=== PATIENT | female | born 1955 | race American Indian/Alaskan Native ===

== ENCOUNTER 2017-03-19 18:38 | Inpatient (IN) | payer OTHER ==
[2017-03-19 18:47] VITALS: BMI 31.2
--- NOTE | 2017-03-19 19:54 | PDOC ---
History of Present Illness <Souleymane Melgar - Last Filed: 03/19/17 20:07> - History of Present Illness Initial Comments: 03/19/17 20:09 61F w/ hx of DM (last a1c of 10.4) presenting with L heel and 1st toe ulcers. Pt reports that she first noticed an ingrown toenail on her L first toe about 8 weeks ago. It became infected, her whole foot swelled up, the nail was removed by her doctor, and she was given oral abx. This improved the swelling, but it did not completely heal. Meanwhile, she developed an ulcer on the medial aspect of her heel. She was given 3 different courses of abx for her symptoms, but they did not resolve her infection. Today, pt was sent by Dr. Price to ED for admission for IV abx. 03/19/17 20:30 03/19/17 20:35 03/19/17 21:24 <Eduardo Palencia - Last Filed: 03/19/17 21:25> - General Chief Complaint: Wound Infection Stated Complaint: PCP ADMIT Time Seen by Provider: 03/19/17 19:08 Past History <Souleymane Melgar - Last Filed: 03/19/17 20:07> - Past Medical History Diabetes: Yes Comment:: 03/19/17 20:13 PMH: DM PSH: tonsillectomy, b/l cataracts Meds: novolog, metformin, glipiride, gabapentin Allergies: PCN Fam Hx: DM Social Hx: denies toxic habits 03/19/17 20:31 - Psycho/Social/Smoking Cessation Hx Suicidal Ideation: No Smoking History: Never smoked Hx Alcohol Use: No Drug/Substance Use Hx: No <Eduardo Palencia - Last Filed: 03/19/17 21:25> - Past Medical History Allergies/Adverse Reactions: Allergies Allergy/AdvReac Type Severity Reaction Status Date / Time Penicillins Allergy Verified 03/19/17 18:48 Home Medications: Ambulatory Orders Ciprofloxacin [Cipro (Restricted To Id)] 500 mg PO Q12H 03/19/17 Gabapentin [Neurontin -] 300 mg PO Q8H 03/19/17 Glipizide [Glucotrol -] 5 mg PO BID@0700,1630 03/19/17 Insulin Aspart Prot/Insuln Asp [Novolog Mix 70-30 Flexpen Syrn] 38 unit SQ BID 03/19/17 Metformin HCl [Glucophage] 500 mg PO BID 03/19/17 Review of Systems - Review of Systems Comments:: 03/19/17 20:16 GENERAL: No fever, chills, night sweats, or weakness. HEAD, EYES, EARS, NOSE AND THROAT: No change in vision, ear pain, or sore throat CARDIOVASCULAR: No chest pain or palpitations RESPIRATORY: No cough, wheezing, or hemoptysis. GASTROINTESTINAL: No nausea, vomiting, diarrhea, constipation, or blood in the stool. GENITOURINARY: No dysuria, frequency, or urgency MUSCULOSKELETAL: + joint pain. SKIN: + rash ENDOCRINE: No increased thirst. No abnormal weight change NEUROLOGIC: No headache, dizziness, loss of consciousness, or change in strength /sensation. 03/19/17 20:31 <Eduardo Palencia - Last Filed: 03/19/17 21:25> *Physical Exam - Vital Signs Last Vital Signs Temp Pulse Resp BP Pulse Ox 98.2 F 90 16 174/82 97 03/19/17 18:44 03/19/17 18:44 03/19/17 18:44 03/19/17 18:44 03/19/17 18:44 <Souleymane Melgar - Last Filed: 03/19/17 20:07> - Vital Signs Last Vital Signs Temp Pulse Resp BP Pulse Ox 98.2 F 90 16 174/82 97 03/19/17 18:44 03/19/17 18:44 03/19/17 18:44 03/19/17 18:44 03/19/17 18:44 - Physical Exam Comments: 03/19/17 20:17 GENERAL: Awake, alert, and fully oriented, in no acute distress HEAD: normocephalic, atraumatic HEENT: PERRLA, EOMI, NECK: Normal ROM, supple, no lymphadenopathy, JVD, or masses HEART: tachyRegular rhythm, normal S1 and S2, no murmurs, rubs or gallops, peripheral pulses normal and equal bilaterally. LUNGS: CTAB, no wheezing, no rales ABDOMEN: Soft, nontender, nondistended, normoactive bowel sounds. No guarding, no rebound. No masses EXTREMITIES: 2cm x 2cm round ulcer on medial aspect of L heel, granulation tissue on top of it, no muscle or bone visible, with surrounding erythema. There is an ulcer on distal first toe toenail on left foot as well with desquamation of lateral toe with surrounding erythema, swelling until mid dorsum of foot, warm to touch. NEUROLOGICAL: Cranial nerves II through XII grossly intact. Normal speech, normal gait, decreased sensation to touch on both lower extremities L>R. 03/19/17 20:31 <Eduardo Palencia - Last Filed: 03/19/17 21:25> ED Treatment Course - RADIOLOGY Radiology Studies Ordered: Category Date Time Status CHEST X-RAY PORTABLE* [RAD] Stat Radiology 03/19/17 20:04 Ordered FOOT-LEFT [RAD] Stat Radiology 03/19/17 20:04 Ordered <Souleymane Melgar - Last Filed: 03/19/17 20:07> - LABORATORY CBC & Chemistry Diagram: 03/19/17 20:20 03/19/17 20:20 <Eduardo Palencia - Last Filed: 03/19/17 21:25> Medical Decision Making - Medical Decision Making 03/19/17 20:35 61F w/ hx of DM (last a1c of 10.4) presenting with L heel and 1st toe ulcers after 3 failed courses of oral antibiotics. 03/19/17 20:38 <Eduardo Palencia - Last Filed: 03/19/17 21:25> *DC/Admit/Observation/Transfer <Souleymane Melgar - Last Filed: 03/19/17 20:07> - Discharge Dispostion Admit: Yes Decision to Admit order Date/Time: 03/19/17 20:44 - Attestations Physician Attestion: 03/19/17 20:45 I, Dr. Eduardo Palencia, attest that this document has been prepared under my direction and personally reviewed by me in its entirety. I further attest, that it accurately reflects all work, treatment, procedures and medical decision -making performed by me. <Eduardo Palencia - Last Filed: 03/19/17 21:25> Diagnosis at time of Disposition: Diabetic ulcer of heel Qualifiers: Diabetes mellitus type: type 2 Laterality: left Non-pressure ulcer stage: unspecified non-pressure ulcer stage Qualified Code(s): E11.621 - Type 2 diabetes mellitus with foot ulcer - Discharge Dispostion Condition at time of disposition: Stable
--- NOTE | 2017-03-19 19:57 | PDOC ---
Attending Attestation - Resident Resident Name: Eduardo Palencia - ED Attending Attestation I have performed the following: I have examined & evaluated the patient, The case was reviewed & discussed with the resident, I agree w/resident's findings & plan, Exceptions are as noted - HPI HPI: 03/19/17 19:55 admission for Diabetic ulcer - Medical Decision Making 03/19/17 19:56 Pt be admitted to IV Abx. for Left foot ulcer <Souleymane Melgar - Last Filed: 03/19/17 19:55> - Physicial Exam PE: 03/19/17 20:16 GENERAL: Well developed, well nourished. Awake and alert. In no acute distress. HEENT: Normocephalic, atraumatic. PERRLA, EOMI. No conjunctival pallor. Sclerae are non -icteric. Moist mucous membranes. Oropharynx is clear. NECK: Supple. Full ROM. No JVD. Carotid pulses 2+ and symmetric, without bruits. No thyromegaly. No lymphadenopathy. CARDIOVASCULAR: Regular rate and rhythm. No murmurs, rubs, or gallops. Distal pulses are 2+ and symmetric. PULMONARY: No evidence of respiratory distress. Lungs clear to auscultation bilaterally. No wheezing, rales or rhonchi. ABDOMINAL: Soft. Non-tender. Non-distended. No rebound or guarding. No organomegaly. Normoactive bowel sounds. MUSCULOSKELETAL Normal range of motion at all joints. No bony deformities or tenderness. No CVA tenderness. EXTREMITIES: No cyanosis. No clubbing. No edema. No calf tenderness. SKIN: +Open wound to the medial aspect of the L heel with surrounding erythema which is minimally tender but has no serous fluid drainage. +The L big toe has small punctate wound that is slightly tender and slightly erythematous with drainage of yellow serous fluid. Skin break down of the surrounding tissue on the medial aspect of the L big toe. No drainage or erythema. Normal capillary refill. No rashes. No jaundice. NEUROLOGICAL: Alert, awake, appropriate. Cranial nerves 2-12 intact. No deficits to light touch and temperature in face, upper extremities and lower extremities. No motor deficits in the in face, upper extremities and lower extremities. Normoreflexic in the upper and lower extremities. Normal speech. Toes are downgoing bilaterally. Gait is normal without ataxia. PSYCHIATRIC: Cooperative. Good eye contact. Appropriate mood and affect. - Medical Decision Making 03/19/17 20:03-- Dr. Price paged via phone answering service. Patient's case was discussed. Documentation prepared by Jeanna Alcantara, acting as medical health researcher for Souleymane Melgar DO. <Jeanna Alcantara - Last Filed: 03/19/17 20:16>
[2017-03-19 20:35] LABS: BASOPHIL 0.5 % (0-2.0); MCH 24.1 pg (25.7-33.7); MCHC 32.3 g/dl (32.0-36.0); MEAN CELL VOLUME 74.6 fl (80-96); MEAN PLT VOLUME 8.5 fl (7.5-11.1); NEUTROPHILS 70.8 % (42.8-82.8); PLATELET COUNT 339 K/MM3 (134-434); RDW 15.7 % (11.6-15.6)
[2017-03-19 20:45] LABS: INR 1.02 (0.82-1.09); PROTHROMBIN TIME (PATIENT) 11.2 SEC (9.98-11.88)
[2017-03-19 21:02] LABS: ALBUMIN 3.2 g/dl (3.4-5.0); ANION GAP 6 (8-16); BILIRUBIN,TOTAL 0.2 mg/dL (0.2-1.0); CALCIUM 9.1 mg/dL (8.5-10.1); CO2 25 mmol/L (21-32); CREATININE 1.2 mg/dL (0.55-1.02); MAGNESIUM 2.1 mg/dL (1.8-2.4); SGOT/AST 16 U/L (15-37); SGPT/ALT 40 U/L (12-78); TOT PROT 7.1 g/dl (6.4-8.2)
[2017-03-19 21:03] LABS: ALK PHOS 90 U/L (45-117)
[2017-03-19 21:08] LABS: GLUCOSE,RANDOM 360 mg/dL (74-106)
[2017-03-19] MEDS ORDERED: VANCOMYCIN 1 GRAM (PRE-DOCKED) 1,000 MG/250 ML BAG IVPB ONE (21:13)
[2017-03-19] MEDS ORDERED: IMIPENEM/CILASTATIN SODIUM 1,000 MG in SODIUM CHLORIDE 100 ML IV ONE (21:18)
[2017-03-19] MEDS ORDERED: VANCOMYCIN 1 GRAM (PRE-DOCKED) 250 ML IVPB ONE (21:29)
[2017-03-19] MEDS ORDERED: morphine CARPU-JECT 2 MG/1 ML DISP.SYRIN IVPUSH ONE (21:34)
[2017-03-19] MEDS ORDERED: ONDANSETRON 4 MG/2 ML VIAL IVPUSH STA (21:35)
[2017-03-19] MEDS ORDERED: morphine CARPU-JECT 4 MG/1 ML DISP.SYRIN ONE (21:38)
[2017-03-19] MEDS ORDERED: ONDANSETRON 4 MG/2 ML VIAL ONE (21:39)
[2017-03-19] MEDS ORDERED: INSULIN REGULAR HUMAN 100 UNITS/ML *VIAL IVPUSH ONE (23:09)
[2017-03-19 23:43] LABS: URINE APPEARANCE SLCLOUDY; URINE BILIRUBIN NEGATIVE (NEGATIVE); URINE BLOOD 1+ (NEGATIVE); URINE COLOR STRAW; URINE GLUCOSE (UA) 3+ (NEGATIVE); URINE KETONE NEGATIVE (NEGATIVE); URINE NITRITE NEGATIVE (NEGATIVE); URINE UROBILINOGEN NEGATIVE mg/dL (0.2-1.0)
[2017-03-19 23:49] LABS: URINE LEUK ESTERASE 3+ (NEGATIVE); URINE PROTEIN 2+ (NEGATIVE)
[2017-03-20 00:28] LABS: URINE BACTERIA RARE /hpf (NONE SEEN); URINE MUCUS RARE; URINE RBC 8 /hpf (0-3); URINE WBC 36 /hpf (3-5)
[2017-03-20] MEDS ORDERED: ONDANSETRON 4 MG/2 ML VIAL IVPB PRN (01:36)
[2017-03-20] MEDS: ACETAMINOPHEN 325 MG TABLET (FP) PO PRN ×3 (02:26→22:22)
[2017-03-20] MEDS: glipiZIDE 5 MG TABLET (FP) PO SCH ×2 (06:25→16:49)
[2017-03-20] MEDS: metFORMIN HCL 500 MG TABLET (FP) PO SCH ×2 (06:25→16:49)
[2017-03-20] MEDS: GABAPENTIN 300 MG CAPSULE (FP) PO SCH ×5 (06:25→22:18)
[2017-03-20] MEDS: INSULIN (NOVOLOG MIX 70/30) 100 UNITS/ML MDV SQ SCH ×2 (06:29→17:47)
[2017-03-20] MEDS ORDERED: INSULIN DETEMIR 100 UNITS/ML MDV SQ ONE (07:40)
[2017-03-20] MEDS ORDERED: INSULIN (NOVOLOG) ASPART 100 UNITS/ML 10ML VIAL ONE (07:40)
[2017-03-20] MEDS ORDERED: INSULIN (NOVOLOG MIX 70/30) 100 UNITS/ML MDV SQ ONE ×2 (07:40→16:33)
[2017-03-20] MEDS ORDERED: ACETAMINOPHEN 325 MG TABLET (FP) PO PRN (09:15)
[2017-03-20] MEDS ORDERED: oxyCODONE HCL 5 MG TABLET PO PRN (09:15)
--- NOTE | 2017-03-20 09:27 | HP ---
DATE OF ADMISSION: 03/19/2017 DATE OF DICTATION: 03/20/2017 HISTORY OF PRESENT ILLNESS: This is a 61-year-old woman known to have diabetes on insulin, hypertension, for the last one month having ulcer and infection on her left foot. In spite of antibiotics, wound was not getting better. So, she was advised to hospitalization. She was complaining also of pain in the foot. PHYSICAL EXAMINATION: Vital signs: Today, her blood pressure is 140/80, pulse 75, respirations 20, temperature 98. HEENT: Unremarkable. Neck: Supple. No JVD. Lungs: Clear. Heart: S1, S2 normal. No S3, S4. Abdomen: Soft. Legs: No edema. Neurological: Grossly normal. Skin: Left foot has an ulcer on the medial aspect of the foot 1 inch x 1 inch with slough. Also, the left big toe has infection. LABORATORY REPORTS: WBC 9, hemoglobin 11.2, hematocrit 34. Chemistry: Sodium 139, potassium 4.9, chloride 108, CO2 of 25, BUN 42, creatinine 1.2, blood sugar 360, albumin 3.2 Chest x-ray negative. X-ray of the foot with no osteomyelitis. IMPRESSION: Ulcer, left foot, and uncontrolled diabetes. PLAN: IV antibiotics, ID consult, bone care consult. Will control the blood sugar. VIRGEN TAYLOR M.D. [id number]
--- NOTE | 2017-03-20 11:55 | EKG ---
Test Reason : Blood Pressure : / mmHG Vent. Rate : 078 BPM Atrial Rate : 078 BPM P-R Int : 154 ms QRS Dur : 072 ms QT Int : 368 ms P-R-T Axes : 049 000 067 degrees QTc Int : 419 ms NORMAL SINUS RHYTHM RSR' IN V1-V2 SLOW R WAVE PROGRESSION V1-V3 T WAVE INVERSION IN aVL NO PREVIOUS ECGS AVAILABLE CORRELATE CLINICALLY AND REPEAT INDICATED Confirmed by SHEIKH KALYN, TRISH ([id number] on 03/20/2017 11:54:33 AM Referred By: Confirmed By:TRISH MCHUGH MD
--- NOTE | 2017-03-20 12:05 | CONSULT ---
Consult Consult Specialty:: Vascular Surgery - History of Present Illness History of Present Illness: 61 year old woman DM with neuropathy with non-healing wounds of left 1st toe and medial ankle area for several weeks. She denies a history of PAD. She does not smoke. - History Source History Provided By: Patient, Medical Record - Past Medical History Endocrine: Yes: Diabetes Mellitus - Alcohol/Substance Use Hx Alcohol Use: No - Smoking History Smoking history: Never smoked Home Medications - Allergies Allergies/Adverse Reactions: Allergies Allergy/AdvReac Type Severity Reaction Status Date / Time Penicillins Allergy Verified 03/19/17 18:48 - Home Medications Home Medications: Ambulatory Orders Ciprofloxacin [Cipro (Restricted To Id)] 500 mg PO Q12H 03/19/17 Gabapentin [Neurontin -] 300 mg PO Q8H 03/19/17 Glipizide [Glucotrol -] 5 mg PO BID@0700,1630 03/19/17 Insulin Aspart Prot/Insuln Asp [Novolog Mix 70-30 Flexpen Syrn] 38 unit SQ BID 03/19/17 Metformin HCl [Glucophage] 500 mg PO BID 03/19/17 Physical Exam Vital Signs: Vital Signs Temperature 97.5 F L 03/20/17 06:00 Pulse Rate 75 03/20/17 06:00 Respiratory Rate 75 H 03/20/17 06:00 Blood Pressure 122/49 03/20/17 06:00 O2 Sat by Pulse Oximetry (%) 98 03/20/17 00:00 Constitutional: Yes: No Distress Eyes: Yes: EOM Intact HENT: Yes: WNL Neck: Yes: Supple Cardiovascular: Yes: Regular Rate and Rhythm Respiratory: Yes: Regular Gastrointestinal: Yes: Soft Peripheral Pulses WNL: No (No palpable popliteal or pedal pulse left foot) Wound/Incision: Yes: Other (Left medial ankle ulcer with fibrin and exudate at base. 1st toe with necrosis of skin at tip of toe.) Imaging - Results Ultrasound: Image Reviewed (Diminished flow into left tibial arteries.) Problem List - Problems (1) Diabetes mellitus with neuropathy Code(s): E11.40 - TYPE 2 DIABETES MELLITUS WITH DIABETIC NEUROPATHY, UNSP Qualifiers: Diabetes mellitus type: type 2 Diabetes mellitus skilled nursing insulin use : with exterminator helper use Qualified Code(s): E11.40 - Type 2 diabetes mellitus with diabetic neuropathy, unspecified; Z79.4 - intermediate manager (current) use of insulin (2) Atherosclerosis of [place] arteries of extremities with gangrene, left leg Assessment/Plan: Non-healing wound of left ankle and toes with calcified vessels in ankle and foot. Renal insufficiecny will hamper evaluation and treatment due to risk of contrast-induced nephropathy. Renal evaluation requested before deciding on plans. Code(s): I70.262 - ATHSCL [place] ARTERIES OF EXTREMITIES W GANGRENE, LEFT LEG
[2017-03-20] MEDS: INSULIN SLIDING SCALE (NOVOLOG) 1 VIAL SQ SCH ×3 (12:08→22:16)
--- NOTE | 2017-03-20 13:41 | CONSULT ---
Consultation: REQUESTING PROVIDER: CONSULT REQUEST: We have been asked to medically evaluate this patient for ( nephro). HISTORY OF PRESENT ILLNESS: 61F w/ hx of DM (last a1c of 10.4) was sent to ED by her pcp for IV antibiotics for non heeling ulcer on L heel and 1st toe ulcers. Pt reports that she has first noticed an ingrown toenail on her L first toe about 2 months ago. And later on she developed a ulcer on her left heel. She states that in 2month she has taken a multiple courses on antibiotics but ulcer never healed. She also reports a serous like discharge from her toe ulcer and yellow slough on heel ulcer. She doesn't remember any trauma to feet, she does reports peripheral neuropathy which was diagnosed in 2015. She states she has mild pain in her leg since. Denies any foul smell from ulcer. Denies in burning micturation, denies any change in frequency, denies any urinary obstruction. Denies taking motrin, advil, naproxen In hospital patient found to have creatinine of 1.2. Patient states that after getting IV antibiotics her discharge from ulcers decreased. REVIEW OF SYSTEMS: CONSTITUTIONAL: Absent: fever, chills, diaphoresis, generalized weakness, HEENT: Absent: rhinorrhea, nasal congestion, throat pain, CARDIOVASCULAR: Absent: chest pain, syncope, palpitations, irregular heart rate, RESPIRATORY: Absent: cough, shortness of breath, dyspnea with exertion, GASTROINTESTINAL: Absent: abdominal pain, abdominal distension, nausea, vomiting, diarrhea, constipation, GENITOURINARY: Absent: dysuria, frequency, urgency, hesitancy, hematuria, flank pain, genital pain Absent: anxiety, depression, PHYSICAL EXAMINATION Vital Signs - 24 hr 03/19/17 03/20/17 03/20/17 22:53 00:00 06:00 Temperature 97.4 F L 97.5 F L Pulse Rate 75 75 Pulse Rate [ 80 Radial] Respiratory 16 18 75 H Rate Blood Pressure 147/58 122/49 Blood Pressure 134/67 [Right Arm] O2 Sat by Pulse 100 98 Oximetry (%) GENERAL: Awake, alert, and fully oriented, in no acute distress. HEAD: Normal with no signs of trauma. EARS, NOSE, THROAT: Moist mucous membranes. NECK: Normal range of motion, supple without lymphadenopathy, JVD, or masses. LUNGS: Breath sounds equal, clear to auscultation bilaterally. No wheezes, and no crackles. No accessory muscle use. HEART: Regular rate and rhythm, normal S1 and S2 ABDOMEN: Soft, nontender, not distended, normoactive bowel sounds, no guarding, no rebound, UPPER EXTREMITIES: 2+ pulses, warm, well-perfused. No cyanosis. LOWER EXTREMITIES: Pulses not palpable on left foot. No calf tenderness. No peripheral edema. Open wound to the medial aspect of the L heel with surrounding slough present on ulcer. The L big toe some necrtic skin present around ulcer. No active discharge from ulcer Laboratory Results - last 24 hr 03/20/17 03/20/17 03/20/17 02:30 06:28 08:05 POC Glucometer 148 145 Blood Type AB NEGATIVE Antibody Screen Negative 03/20/17 03/20/17 10:43 12:07 POC Glucometer 62 Blood Type AB NEGATIVE Antibody Screen Active Medications Generic Name Dose Route Start Last Admin Trade Name Freq PRN Reason Stop Dose Admin Acetaminophen 650 mg 03/20/17 02:04 03/20/17 08:25 Tylenol - PO 650 mg Q6H PRN Administration FEVER OR PAIN Acetaminophen 650 mg 03/20/17 09:15 Tylenol - PO Q6H PRN PAIN 6-10 Gabapentin 300 mg 03/20/17 06:00 03/20/17 06:25 Neurontin - PO 300 mg TID GLENN Administration Glipizide 5 mg 03/20/17 07:00 03/20/17 06:25 Glucotrol - PO 5 mg BIDI GLENN Administration Sodium Chloride 1,000 mls @ 75 mls/hr 03/20/17 13:45 Normal Saline - IV ASDIR GLENN Insulin Aspart 38 units 03/20/17 07:00 03/20/17 06:29 Novolog Mix 70/30 Vial SQ 38 units BIDI GLENN Administration Insulin Aspart 1 vial 03/20/17 11:00 03/20/17 12:08 Novolog Vial Sliding Scale - SQ Not Given ACHS [facility] Protocol Metformin HCl 500 mg 03/20/17 07:00 03/20/17 06:25 Glucophage - PO 500 mg BIDI GLENN Administration Ondansetron HCl 4 mg 03/20/17 01:36 Zofran Injection IVPB Q6H PRN NAUSEA AND/OR VOMITING Oxycodone HCl 10 mg 03/20/17 09:15 Roxicodone - PO Q6H PRN PAIN 6-10 CBCD WBC 9.0 K/mm3 (4.0-10.0) 03/19/17 20:20 RBC 4.66 M/mm3 (3.60-5.2) 03/19/17 20:20 Hgb 11.2 GM/dL (10.7-15.3) 03/19/17 20:20 Hct 34.7 % (32.4-45.2) 03/19/17 20:20 MCV 74.6 fl (80-96) L 03/19/17 20:20 MCHC 32.3 g/dl (32.0-36.0) 03/19/17 20:20 RDW 15.7 % (11.6-15.6) H 03/19/17 20:20 Plt Count 339 K/MM3 (134-434) 03/19/17 20:20 MPV 8.5 fl (7.5-11.1) 03/19/17 20:20 CMP Sodium 139 mmol/L (136-145) 03/19/17 20:20 Potassium 4.9 mmol/L (3.5-5.1) 03/19/17 20:20 Chloride 108 mmol/L (98-107) H 03/19/17 20:20 Carbon Dioxide 25 mmol/L (21-32) 03/19/17 20:20 Anion Gap 6 (8-16) L 03/19/17 20:20 BUN 42 mg/dL (7-18) H 03/19/17 20:20 Creatinine 1.2 mg/dL (0.55-1.02) H 03/19/17 20:20 Creat Clearance w eGFR 45.37 (>60) 03/19/17 20:20 Random Glucose 360 mg/dL (74-106) H* 03/19/17 20:20 Calcium 9.1 mg/dL (8.5-10.1) 03/19/17 20:20 Total Bilirubin 0.2 mg/dL (0.2-1.0) 03/19/17 20:20 AST 16 U/L (15-37) 03/19/17 20:20 ALT 40 U/L (12-78) 03/19/17 20:20 Alkaline Phosphatase 90 U/L (45-117) 03/19/17 20:20 Total Protein 7.1 g/dl (6.4-8.2) 03/19/17 20:20 Albumin 3.2 g/dl (3.4-5.0) L 03/19/17 20:20 ASSESSMENT/PLAN: PAOLO DM with neuropathy. Diabetic ulcer/ arterial ulcer on left foot. Plan: Get UA electrolytes, pro:creat, Get renal USG Start IV fluid 75ml/hr. Monitor renal function. Monitor Intake and output. Avoid nephrotoxic drugs NSAID Monitor and control blood sugar. will give her NAC 1200bid for two days Patient got one dose of imipenem and vanco in ED Dispo: We will continue to follow the patient. Thank you for this consultative opportunity. Visit type - Emergency Visit Emergency Visit: Yes ED Registration Date: 03/19/17 Care time: The patient presented to the Emergency Department on the above date and was hospitalized for further evaluation of their emergent condition. - New Patient This patient is new to me today: Yes Date on this admission: 03/20/17 - Critical Care Critical Care patient: No
[2017-03-20] MEDS ORDERED: ERTAPENEM SODIUM IVPB SCH (14:30)
--- NOTE | 2017-03-20 14:30 | CONSULT ---
Consult Consult Specialty:: infectious diseases Referred by:: Reason for Consultation:: no healing ulcer of the foot - History of Present Illness Chief Complaint: non healing ulcer History of Present Illness: 61F w/ hx of DM presenting with L heel and 1st toe ulcers. Pt reports that she first noticed an ingrown toenail on her L first toe about 8 weeks ago. It became infected, her whole foot swelled up, the nail was removed by her doctor, and she was given oral abx. This improved the swelling, but it did not completely heal. Meanwhile, she developed an ulcer on the medial aspect of her heel. She was given 3 different courses of abx for her symptoms, but they did not resolve her infection. Today, pt was sent by Dr. Price to ED for admission for IV abx. patient mentios that her ulcer was discharging yellowish liquid and since she was given abx iv the ulcer has stopped draining patient current feels well - History Source History Provided By: Patient Limitations to Obtaining History: No Limitations - Past Medical History Endocrine: Yes: Diabetes Mellitus - Alcohol/Substance Use Hx Alcohol Use: No - Smoking History Smoking history: Never smoked Home Medications - Allergies Allergies/Adverse Reactions: Allergies Allergy/AdvReac Type Severity Reaction Status Date / Time Penicillins Allergy Verified 03/19/17 18:48 - Home Medications Home Medications: Ambulatory Orders Ciprofloxacin [Cipro (Restricted To Id)] 500 mg PO Q12H 03/19/17 Gabapentin [Neurontin -] 300 mg PO Q8H 03/19/17 Glipizide [Glucotrol -] 5 mg PO BID@0700,1630 03/19/17 Insulin Aspart Prot/Insuln Asp [Novolog Mix 70-30 Flexpen Syrn] 38 unit SQ BID 03/19/17 Metformin HCl [Glucophage] 500 mg PO BID 03/19/17 Review of Systems - Review of Systems Constitutional: reports: No Symptoms Eyes: reports: No Symptoms HENT: reports: No Symptoms Neck: reports: No Symptoms Cardiovascular: reports: No Symptoms Respiratory: reports: No Symptoms Gastrointestinal: reports: No Symptoms Genitourinary: reports: No Symptoms Musculoskeletal: reports: Joint Pain Integumentary: reports: Wound (no healing left foot malleolus) Neurological: reports: No Symptoms Endocrine: reports: No Symptoms Hematology/Lymphatic: reports: No Symptoms Psychiatric: reports: No Symptoms Physical Exam Vital Signs: Vital Signs Temperature 97.5 F L 03/20/17 06:00 Pulse Rate 75 03/20/17 06:00 Respiratory Rate 75 H 03/20/17 06:00 Blood Pressure 122/49 03/20/17 06:00 O2 Sat by Pulse Oximetry (%) 98 03/20/17 00:00 Constitutional: Yes: No Distress, Calm HENT: Yes: Atraumatic Cardiovascular: Yes: Regular Rate and Rhythm Respiratory: Yes: Regular, CTA Bilaterally Gastrointestinal: Yes: Normal Bowel Sounds, Soft Musculoskeletal: Yes: Other Extremities: Yes: Other (no healing ulcer of the left foot at the malleolus great toe ulcer) Peripheral Pulses WNL: No (left post tibial and pedal) Integumentary: Yes: Other Wound/Incision: Yes: Dressing Dry and Intact, Other Neurological: Yes: Alert, Oriented Psychiatric: Yes: Alert, Oriented Imaging - Results X-ray: Report Reviewed, Image Reviewed Assessment/Plan Problems (1) Diabetes mellitus with neuropathy Code(s): E11.40 - TYPE 2 DIABETES MELLITUS WITH DIABETIC NEUROPATHY, UNSP (2) Atherosclerosis of [place] arteries of extremities with gangrene, left leg Code(s): I70.262 - ATHSCL [place] ARTERIES OF EXTREMITIES W GANGRENE, LEFT LEG plan will change abx to ertapenam will need vascular workup vascular on case await for cx rest as per primary
[2017-03-20] MEDS: SODIUM CHLORIDE 1,000 ML IV SCH (15:32)
[2017-03-20] MEDS ORDERED: ACETYLCYSTEINE 20% 200MG/ML 4 ML VIAL *FOR ORAL / INH USE ONLY PO SCH (15:45)
--- NOTE | 2017-03-20 16:01 | CON.NEP ---
Consult Consult Specialty:: Nephrology (Marky/Calos) Referred by:: Dr. Lowe Reason for Consultation:: PAOLO/CKD MARK prophylaxis - History of Present Illness Chief Complaint: Foot ulcer History of Present Illness: This is a 61 year old woman with PMhx of IDDM (poorly controlled), with diabetic neuropathy who presented with non-healing ulcer on LE and found to have diminished peripheral pulses and BUN/Cr of 42/1.2. Pt denies any Hx of CKD. Denies any NSAID use recently. No recent contrast exposure. Denies any kidney stones, blood in urine. - History Source History Provided By: Patient Limitations to Obtaining History: No Limitations - Past Medical History Endocrine: Yes: Diabetes Mellitus - Alcohol/Substance Use Hx Alcohol Use: No - Smoking History Smoking history: Never smoked Home Medications - Allergies Allergies/Adverse Reactions: Allergies Allergy/AdvReac Type Severity Reaction Status Date / Time Penicillins Allergy Verified 03/19/17 18:48 - Home Medications Home Medications: Ambulatory Orders Ciprofloxacin [Cipro (Restricted To Id)] 500 mg PO Q12H 03/19/17 Gabapentin [Neurontin -] 300 mg PO Q8H 03/19/17 Glipizide [Glucotrol -] 5 mg PO BID@0700,1630 03/19/17 Insulin Aspart Prot/Insuln Asp [Novolog Mix 70-30 Flexpen Syrn] 38 unit SQ BID 03/19/17 Metformin HCl [Glucophage] 500 mg PO BID 03/19/17 Family Disease History - Family Disease History Family History: Unremarkable Review of Systems - Review of Systems Constitutional: reports: No Symptoms Eyes: reports: No Symptoms HENT: reports: No Symptoms Neck: reports: No Symptoms Cardiovascular: reports: No Symptoms Respiratory: reports: No Symptoms Gastrointestinal: reports: No Symptoms Genitourinary: reports: No Symptoms Musculoskeletal: reports: Other (ulcer) Integumentary: reports: Erythema, Wound Neurological: reports: No Symptoms Endocrine: reports: No Symptoms Nephrology Consult - Height Height: 5 ft - Weight Weight: 160 lb - BMI Body Mass Index (BMI): 31.2 - Lab Results Anion Gap: Anion Gap Anion Gap 6 (8-16) L 03/19/17 20:20 - Imaging Chest X-ray: Report Reviewed - Physical Examination Vital Signs: Vital Signs Temperature 97.7 F 03/20/17 14:59 Pulse Rate 83 03/20/17 14:59 Respiratory Rate 18 03/20/17 14:59 Blood Pressure 155/69 03/20/17 14:59 O2 Sat by Pulse Oximetry (%) 98 03/20/17 00:00 Problem List - Problems (1) Diabetes mellitus with neuropathy Code(s): E11.40 - TYPE 2 DIABETES MELLITUS WITH DIABETIC NEUROPATHY, UNSP (2) Diabetic ulcer of heel Code(s): E11.621 - TYPE 2 DIABETES MELLITUS WITH FOOT ULCER L97.409 - NON-PRS CHRONIC ULCER OF UNSP HEEL AND MIDFOOT W UNSP SEVERT Qualifiers: Diabetes mellitus type: type 2 Laterality: left Non-pressure ulcer stage: unspecified non-pressure ulcer stage Qualified Code(s): E11.621 - Type 2 diabetes mellitus with foot ulcer; L97.409 - Non-pressure chronic ulcer of unspecified heel and midfoot with unspecified severity (3) PAOLO (acute kidney injury) Code(s): N17.9 - ACUTE KIDNEY FAILURE, UNSPECIFIED (4) CKD (chronic kidney disease) Code(s): N18.9 - CHRONIC KIDNEY DISEASE, UNSPECIFIED (5) Wound abscess Code(s): T81.4XXA - INFECTION FOLLOWING A PROCEDURE, INITIAL ENCOUNTER Assessment/Plan 61 year old woman with PMhx of IDDM (poorly controlled), with diabetic neuropathy who presented with non-healing ulcer on LE and found to have diminished peripheral pulses and BUN/Cr of 42/1.2. #PAOLO vs. CKD High BUN/Cr ratio supportive of pre-renal state Check Urine studies for FeNa, UCPR Check renal US to access kidney size and structure Trial of IVF hydration with isotonic saline #Contrast Nephropathy risk stratification and prophylaxis Based on MARK calculator developed by Juan et al pt with 12% risk of MARK (> 25 % rise in serum Cr) and 0.1% risk of needed [employer] post contrast exposure These risks were explained to the patient will start Isotoinc saline at 75cc per hour start mucomyst 1200mg PO BID today and tomorrow Avoid IV lasix, nsaids prior to contrast exposure Check BUN/Cr in AM #PVD/DM management per primary and vascular Pt seen with the medical lab director, agree with his examination and plan Del Live DO
[2017-03-20 21:15] LABS: URINE CREATININE 35.4 mg/dL (20-320)
[2017-03-21] MEDS ORDERED: ACETYLCYSTEINE 20% 200MG/ML 4 ML VIAL *FOR ORAL / INH USE ONLY PO SCH (02:47)
[2017-03-21] MEDS: ACETYLCYSTEINE 20% 200MG/ML 4 ML VIAL *FOR ORAL / INH USE ONLY PO SCH ×2 (03:49→13:37)
[2017-03-21] MEDS: metFORMIN HCL 500 MG TABLET (FP) PO SCH ×2 (06:25→17:01)
[2017-03-21] MEDS: glipiZIDE 5 MG TABLET (FP) PO SCH ×2 (06:25→17:00)
[2017-03-21] MEDS: SODIUM CHLORIDE 1,000 ML IV SCH ×2 (06:25→14:46)
[2017-03-21] MEDS: GABAPENTIN 300 MG CAPSULE (FP) PO SCH ×3 (06:25→21:33)
[2017-03-21] MEDS: INSULIN (NOVOLOG MIX 70/30) 100 UNITS/ML MDV SQ SCH ×2 (06:31→17:01)
[2017-03-21] MEDS: INSULIN SLIDING SCALE (NOVOLOG) 1 VIAL SQ SCH ×4 (06:31→21:22)
[2017-03-21 07:57] LABS: CALCIUM 8.7 mg/dL (8.5-10.1)
[2017-03-21 08:01] LABS: ANION GAP 8 (8-16); CO2 24 mmol/L (21-32); CREATININE 0.8 mg/dL (0.55-1.02); GLUCOSE,RANDOM 82 mg/dL (74-106)
--- NOTE | 2017-03-21 08:41 | PN ---
Physical Exam: Nephrology follow up. SUBJECTIVE: Patient seen and examined. Sitting comfortably in chair. Denies chest pain, sob, swelling in legs. Her creatinine has improved after IV fluid. Blood pressure is elevated, goal to keep it below 140/90. Urine prot:cr ratio 3.8 FeNa 3.3 OBJECTIVE: Vital Signs Period Temp Pulse Resp BP Sys/Ko Pulse Ox Last 24 Hr 97.5 F-98.3 F 77-88 16-20 142-162/52-72 98-100 GENERAL: Awake, alert, and fully oriented, in no acute distress. HEAD: Normal with no signs of trauma. EARS, NOSE, THROAT: Moist mucous membranes. NECK: Normal range of motion, supple without lymphadenopathy, JVD, or masses. LUNGS: Breath sounds equal, clear to auscultation bilaterally. No wheezes, and no crackles. No accessory muscle use. HEART: Regular rate and rhythm, normal S1 and S2 ABDOMEN: Soft, nontender, not distended, normoactive bowel sounds, no guarding, no rebound, UPPER EXTREMITIES: 2+ pulses, warm, well-perfused. No cyanosis. LOWER EXTREMITIES: Pulses not palpable on left foot. No calf tenderness. No peripheral edema. Open wound to the medial aspect of the L heel with surrounding slough present on ulcer. The L big toe some necrtic skin present around ulcer. No active discharge from ulcer Laboratory Results - last 24 hr 03/20/17 03/20/17 03/20/17 08:05 10:43 12:07 Sodium Potassium Chloride Carbon Dioxide Anion Gap BUN Creatinine POC Glucometer 62 Random Glucose Calcium Urine Protein U Random Total Protein Ur Random Sodium Ur Random Potassium Ur Random Chloride Urine Creatinine Protein/Creatinin Ratio Blood Type AB NEGATIVE AB NEGATIVE Antibody Screen Negative 03/20/17 03/20/17 03/20/17 16:48 18:30 22:16 Sodium Potassium Chloride Carbon Dioxide Anion Gap BUN Creatinine POC Glucometer 174 75 Random Glucose Calcium Urine Protein 136 U Random Total Protein 136 H Ur Random Sodium 135 Ur Random Potassium 33.7 Ur Random Chloride 146 Urine Creatinine 35.4 Protein/Creatinin Ratio 3.8 Blood Type Antibody Screen 03/21/17 03/21/17 06:10 06:27 Sodium 142 Potassium 4.5 Chloride 110 H Carbon Dioxide 24 Anion Gap 8 BUN 24 H D Creatinine 0.8 D POC Glucometer 89 Random Glucose 82 D Calcium 8.7 Urine Protein U Random Total Protein Ur Random Sodium Ur Random Potassium Ur Random Chloride Urine Creatinine Protein/Creatinin Ratio Blood Type Antibody Screen Active Medications Generic Name Dose Route Start Last Admin Trade Name Freq PRN Reason Stop Dose Admin Acetaminophen 650 mg 03/20/17 02:04 03/20/17 22:22 Tylenol - PO 650 mg Q6H PRN Administration FEVER OR PAIN Acetaminophen 650 mg 03/20/17 09:15 Tylenol - PO Q6H PRN PAIN 6-10 Acetylcysteine 1,200 mg 03/21/17 03:45 03/21/17 03:49 Mucomyst 20 Oral / Inh Use Only* PO 03/21/17 22:01 1,200 mg BID [facility] Administration Gabapentin 300 mg 03/20/17 06:00 03/21/17 06:25 Neurontin - PO 300 mg TID [facility] Administration Glipizide 5 mg 03/20/17 07:00 03/21/17 06:25 Glucotrol - PO 5 mg BIDI [facility] Administration Sodium Chloride 1,000 mls @ 75 mls/hr 03/20/17 13:45 03/21/17 06:25 Normal Saline - IV 75 mls/hr ASDIR [facility] Administration Ertapenem 50 mls @ 100 mls/hr 03/20/17 14:30 03/20/17 16:49 Invanz (Pre-Docked) IVPB 100 mls/hr DAILY [facility] Administration Protocol Insulin Aspart 38 units 03/20/17 07:00 03/21/17 06:31 Novolog Mix 70/30 Vial SQ Not Given BIDI [facility] Insulin Aspart 1 vial 03/20/17 11:00 03/21/17 06:31 Novolog Vial Sliding Scale - SQ Not Given ACHS [facility] Protocol Metformin HCl 500 mg 03/20/17 07:00 03/21/17 06:25 Glucophage - PO 500 mg BIDI [facility] Administration Ondansetron HCl 4 mg 03/20/17 01:36 Zofran Injection IVPB Q6H PRN NAUSEA AND/OR VOMITING Oxycodone HCl 10 mg 03/20/17 09:15 Roxicodone - PO Q6H PRN PAIN 6-10 ASSESSMENT/PLAN: PAOLO on CKD. DM with neuropathy. Diabetic ulcer/ arterial ulcer on left foot. HTN. Plan Continue with IV fluid to prevent MARK. Sr cr improved from 1.2 to 0.8, FeNa 3.3 Patient got 2 doses of NAC and will get 2 more. Stop after total of 4 doses. Monitor and control blood sugar, goal HBa1c <7 Monitor and control BP goal <140/90. Protein urea can be from diabetic nephropathy. Monitor intake and output. Antibiotics as per ID. vascular surgery on case. Consider starting her on otilia inhibitors after work up for peripheral vascular ds is completed. Discussed with Dr. Price Visit type - Emergency Visit Emergency Visit: Yes ED Registration Date: 03/19/17 Care time: The patient presented to the Emergency Department on the above date and was hospitalized for further evaluation of their emergent condition. - New Patient This patient is new to me today: No - Critical Care Critical Care patient: No
--- NOTE | 2017-03-21 09:08 | PN ---
Progress Note, Physician History of Present Illness: Case discussed with Margot [facility] medical program specialist Got mucomist before angiogram - Current Medication List Current Medications: Active Medications Acetaminophen (Tylenol -) 650 mg PO Q6H PRN PRN Reason: FEVER OR PAIN Last Admin: 03/20/17 22:22 Dose: 650 mg Acetaminophen (Tylenol -) 650 mg PO Q6H PRN PRN Reason: PAIN 6-10 Acetylcysteine (Mucomyst 20 Oral / Inh Use Only*) 1,200 mg PO BID [facility] Stop: 03/21/17 22:01 Last Admin: 03/21/17 03:49 Dose: 1,200 mg Gabapentin (Neurontin -) 300 mg PO TID [facility] Last Admin: 03/21/17 06:25 Dose: 300 mg Glipizide (Glucotrol -) 5 mg PO BIDI [facility] Last Admin: 03/21/17 06:25 Dose: 5 mg Sodium Chloride (Normal Saline -) 1,000 mls @ 75 mls/hr IV ASDIR [facility] Last Admin: 03/21/17 06:25 Dose: 75 mls/hr Ertapenem (Invanz (Pre-Docked)) 50 mls @ 100 mls/hr IVPB DAILY [facility] PRN Reason: Protocol Last Admin: 03/20/17 16:49 Dose: 100 mls/hr Insulin Aspart (Novolog Mix 70/30 Vial) 38 units SQ BIDI [facility] Last Admin: 03/21/17 06:31 Dose: Not Given Insulin Aspart (Novolog Vial Sliding Scale -) 1 vial SQ ACHS [facility] PRN Reason: Protocol Last Admin: 03/21/17 06:31 Dose: Not Given Metformin HCl (Glucophage -) 500 mg PO BIDI [facility] Last Admin: 03/21/17 06:25 Dose: 500 mg Ondansetron HCl (Zofran Injection) 4 mg IVPB Q6H PRN PRN Reason: NAUSEA AND/OR VOMITING Oxycodone HCl (Roxicodone -) 10 mg PO Q6H PRN PRN Reason: PAIN 6-10 - Objective Vital Signs: Vital Signs Temperature 97.5 F L 03/21/17 06:00 Pulse Rate 88 03/21/17 06:00 Respiratory Rate 18 03/21/17 06:00 Blood Pressure 154/52 03/21/17 06:00 O2 Sat by Pulse Oximetry (%) 98 03/20/17 22:00 Constitutional: Yes: No Distress Eyes: Yes: WNL HENT: Yes: WNL Neck: Yes: WNL Cardiovascular: Yes: WNL Respiratory: Yes: WNL Gastrointestinal: Yes: WNL ...Rectal Exam: Yes: Deferred Genitourinary: Yes: WNL Edema: No Wound/Incision: Yes: Clean/Dry Neurological: Yes: WNL Labs: CBC, BMP 03/21/17 06:10 INR, PTT INR 1.02 (0.82-1.09) 03/19/17 20:20 Assessment/Plan Continue IV antibiotics and vascular studies
[2017-03-21] MEDS ORDERED: INSULIN (NOVOLOG) ASPART 100 UNITS/ML 10ML VIAL ONE ×2 (11:05→21:12)
[2017-03-21] MEDS ORDERED: PT OWN MED DRAWER 7, Y5N ONE (11:06)
[2017-03-21] MEDS: ACETAMINOPHEN 325 MG TABLET (FP) PO PRN ×2 (13:36→22:08)
--- NOTE | 2017-03-21 13:59 | PN ---
Progress Note (short form) - Note Progress Note: Renal follow up for PAOLO/MARK prophylaxis Pt seen and examined at the bedside no acute complaints on IVF no sob, chest pain, N/V/D did not have CTA of LE yet Vital Signs Temperature 97.5 F L 03/21/17 06:00 Pulse Rate 88 03/21/17 06:00 Respiratory Rate 18 03/21/17 06:00 Blood Pressure 154/52 03/21/17 06:00 O2 Sat by Pulse Oximetry (%) 98 03/20/17 22:00 Intake & Output 03/18/17 03/19/17 03/20/17 03/21/17 23:59 23:59 23:59 23:59 Intake Total 1400 900 Balance 1400 900 Weight 160 lb 160 lb Gen: NAD CVS: RRR, No M/R Lungs: CTA, no rales or wheeze Abd: soft NT/ND Ext: No edema, clubbing CBC, BMP 03/19/17 20:20 03/21/17 06:10 Current Medications Acetaminophen (Tylenol -) 650 mg PO Q6H PRN PRN Reason: FEVER OR PAIN Last Admin: 03/21/17 13:36 Dose: 650 mg Acetaminophen (Tylenol -) 650 mg PO Q6H PRN PRN Reason: PAIN 6-10 Acetylcysteine (Mucomyst 20 Oral / Inh Use Only*) 1,200 mg PO BID [facility] Stop: 03/21/17 22:01 Last Admin: 03/21/17 13:37 Dose: 1,200 mg Gabapentin (Neurontin -) 300 mg PO TID [facility] Last Admin: 03/21/17 06:25 Dose: 300 mg Glipizide (Glucotrol -) 5 mg PO BIDI [facility] Last Admin: 03/21/17 06:25 Dose: 5 mg Sodium Chloride (Normal Saline -) 1,000 mls @ 75 mls/hr IV ASDIR [facility] Last Admin: 03/21/17 06:25 Dose: 75 mls/hr Ertapenem 1 gm/ Sodium (Chloride) 50 mls @ 100 mls/hr IVPB DAILY@1430 [facility] PRN Reason: Protocol Insulin Aspart (Novolog Mix 70/30 Vial) 38 units SQ BIDI [facility] Last Admin: 03/21/17 06:31 Dose: Not Given Insulin Aspart (Novolog Vial Sliding Scale -) 1 vial SQ ACHS [facility] PRN Reason: Protocol Last Admin: 03/21/17 11:14 Dose: Not Given Metformin HCl (Glucophage -) 500 mg PO BIDI [facility] Last Admin: 03/21/17 06:25 Dose: 500 mg Ondansetron HCl (Zofran Injection) 4 mg IVPB Q6H PRN PRN Reason: NAUSEA AND/OR VOMITING Oxycodone HCl (Roxicodone -) 10 mg PO Q6H PRN PRN Reason: PAIN 6-10 61 year old woman with PMhx of IDDM (poorly controlled), with diabetic neuropathy who presented with non-healing ulcer on LE and found to have diminished peripheral pulses and BUN/Cr of 42/1.2. #PAOLO vs. CKD Renal function improved s/p IVF would contineu IVF for now pending contrast exposure #Contrast Nephropathy risk stratification and prophylaxis Renal function now improved Risk of MARK minimal would continue IVF and course of mucomyst pending contrast exposure #PVD/DM management per primary and vascular Del Live DO Problem List - Problems (1) Diabetes mellitus with neuropathy Code(s): E11.40 - TYPE 2 DIABETES MELLITUS WITH DIABETIC NEUROPATHY, UNSP (2) Diabetic ulcer of heel Code(s): E11.621 - TYPE 2 DIABETES MELLITUS WITH FOOT ULCER L97.409 - NON-PRS CHRONIC ULCER OF UNSP HEEL AND MIDFOOT W UNSP SEVERT Qualifiers: Diabetes mellitus type: type 2 Laterality: left Non-pressure ulcer stage: unspecified non-pressure ulcer stage Qualified Code(s): E11.621 - Type 2 diabetes mellitus with foot ulcer; L97.409 - Non-pressure chronic ulcer of unspecified heel and midfoot with unspecified severity (3) PAOLO (acute kidney injury) Code(s): N17.9 - ACUTE KIDNEY FAILURE, UNSPECIFIED (4) CKD (chronic kidney disease) Code(s): N18.9 - CHRONIC KIDNEY DISEASE, UNSPECIFIED (5) Wound abscess Code(s): T81.4XXA - INFECTION FOLLOWING A PROCEDURE, INITIAL ENCOUNTER
[2017-03-21] MEDS: LOSARTAN POTASSIUM 50 MG TABLET (FP) PO SCH (14:45)
[2017-03-21] MEDS: ERTAPENEM SODIUM 1 GM in SODIUM CHLORIDE 50 ML IVPB SCH (14:46)
--- NOTE | 2017-03-21 15:28 | PN ---
Progress Note, Physician History of Present Illness: patient stable no new issues - Current Medication List Current Medications: Active Medications Acetaminophen (Tylenol -) 650 mg PO Q6H PRN PRN Reason: FEVER OR PAIN Last Admin: 03/21/17 13:36 Dose: 650 mg Acetaminophen (Tylenol -) 650 mg PO Q6H PRN PRN Reason: PAIN 6-10 Acetylcysteine (Mucomyst 20 Oral / Inh Use Only*) 1,200 mg PO BID [facility] Stop: 03/21/17 22:01 Last Admin: 03/21/17 13:37 Dose: 1,200 mg Gabapentin (Neurontin -) 300 mg PO TID [facility] Last Admin: 03/21/17 14:45 Dose: 300 mg Glipizide (Glucotrol -) 5 mg PO BIDI [facility] Last Admin: 03/21/17 06:25 Dose: 5 mg Sodium Chloride (Normal Saline -) 1,000 mls @ 75 mls/hr IV ASDIR [facility] Last Admin: 03/21/17 14:46 Dose: Not Given Ertapenem 1 gm/ Sodium (Chloride) 50 mls @ 100 mls/hr IVPB DAILY@1430 [facility] PRN Reason: Protocol Last Admin: 03/21/17 14:46 Dose: 100 mls/hr Insulin Aspart (Novolog Mix 70/30 Vial) 38 units SQ BIDI [facility] Last Admin: 03/21/17 06:31 Dose: Not Given Insulin Aspart (Novolog Vial Sliding Scale -) 1 vial SQ ACHS [facility] PRN Reason: Protocol Last Admin: 03/21/17 11:14 Dose: Not Given Losartan Potassium (Cozaar -) 50 mg PO DAILY [facility] Last Admin: 03/21/17 14:45 Dose: 50 mg Metformin HCl (Glucophage -) 500 mg PO BIDI [facility] Last Admin: 03/21/17 06:25 Dose: 500 mg Ondansetron HCl (Zofran Injection) 4 mg IVPB Q6H PRN PRN Reason: NAUSEA AND/OR VOMITING Oxycodone HCl (Roxicodone -) 10 mg PO Q6H PRN PRN Reason: PAIN 6-10 - Objective Vital Signs: Vital Signs Temperature 97.5 F L 03/21/17 06:00 Pulse Rate 88 03/21/17 06:00 Respiratory Rate 18 03/21/17 06:00 Blood Pressure 154/52 03/21/17 06:00 O2 Sat by Pulse Oximetry (%) 98 03/20/17 22:00 Constitutional: Yes: No Distress, Calm Cardiovascular: Yes: Regular Rate and Rhythm Respiratory: Yes: Regular, CTA Bilaterally Gastrointestinal: Yes: Normal Bowel Sounds, Soft Musculoskeletal: Yes: WNL Extremities: Yes: Other (non healing ulcer) Integumentary: Yes: Other Wound/Incision: Yes: Other (non healing ulcer) Neurological: Yes: Alert Psychiatric: Yes: Alert Labs: CBC, BMP 03/21/17 06:10 INR, PTT INR 1.02 (0.82-1.09) 03/19/17 20:20 Assessment/Plan Problems (1) Diabetes mellitus with neuropathy Code(s): E11.40 - TYPE 2 DIABETES MELLITUS WITH DIABETIC NEUROPATHY, UNSP (2) Atherosclerosis of [place] arteries of extremities with gangrene, left leg Code(s): I70.262 - ATHSCL [place] ARTERIES OF EXTREMITIES W GANGR[place], LEFT LEG plan continue abx await for vascular to make final plan wound care rest as per primary
--- NOTE | 2017-03-21 17:17 | PN ---
Progress Note (short form) - Note Progress Note: VSS Exam unchanged Renal consult reviewed. BUN/Cr improved with IV hydration. I will schedule for contrast angiogram for 03/23 and possible revascularization of left tibial arteries. Plans discussed with patient. 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
[2017-03-21] MEDS: MUPIROCIN 2% TOPICAL OINTMENT 22 GM TUBE TP SCH (20:51)
[2017-03-21] MEDS ORDERED: amLODIPine BESYLATE 5 MG TABLET (FP) PO ONE (21:30)
[2017-03-22] MEDS: MUPIROCIN 2% TOPICAL OINTMENT 22 GM TUBE TP SCH ×3 (01:35→21:56)
[2017-03-22] MEDS: GABAPENTIN 300 MG CAPSULE (FP) PO SCH ×3 (06:43→21:56)
[2017-03-22] MEDS: INSULIN SLIDING SCALE (NOVOLOG) 1 VIAL SQ SCH ×4 (06:43→21:54)
[2017-03-22] MEDS: glipiZIDE 5 MG TABLET (FP) PO SCH ×2 (06:43→17:23)
[2017-03-22] MEDS: ACETYLCYSTEINE 20% 200MG/ML 4 ML VIAL *FOR ORAL / INH USE ONLY PO SCH ×2 (09:07→21:55)
--- NOTE | 2017-03-22 09:07 | PN ---
Progress Note, Physician Chief Complaint: Feels better History of Present Illness: Her BP was high after hydrating with NS She is scheduled for angiogram tomorrow - Current Medication List Current Medications: Active Medications Acetaminophen (Tylenol -) 650 mg PO Q6H PRN PRN Reason: FEVER OR PAIN Last Admin: 03/21/17 22:08 Dose: 650 mg Acetaminophen (Tylenol -) 650 mg PO Q6H PRN PRN Reason: PAIN 6-10 Acetylcysteine (Mucomyst 20 Oral / Inh Use Only*) 1,200 mg PO BID@0800,2000 [facility] Gabapentin (Neurontin -) 300 mg PO TID [facility] Last Admin: 03/22/17 06:43 Dose: 300 mg Glipizide (Glucotrol -) 5 mg PO BIDI [facility] Last Admin: 03/22/17 06:43 Dose: 5 mg Ertapenem 1 gm/ Sodium (Chloride) 50 mls @ 100 mls/hr IVPB DAILY@1430 [facility] PRN Reason: Protocol Last Admin: 03/21/17 14:46 Dose: 100 mls/hr Insulin Aspart (Novolog Mix 70/30 Vial) 38 units SQ BIDI [facility] Last Admin: 03/21/17 17:01 Dose: 38 units Insulin Aspart (Novolog Vial Sliding Scale -) 1 vial SQ ACHS [facility] PRN Reason: Protocol Last Admin: 03/22/17 06:43 Dose: Not Given Losartan Potassium (Cozaar -) 50 mg PO DAILY [facility] Last Admin: 03/21/17 14:45 Dose: 50 mg Metformin HCl (Glucophage -) 500 mg PO BIDI [facility] Last Admin: 03/21/17 17:01 Dose: 500 mg Mupirocin (Bactroban 2% Ointment -) 1 applic TP BID [facility] Last Admin: 03/22/17 01:35 Dose: Not Given Ondansetron HCl (Zofran Injection) 4 mg IVPB Q6H PRN PRN Reason: NAUSEA AND/OR VOMITING Oxycodone HCl (Roxicodone -) 10 mg PO Q6H PRN PRN Reason: PAIN 6-10 - Objective Vital Signs: Vital Signs Temperature 98.5 F 03/22/17 06:00 Pulse Rate 81 03/22/17 06:00 Respiratory Rate 18 03/22/17 06:00 Blood Pressure 133/57 03/22/17 06:00 O2 Sat by Pulse Oximetry (%) 98 03/21/17 21:00 Constitutional: Yes: No Distress Eyes: Yes: WNL HENT: Yes: WNL Neck: Yes: WNL Cardiovascular: Yes: WNL Respiratory: Yes: WNL Gastrointestinal: Yes: WNL ...Rectal Exam: Yes: Deferred Genitourinary: Yes: WNL Musculoskeletal: Yes: WNL Wound/Incision: Yes: Clean/Dry Labs: CBC, BMP 03/21/17 06:10 INR, PTT INR 1.02 (0.82-1.09) 03/19/17 20:20 Assessment/Plan Restart IV NS
[2017-03-22] MEDS: metFORMIN HCL 500 MG TABLET (FP) PO SCH ×2 (09:09→17:22)
[2017-03-22] MEDS: INSULIN (NOVOLOG MIX 70/30) 100 UNITS/ML MDV SQ SCH ×3 (09:11→17:24)
[2017-03-22] MEDS: LOSARTAN POTASSIUM 50 MG TABLET (FP) PO SCH (09:12)
--- NOTE | 2017-03-22 09:28 | PN ---
Physical Exam: SUBJECTIVE: Patient seen and examined Sitting comfortably in in bed Denies chest pain, sob, swelling in legs. Going for Ct angio tomorrow. On IV fluid 40cc Her BP was high so got norvasc. Called pharmacy to cancel novolog 70/30, 38 units bid order and start on 25 bid. Got one dose of losartan this morning, we will DC losartan for now. consider starting after CT angio. Discussed with Dr brizuela OBJECTIVE: Vital Signs Period Temp Pulse Resp BP Sys/Ko Pulse Ox Last 24 Hr 98.0 F-98.5 F 81-91 18-18 133-176/57-81 98 GENERAL: Awake, alert, and fully oriented, in no acute distress. HEAD: Normal with no signs of trauma. EARS, NOSE, THROAT: Moist mucous membranes. NECK: Normal range of motion, supple without lymphadenopathy, JVD, or masses. LUNGS: Breath sounds equal, clear to auscultation bilaterally. No wheezes, and no crackles. No accessory muscle use. HEART: Regular rate and rhythm, normal S1 and S2 ABDOMEN: Soft, nontender, not distended, normoactive bowel sounds, no guarding, no rebound, UPPER EXTREMITIES: 2+ pulses, warm, well-perfused. No cyanosis. LOWER EXTREMITIES: Pulses not palpable on left foot. No calf tenderness. No peripheral edema. Open wound to the medial aspect of the L heel with surrounding slough present on ulcer. The L big toe some necrtic skin present around ulcer. No active discharge from ulcer Laboratory Results - last 24 hr 03/21/17 03/21/17 03/21/17 11:13 16:51 21:21 POC Glucometer 138 182 87 03/22/17 05:32 POC Glucometer 113 Active Medications Generic Name Dose Route Start Last Admin Trade Name Freq PRN Reason Stop Dose Admin Acetaminophen 650 mg 03/20/17 02:04 03/21/17 22:08 Tylenol - PO 650 mg Q6H PRN Administration FEVER OR PAIN Acetaminophen 650 mg 03/20/17 09:15 Tylenol - PO Q6H PRN PAIN 6-10 Acetylcysteine 1,200 mg 03/22/17 08:00 03/22/17 09:07 Mucomyst 20 Oral / Inh Use Only* PO 1,200 mg BID@0800,1999 [facility] Administration Gabapentin 300 mg 03/20/17 06:00 03/22/17 06:43 Neurontin - PO 300 mg TID [facility] Administration Glipizide 5 mg 03/20/17 07:00 03/22/17 06:43 Glucotrol - PO 5 mg BIDI [facility] Administration Ertapenem 1 gm/ Sodium 50 mls @ 100 mls/hr 03/21/17 14:30 03/21/17 14:46 Chloride IVPB 100 mls/hr DAILY@1430 [facility] Administration Protocol Sodium Chloride 1,000 mls @ 42 mls/hr 03/22/17 09:15 Normal Saline - IV ASDIR [facility] Insulin Aspart 38 units 03/20/17 07:00 03/22/17 09:11 Novolog Mix 70/30 Vial SQ Not Given BIDI [facility] Insulin Aspart 1 vial 03/20/17 11:00 03/22/17 06:43 Novolog Vial Sliding Scale - SQ Not Given ACHS [facility] Protocol Insulin Aspart 25 units 03/22/17 10:00 Novolog Mix 70/30 Vial SQ BID [facility] Metformin HCl 500 mg 03/20/17 07:00 03/22/17 09:09 Glucophage - PO Not Given BIDI [facility] Mupirocin 1 applic 03/21/17 22:00 03/22/17 01:35 Bactroban 2% Ointment - TP Not Given BID [facility] Ondansetron HCl 4 mg 03/20/17 01:36 Zofran Injection IVPB Q6H PRN NAUSEA AND/OR VOMITING Oxycodone HCl 10 mg 03/20/17 09:15 Roxicodone - PO Q6H PRN PAIN 6-10 ASSESSMENT/PLAN: PAOLO on CKD. DM with neuropathy. Diabetic ulcer/ arterial ulcer on left foot. HTN. Plan Continue with IV hydration got 4 doses of NAC Monitor and control blood sugar, goal HBa1c <7 Monitor and control BP goal <140/90. Protein urea can be from diabetic nephropathy. Monitor intake and output. Antibiotics as per ID. vascular surgery on case. Consider starting her on otilia inhibitors after work up for peripheral vascular ds is completed. Visit type - Emergency Visit Emergency Visit: Yes ED Registration Date: 03/19/17 Care time: The patient presented to the Emergency Department on the above date and was hospitalized for further evaluation of their emergent condition. - New Patient This patient is new to me today: No - Critical Care Critical Care patient: No
[2017-03-22] MEDS: SODIUM CHLORIDE 1,000 ML IV SCH (10:04)
[2017-03-22] MEDS: amLODIPine BESYLATE 5 MG TABLET (FP) PO SCH ×2 (10:05→17:23)
[2017-03-22] MEDS ORDERED: PT OWN MED DRAWER 7, Y5N ONE (10:06)
[2017-03-22] MEDS: ACETAMINOPHEN 325 MG TABLET (FP) PO PRN ×2 (10:18→23:12)
--- NOTE | 2017-03-22 14:17 | PN ---
Progress Note (short form) - Note Progress Note: Renal follow up for PAOLO/MARK prophylaxis Pt seen and examined at the bedside no acute complaints Vital Signs Temperature 98.3 F 03/22/17 10:00 Pulse Rate 85 03/22/17 10:00 Respiratory Rate 18 03/22/17 10:00 Blood Pressure 153/75 03/22/17 10:00 O2 Sat by Pulse Oximetry (%) 98 03/21/17 21:00 Intake & Output 03/19/17 03/20/17 03/21/17 03/22/17 23:59 23:59 23:59 23:59 Intake Total 1400 3450 Balance 1400 3450 Weight 160 lb 160 lb Gen: NAD CVS: RRR, No M/R Lungs: CTA, no rales or wheeze Abd: soft NT/ND Ext: No edema, clubbing CBC, BMP 03/19/17 20:20 03/21/17 06:10 Current Medications Acetaminophen (Tylenol -) 650 mg PO Q6H PRN PRN Reason: FEVER OR PAIN Last Admin: 03/22/17 10:18 Dose: 650 mg Acetaminophen (Tylenol -) 650 mg PO Q6H PRN PRN Reason: PAIN 6-10 Acetylcysteine (Mucomyst 20 Oral / Inh Use Only*) 1,200 mg PO BID@0800,2000 [facility] Last Admin: 03/22/17 09:07 Dose: 1,200 mg Amlodipine Besylate (Norvasc -) 5 mg PO DAILY [facility] Last Admin: 03/22/17 10:05 Dose: Not Given Gabapentin (Neurontin -) 300 mg PO TID [facility] Last Admin: 03/22/17 06:43 Dose: 300 mg Glipizide (Glucotrol -) 5 mg PO BIDI [facility] Last Admin: 03/22/17 06:43 Dose: 5 mg Ertapenem 1 gm/ Sodium (Chloride) 50 mls @ 100 mls/hr IVPB DAILY@1430 [facility] PRN Reason: Protocol Last Admin: 03/21/17 14:46 Dose: 100 mls/hr Sodium Chloride (Normal Saline -) 1,000 mls @ 42 mls/hr IV ASDIR [facility] Last Admin: 03/22/17 10:04 Dose: 42 mls/hr Insulin Aspart (Novolog Vial Sliding Scale -) 1 vial SQ ACHS [facility] PRN Reason: Protocol Last Admin: 03/22/17 11:33 Dose: 4 units Insulin Aspart (Novolog Mix 70/30 Vial) 25 units SQ BIDAC [facility] Last Admin: 03/22/17 10:03 Dose: 25 units Metformin HCl (Glucophage -) 500 mg PO BIDI [facility] Last Admin: 03/22/17 09:09 Dose: Not Given Mupirocin (Bactroban 2% Ointment -) 1 applic TP BID [facility] Last Admin: 03/22/17 10:06 Dose: 1 applic Ondansetron HCl (Zofran Injection) 4 mg IVPB Q6H PRN PRN Reason: NAUSEA AND/OR VOMITING Oxycodone HCl (Roxicodone -) 10 mg PO Q6H PRN PRN Reason: PAIN 6-10 61 year old woman with PMhx of IDDM (poorly controlled), with diabetic neuropathy who presented with non-healing ulcer on LE and found to have diminished peripheral pulses and BUN/Cr of 42/1.2. #PAOLO vs. CKD no new labs today continue gentle IVF for angiogram tomorrow #Contrast Nephropathy risk stratification and prophylaxis Renal function now improved Risk of MARK minimal would continue IVF #PVD/DM management per primary and vascular Del Live DO Problem List - Problems (1) Diabetes mellitus with neuropathy Code(s): E11.40 - TYPE 2 DIABETES MELLITUS WITH DIABETIC NEUROPATHY, UNSP Qualifiers: Diabetes mellitus type: type 2 Diabetes mellitus terminal operations manager insulin use : with terminal operations manager use Qualified Code(s): E11.40 - Type 2 diabetes mellitus with diabetic neuropathy, unspecified (2) Diabetic ulcer of heel Code(s): E11.621 - TYPE 2 DIABETES MELLITUS WITH FOOT ULCER L97.409 - NON-PRS CHRONIC ULCER OF UNSP HEEL AND MIDFOOT W UNSP SEVERT Qualifiers: Diabetes mellitus type: type 2 Laterality: left Non-pressure ulcer stage: unspecified non-pressure ulcer stage Qualified Code(s): E11.621 - Type 2 diabetes mellitus with foot ulcer; L97.409 - Non-pressure chronic ulcer of unspecified heel and midfoot with unspecified severity (3) PAOLO (acute kidney injury) Code(s): N17.9 - ACUTE KIDNEY FAILURE, UNSPECIFIED (4) CKD (chronic kidney disease) Code(s): N18.9 - CHRONIC KIDNEY DISEASE, UNSPECIFIED (5) Wound abscess Code(s): T81.4XXA - INFECTION FOLLOWING A PROCEDURE, INITIAL ENCOUNTER
--- NOTE | 2017-03-22 15:29 | PN ---
Progress Note, Physician History of Present Illness: patient stable no new issues for angio tomorrow - Current Medication List Current Medications: Active Medications Acetaminophen (Tylenol -) 650 mg PO Q6H PRN PRN Reason: FEVER OR PAIN Last Admin: 03/22/17 10:18 Dose: 650 mg Acetaminophen (Tylenol -) 650 mg PO Q6H PRN PRN Reason: PAIN 6-10 Acetylcysteine (Mucomyst 20 Oral / Inh Use Only*) 1,200 mg PO BID@0800,2000 [facility] Last Admin: 03/22/17 09:07 Dose: 1,200 mg Amlodipine Besylate (Norvasc -) 5 mg PO DAILY [facility] Last Admin: 03/22/17 10:05 Dose: Not Given Gabapentin (Neurontin -) 300 mg PO TID [facility] Last Admin: 03/22/17 15:05 Dose: 300 mg Glipizide (Glucotrol -) 5 mg PO BIDI [facility] Last Admin: 03/22/17 06:43 Dose: 5 mg Ertapenem 1 gm/ Sodium (Chloride) 50 mls @ 100 mls/hr IVPB DAILY@1430 [facility] PRN Reason: Protocol Last Admin: 03/21/17 14:46 Dose: 100 mls/hr Sodium Chloride (Normal Saline -) 1,000 mls @ 42 mls/hr IV ASDIR [facility] Last Admin: 03/22/17 10:04 Dose: 42 mls/hr Insulin Aspart (Novolog Vial Sliding Scale -) 1 vial SQ ACHS [facility] PRN Reason: Protocol Last Admin: 03/22/17 11:33 Dose: 4 units Insulin Aspart (Novolog Mix 70/30 Vial) 25 units SQ BIDAC [facility] Last Admin: 03/22/17 10:03 Dose: 25 units Metformin HCl (Glucophage -) 500 mg PO BIDI [facility] Last Admin: 03/22/17 09:09 Dose: Not Given Mupirocin (Bactroban 2% Ointment -) 1 applic TP BID [facility] Last Admin: 03/22/17 10:06 Dose: 1 applic Ondansetron HCl (Zofran Injection) 4 mg IVPB Q6H PRN PRN Reason: NAUSEA AND/OR VOMITING Oxycodone HCl (Roxicodone -) 10 mg PO Q6H PRN PRN Reason: PAIN 6-10 - Objective Vital Signs: Vital Signs Temperature 98.3 F 03/22/17 10:00 Pulse Rate 85 03/22/17 10:00 Respiratory Rate 18 03/22/17 10:00 Blood Pressure 153/75 03/22/17 10:00 O2 Sat by Pulse Oximetry (%) 98 03/21/17 21:00 Constitutional: Yes: No Distress, Calm Cardiovascular: Yes: Regular Rate and Rhythm Respiratory: Yes: Regular, CTA Bilaterally Gastrointestinal: Yes: Normal Bowel Sounds, Soft Musculoskeletal: Yes: WNL Extremities: Yes: Other (non healing ulcer) Wound/Incision: Yes: Dressing Dry and Intact Neurological: Yes: Alert, Oriented Psychiatric: Yes: Alert, Oriented Labs: CBC, BMP 03/21/17 06:10 INR, PTT INR 1.02 (0.82-1.09) 03/19/17 20:20 Assessment/Plan Problems (1) Diabetes mellitus with neuropathy Code(s): E11.40 - TYPE 2 DIABETES MELLITUS WITH DIABETIC NEUROPATHY, UNSP (2) Atherosclerosis of [place] arteries of extremities with gangrene, left leg Code(s): I70.262 - ATHSCL [place] ARTERIES OF EXTREMITIES W GANGRENE, LEFT LEG plan continue abx await for vascular for procedure wound care rest as per primary
[2017-03-22] MEDS: ERTAPENEM SODIUM 1 GM in SODIUM CHLORIDE 50 ML IVPB SCH (17:21)
[2017-03-22] MEDS ORDERED: amLODIPine BESYLATE 5 MG TABLET (FP) PO ONE (22:30)
[2017-03-23] MEDS: GABAPENTIN 300 MG CAPSULE (FP) PO SCH ×3 (06:00→21:40)
[2017-03-23] MEDS: INSULIN (NOVOLOG MIX 70/30) 100 UNITS/ML MDV SQ SCH ×2 (06:48→18:26)
[2017-03-23] MEDS: INSULIN SLIDING SCALE (NOVOLOG) 1 VIAL SQ SCH ×4 (06:48→21:40)
[2017-03-23 09:08] LABS: BASOPHIL 0.5 % (0-2.0); MCH 23.8 pg (25.7-33.7); MCHC 31.9 g/dl (32.0-36.0); MEAN CELL VOLUME 74.8 fl (80-96); MEAN PLT VOLUME 8.4 fl (7.5-11.1); NEUTROPHILS 71.4 % (42.8-82.8); PLATELET COUNT 382 K/MM3 (134-434); RDW 15.7 % (11.6-15.6); WHITE BLOOD COUNT 8.7 K/mm3 (4.0-10.0)
[2017-03-23] MEDS: amLODIPine BESYLATE 5 MG TABLET (FP) PO SCH (09:16)
[2017-03-23] MEDS ORDERED: PT OWN MED DRAWER 7, Y5N ONE (09:17)
[2017-03-23] MEDS: ACETYLCYSTEINE 20% 200MG/ML 4 ML VIAL *FOR ORAL / INH USE ONLY PO SCH ×2 (09:18→21:40)
--- NOTE | 2017-03-23 09:18 | PN ---
Progress Note, Physician Chief Complaint: Remained afebrile FS are better controlled History of Present Illness: 61 yrs old F with uncontrolled T2DM PVD present with non healing infected ulcer Left foot with uncontrolled DM and PAOLO , PAOLO is improving on IV hydration - Current Medication List Current Medications: Active Medications Acetaminophen (Tylenol -) 650 mg PO Q6H PRN PRN Reason: FEVER OR PAIN Last Admin: 03/22/17 23:12 Dose: 650 mg Acetaminophen (Tylenol -) 650 mg PO Q6H PRN PRN Reason: PAIN 6-10 Acetylcysteine (Mucomyst 20 Oral / Inh Use Only*) 1,200 mg PO BID@0800,2000 [facility] Last Admin: 03/22/17 21:55 Dose: 1,200 mg Amlodipine Besylate (Norvasc -) 5 mg PO DAILY [facility] Last Admin: 03/22/17 17:23 Dose: 5 mg Gabapentin (Neurontin -) 300 mg PO TID [facility] Last Admin: 03/23/17 06:00 Dose: 300 mg Glipizide (Glucotrol -) 5 mg PO BIDI [facility] Last Admin: 03/22/17 17:23 Dose: 5 mg Ertapenem 1 gm/ Sodium (Chloride) 50 mls @ 100 mls/hr IVPB DAILY@1430 [facility] PRN Reason: Protocol Last Admin: 03/22/17 17:21 Dose: 100 mls/hr Sodium Chloride (Normal Saline -) 1,000 mls @ 42 mls/hr IV ASDIR [facility] Last Admin: 03/22/17 10:04 Dose: 42 mls/hr Insulin Aspart (Novolog Vial Sliding Scale -) 1 vial SQ ACHS [facility] PRN Reason: Protocol Last Admin: 03/23/17 06:48 Dose: Not Given Insulin Aspart (Novolog Mix 70/30 Vial) 25 units SQ BIDAC [facility] Last Admin: 03/23/17 06:48 Dose: Not Given Metformin HCl (Glucophage -) 500 mg PO BIDI [facility] Last Admin: 03/22/17 17:22 Dose: 500 mg Mupirocin (Bactroban 2% Ointment -) 1 applic TP BID [facility] Last Admin: 03/22/17 21:56 Dose: 1 applic Ondansetron HCl (Zofran Injection) 4 mg IVPB Q6H PRN PRN Reason: NAUSEA AND/OR VOMITING Oxycodone HCl (Roxicodone -) 10 mg PO Q6H PRN PRN Reason: PAIN 6-10 - Objective Vital Signs: Vital Signs Temperature 98.3 F 03/23/17 06:00 Pulse Rate 84 03/23/17 06:00 Respiratory Rate 18 03/23/17 06:00 Blood Pressure 150/75 03/23/17 06:00 O2 Sat by Pulse Oximetry (%) 97 03/22/17 21:00 General: Elderly F not in disress HEENT: ET tube at place, MM moist, PERRLA, NECK; NO NVD, No Bruit, Carotids + CHEST: B/L equal AE CVS: S1 S2 R no m/g/r ABD: No distention non tender EXT: Left heel ulcer at place, Trace edema feet, no calf tenderness, Pulses + BUSINESS SOLUTIONS CONSULTANT: AOX3 non focal Labs: INR, PTT INR 1.02 (0.82-1.09) 03/19/17 20:20 CBC,CMP WBC 7.3 K/mm3 (4.0-10.0) 03/25/17 07:59 Corrected WBC (auto) Cancelled 03/24/17 08:00 RBC 4.45 M/mm3 (3.60-5.2) 03/25/17 07:59 Hgb 10.9 GM/dL (10.7-15.3) 03/25/17 07:59 Hct 32.9 % (32.4-45.2) 03/25/17 07:59 MCV 74.0 fl (80-96) L 03/25/17 07:59 MCH 24.4 pg (25.7-33.7) L 03/25/17 07:59 MCHC 33.0 g/dl (32.0-36.0) 03/25/17 07:59 RDW 15.5 % (11.6-15.6) 03/25/17 07:59 Plt Count 381 K/MM3 (134-434) 03/25/17 07:59 MPV 8.2 fl (7.5-11.1) 03/25/17 07:59 Neutrophils % 66.8 % (42.8-82.8) 03/25/17 07:59 Lymphocytes % 24.4 % (8-40) D 03/25/17 07:59 Monocytes % 6.6 % (3.8-10.2) 03/25/17 07:59 Eosinophils % 1.7 % (0-4.5) 03/25/17 07:59 Basophils % 0.5 % (0-2.0) 03/25/17 07:59 Differential Comment Cancelled 03/24/17 08:00 Platelet Estimate Cancelled 03/24/17 08:00 Platelet Comment Cancelled 03/24/17 08:00 Platelet Comment Cancelled 03/24/17 08:00 RBC Morphology Cancelled 03/24/17 08:00 Sodium 142 mmol/L (136-145) 03/25/17 07:59 Potassium 4.6 mmol/L (3.5-5.1) 03/25/17 07:59 Chloride 111 mmol/L (98-107) H 03/25/17 07:59 Carbon Dioxide 27 mmol/L (21-32) 03/25/17 07:59 Anion Gap 4 (8-16) L 03/25/17 07:59 BUN 29 mg/dL (7-18) H D 03/25/17 07:59 Creatinine 0.9 mg/dL (0.55-1.02) D 03/25/17 07:59 Creat Clearance w eGFR > 60 (>60) 03/25/17 07:59 POC Glucometer 127 UNITS (()) 03/25/17 12:46 Random Glucose 120 mg/dL (74-106) H 03/25/17 07:59 Hemoglobin A1c % 9.4 % (4.8-6.0) H 03/25/17 07:59 Calcium 8.8 mg/dL (8.5-10.1) 03/25/17 07:59 Phosphorus 2.9 mg/dL (2.5-4.9) D 03/24/17 08:00 Magnesium 1.9 mg/dL (1.8-2.4) 03/24/17 08:00 Total Bilirubin 0.3 mg/dL (0.2-1.0) D 03/25/17 07:59 AST 11 U/L (15-37) L D 03/25/17 07:59 ALT 21 U/L (12-78) 03/25/17 07:59 Alkaline Phosphatase 81 U/L (45-117) 03/25/17 07:59 Total Protein 6.3 g/dl (6.4-8.2) L 03/25/17 07:59 Albumin 2.7 g/dl (3.4-5.0) L 03/25/17 07:59 Problem List - Problems (1) Diabetic ulcer of heel Assessment/Plan: Patient present with diabetic foot ulcer on Left heel evaluated by ID , patient is on IV abx , so far cultures are -ve Code(s): E11.621 - TYPE 2 DIABETES MELLITUS WITH FOOT ULCER L97.409 - NON-PRS CHRONIC ULCER OF UNSP HEEL AND MIDFOOT W UNSP SEVERT Qualifiers: Diabetes mellitus type: type 2 Laterality: left Non-pressure ulcer stage: unspecified non-pressure ulcer stage Qualified Code(s): E11.621 - Type 2 diabetes mellitus with foot ulcer; L97.409 - Non-pressure chronic ulcer of unspecified heel and midfoot with unspecified severity (2) Diabetes mellitus with neuropathy Assessment/Plan: H/O Diabetic Neuropathy on gabapentin Code(s): E11.40 - TYPE 2 DIABETES MELLITUS WITH DIABETIC NEUROPATHY, UNSP Qualifiers: Diabetes mellitus type: type 2 Diabetes mellitus snf insulin use : with terminal gauger use Qualified Code(s): E11.40 - Type 2 diabetes mellitus with diabetic neuropathy, unspecified (3) Atherosclerosis of [place] arteries of extremities with gangrene, left leg Assessment/Plan: Left LE Femoral and Tibial Artery occlusion s/p regularization. Code(s): I70.262 - ATHSCL [place] ARTERIES OF EXTREMITIES W GANGRENE, LEFT LEG (4) PAOLO (acute kidney injury) Assessment/Plan: DUe to Sepsis, now improved. Code(s): N17.9 - ACUTE KIDNEY FAILURE, UNSPECIFIED
[2017-03-23] MEDS: SODIUM CHLORIDE 1,000 ML IV SCH (09:19)
[2017-03-23] MEDS: MUPIROCIN 2% TOPICAL OINTMENT 22 GM TUBE TP SCH ×2 (09:22→21:30)
[2017-03-23 09:40] LABS: ANION GAP 7 (8-16); CO2 24 mmol/L (21-32); CREATININE 0.9 mg/dL (0.55-1.02); GLUCOSE,RANDOM 134 mg/dL (74-106); MAGNESIUM 1.9 mg/dL (1.8-2.4); PHOSPHOROUS 3.9 mg/dL (2.5-4.9)
--- NOTE | 2017-03-23 12:42 | PN ---
Progress Note (short form) - Note Progress Note: Renal follow up for PAOLO/MARK prophylaxis Pt seen and examined at the bedside no acute complaints for angiogram today on IVF Vital Signs Temperature 97.9 F 03/23/17 09:00 Pulse Rate 88 03/23/17 09:00 Respiratory Rate 18 03/23/17 09:00 Blood Pressure 130/68 03/23/17 09:00 O2 Sat by Pulse Oximetry (%) 99 03/23/17 09:53 Intake & Output 03/20/17 03/21/17 03/22/17 03/23/17 23:59 23:59 23:59 23:59 Intake Total 1400 3450 1530 Balance 1400 3450 1530 Weight 160 lb Gen: NAD CVS: RRR, No M/R Lungs: CTA, no rales or wheeze Abd: soft NT/ND Ext: No edema, clubbing CBC, BMP 03/23/17 08:30 03/23/17 08:30 Current Medications Acetaminophen (Tylenol -) 650 mg PO Q6H PRN PRN Reason: FEVER OR PAIN Last Admin: 03/22/17 23:12 Dose: 650 mg Acetaminophen (Tylenol -) 650 mg PO Q6H PRN PRN Reason: PAIN 6-10 Acetylcysteine (Mucomyst 20 Oral / Inh Use Only*) 1,200 mg PO BID@0800,2000 [facility] Last Admin: 03/23/17 09:18 Dose: 1,200 mg Amlodipine Besylate (Norvasc -) 5 mg PO DAILY [facility] Last Admin: 03/23/17 09:16 Dose: 5 mg Gabapentin (Neurontin -) 300 mg PO TID [facility] Last Admin: 03/23/17 06:00 Dose: 300 mg Glipizide (Glucotrol -) 5 mg PO BIDI [facility] Last Admin: 03/22/17 17:23 Dose: 5 mg Ertapenem 1 gm/ Sodium (Chloride) 50 mls @ 100 mls/hr IVPB DAILY@1430 [facility] PRN Reason: Protocol Last Admin: 03/22/17 17:21 Dose: 100 mls/hr Sodium Chloride (Normal Saline -) 1,000 mls @ 42 mls/hr IV ASDIR [facility] Last Admin: 03/23/17 09:19 Dose: 42 mls/hr Insulin Aspart (Novolog Vial Sliding Scale -) 1 vial SQ ACHS [facility] PRN Reason: Protocol Last Admin: 03/23/17 11:53 Dose: Not Given Insulin Aspart (Novolog Mix 70/30 Vial) 25 units SQ BIDAC [facility] Last Admin: 03/23/17 06:48 Dose: Not Given Metformin HCl (Glucophage -) 500 mg PO BIDI [facility] Last Admin: 03/22/17 17:22 Dose: 500 mg Mupirocin (Bactroban 2% Ointment -) 1 applic TP BID [facility] Last Admin: 03/23/17 09:22 Dose: 1 applic Ondansetron HCl (Zofran Injection) 4 mg IVPB Q6H PRN PRN Reason: NAUSEA AND/OR VOMITING Oxycodone HCl (Roxicodone -) 10 mg PO Q6H PRN PRN Reason: PAIN 6-10 61 year old woman with PMhx of IDDM (poorly controlled), with diabetic neuropathy who presented with non-healing ulcer on LE and found to have diminished peripheral pulses and BUN/Cr of 42/1.2. #PAOLO vs. CKD Renal function now imrpoved and stable continue gentle IVF for now #Contrast Nephropathy risk stratification and prophylaxis on IVF Trend BUN/Cr following contrast exposure #PVD/DM management per primary and vascular for angiogram today Del Live DO Problem List - Problems (1) Diabetes mellitus with neuropathy Code(s): E11.40 - TYPE 2 DIABETES MELLITUS WITH DIABETIC NEUROPATHY, UNSP Qualifiers: Diabetes mellitus type: type 2 Diabetes mellitus care home insulin use : with care home use Qualified Code(s): E11.40 - Type 2 diabetes mellitus with diabetic neuropathy, unspecified (2) Diabetic ulcer of heel Code(s): E11.621 - TYPE 2 DIABETES MELLITUS WITH FOOT ULCER L97.409 - NON-PRS CHRONIC ULCER OF UNSP HEEL AND MIDFOOT W UNSP SEVERT Qualifiers: Diabetes mellitus type: type 2 Laterality: left Non-pressure ulcer stage: unspecified non-pressure ulcer stage Qualified Code(s): E11.621 - Type 2 diabetes mellitus with foot ulcer; L97.409 - Non-pressure chronic ulcer of unspecified heel and midfoot with unspecified severity (3) PAOLO (acute kidney injury) Code(s): N17.9 - ACUTE KIDNEY FAILURE, UNSPECIFIED (4) CKD (chronic kidney disease) Code(s): N18.9 - CHRONIC KIDNEY DISEASE, UNSPECIFIED (5) Wound abscess Code(s): T81.4XXA - INFECTION FOLLOWING A PROCEDURE, INITIAL ENCOUNTER
[2017-03-23] MEDS: ERTAPENEM SODIUM 1 GM in SODIUM CHLORIDE 50 ML IVPB SCH (13:53)
[2017-03-23] MEDS ORDERED: LIDOCAINE HCL 1%, 10 MG/ML (20ML VIAL) ONE (14:51)
[2017-03-23] MEDS ORDERED: HEPARIN NA (PORCINE) 5,000 UNITS/ML 1ML VIAL ONE ×2 (14:51→16:02)
[2017-03-23] MEDS ORDERED: MIDAZOLAM HCL 2 MG/2 ML SINGLE DOSE VIAL ONE (15:23)
[2017-03-23] MEDS ORDERED: PROPOFOL 20 ML ONE ×5 (15:24→16:43)
[2017-03-23] MEDS ORDERED: LIDOCAINE HCL 1%, 10 MG/ML (50 mL VIAL) IJ ONE (15:55)
--- NOTE | 2017-03-23 15:55 | PN ---
Progress Note, Physician History of Present Illness: patient stable no new issues angio today - Current Medication List Current Medications: Active Medications Acetaminophen (Tylenol -) 650 mg PO Q6H PRN PRN Reason: FEVER OR PAIN Last Admin: 03/22/17 23:12 Dose: 650 mg Acetaminophen (Tylenol -) 650 mg PO Q6H PRN PRN Reason: PAIN 6-10 Acetylcysteine (Mucomyst 20 Oral / Inh Use Only*) 1,200 mg PO BID@0800,2000 [facility] Last Admin: 03/23/17 09:18 Dose: 1,200 mg Amlodipine Besylate (Norvasc -) 5 mg PO DAILY [facility] Last Admin: 03/23/17 09:16 Dose: 5 mg Gabapentin (Neurontin -) 300 mg PO TID [facility] Last Admin: 03/23/17 13:53 Dose: Not Given Glipizide (Glucotrol -) 5 mg PO BIDI [facility] Last Admin: 03/22/17 17:23 Dose: 5 mg Ertapenem 1 gm/ Sodium (Chloride) 50 mls @ 100 mls/hr IVPB DAILY@1430 [facility] PRN Reason: Protocol Last Admin: 03/23/17 13:53 Dose: 100 mls/hr Sodium Chloride (Normal Saline -) 1,000 mls @ 42 mls/hr IV ASDIR [facility] Last Admin: 03/23/17 09:19 Dose: 42 mls/hr Insulin Aspart (Novolog Vial Sliding Scale -) 1 vial SQ ACHS [facility] PRN Reason: Protocol Last Admin: 03/23/17 11:53 Dose: Not Given Insulin Aspart (Novolog Mix 70/30 Vial) 25 units SQ BIDAC [facility] Last Admin: 03/23/17 06:48 Dose: Not Given Metformin HCl (Glucophage -) 500 mg PO BIDI [facility] Last Admin: 03/22/17 17:22 Dose: 500 mg Mupirocin (Bactroban 2% Ointment -) 1 applic TP BID [facility] Last Admin: 03/23/17 09:22 Dose: 1 applic Ondansetron HCl (Zofran Injection) 4 mg IVPB Q6H PRN PRN Reason: NAUSEA AND/OR VOMITING Oxycodone HCl (Roxicodone -) 10 mg PO Q6H PRN PRN Reason: PAIN 6-10 - Objective Vital Signs: Vital Signs Temperature 97.9 F 03/23/17 09:00 Pulse Rate 88 03/23/17 09:00 Respiratory Rate 18 03/23/17 09:00 Blood Pressure 130/68 03/23/17 09:00 O2 Sat by Pulse Oximetry (%) 99 03/23/17 09:53 Constitutional: Yes: No Distress, Calm Cardiovascular: Yes: Regular Rate and Rhythm Respiratory: Yes: Regular, CTA Bilaterally Gastrointestinal: Yes: Normal Bowel Sounds, Soft Musculoskeletal: Yes: WNL Extremities: Yes: Other Neurological: Yes: Alert, Oriented Psychiatric: Yes: Alert, Oriented Labs: CBC, BMP 03/23/17 08:30 03/23/17 08:30 INR, PTT INR 1.02 (0.82-1.09) 03/19/17 20:20 Assessment/Plan Problems (1) Diabetes mellitus with neuropathy Code(s): E11.40 - TYPE 2 DIABETES MELLITUS WITH DIABETIC NEUROPATHY, UNSP (2) Atherosclerosis of [place] arteries of extremities with gangrene, left leg Code(s): I70.262 - ATHSCL [place] ARTERIES OF EXTREMITIES W GANGRENE, LEFT LEG plan continue abx await for vascular for procedure rest as per primary once procedure is done switch to oral wound care to continue
[2017-03-23] MEDS ORDERED: LIDOCAINE HCL 2% JELLY (5 ML/TUBE) ONE (16:02)
[2017-03-23] MEDS ORDERED: ePHEDrine SULFATE 50 MG/1 ML AMPULE ONE (16:17)
[2017-03-23] MEDS ORDERED: BACITRACIN 15 GM TUBE TOPICAL OINTMENT ONE (18:33)
--- NOTE | 2017-03-23 18:44 | OP ---
Operative Note - Note: Operative Date: 03/23/17 Pre-Operative Diagnosis: Non-healing wounds left foot Operation: Revascularization left femoral, popliteal and tibial arteries with balloon angioplasty and drug-coated balloons. Infusion of TPA Findings: Stenosis of distal SFA 70%. Severe stenosis/occlusion mid popliteal. Occlusion of distal anterior tibial artery and posterior and peroneal in mid calf. Post-Operative Diagnosis: Same as Pre-op Surgeon: Jose Luis Lowe Anesthesiologist/DIRECTOR BUSINESS: Patric Mireles Anesthesia: Fractional
[2017-03-23] MEDS ORDERED: CLOPIDOGREL BISULFATE 300 MG TABLET ONE (18:55)
[2017-03-23] MEDS ORDERED: ASPIRIN COATED 81 MG TABLET.EC ONE (18:56)
[2017-03-23] MEDS: CLOPIDOGREL BISULFATE 75 MG TABLET (FP) PO STA ×2 (19:01→20:42)
[2017-03-23] MEDS: ASPIRIN 81 MG CHEWABLE TABLETS PO SCH ×2 (19:01→20:42)
[2017-03-23] MEDS ORDERED: SODIUM CHLORIDE 1,000 ML IV SCH (19:08)
[2017-03-23] MEDS ORDERED: oxyCODONE HCL 5 MG TABLET PO PRN ×2 (19:08→19:36)
[2017-03-23] MEDS ORDERED: ONDANSETRON 4 MG/2 ML VIAL IVPB PRN (19:08)
[2017-03-23] MEDS ORDERED: ACETAMINOPHEN 325 MG TABLET (FP) PO PRN ×2 (19:08)
[2017-03-23] MEDS ORDERED: ONDANSETRON 4 MG/2 ML VIAL IVPUSH PRN (19:36)
[2017-03-23] MEDS ORDERED: PROMETHAZINE HCL 25 MG/1 ML VIAL IVPUSH PRN (19:36)
[2017-03-24] MEDS: GABAPENTIN 300 MG CAPSULE (FP) PO SCH ×3 (06:51→21:37)
[2017-03-24] MEDS: glipiZIDE 5 MG TABLET (FP) PO SCH ×2 (06:51→16:18)
[2017-03-24] MEDS: INSULIN (NOVOLOG MIX 70/30) 100 UNITS/ML MDV SQ SCH ×2 (06:52→16:20)
[2017-03-24] MEDS: INSULIN SLIDING SCALE (NOVOLOG) 1 VIAL SQ SCH ×4 (06:56→21:36)
[2017-03-24] MEDS ORDERED: metFORMIN HCL 500 MG TABLET (FP) PO SCH (07:00)
[2017-03-24 09:08] LABS: BASOPHIL 0.4 % (0-2.0); EOSINOPHIL 1.1 % (0-4.5); MCH 24.2 pg (25.7-33.7); MCHC 32.6 g/dl (32.0-36.0); MEAN PLT VOLUME 8.7 fl (7.5-11.1); NEUTROPHILS 73.8 % (42.8-82.8); PLATELET COUNT 391 K/MM3 (134-434); RDW 15.8 % (11.6-15.6); WHITE BLOOD COUNT 8.4 K/mm3 (4.0-10.0)
[2017-03-24 09:16] LABS: ANION GAP 9 (8-16); CALCIUM 8.8 mg/dL (8.5-10.1); CO2 25 mmol/L (21-32); GLUCOSE,RANDOM 150 mg/dL (74-106); MAGNESIUM 1.9 mg/dL (1.8-2.4)
[2017-03-24 09:19] LABS: ALK PHOS 85 U/L (45-117); BILIRUBIN,TOTAL 0.5 mg/dL (0.2-1.0); CREATININE 0.7 mg/dL (0.55-1.02); PHOSPHOROUS 2.9 mg/dL (2.5-4.9); SGOT/AST 15 U/L (15-37); SGPT/ALT 24 U/L (12-78); TOT PROT 6.5 g/dl (6.4-8.2)
[2017-03-24] MEDS: ACETYLCYSTEINE 20% 200MG/ML 4 ML VIAL *FOR ORAL / INH USE ONLY PO SCH ×2 (10:11→20:24)
[2017-03-24] MEDS: amLODIPine BESYLATE 5 MG TABLET (FP) PO SCH (10:12)
[2017-03-24] MEDS: CLOPIDOGREL BISULFATE 75 MG TABLET (FP) PO SCH (10:12)
[2017-03-24] MEDS: ASPIRIN 81 MG CHEWABLE TABLETS PO SCH (10:12)
[2017-03-24] MEDS: MUPIROCIN 2% TOPICAL OINTMENT 22 GM TUBE TP SCH ×2 (10:15→21:38)
--- NOTE | 2017-03-24 10:26 | PN ---
Progress Note (short form) - Note Progress Note: POD 1 No c/o VSSGroin dry Left foot warm, doppler DP and PT present. Cr. 0.8 Stable ASA/Plavix Bactroban to wounds daily. I will see in my office in 1 week. Problem List - Problems (1) Diabetes mellitus with neuropathy Code(s): E11.40 - TYPE 2 DIABETES MELLITUS WITH DIABETIC NEUROPATHY, UNSP Qualifiers: Diabetes mellitus type: type 2 Diabetes mellitus predatory animal exterminator insulin use : with predatory animal exterminator use Qualified Code(s): E11.40 - Type 2 diabetes mellitus with diabetic neuropathy, unspecified (2) Atherosclerosis of [place] arteries of extremities with gangrene, left leg Code(s): I70.262 - ATHSCL [place] ARTERIES OF EXTREMITIES W GANGRENE, LEFT LEG
--- NOTE | 2017-03-24 11:14 | PN ---
Progress Note (short form) - Note Progress Note: Renal follow up for PAOLO/MARK prophylaxis Pt seen and examined at the bedside s/p angiogram yesterday with balloon angioplasty no acute complaints for discharge home possibly today Vital Signs Temperature 98 F 03/24/17 10:04 Pulse Rate 90 03/24/17 10:04 Respiratory Rate 18 03/24/17 10:04 Blood Pressure 148/74 03/24/17 10:04 O2 Sat by Pulse Oximetry (%) 99 03/23/17 20:10 Intake & Output 03/21/17 03/22/17 03/23/17 03/24/17 23:59 23:59 23:59 23:59 Intake Total 3450 1530 1150 624 Output Total 10 Balance 3450 1530 1140 624 Gen: NAD CVS: RRR, No M/R Lungs: CTA, no rales or wheeze Abd: soft NT/ND Ext: No edema, clubbing CBC, BMP 03/24/17 08:00 03/24/17 08:00 Laboratory Tests 03/24/17 08:00 Calcium 8.8 Phosphorus 2.9 D Magnesium 1.9 Albumin 3.0 L Current Medications Acetaminophen (Tylenol -) 650 mg PO Q6H PRN PRN Reason: FEVER OR PAIN Acetaminophen (Tylenol -) 650 mg PO Q6H PRN PRN Reason: PAIN 6-10 Acetylcysteine (Mucomyst 20 Oral / Inh Use Only*) 1,200 mg PO BID@0800,1999 [facility] Last Admin: 03/24/17 10:11 Dose: 1,200 mg Amlodipine Besylate (Norvasc -) 5 mg PO DAILY [facility] Last Admin: 03/24/17 10:12 Dose: 5 mg Aspirin (Asa -) 81 mg PO DAILY [facility] Last Admin: 03/24/17 10:12 Dose: 81 mg Clopidogrel Bisulfate (Plavix -) 75 mg PO DAILY [facility] Last Admin: 03/24/17 10:12 Dose: 75 mg Fentanyl (Sublimaze Injection -) 25 mcg IVPUSH [id number] PRN PRN Reason: PAIN Stop: 03/26/17 19:37 Gabapentin (Neurontin -) 300 mg PO TID [facility] Last Admin: 03/24/17 06:51 Dose: 300 mg Glipizide (Glucotrol -) 5 mg PO BIDI [facility] Last Admin: 03/24/17 06:51 Dose: 5 mg Ertapenem 1 gm/ Sodium (Chloride) 50 mls @ 100 mls/hr IVPB DAILY@1430 [facility] PRN Reason: Protocol Insulin Aspart (Novolog Vial Sliding Scale -) 1 vial SQ ACHS [facility] PRN Reason: Protocol Last Admin: 03/24/17 06:56 Dose: Not Given Insulin Aspart (Novolog Mix 70/30 Vial) 25 units SQ BIDAC [facility] Last Admin: 03/24/17 06:52 Dose: 25 units Metformin HCl (Glucophage -) 500 mg PO BIDI [facility] Mupirocin (Bactroban 2% Ointment -) 1 applic TP BID [facility] Last Admin: 03/24/17 10:15 Dose: 1 applic Ondansetron HCl (Zofran Injection) 4 mg IVPB Q6H PRN PRN Reason: NAUSEA AND/OR VOMITING Oxycodone HCl (Roxicodone -) 10 mg PO Q6H PRN PRN Reason: PAIN 6-10 Oxycodone HCl (Roxicodone -) 5 mg PO Q4H PRN PRN Reason: MILD PAIN Stop: 03/24/17 19:35 61 year old woman with PMhx of IDDM (poorly controlled), with diabetic neuropathy who presented with non-healing ulcer on LE and found to have diminished peripheral pulses and BUN/Cr of 42/1.2. #PAOLO/Contrast Nephropathy Prophylaxis Renal function improved and stable s/p contrast exposure yesterday encouraged oral hydration and avoidance of NSIADs for now To follow up in the office in 1-2 weeks for continued monitoring of renal function Del Live DO Problem List - Problems (1) Diabetes mellitus with neuropathy Code(s): E11.40 - TYPE 2 DIABETES MELLITUS WITH DIABETIC NEUROPATHY, UNSP Qualifiers: Diabetes mellitus type: type 2 Diabetes mellitus reproducer insulin use : with reproducer use Qualified Code(s): E11.40 - Type 2 diabetes mellitus with diabetic neuropathy, unspecified (2) Diabetic ulcer of heel Code(s): E11.621 - TYPE 2 DIABETES MELLITUS WITH FOOT ULCER L97.409 - NON-PRS CHRONIC ULCER OF UNSP HEEL AND MIDFOOT W UNSP SEVERT Qualifiers: Diabetes mellitus type: type 2 Laterality: left Non-pressure ulcer stage: unspecified non-pressure ulcer stage Qualified Code(s): E11.621 - Type 2 diabetes mellitus with foot ulcer; L97.409 - Non-pressure chronic ulcer of unspecified heel and midfoot with unspecified severity (3) PAOLO (acute kidney injury) Code(s): N17.9 - ACUTE KIDNEY FAILURE, UNSPECIFIED (4) CKD (chronic kidney disease) Code(s): N18.9 - CHRONIC KIDNEY DISEASE, UNSPECIFIED (5) Wound abscess Code(s): T81.4XXA - INFECTION FOLLOWING A PROCEDURE, INITIAL ENCOUNTER
--- NOTE | 2017-03-24 11:15 | OP ---
DATE OF OPERATION: 03/23/2017 SURGEON: Jose Luis Renteria MD PROCEDURE: 1. Revascularization of left femoral and popliteal arteries with balloon angioplasty and drug-coated balloon. 2. Revascularization of left anterior tibial artery with balloon angioplasty and drug-coated balloon, infusion of tPA. Ultrasound-guided cannulation of the left common femoral artery. PREOPERATIVE DIAGNOSIS: Gangrene and nonhealing wounds of the left foot. POSTOPERATIVE DIAGNOSIS: Gangrene and nonhealing wounds of the left foot. ANESTHESIA: Fractional. ANESTHESIOLOGIST: Chi. OPERATIVE FINDINGS: There was [id number] stenosis of the proximal left superficial femoral artery. There was approximately 70% stenosis of the distal superficial femoral artery. There was severe stenosis and segmental occlusion in the popliteal artery. The anterior tibial artery was patent proximally and occluded in its distal portion. It reconstituted a dorsalis pedis artery, which also had approximately 80% stenosis in a short segment. The plantar arch was intact. The posterior tibial and peroneal arteries were diffusely stenotic. DESCRIPTION OF PROCEDURE: The patient was brought to the operating room, and intravenous sedation was established. Surgical time-out was performed. Both groins were prepped with ChloraPrep. Using Real-Time duplex imaging, the left common femoral artery was identified. A site for cannulation proximal to the bifurcation was identified, and lidocaine was infiltrated in the skin and subcutaneous tissues proximal to this area. A micropuncture needle was then directed under ultrasound guidance into the common femoral artery, and a micropuncture wire advanced distally into the superficial femoral artery. The needle was exchanged for a 5[place] catheter, and the wire was exchanged for an Amplatz wire, which was advanced distally. The catheter was removed, and a 5[place] sheath was placed. The patient was systemically heparinized. Angiography was then performed with single technique with the above noted findings. A catheter was then passed over the wire, and the wire was exchanged for an angle-tipped Glidewire. The wire and catheter were then advanced distally through the stenoses in the femoral and popliteal artery. A 0.014-inch wire was then advanced into the anterior tibial artery and distally into the foot. Catheter was advanced over the wire and confirmatory angiogram obtained of the foot. There was very sluggish flow throughout the tibial vessels suggesting possible thrombotic occlusions. Therefore, TPA was infused into the anterior tibial artery 2 mg and into the distal popliteal artery 2 mg. A 2-mm x 4-cm angioplasty balloon was then used to dilate the dorsalis pedis artery in the foot. A 3-mm x 220-mm balloon was used to dilate the anterior tibial artery back to its origin. The popliteal artery was balloon dilated with a 4-mm balloon and the superficial femoral artery with a long 5-mm balloon. Repeat imaging during the procedures showed good dilatation of the vessels. A 4-mm x 100-mm Lutonix balloon was then used to treat the popliteal artery. Then 5-mm balloons, 150 mm and 120 mm, were used to treat the entire superficial femoral artery. Completion imaging was performed revealing patent angioplasty sites in the femoral and popliteal vessels. The distal anterior tibial artery was not patent, and this was re-dilated with a long 2-mm balloon. Completion imaging here did show a patent vessel with runoff into the plantar aspect of the foot. The wires were then removed. The sheath was left in place to be removed in the recovery room once the heparin effect had worn off. The patient was transported to the recovery room in stable condition. JOSE LUIS RENTERIA M.D. [id number]
--- NOTE | 2017-03-24 13:10 | PN ---
Progress Note, Physician Chief Complaint: Remained afebrile FS are better controlled History of Present Illness: 61 yrs old F with uncontrolled T2DM PVD present with non healing infected ulcer Left foot with uncontrolled DM and PAOLO , PAOLO is improving on IV hydration - Current Medication List Current Medications: Active Medications Acetaminophen (Tylenol -) 650 mg PO Q6H PRN PRN Reason: FEVER OR PAIN Acetaminophen (Tylenol -) 650 mg PO Q6H PRN PRN Reason: PAIN 6-10 Acetylcysteine (Mucomyst 20 Oral / Inh Use Only*) 1,200 mg PO BID@0800,1999 [facility] Last Admin: 03/24/17 10:11 Dose: 1,200 mg Amlodipine Besylate (Norvasc -) 5 mg PO DAILY [facility] Last Admin: 03/24/17 10:12 Dose: 5 mg Aspirin (Asa -) 81 mg PO DAILY [facility] Last Admin: 03/24/17 10:12 Dose: 81 mg Clopidogrel Bisulfate (Plavix -) 75 mg PO DAILY [facility] Last Admin: 03/24/17 10:12 Dose: 75 mg Fentanyl (Sublimaze Injection -) 25 mcg IVPUSH [id number] PRN PRN Reason: PAIN Stop: 03/26/17 19:37 Gabapentin (Neurontin -) 300 mg PO TID [facility] Last Admin: 03/24/17 06:51 Dose: 300 mg Glipizide (Glucotrol -) 5 mg PO BIDI [facility] Last Admin: 03/24/17 06:51 Dose: 5 mg Ertapenem 1 gm/ Sodium (Chloride) 50 mls @ 100 mls/hr IVPB DAILY@1430 [facility] PRN Reason: Protocol Insulin Aspart (Novolog Vial Sliding Scale -) 1 vial SQ ACHS [facility] PRN Reason: Protocol Last Admin: 03/24/17 12:22 Dose: 4 units Insulin Aspart (Novolog Mix 70/30 Vial) 25 units SQ BIDAC [facility] Last Admin: 03/24/17 06:52 Dose: 25 units Metformin HCl (Glucophage -) 500 mg PO BIDI [facility] Mupirocin (Bactroban 2% Ointment -) 1 applic TP BID [facility] Last Admin: 03/24/17 10:15 Dose: 1 applic Ondansetron HCl (Zofran Injection) 4 mg IVPB Q6H PRN PRN Reason: NAUSEA AND/OR VOMITING Oxycodone HCl (Roxicodone -) 10 mg PO Q6H PRN PRN Reason: PAIN 6-10 Oxycodone HCl (Roxicodone -) 5 mg PO Q4H PRN PRN Reason: MILD PAIN Stop: 03/24/17 19:35 - Objective Vital Signs: Vital Signs Temperature 98 F 03/24/17 10:04 Pulse Rate 90 03/24/17 10:04 Respiratory Rate 18 03/24/17 10:04 Blood Pressure 148/74 03/24/17 10:04 O2 Sat by Pulse Oximetry (%) 99 03/23/17 20:10 Labs: CBC, BMP 03/24/17 08:00 03/24/17 08:00 INR, PTT INR 1.02 (0.82-1.09) 03/19/17 20:20 Problem List - Problems (1) Diabetic ulcer of heel Code(s): E11.621 - TYPE 2 DIABETES MELLITUS WITH FOOT ULCER L97.409 - NON-PRS CHRONIC ULCER OF UNSP HEEL AND MIDFOOT W UNSP SEVERT Qualifiers: Diabetes mellitus type: type 2 Laterality: left Non-pressure ulcer stage: unspecified non-pressure ulcer stage Qualified Code(s): E11.621 - Type 2 diabetes mellitus with foot ulcer; L97.409 - Non-pressure chronic ulcer of unspecified heel and midfoot with unspecified severity (2) Diabetes mellitus with neuropathy Code(s): E11.40 - TYPE 2 DIABETES MELLITUS WITH DIABETIC NEUROPATHY, UNSP Qualifiers: Diabetes mellitus type: type 2 Diabetes mellitus director long term care insulin use : with director long term care use Qualified Code(s): E11.40 - Type 2 diabetes mellitus with diabetic neuropathy, unspecified (3) Atherosclerosis of [place] arteries of extremities with gangrene, left leg Code(s): I70.262 - ATHSCL [place] ARTERIES OF EXTREMITIES W GANGR[place], LEFT LEG (4) PAOLO (acute kidney injury) Code(s): N17.9 - ACUTE KIDNEY FAILURE, UNSPECIFIED
--- NOTE | 2017-03-24 15:09 | PN ---
Progress Note, Physician History of Present Illness: Pt is s/p angioplasty for revascularization of Lt fem/pop and tibial arteries. States she feels well. No specific complaints - Current Medication List Current Medications: Active Medications Acetaminophen (Tylenol -) 650 mg PO Q6H PRN PRN Reason: FEVER OR PAIN Acetaminophen (Tylenol -) 650 mg PO Q6H PRN PRN Reason: PAIN 6-10 Acetylcysteine (Mucomyst 20 Oral / Inh Use Only*) 1,200 mg PO BID@0800,2000 [facility] Last Admin: 03/24/17 10:11 Dose: 1,200 mg Amlodipine Besylate (Norvasc -) 5 mg PO DAILY [facility] Last Admin: 03/24/17 10:12 Dose: 5 mg Aspirin (Asa -) 81 mg PO DAILY [facility] Last Admin: 03/24/17 10:12 Dose: 81 mg Clopidogrel Bisulfate (Plavix -) 75 mg PO DAILY [facility] Last Admin: 03/24/17 10:12 Dose: 75 mg Fentanyl (Sublimaze Injection -) 25 mcg IVPUSH [id number] PRN PRN Reason: PAIN Stop: 03/26/17 19:37 Gabapentin (Neurontin -) 300 mg PO TID [facility] Last Admin: 03/24/17 06:51 Dose: 300 mg Glipizide (Glucotrol -) 5 mg PO BIDI [facility] Last Admin: 03/24/17 06:51 Dose: 5 mg Ertapenem 1 gm/ Sodium (Chloride) 50 mls @ 100 mls/hr IVPB DAILY@1430 [facility] PRN Reason: Protocol Insulin Aspart (Novolog Vial Sliding Scale -) 1 vial SQ ACHS [facility] PRN Reason: Protocol Last Admin: 03/24/17 12:22 Dose: 4 units Insulin Aspart (Novolog Mix 70/30 Vial) 25 units SQ BIDAC [facility] Last Admin: 03/24/17 06:52 Dose: 25 units Metformin HCl (Glucophage -) 500 mg PO BIDI [facility] Mupirocin (Bactroban 2% Ointment -) 1 applic TP BID [facility] Last Admin: 03/24/17 10:15 Dose: 1 applic Ondansetron HCl (Zofran Injection) 4 mg IVPB Q6H PRN PRN Reason: NAUSEA AND/OR VOMITING Oxycodone HCl (Roxicodone -) 10 mg PO Q6H PRN PRN Reason: PAIN 6-10 Oxycodone HCl (Roxicodone -) 5 mg PO Q4H PRN PRN Reason: MILD PAIN Stop: 03/24/17 19:35 - Objective Vital Signs: Vital Signs Temperature 98 F 03/24/17 10:04 Pulse Rate 90 03/24/17 10:04 Respiratory Rate 18 03/24/17 10:04 Blood Pressure 148/74 03/24/17 10:04 O2 Sat by Pulse Oximetry (%) 99 03/23/17 20:10 Constitutional: Yes: No Distress Eyes: Yes: WNL HENT: Yes: WNL Neck: Yes: WNL Cardiovascular: Yes: Regular Rate and Rhythm Respiratory: Yes: CTA Bilaterally Gastrointestinal: Yes: Normal Bowel Sounds, Soft Genitourinary: Yes: WNL Musculoskeletal: Yes: WNL Extremities: Yes: Other (Lt foot ulcer, without purulence, +left foot tenderness ) Neurological: Yes: Alert Labs: CBC, [facility] 03/24/17 08:00 03/24/17 08:00 INR, PTT INR 1.02 (0.82-1.09) 03/19/17 20:20 CBC, [facility] 03/24/17 08:00 03/24/17 08:00 Problem List - Problems (1) PAOLO (acute kidney injury) Code(s): N17.9 - ACUTE KIDNEY FAILURE, UNSPECIFIED (2) Atherosclerosis of [place] arteries of extremities with gangrene, left leg Code(s): I70.262 - ATHSCL [place] ARTERIES OF EXTREMITIES W GANGR[place], LEFT LEG (3) Diabetes mellitus with neuropathy Code(s): E11.40 - TYPE 2 DIABETES MELLITUS WITH DIABETIC NEUROPATHY, UNSP Qualifiers: Diabetes mellitus type: type 2 Diabetes mellitus assisted insulin use : with termite treater use Qualified Code(s): E11.40 - Type 2 diabetes mellitus with diabetic neuropathy, unspecified (4) Diabetic ulcer of heel Code(s): E11.621 - TYPE 2 DIABETES MELLITUS WITH FOOT ULCER L97.409 - NON-PRS CHRONIC ULCER OF UNSP HEEL AND MIDFOOT W UNSP SEVERT Qualifiers: Diabetes mellitus type: type 2 Laterality: left Non-pressure ulcer stage: unspecified non-pressure ulcer stage Qualified Code(s): E11.621 - Type 2 diabetes mellitus with foot ulcer; L97.409 - Non-pressure chronic ulcer of unspecified heel and midfoot with unspecified severity Assessment/Plan s/p angioplasty clinically stable - continue antibiotics for now - vascular surgery follow up
[2017-03-24] MEDS: ERTAPENEM SODIUM 1 GM in SODIUM CHLORIDE 50 ML IVPB SCH (16:19)
[2017-03-24] MEDS ORDERED: PT OWN MED DRAWER 7, Y5N ONE ×2 (18:49→21:20)
[2017-03-25] MEDS ORDERED: PT OWN MED DRAWER 7, Y5N ONE (05:59)
[2017-03-25] MEDS: GABAPENTIN 300 MG CAPSULE (FP) PO SCH ×2 (06:08→14:21)
[2017-03-25] MEDS: INSULIN (NOVOLOG MIX 70/30) 100 UNITS/ML MDV SQ SCH (06:09)
[2017-03-25] MEDS: glipiZIDE 5 MG TABLET (FP) PO SCH (06:09)
[2017-03-25] MEDS: INSULIN SLIDING SCALE (NOVOLOG) 1 VIAL SQ SCH ×2 (06:10→12:00)
[2017-03-25 08:51] LABS: BASOPHIL 0.5 % (0-2.0); EOSINOPHIL 1.7 % (0-4.5); MCH 24.4 pg (25.7-33.7); MEAN PLT VOLUME 8.2 fl (7.5-11.1); NEUTROPHILS 66.8 % (42.8-82.8); PLATELET COUNT 381 K/MM3 (134-434); RDW 15.5 % (11.6-15.6); WHITE BLOOD COUNT 7.3 K/mm3 (4.0-10.0)
[2017-03-25 09:18] LABS: ALBUMIN 2.7 g/dl (3.4-5.0); ANION GAP 4 (8-16); BILIRUBIN,TOTAL 0.3 mg/dL (0.2-1.0); CALCIUM 8.8 mg/dL (8.5-10.1); CO2 27 mmol/L (21-32); CREATININE 0.9 mg/dL (0.55-1.02); GLUCOSE,RANDOM 120 mg/dL (74-106); SGOT/AST 11 U/L (15-37); SGPT/ALT 21 U/L (12-78); TOT PROT 6.3 g/dl (6.4-8.2)
[2017-03-25 09:19] LABS: ALK PHOS 81 U/L (45-117)
[2017-03-25] MEDS: CLOPIDOGREL BISULFATE 75 MG TABLET (FP) PO SCH (09:58)
[2017-03-25] MEDS: amLODIPine BESYLATE 5 MG TABLET (FP) PO SCH (09:59)
[2017-03-25] MEDS: ASPIRIN 81 MG CHEWABLE TABLETS PO SCH (09:59)
[2017-03-25] MEDS: ACETYLCYSTEINE 20% 200MG/ML 4 ML VIAL *FOR ORAL / INH USE ONLY PO SCH (09:59)
[2017-03-25] MEDS: MUPIROCIN 2% TOPICAL OINTMENT 22 GM TUBE TP SCH (10:00)
--- NOTE | 2017-03-25 13:34 | PN ---
Progress Note, Physician History of Present Illness: Pt states she feels well. Wants to go home. Pain in left heel controlled. No specific complaints. - Current Medication List Current Medications: Active Medications Acetaminophen (Tylenol -) 650 mg PO Q6H PRN PRN Reason: FEVER OR PAIN Last Admin: 03/24/17 20:25 Dose: 650 mg Acetaminophen (Tylenol -) 650 mg PO Q6H PRN PRN Reason: PAIN 6-10 Acetylcysteine (Mucomyst 20 Oral / Inh Use Only*) 1,200 mg PO BID@0800,2000 [facility] Last Admin: 03/25/17 09:59 Dose: 1,200 mg Amlodipine Besylate (Norvasc -) 5 mg PO DAILY [facility] Last Admin: 03/25/17 09:59 Dose: 5 mg Aspirin (Asa -) 81 mg PO DAILY [facility] Last Admin: 03/25/17 09:59 Dose: 81 mg Clopidogrel Bisulfate (Plavix -) 75 mg PO DAILY [facility] Last Admin: 03/25/17 09:58 Dose: 75 mg Fentanyl (Sublimaze Injection -) 25 mcg IVPUSH [id number] PRN PRN Reason: PAIN Stop: 03/26/17 19:37 Gabapentin (Neurontin -) 300 mg PO TID [facility] Last Admin: 03/25/17 06:08 Dose: 300 mg Glipizide (Glucotrol -) 5 mg PO BIDI [facility] Last Admin: 03/25/17 06:09 Dose: 5 mg Ertapenem 1 gm/ Sodium (Chloride) 50 mls @ 100 mls/hr IVPB DAILY@1430 [facility] PRN Reason: Protocol Last Admin: 03/24/17 16:19 Dose: 100 mls/hr Insulin Aspart (Novolog Vial Sliding Scale -) 1 vial SQ ACHS [facility] PRN Reason: Protocol Last Admin: 03/25/17 06:10 Dose: Not Given Insulin Aspart (Novolog Mix 70/30 Vial) 25 units SQ BIDAC [facility] Last Admin: 03/25/17 06:09 Dose: 25 units Metformin HCl (Glucophage -) 500 mg PO BIDI [facility] Last Admin: 03/25/17 06:09 Dose: 500 mg Mupirocin (Bactroban 2% Ointment -) 1 applic TP BID [facility] Last Admin: 03/25/17 10:00 Dose: 1 applic Ondansetron HCl (Zofran Injection) 4 mg IVPB Q6H PRN PRN Reason: NAUSEA AND/OR VOMITING Oxycodone HCl (Roxicodone -) 10 mg PO Q6H PRN PRN Reason: PAIN 6-10 - Objective Vital Signs: Vital Signs Temperature 98.6 F 03/25/17 10:08 Pulse Rate 87 03/25/17 10:08 Respiratory Rate 18 03/25/17 10:08 Blood Pressure 137/66 03/25/17 10:08 O2 Sat by Pulse Oximetry (%) 98 03/24/17 21:00 Constitutional: Yes: No Distress, Calm Eyes: Yes: WNL HENT: Yes: WNL Neck: Yes: WNL Cardiovascular: Yes: Regular Rate and Rhythm Respiratory: Yes: CTA Bilaterally Gastrointestinal: Yes: Normal Bowel Sounds, Soft Genitourinary: Yes: WNL Integumentary: Yes: Other (Lt heel diabetic ulcer, dry, no purulence, + tenderness) Wound/Incision: Yes: Dressing Dry and Intact Psychiatric: Yes: Alert Labs: CBC, BMP 03/25/17 07:59 03/25/17 07:59 INR, PTT INR 1.02 (0.82-1.09) 03/19/17 20:20 Problem List - Problems (1) PAOLO (acute kidney injury) Code(s): N17.9 - ACUTE KIDNEY FAILURE, UNSPECIFIED (2) Atherosclerosis of [place] arteries of extremities with gangrene, left leg Code(s): I70.262 - ATHSCL [place] ARTERIES OF EXTREMITIES W GANGRENE, LEFT LEG (3) Diabetes mellitus with neuropathy Code(s): E11.40 - TYPE 2 DIABETES MELLITUS WITH DIABETIC NEUROPATHY, UNSP Qualifiers: Diabetes mellitus type: type 2 Diabetes mellitus terminal operator insulin use : with terminal operator use Qualified Code(s): E11.40 - Type 2 diabetes mellitus with diabetic neuropathy, unspecified (4) Diabetic ulcer of heel Code(s): E11.621 - TYPE 2 DIABETES MELLITUS WITH FOOT ULCER L97.409 - NON-PRS CHRONIC ULCER OF UN[place] HEEL AND MIDFOOT W UNSP SEVERT Qualifiers: Diabetes mellitus type: type 2 Laterality: left Non-pressure ulcer stage: unspecified non-pressure ulcer stage Qualified Code(s): E11.621 - Type 2 diabetes mellitus with foot ulcer; L97.409 - Non-pressure chronic ulcer of unspecified heel and midfoot with unspecified severity Assessment/Plan Pt s/p LLE angioplasty Lt foot diabetic ulcer PCN allergic - pt for d/c home today - suggest levaquin 500 mg po daily, Doxycycline 100 mg po BID x 7 days each - f/u with PMD, Vascular surgeon pt currently stable
[2017-03-25] MEDS: ERTAPENEM SODIUM 1 GM in SODIUM CHLORIDE 50 ML IVPB SCH (14:20)
[2017-03-25 15:40] VITALS: BP 152/73; PULSE 88; TEMP 97.7
--- NOTE | 2017-03-25 19:05 | DS ---
Physical Examination Vital Signs: Vital Signs Temperature 97.7 F 03/25/17 14:38 Pulse Rate 88 03/25/17 14:38 Respiratory Rate 18 03/25/17 14:38 Blood Pressure 152/73 03/25/17 14:38 O2 Sat by Pulse Oximetry (%) 98 03/25/17 09:00 Findings/Remarks: Stable Labs: CBC, BMP 03/25/17 07:59 03/25/17 07:59 Discharge Summary Reason For Visit: ULCER OF HEEL DUE TO DIABETES MELLITUS Condition: Stable - Instructions Diet, Activity, Other Instructions: Wash wounds with Ivory soap and water. Dry and apply Bactroban or Bacitracin to wounds with gauze bandage daily. Disposition: HOME - Home Medications Comprehensive Discharge Medication List: Ambulatory Orders Insulin Aspart Prot/Insuln Asp [Novolog Mix 70-30 Flexpen Syrn] 38 unit SQ BID 03/19/17 Amlodipine Besylate [Norvasc -] 5 mg PO DAILY tablet 03/25/17 Aspirin [ASA -] 81 mg PO DAILY tab.chew 03/25/17 Clopidogrel Bisulfate [Plavix -] 75 mg PO DAILY #30 tablet 03/25/17 Gabapentin [Neurontin -] 300 mg PO TID #90 tab 03/25/17 Glipizide [Glucotrol -] 5 mg PO BIDI tablet 03/25/17 Insulin Sliding Scale [Novolog Vial Sliding Scale -] 1 vial SQ ACHS units 03/25 Metformin HCl [Glucophage -] 500 mg PO BIDI tablet 03/25/17 Mupirocin Ointment [Bactroban 2% Ointment -] 1 applic TP BID applic 03/25/17
== END 2017-03-25 17:09 | disposition home or self-care (01) | DRG 173 ==
LOC: JER 18:38 → JERBED 20:45 → J5S 03-20 00:14
PROVIDERS: ADMIT Internal Medicine; ATTEND Internal Medicine
PROC: 047Q3ZZ Dilation of Left Anterior Tibial Artery, Percutaneous Approach (ICD-10-PCS; 2017-03-19)
PROC: B44GZZ3 Ultrasonography of Left Lower Extremity Arteries, Intravascular (ICD-10-PCS; 2017-03-19)
PROC: 047L3Z1 Dilation of Left Femoral Artery using Drug-Coated Balloon, Percutaneous Approach (ICD-10-PCS; 2017-03-23)
PROC: 3E05317 Introduction of Other Thrombolytic into Peripheral Artery, Percutaneous Approach (ICD-10-PCS; 2017-03-23)
PROC: 047N3Z1 Dilation of Left Popliteal Artery using Drug-Coated Balloon, Percutaneous Approach (ICD-10-PCS; principal; 2017-03-23 15:00)
DX: E11.52 Type 2 diabetes mellitus with diabetic peripheral angiopathy with gangrene (principal); I70.262 Atherosclerosis of native arteries of extremities with gangrene, left leg; E11.22 Type 2 diabetes mellitus with diabetic chronic kidney disease; I12.9 Hypertensive chronic kidney disease with stage 1 through stage 4 chronic kidney disease, or unspecified chronic kidney disease; N17.9 Acute kidney failure, unspecified; E11.40 Type 2 diabetes mellitus with diabetic neuropathy, unspecified; E11.65 Type 2 diabetes mellitus with hyperglycemia; E11.621 Type 2 diabetes mellitus with foot ulcer; L97.429 Non-pressure chronic ulcer of left heel and midfoot with unspecified severity; L97.529 Non-pressure chronic ulcer of other part of left foot with unspecified severity; Z79.84 Long term (current) use of oral hypoglycemic drugs; Z79.4 Long term (current) use of insulin; N18.9 Chronic kidney disease, unspecified
CPT/HCPCS: 36415; 71010-TC; 73630-TC-LT; 76000-TC; 76775-TC; 80048; 80053; 81003; 81015; 82436; 82570; 83036; 83735; 84100; 84133; 84156; 84300; 85025; 85610; 86038; 86850; 86900; 86901; 87040; 87070; 87077; 87086; 87205; 93005; 93010; 94760; 99283-25; J1644

== ENCOUNTER 2018-10-23 12:03 | Inpatient (IN) | payer OTHER ==
--- NOTE | 2018-10-23 12:43 | PDOC ---
History of Present Illness - General History Source: Patient Exam Limitations: No Limitations - History of Present Illness Initial Comments: 10/23/18 15:17 The patient is a 63-year-old female, with a past medical history of HTN and DM, who presents to the ED with nausea, vomiting, and diarrhea for the past few days. The patient has not taken her diabetes medication in 7-8 days due to the nausea and her BS was noted to be high at 600. Denies any blood in emesis or stools. The patient denies any fevers, chills, cough, constipation, or abdominal pain. Denies any shortness of breath or chest pain. Denies any urinary symptoms. Allergies: Penicillins Social History: None reported. Surgical History: None reported. PCP: Dr. Price Cardiology: Dr. Alvarez Sommelier: Dr. Live Vascular: Dr. Lowe <Delia Soto - Last Filed: 10/23/18 15:17> <Van Bartlett - Last Filed: 10/23/18 16:44> - General Chief Complaint: Blood Sugar Problem Stated Complaint: DIARRHEA/Nausea,sugar 600 Time Seen by Provider: 10/23/18 12:42 Past History <Delia Soto - Last Filed: 10/23/18 15:17> - Past Medical History COPD: No Diabetes: Yes HTN: Yes Kidney Stones: (kidney issues) - Suicide/Smoking/Psychosocial Hx Smoking History: Never smoked Information on smoking cessation initiated: No Hx Alcohol Use: No Drug/Substance Use Hx: No <Van Bartlett - Last Filed: 10/23/18 16:44> - Past Medical History Allergies/Adverse Reactions: Allergies Allergy/AdvReac Type Severity Reaction Status Date / Time Penicillins Allergy Severe Verified 10/23/18 12:10 Home Medications: Ambulatory Orders Aspirin [ASA -] 81 mg PO DAILY tab.chew 03/25/17 Clopidogrel Bisulfate [Plavix -] 75 mg PO DAILY #30 tablet 03/25/17 Gabapentin [Neurontin -] 600 mg PO DAILY 08/05/18 Glipizide [Glucotrol -] 5 mg PO BID 08/05/18 Amlodipine Besylate 10 mg PO DAILY 10/23/18 Atorvastatin Ca [Lipitor] 80 mg PO HS 10/23/18 Carvedilol 6.25 mg PO BID 10/23/18 Ezetimibe 10 mg PO DAILY 10/23/18 Insulin Lispro Protamin/Lispro [Humalog Mix 75-25 Vial] 28 units SQ BID Losartan Potassium 50 mg PO DAILY 10/23/18 Sodium Zirconium Cyclosilicate [Lokelma] 10 gm PO DAILY 10/23/18 Review of Systems - Review of Systems Able to Perform ROS?: Yes Comments:: 10/23/18 15:18 CONSTITUTIONAL: No fever, no chills, no fatigue EYES: No visual changes ENT: No ear pain, no sore throat CARDIOVASCULAR: No chest pain, no palpitations RESPIRATORY: No cough, no SOB GI: (+)Nausea, vomiting, diarrhea. No abdominal pain, no constipation GENITOURINARY: No dysuria, no frequency, no hematuria MUSKULOSKELETAL: No back pain, no joint pain, no myalgias SKIN: No rash NEURO: No headache <Delia Soto - Last Filed: 10/23/18 15:17> *Physical Exam - Vital Signs Last Vital Signs Temp Pulse Resp BP Pulse Ox 98.1 F 102 H 19 148/61 98 10/23/18 12:08 10/23/18 12:08 10/23/18 12:08 10/23/18 12:08 10/23/18 12:08 - Physical Exam Comments: 10/23/18 15:19 CONSTITUTIONAL: (+)Obese. Well-appearing; well-nourished; in no apparent distress HEAD: Normocephalic; atraumatic EYES: PERRL; EOM intact ENMT: (+)Dry mucous membranes. Normal oropharynx NECK: Supple; non-tender; no cervical lymphadenopathy CARD: Normal S1, S2; no murmurs, rubs, or gallops RESP: Normal chest excursion with respiration; breath sounds clear and equal bilaterally; no wheezes, rhonchi, or rales ABD: Soft, non-distended; non-tender; no palpable organomegaly, no palpable hernias EXT: Normal ROM in all four extremities; non-tender to palpation; distal pulses intact SKIN: Warm, dry, no rash NEURO: No focal neurological deficiencies. <Delia Soto - Last Filed: 10/23/18 15:17> - Vital Signs Last Vital Signs Temp Pulse Resp BP Pulse Ox 98.1 F 102 H 19 148/61 98 10/23/18 12:08 10/23/18 12:08 10/23/18 12:08 10/23/18 12:08 10/23/18 12:08 <Van Bartlett - Last Filed: 10/23/18 16:44> Moderate Sedation - Procedure Monitoring Vital Signs: Procedure Monitoring Vital Signs Temperature 98.1 F 10/23/18 12:08 Pulse Rate 102 H 10/23/18 12:08 Respiratory Rate 19 10/23/18 12:08 Blood Pressure 148/61 10/23/18 12:08 O2 Sat by Pulse Oximetry (%) 98 10/23/18 12:08 <Delia Soto - Last Filed: 10/23/18 15:17> - Procedure Monitoring Vital Signs: Procedure Monitoring Vital Signs Temperature 98.1 F 10/23/18 12:08 Pulse Rate 102 H 10/23/18 12:08 Respiratory Rate 10/23/18 12:08 Blood Pressure 148/61 10/23/18 12:08 O2 Sat by Pulse Oximetry (%) 98 10/23/18 12:08 <Van Bartlett - Last Filed: 10/23/18 16:44> ED Treatment Course - LABORATORY CBC & Chemistry Diagram: 10/23/18 14:00 10/23/18 14:42 - ADDITIONAL ORDERS Additional order review: Laboratory Results 10/23/18 12:45 POC Glucometer 572 10/23/18 10/23/18 14:00 12:45 RBC 4.79 MCV 76.3 L MCHC 32.8 RDW 15.4 MPV 9.6 Neutrophils % 80.7 Lymphocytes % 14.7 D Monocytes % 3.4 L Eosinophils % 0.5 Basophils % 0.7 POC Glucometer 572 - Medications Given in the ED: ED Medications Discontinued Medications Generic Name Dose Route Start Last Admin Trade Name Freq PRN Reason Stop Dose Admin Sodium Chloride 1,000 mls @ 1,000 mls/hr 10/23/18 13:53 10/23/18 14:30 Normal Saline - IV 10/23/18 14:52 1,000 mls/hr ASDIR STA Administration <Delia Soto - Last Filed: 10/23/18 15:17> - LABORATORY CBC & Chemistry Diagram: 10/23/18 14:00 10/23/18 14:42 <Van Bartlett - Last Filed: 10/23/18 16:44> Medical Decision Making - Medical Decision Making 10/23/18 14:57 Patient is a 63-year-old female with history of CAD, chronic renal insufficiency , diabetes, morbid obesity who presents with several weeks of generalized weakness, malaise, intermittent diarrhea, persistent nausea, decreased intake of liquids and severe hyperglycemia. In the ER, patient is awake and alert, nontoxic appearing, with dry mucous membranes and no significant abdominal tenderness on physical exam. Patient's BGM is noted to be 572. Will obtain CBC/ CMP/cardiac profile/magnesium/urinalysis/urine culture/EKG/chest x-ray. We'll judiciously hydrate. Will treat infectious causes as identified. We'll administer insulin as needed. Will rule out DKA with anion gap and acetone. Will reassess. 10/23/18 16:41 Patient reassessed. Patient is resting comfortably. Anion gap is noted to be within normal limit. Patient's potassium is noted to be 6.1 with EKG revealing hyperacute T waves. Will administer IV fluids, we'll administer insulin. No indication for calcium therapy at this time. Urinalysis also reveals pyuria. Will treat with Cipro. Will admit. Case discussed with Dr. Ward who agrees with the plan of care. <Van Bartlett - Last Filed: 10/23/18 16:44> *DC/Admit/Observation/Transfer - Attestations Scribe Attestion: 10/23/18 15:21 Documentation prepared by Delia Soto, acting as remote medical coder for Van Bartlett MD. <Delia Soto - Last Filed: 10/23/18 15:17> - Discharge Dispostion Decision to Admit order: Yes - Attestations Physician Attestion: 10/23/18 14:57 The documentation was prepared by the scribe under my direct supervision. I have reviewed the documentation which correctly represents the findings, medical decision-making and critical action taken by me. <Van Bartlett - Last Filed: 10/23/18 16:44> Diagnosis at time of Disposition: Hyperglycemia, Hyperkalemia Urinary tract infection Qualifiers: Urinary tract infection type: site unspecified Hematuria presence: without hematuria Qualified Code(s): N39.0 - Urinary tract infection, site not specified - Discharge Dispostion Condition at time of disposition: Fair - Referrals Referrals: Tao Price MD [Primary Care Provider] - - Patient Instructions - Post Discharge Activity
[2018-10-23] MEDS ORDERED: SODIUM CHLORIDE 1,000 ML IV STA ×2 (13:53→15:48)
[2018-10-23 14:48] LABS: BASO % 0.7 % (0-2.0); EOS % 0.5 % (0-4.5); HEMATOCRIT 36.5 % (32.4-45.2); LYMPH % 14.7 % (8-40); MCHC 32.8 g/dl (32.0-36.0); MEAN CELL VOLUME 76.3 fl (80-96); MEAN PLT VOLUME 9.6 fl (7.5-11.1); MONO % 3.4 % (3.8-10.2); NEUT % 80.7 % (42.8-82.8); PLATELET COUNT 357 K/MM3 (134-434); RBC 4.79 M/mm3 (3.60-5.2); RDW 15.4 % (11.6-15.6); WHITE BLOOD COUNT 10.4 K/mm3 (4.0-10.0)
[2018-10-23 15:22] LABS: ALBUMIN 2.6 g/dl (3.4-5.0); ALK PHOS 197 U/L (45-117); ANION GAP 5 MMOL/L (8-16); BILIRUBIN,TOTAL 0.3 mg/dL (0.2-1); BLOOD UREA NITROGEN 37 mg/dL (7-18); CALCIUM 8.8 mg/dL (8.5-10.1); CHLORIDE 103 mmol/L (98-107); CO2 24 mmol/L (21-32); CREATININE 2.6 mg/dL (0.55-1.3); MAGNESIUM 2.5 mg/dL (1.8-2.4); SGOT/AST 17 U/L (15-37); SGPT/ALT 28 U/L (13-61); SODIUM 132 mmol/L (136-145)
[2018-10-23 15:32] LABS: EPI CELLS 2.9 /HPF (FEW); HYALINE CASTS 8 /hpf (NEGATIVE); URINE APPEARANCE CLEAR; URINE BACTERIA 7.956 /hpf (NEGATIVE); URINE BILIRUBIN NEGATIVE (<2.0 mg/dL); URINE COLOR YELLOW; URINE GLUCOSE (UA) 3+ (NEGATIVE); URINE KETONE TRACE (NEGATIVE); URINE LEUK ESTERASE NEAGTIVE (NEGATIVE); URINE NITRITE NEGATIVE (NEGATIVE); URINE PROTEIN 4+ (NEGATIVE); URINE RBC 2 /hpf (0-3); URINE UROBILINOGEN 0.2 mg/dL (0.2-1.0); URINE WBC 17 /hpf (3-5)
[2018-10-23 15:42] LABS: POTASSIUM 6.1 mmol/L (3.5-5.1)
[2018-10-23 15:43] LABS: GLUCOSE,RANDOM 620 mg/dL (74-106)
[2018-10-23] MEDS ORDERED: CIPROFLOXACIN 400 MG/D5W 400 MG/200 ML IVPB IVPB ONE (15:58)
[2018-10-23] MEDS ORDERED: FAMOTIDINE 20 MG/50 ML IVPB 20 MG/50 ML MG IVPB ONE ×2 (15:58→16:07)
[2018-10-23] MEDS ORDERED: ONDANSETRON 4 MG/2 ML VIAL IVPUSH ONE (15:58)
[2018-10-23] MEDS ORDERED: INSULIN REGULAR HUMAN 100 UNITS/ML *VIAL SQ ONE (16:00)
[2018-10-23] MEDS ORDERED: ONDANSETRON 4 MG/2 ML VIAL ONE (16:07)
[2018-10-23] MEDS ORDERED: INSULIN (NOVOLOG) ASPART 100 UNITS/ML 10ML VIAL ONE ×2 (16:07→21:28)
[2018-10-23 18:25] LABS: ALBUMIN 1.9 g/dl (3.4-5.0); ANION GAP 6 MMOL/L (8-16); BILIRUBIN,TOTAL 0.2 mg/dL (0.2-1); BLOOD UREA NITROGEN 32 mg/dL (7-18); CALCIUM 7.5 mg/dL (8.5-10.1); CHLORIDE 112 mmol/L (98-107); CO2 21 mmol/L (21-32); CREATININE 2.1 mg/dL (0.55-1.3); POTASSIUM 4.5 mmol/L (3.5-5.1); SGOT/AST 12 U/L (15-37); SGPT/ALT 21 U/L (13-61); SODIUM 139 mmol/L (136-145); TOT PROT 5.2 g/dl (6.4-8.2)
[2018-10-23 18:26] LABS: ALK PHOS 146 U/L (45-117)
[2018-10-23 18:30] LABS: GLUCOSE,RANDOM 437 mg/dL (74-106)
[2018-10-23 18:46] LABS: ACETONE SERUM NEGATIVE (NEGATIVE)
[2018-10-23] MEDS ORDERED: ONDANSETRON 4 MG/2 ML VIAL IVPUSH PRN (20:18)
[2018-10-23] MEDS: SODIUM CHLORIDE 1,000 ML IV SCH (21:47)
[2018-10-23] MEDS: CARVEDILOL 6.25 MG TABLET (FP) PO SCH (21:47)
[2018-10-23] MEDS: ATORVASTATIN CA 80 MG TABLET (FP) PO SCH (21:47)
[2018-10-23] MEDS: INSULIN SLIDING SCALE (NOVOLOG) 1 VIAL SQ SCH (21:48)
[2018-10-24] MEDS: glipiZIDE 5 MG TABLET (FP) PO SCH ×2 (06:43→17:34)
[2018-10-24] MEDS ORDERED: metFORMIN HCL 500 MG TABLET (FP) PO SCH (07:00)
[2018-10-24] MEDS: INSULIN (NOVOLOG MIX 70/30) 100 UNITS/ML MDV SQ SCH ×2 (07:39→21:21)
[2018-10-24] MEDS: INSULIN SLIDING SCALE (NOVOLOG) 1 VIAL SQ SCH ×4 (07:40→21:21)
[2018-10-24 09:29] LABS: HEMATOCRIT 30.4 % (32.4-45.2); HEMOGLOBIN 9.9 GM/dL (10.7-15.3); MCH 24.5 pg (25.7-33.7); MCHC 32.5 g/dl (32.0-36.0); MEAN CELL VOLUME 75.5 fl (80-96); MEAN PLT VOLUME 9.4 fl (7.5-11.1); PLATELET COUNT 289 K/MM3 (134-434); RBC 4.04 M/mm3 (3.60-5.2); RDW 15.1 % (11.6-15.6); WHITE BLOOD COUNT 8.5 K/mm3 (4.0-10.0)
[2018-10-24] MEDS: amLODIPine BESYLATE 10 MG TABLET (FP) PO SCH (10:47)
[2018-10-24] MEDS: GABAPENTIN 300 MG CAPSULE (FP) PO SCH (10:47)
[2018-10-24] MEDS: LOSARTAN POTASSIUM 50 MG TABLET (FP) PO SCH (10:47)
[2018-10-24] MEDS: EZETIMIBE 10 MG TABLET (FP) PO SCH (10:47)
[2018-10-24] MEDS: CARVEDILOL 6.25 MG TABLET (FP) PO SCH ×2 (10:47→21:20)
[2018-10-24] MEDS: ASPIRIN COATED 81 MG TABLET.EC PO SCH (10:47)
[2018-10-24] MEDS: CLOPIDOGREL BISULFATE 75 MG TABLET (FP) PO SCH (10:47)
--- NOTE | 2018-10-24 11:01 | EKG ---
Test Reason : Blood Pressure : / mmHG Vent. Rate : 096 BPM Atrial Rate : 096 BPM P-R Int : 128 ms QRS Dur : 076 ms QT Int : 340 ms P-R-T Axes : 029 -26 075 degrees QTc Int : 429 ms NORMAL SINUS RHYTHM NORMAL ECG WHEN COMPARED WITH ECG OF 19-MAR-2017 22:37, NO SIGNIFICANT CHANGE WAS FOUND Confirmed by KASIA PFEIFFER MD ([id number]) on 10/24/2018 11:01:13 AM Referred By: Confirmed By:KASIA PFEIFFER MD
[2018-10-24 11:06] LABS: ALK PHOS 151 U/L (45-117); ANION GAP 4 MMOL/L (8-16); BILIRUBIN,TOTAL 0.3 mg/dL (0.2-1); BLOOD UREA NITROGEN 29 mg/dL (7-18); CALCIUM 8.1 mg/dL (8.5-10.1); CHLORIDE 114 mmol/L (98-107); CO2 20 mmol/L (21-32); POTASSIUM 4.8 mmol/L (3.5-5.1); SGOT/AST 14 U/L (15-37); SGPT/ALT 19 U/L (13-61); SODIUM 138 mmol/L (136-145); TOT PROT 5.4 g/dl (6.4-8.2)
[2018-10-24 11:12] LABS: GLUCOSE,RANDOM 340 mg/dL (74-106)
[2018-10-24] MEDS ORDERED: METOCLOPRAMIDE HCL 10 MG TABLET (FP) PO ONE (11:45)
[2018-10-24 14:31] LABS: CHOLESTEROL 238 mg/dL (50-200); HDL CHOLESTEROL 34 mg/dL (40-60); TRIGLYCERIDES 329 mg/dL (0-150)
--- NOTE | 2018-10-24 15:33 | HP ---
DATE OF ADMISSION: 10/23/2018 This is a 63-year-old female known to have diabetes for 25 years, not well under control, came to my office yesterday, seen by Dr. Butler. Blood sugar was over 600, and she was also throwing up, so was sent to the emergency room for evaluation. She says she had diarrhea. She was not taking her medication for a week. No bloody stools. Not throwing up blood. Denies any fever, chills. ALLERGIES: Patient denies history of allergy to Penicillin. SOCIAL HISTORY: She does not have any children. Her 25 years ago, lives alone. Her family is in [place]. PHYSICAL EXAMINATION: General: Today, patient is awake, alert, not in distress. Vital Signs: BP 150/80, pulse 72, respirations 20, temperature 98. HEENT: Unremarkable. Neck: Supple. No JVD. Lungs: Clear. Heart: S1, S2 normal. No S3 or S4. Abdomen: Soft. Legs: No edema. Neurological: Grossly normal. Chest x-ray is negative. EKG: Normal sinus rhythm. LABORATORY REPORTS: WBC at the time of admission was 10.4. This morning, it is 8.5. Hemoglobin 9.9. Hematocrit 30. Chemistry: Sodium 138, potassium 4.8, chloride 114, creatinine 2, BUN 29. Blood sugar at the time of admission 340. This morning is 235. Hemoglobin A1c 13.7. IMPRESSION: 1. Uncontrolled diabetes. 2. Gastroenteritis. PLAN: Reglan for vomiting and insulin to control sugar and need more insulin control after discharge. Bonnie [id number]
[2018-10-24 16:46] VITALS: BMI 32.2
[2018-10-24] MEDS: METOCLOPRAMIDE HCL 10 MG TABLET (FP) PO SCH (17:34)
[2018-10-24] MEDS: ATORVASTATIN CA 80 MG TABLET (FP) PO SCH (21:20)
[2018-10-24] MEDS: SODIUM CHLORIDE 1,000 ML IV SCH (21:20)
[2018-10-25] MEDS: INSULIN SLIDING SCALE (NOVOLOG) 1 VIAL SQ SCH (06:43)
[2018-10-25] MEDS ORDERED: INSULIN (NOVOLOG) ASPART 100 UNITS/ML 10ML VIAL ONE (06:47)
[2018-10-25] MEDS: METOCLOPRAMIDE HCL 10 MG TABLET (FP) PO SCH (06:49)
[2018-10-25] MEDS: glipiZIDE 5 MG TABLET (FP) PO SCH (06:49)
[2018-10-25] MEDS: INSULIN (NOVOLOG MIX 70/30) 100 UNITS/ML MDV SQ SCH (09:18)
--- NOTE | 2018-10-25 09:55 | DS ---
Physical Examination Vital Signs: Vital Signs Temperature 97.7 F 10/25/18 06:00 Pulse Rate 71 10/25/18 06:00 Respiratory Rate 18 10/25/18 06:00 Blood Pressure 115/59 L 10/25/18 06:00 O2 Sat by Pulse Oximetry (%) 96 10/24/18 21:00 Findings/Remarks: Admitted with vomiting ,dehydration and hyperkalemia Constitutional: Yes: No Distress Eyes: Yes: WNL HENT: Yes: WNL Neck: Yes: WNL Cardiovascular: Yes: WNL Respiratory: Yes: WNL Gastrointestinal: Yes: WNL ...Rectal Exam: Yes: Deferred Renal/: Yes: WNL Musculoskeletal: Yes: WNL Edema: No Neurological: Yes: Alert ...Motor Strength: WNL Psychiatric: Yes: Alert Labs: CBC, BMP 10/24/18 08:25 10/24/18 08:25 Discharge Summary Reason For Visit: HYPERGLYCEMIA,HYPERKALEMIA Current Active Problems Hyperglycemia (Acute) Hyperkalemia (Acute) Urinary tract infection (Acute) Condition: Fair - Instructions - Home Medications Comprehensive Discharge Medication List: Ambulatory Orders Aspirin [ASA -] 81 mg PO DAILY tab.chew 03/25/17 Clopidogrel Bisulfate [Plavix -] 75 mg PO DAILY #30 tablet 03/25/17 Gabapentin [Neurontin -] 600 mg PO DAILY 08/05/18 Glipizide [Glucotrol -] 5 mg PO BID 08/05/18 Amlodipine Besylate 10 mg PO DAILY 10/23/18 Atorvastatin Ca [Lipitor] 80 mg PO HS 10/23/18 Carvedilol 6.25 mg PO BID 10/23/18 Ezetimibe 10 mg PO DAILY 10/23/18 Insulin Lispro Protamin/Lispro [Humalog Mix 75-25 Vial] 28 units SQ BID Losartan Potassium 50 mg PO DAILY 10/23/18 Sodium Zirconium Cyclosilicate [Lokelma] 10 gm PO DAILY 10/23/18
[2018-10-25] MEDS: CARVEDILOL 6.25 MG TABLET (FP) PO SCH (09:58)
[2018-10-25] MEDS: amLODIPine BESYLATE 10 MG TABLET (FP) PO SCH (09:58)
[2018-10-25] MEDS: EZETIMIBE 10 MG TABLET (FP) PO SCH (09:58)
[2018-10-25] MEDS: GABAPENTIN 300 MG CAPSULE (FP) PO SCH (09:58)
[2018-10-25] MEDS: CLOPIDOGREL BISULFATE 75 MG TABLET (FP) PO SCH (09:58)
[2018-10-25] MEDS: ASPIRIN COATED 81 MG TABLET.EC PO SCH (09:58)
[2018-10-25] MEDS: LOSARTAN POTASSIUM 50 MG TABLET (FP) PO SCH (09:59)
[2018-10-25 10:22] VITALS: BP 136/57; PULSE 79; TEMP 98.2
== END 2018-10-25 11:34 | disposition home or self-care (01) | DRG 641 ==
LOC: JER 12:03 → JERBED 16:44 → J5S 18:54
PROVIDERS: ADMIT Internal Medicine; ATTEND Internal Medicine
DX: E87.5 Hyperkalemia (principal); E11.65 Type 2 diabetes mellitus with hyperglycemia; E86.0 Dehydration; R11.2 Nausea with vomiting, unspecified; E66.9 Obesity, unspecified; Z68.32 Body mass index [BMI] 32.0-32.9, adult; I25.10 Atherosclerotic heart disease of native coronary artery without angina pectoris; I12.9 Hypertensive chronic kidney disease with stage 1 through stage 4 chronic kidney disease, or unspecified chronic kidney disease; E11.22 Type 2 diabetes mellitus with diabetic chronic kidney disease; N18.9 Chronic kidney disease, unspecified; Z88.0 Allergy status to penicillin
CPT/HCPCS: 36415; 71045-TC-FY; 80053; 80061; 81003; 82009; 82550; 82962; 83036; 83721; 83735; 84484; 85025; 85027; 87086; 93005; 93010; 99284-25; J7030

== ENCOUNTER 2019-08-24 15:26 | Inpatient (IN) | payer OTHER ==
[2019-08-24] MEDS ORDERED: DEXTROSE 50%-WATER - 25 GM/50 ML VIAL IVPUSH ONE ×2 (15:38→18:26)
--- NOTE | 2019-08-24 15:38 | PDOC ---
History of Present Illness - General Chief Complaint: Altered Mental Status Stated Complaint: UNRESPONSIVE Time Seen by Provider: 08/24/19 15:37 - History of Present Illness Initial Comments: 08/24/19 15:38 Ms. Crain is a 64 yo female w/ pmh of HTN and DM who presents to EMS unresponsive. Patient accompanied by friend who drove her. Reportedly they had been shopping when patient started acting differently. Friend drove her to ER - patient passed out while en route. Past History - Past Medical History Allergies/Adverse Reactions: Allergies Allergy/AdvReac Type Severity Reaction Status Date / Time Penicillins Allergy Severe Verified 08/24/19 15:38 Home Medications: Ambulatory Orders Carvedilol 6.25 mg PO BID 10/23/18 Sodium Zirconium Cyclosilicate [Lokelma] 10 gm PO DAILY 10/23/18 Amlodipine Besylate [Norvasc -] 10 mg PO DAILY tablet 10/25/18 Aspirin Coated [Ecotrin -] 81 mg PO DAILY tablet.ec 10/25/18 Atorvastatin Ca [Lipitor] 80 mg PO HS tablet 10/25/18 Clopidogrel Bisulfate [Plavix -] 75 mg PO DAILY tablet 10/25/18 Ezetimibe [Zetia -] 10 mg PO DAILY tablet 10/25/18 Gabapentin [Neurontin -] 600 mg PO DAILY capsule 10/25/18 Glipizide [Glucotrol -] 5 mg PO BIDAC tablet 10/25/18 Insulin (Novolog 70/30) [Novolog Mix 70/30 Vial -] 28 units SQ BID@0700,2200 units 10/25/18 Insulin Sliding Scale [Novolog Vial Sliding Scale -] 1 vial SQ ACHS units 10/25 Losartan Potassium [Cozaar -] 50 mg PO DAILY tablet 10/25/18 Metoclopramide HCl [Reglan -] 10 mg PO TIDAC tablet 10/25/18 metFORMIN HCL [Glucophage -] 500 mg PO BIDAC tablet 10/25/18 COPD: No Diabetes: Yes HTN: Yes Kidney Stones: (kidney issues) - Psycho Social/Smoking Cessation Hx Smoking History: Never smoked Have you smoked in the past 12 months: No Hx Alcohol Use: No Drug/Substance Use Hx: No Substance Use Type: None Review of Systems - Review of Systems Comments:: 08/24/19 15:39 Unable to obtain further. *Physical Exam - Vital Signs Last Vital Signs Temp Pulse Resp BP Pulse Ox 93 H 18 127/57 L 95 08/24/19 15:28 08/24/19 15:28 08/24/19 15:28 08/24/19 15:28 - Physical Exam 08/24/19 15:39 GENERAL: +Patient minimally responsive to pain only. Patient obese. HEAD: No signs of trauma, normocephalic, atraumatic EYES: PERRLA, EOMI, sclera anicteric, conjunctiva clear ENT: Auricles normal inspection, hearing grossly normal, nares patent, oropharynx clear without exudates. Moist mucosa NECK: Normal ROM, supple, no lymphadenopathy, JVD, or masses LUNGS: +Wheezes appreciated diffusely. No distress HEART: Regular rate and rhythm, normal S1 and S2, no murmurs, rubs or gallops, peripheral pulses normal and equal bilaterally. ABDOMEN: Soft, nontender, normoactive bowel sounds. No guarding, no rebound. No masses EXTREMITIES: Normal inspection, Normal range of motion, no edema. No clubbing or cyanosis. NEUROLOGICAL: +Unable to assess SKIN: Warm, Dry, normal turgor, no rashes or lesions noted. ED Treatment Course - LABORATORY CBC & Chemistry Diagram: 08/24/19 13:45 08/24/19 13:45 Medical Decision Making - Medical Decision Making 08/24/19 15:41 Ms. Crain is a 64 yo female w/ pmh as described. Patient retrieved from private vehicle and code activated. BGM noted to be in 20's. Patient given 2 pushes of D50 and rapidly regained consciousness; appropriately responding to questions. 08/24/19 15:49 Patient reports she is proscribed glipezide and humolog however only takes humolog 70/30 currently for her diabetes. Patient reports she did not eat today. Currently AOx3 and in good humor. 08/24/19 17:[address] negative. CXR significant for fluid at lung bases w/ congestive changes. Patient labs significant for hypocalcemia, fluid overload, hypoglycemia , and elevated creatinine as below. Patient will be admitted for further care of electrolyte abnormalities, diuresis, and glucose monitoring. Calcium and lasix given. Inpatient team paged for admission. 08/24/19 18:35 Patient BGM 61. D50 push given. Awaiting admission. 08/24/19 19:00 Patient admitted to hospitalist team. Laboratory Results - last 24 hr 08/24/19 08/24/19 08/24/19 13:45 13:45 13:45 WBC 9.1 RBC 4.64 Hgb 11.1 Hct 34.6 MCV 74.5 L MCH 24.0 L MCHC 32.2 RDW 15.8 H Plt Count 396 D MPV 9.2 Absolute Neuts (auto) 6.8 Neutrophils % 74.4 Lymphocytes % 18.9 D Monocytes % 5.3 Eosinophils % 0.7 Basophils % 0.7 Nucleated RBC % 0 Sodium 143 Potassium 4.5 Chloride 116 H Carbon Dioxide 18 L Anion Gap 9 BUN 62.2 H Creatinine 4.4 H Est GFR (CKD-EPI)AfAm 11.34 Est GFR (CKD-EPI)NonAf 9.78 POC Glucometer Random Glucose 27 L* Lactic Acid 0.5 Calcium 6.2 L* Total Bilirubin 0.7 AST 25 ALT 17 Alkaline Phosphatase 138 H Creatine Kinase Creatine Kinase Index CK-MB (CK-2) Troponin I B-Natriuretic Peptide Total Protein 6.1 L Albumin 2.4 L Beta-Hydroxybutyrate 3.2 H TSH 1.73 08/24/19 08/24/19 15:42 15:45 WBC RBC Hgb Hct MCV MCH MCHC RDW Plt Count MPV Absolute Neuts (auto) Neutrophils % Lymphocytes % Monocytes % Eosinophils % Basophils % Nucleated RBC % Sodium Potassium Chloride Carbon Dioxide Anion Gap BUN Creatinine Est GFR (CKD-EPI)AfAm Est GFR (CKD-EPI)NonAf POC Glucometer 296 Random Glucose Lactic Acid Calcium Total Bilirubin AST ALT Alkaline Phosphatase Creatine Kinase 771 H Creatine Kinase Index 1.4 CK-MB (CK-2) 11.1 H Troponin I 0.14 H B-Natriuretic Peptide 85961.9 H Total Protein Albumin Beta-Hydroxybutyrate TSH Discharge - Discharge Information Problems reviewed: Yes Clinical Impression/Diagnosis: Hypoglycemia, Hypocalcemia, PAOLO (acute kidney injury) AMS (altered mental status) Qualifiers: Altered mental status type: unspecified Qualified Code(s): R41.82 - Altered mental status, unspecified Fluid overload Qualifiers: Hypervolemia type: other Qualified Code(s): E87.79 - Other fluid overload - Admission Yes - Follow up/Referral Referrals: Albert,Tao, MD [Primary Care Provider] - - Patient Discharge Instructions - Post Discharge Activity
--- NOTE | 2019-08-24 16:15 | PDOC ---
Documentation entered by Quinton Hernandez SCRIBE, acting as scribe for Michael Burks MD. Michael Burks MD: This documentation has been prepared by the David lovett Daniel, SCRIBE, under my direction and personally reviewed by me in its entirety. I confirm that the documentation accurately reflects all work, treatment, procedures, and medical decision making performed by me. Attending Attestation - Resident Resident Name: Lincoln Long - ED Attending Attestation I have performed the following: I have examined & evaluated the patient, The case was reviewed & discussed with the resident, I agree w/resident's findings & plan, Exceptions are as noted - HPI HPI: 08/24/19 15:44 64 F with h/o uncontrolled T2DM, Diabetic neuropathy, PVD, HTN, presenting to ED after becoming unresponsive. Pt was with her friend when she began to complain of feeling weak and lightheaded. Pt's friend was driving when the pt subsequently went unresponsive, and she drove directly to the ED. Denies any falls or head injury. In ED, pt was arousable to sternal rub. Fingerstick obtained was 29. Pt was given 2 amps D50 with subsequent return to baseline mental status. Pt states that she took her usual dose of humalog this AM. Does not take any other antihyperglycemic. Admits to not eating before going out with her friend today. Pt states that she was feeling short of breath earlier today - Physicial Exam PE: 08/24/19 15:52 "GENERAL: Awake, alert, and fully oriented, in no acute distress. HEAD: No signs of trauma EYES: PERRLA, EOMI, sclera anicteric, conjunctiva clear ENT: Auricles normal inspection, hearing grossly normal, nares patent, oropharynx clear without exudates. Moist mucosa NECK: Nontender, no stepoffs, Normal ROM, supple, no lymphadenopathy, JVD, or masses LUNGS: Breath sounds equal, clear to auscultation bilaterally. No wheezes, and no crackles HEART: Regular rate and rhythm, normal S1 and S2, no murmurs, rubs or gallops ABDOMEN: Soft, nontender, normoactive bowel sounds. No guarding, no rebound. No masses EXTREMITIES: Normal range of motion, no edema. No clubbing or cyanosis. No cords, erythema, or tenderness NEUROLOGICAL: Cranial nerves II through XII intact. 5/5 strength and sensation in all extremities, Normal speech, normal gait, normal cerebellar function SKIN: Warm, Dry, normal turgor, no rashes or lesions noted. - Critical Care Time Total Critical Care Time: 60 Critical Care Statement: The care of this patient involved high complexity decision making to prevent further life threatening deterioration of the patient 's condition and/or to evaluate & treat vital organ system(s) failure or risk of failure. - Medical Decision Making 08/24/19 15:53 64 F presenting to ED with episode of unresponsiveness, likely 2/2 profound hypoglycemia. Pt now back to baseline mentation. Pt also complaining of SOB x several days. Will evaluate for PNA vs CHF. - Labs - CT head - CXR, UA - repeat fingersticks 08/24/19 16:29 CXR shows congestive changes and large heart, consistent with new onset CHF. 08/24/19 17:09 Labs notable for PAOLO with Cr 4 Trop mildly elevated 0.13 BNP elevated, likely new onset CHF EKG shows TWI in I (new) and aVL 08/24/19 18:28 Repeat sugar 60 Pt's insulin likely not clearing due to impaired renal function Pt now eating, D50 ordered 08/24/19 18:58 Sign out given to Dr. Sylvia Butler, admitting for Dr. Tao Price
[2019-08-24 16:23] LABS: BASO % 0.7 % (0-2.0); EOS % 0.7 % (0-4.5); HEMATOCRIT 34.6 % (32.4-45.2); HEMOGLOBIN 11.1 GM/dL (10.7-15.3); LYMPH % 18.9 % (8-40); MCHC 32.2 g/dl (32.0-36.0); MEAN CELL VOLUME 74.5 fl (80-96); MEAN PLT VOLUME 9.2 fl (7.5-11.1); MONO % 5.3 % (3.8-10.2); NEUT % 74.4 % (42.8-82.8); PLATELET COUNT 396 K/MM3 (134-434); RBC 4.64 M/mm3 (3.60-5.2); RDW 15.8 % (11.6-15.6); WHITE BLOOD COUNT 9.1 K/mm3 (4.0-10.0)
[2019-08-24] MEDS ORDERED: FUROSEMIDE 40 MG/4 ML INJECTABLE VIAL IVPUSH ONE (16:30)
[2019-08-24 16:54] LABS: N-TERMINAL BNP 17482.9 pg/ml (5-125)
[2019-08-24 17:03] LABS: ALBUMIN 2.4 g/dl (3.4-5.0); BILIRUBIN,TOTAL 0.7 mg/dL (0.2-1); BLOOD UREA NITROGEN 62.2 mg/dL (7-18); CREATININE 4.4 mg/dL (0.55-1.3); POTASSIUM 4.5 mmol/L (3.5-5.1); TOT PROT 6.1 g/dl (6.4-8.2)
[2019-08-24 17:10] LABS: CALCIUM 6.2 mg/dL (8.5-10.1)
[2019-08-24] MEDS ORDERED: CALCIUM GLUCONATE 10% - 1,000 MG/10 ML VIAL IVPB ONE (17:13)
[2019-08-24] MEDS ORDERED: FUROSEMIDE 40 MG/4 ML INJECTABLE VIAL ONE (17:28)
[2019-08-24] MEDS ORDERED: CALCIUM GLUCONATE 10% - 1,000 MG/10 ML VIAL ONE (17:29)
[2019-08-24] MEDS ORDERED: DEXTROSE 50%-WATER - 25 GM/50 ML VIAL ONE (18:44)
[2019-08-24] MEDS ORDERED: DEXTROSE 10%-WATER - 1,000 ML IV SCH ×2 (19:15→19:24)
[2019-08-24] MEDS ORDERED: CARVEDILOL 3.125 MG TABLET (FP) ONE (22:00)
[2019-08-24] MEDS ORDERED: ATORVASTATIN CA 80 MG TABLET (FP) ONE (22:01)
[2019-08-24] MEDS: CARVEDILOL 6.25 MG TABLET (FP) PO SCH (22:03)
[2019-08-24] MEDS: ATORVASTATIN CA 80 MG TABLET (FP) PO SCH (22:03)
[2019-08-24] MEDS ORDERED: DEXTROSE 5%-WATER - 1,000 ML IV SCH (23:45)
[2019-08-25 07:05] LABS: CREATININE 4.8 mg/dL (0.55-1.3); POTASSIUM 5.2 mmol/L (3.5-5.1)
[2019-08-25 07:09] LABS: BASO % 0.6 % (0-2.0); EOS % 1.8 % (0-4.5); HEMATOCRIT 30.7 % (32.4-45.2); HEMOGLOBIN 9.7 GM/dL (10.7-15.3); LYMPH % 24.4 % (8-40); MCH 23.9 pg (25.7-33.7); MCHC 31.7 g/dl (32.0-36.0); MEAN CELL VOLUME 75.3 fl (80-96); MEAN PLT VOLUME 9.5 fl (7.5-11.1); MONO % 6.3 % (3.8-10.2); NEUT % 66.9 % (42.8-82.8); PLATELET COUNT 336 K/MM3 (134-434); RBC 4.08 M/mm3 (3.60-5.2); RDW 15.8 % (11.6-15.6); WHITE BLOOD COUNT 7.5 K/mm3 (4.0-10.0)
--- NOTE | 2019-08-25 09:16 | HP ---
Admitting History and Physical - Primary Care Physician PCP: Tao Price - Admission Chief Complaint: Altered mental status History of Present Illness: 64 years old female multiple medical comorbidities including uncontrolled type 2 diabetes mellitus noncompliant, diabetic nephropathy CKD stage III last documented creatinine was 2.1 few months ago, PAD status post left femoropopliteal stent placement surgery,, hypertension, diastolic heart failure with subendocardial ischemia, yesterday presented after an episode of altered mental status while traveling with a friend in the car, lately patient has issue with insurance he stopped taking all medication except insulin yesterday injected insulin but skipped meal, developed altered mental status and lost consciousness while traveling with a friend in the car, on arrival to ED fingersticks reported 26 responded to D50 infusion x2 become alert oriented x3 denied any focal neurological weakness, chest pain, patient states lately she has been having shortness of breath and dyspnea on exertion on arrival markedly elevated BNP and mild elevation of troponin I received IV Lasix overnight monitored for low fingersticks, denies any fever/chills/nausea vomiting denies complaint of dysuria. Labs shows worsening kidney function with hypocalcemia. 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 Cardiovascular: Yes: HTN, Hyperlipdemia ...: No Endocrine: Yes: Diabetes Mellitus - Past Surgical History Additional Past Surgical History: Left lower extremity vascular surgery - Smoking History Smoking history: Never smoked Have you smoked in the past 12 months: No - Alcohol/Substance Use Hx Alcohol Use: No Home Medications - Allergies Allergies/Adverse Reactions: Allergies Allergy/AdvReac Type Severity Reaction Status Date / Time Penicillins Allergy Severe Verified 08/24/19 15:38 - Home Medications Home Medications: Ambulatory Orders Carvedilol 6.25 mg PO BID 10/23/18 Sodium Zirconium Cyclosilicate [Lokelma] 10 gm PO DAILY 10/23/18 Amlodipine Besylate [Norvasc -] 10 mg PO DAILY tablet 10/25/18 Aspirin Coated [Ecotrin -] 81 mg PO DAILY tablet.ec 10/25/18 Atorvastatin Ca [Lipitor] 80 mg PO HS tablet 10/25/18 Clopidogrel Bisulfate [Plavix -] 75 mg PO DAILY tablet 10/25/18 Ezetimibe [Zetia -] 10 mg PO DAILY tablet 10/25/18 Gabapentin [Neurontin -] 600 mg PO DAILY capsule 10/25/18 Glipizide [Glucotrol -] 5 mg PO BIDAC tablet 10/25/18 Insulin (Novolog 70/30) [Novolog Mix 70/30 Vial -] 28 units SQ BID@0700,2200 units 10/25/18 Insulin Sliding Scale [Novolog Vial Sliding Scale -] 1 vial SQ ACHS units 10/25 Losartan Potassium [Cozaar -] 50 mg PO DAILY tablet 10/25/18 Metoclopramide HCl [Reglan -] 10 mg PO TIDAC tablet 10/25/18 metFORMIN HCL [Glucophage -] 500 mg PO BIDAC tablet 10/25/18 Family Medical History Family Hx Congestive Heart Failure: Mother Family Hx Diabetes: Father Review of Systems - Review of Systems Constitutional: reports: Lethargy, Malaise Eyes: denies: Blind Spots, Blurred Vision, Double Vision HENT: denies: Difficult Swallowing, Ear Discharge Neck: denies: Decreased ROM, Lumps, Pain on Movement Cardiovascular: reports: Shortness of Breath. denies: Chest Pain, Palpitations Respiratory: reports: Exercise Intolerance, Orthopnea Gastrointestinal: reports: Nausea Genitourinary: denies: Burning, Discharge Musculoskeletal: denies: Back Pain, Crepitus, Decreased ROM Neurological: reports: Confusion. denies: Change in Speech Endocrine: denies: Excessive Sweating, Flushing, Unexplained Weight Gain Hematology/Lymphatic: denies: Easily Bruised Physical Examination Vital Signs: Vital Signs Temperature 98.1 F 08/25/19 06:00 Pulse Rate 91 H 08/25/19 06:00 Respiratory Rate 20 08/25/19 06:00 Blood Pressure 135/76 08/25/19 06:00 O2 Sat by Pulse Oximetry (%) 96 08/24/19 22:00 General: Elderly woman, comfortable, not in distress HEENT; mucous membranes moist, no anemia, no jaundice, PERRLA, no nystagmus Neck: No JVD, supple, no bruit, thyroid palpably normal, normal carotid pulsations. Chest: Nontender, bilateral basal rales. CVS: S1-S2 regular Abdomen: Nondistended, soft, bowel sounds present. 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 Problems reviewed: Yes Code(s): G92 - TOXIC ENCEPHALOPATHY (2) Acute kidney injury superimposed on CKD Assessment/Plan: Gentle IV hydration, input output chart, daily BMP follow-up renal recommendations follow-up CKD Problems reviewed: Yes Code(s): N17.9 - ACUTE KIDNEY FAILURE, UNSPECIFIED; N18.9 - CHRONIC KIDNEY DISEASE, UNSPECIFIED (3) Heart failure, diastolic, with acute decompensation Assessment/Plan: History of IV Lasix, continue beta-patricia and amlodipine hold losartan for worsening kidney function reviewed follow-up cardiology recommendations echo, low-salt diet input output chart. Problems reviewed: Yes Code(s): I50.33 - ACUTE ON CHRONIC DIASTOLIC (CONGESTIVE) HEART FAILURE (4) Hypoglycemia Assessment/Plan: Due to noncompliance hold oral medication regular diet follow-up Accu-Chek every 6 hours. Problems reviewed: Yes Code(s): E16.2 - HYPOGLYCEMIA, UNSPECIFIED (5) Atherosclerosis of [place] arteries of extremities with gangrene, left leg Assessment/Plan: Status post stent placement continue aspirin Plavix Problems reviewed: Yes Code(s): I70.262 - ATHSCL [place] ARTERIES OF EXTREMITIES W GANGRENE, LEFT LEG (6) Hypocalcemia Assessment/Plan: Acute calcium 7.4, due to CKD continue follow-up vitamin D, parathyroid hormone , phosphate, calcium level calcium repleted by clearing distribution clerk in the ED. Problems reviewed: Yes Code(s): E83.51 - HYPOCALCEMIA (7) Elevated troponin I level Assessment/Plan: Due to demand ischemia follow-up cardiology recommendation continue statin, aspirin, Plavix and beta-blockers at present asymptomatic no acute ST changes. Problems reviewed: Yes Code(s): R79.89 - OTHER SPECIFIED ABNORMAL FINDINGS OF BLOOD CHEMISTRY
[2019-08-25] MEDS: CLOPIDOGREL BISULFATE 75 MG TABLET (FP) PO SCH (09:46)
[2019-08-25] MEDS: CARVEDILOL 6.25 MG TABLET (FP) PO SCH ×2 (09:46→22:51)
[2019-08-25] MEDS: EZETIMIBE 10 MG TABLET (FP) PO SCH (09:46)
[2019-08-25] MEDS: ASPIRIN COATED 81 MG TABLET.EC PO SCH (09:47)
[2019-08-25] MEDS: amLODIPine BESYLATE 10 MG TABLET (FP) PO SCH (09:47)
[2019-08-25] MEDS: GABAPENTIN 300 MG CAPSULE PO SCH (09:47)
--- NOTE | 2019-08-25 10:00 | EKG ---
Test Reason : Blood Pressure : / mmHG Vent. Rate : 091 BPM Atrial Rate : 091 BPM P-R Int : 144 ms QRS Dur : 070 ms QT Int : 404 ms P-R-T Axes : 020 -09 121 degrees QTc Int : 496 ms NORMAL SINUS RHYTHM ANTERIOR INFARCT , AGE UNDETERMINED T WAVE ABNORMALITY, CONSIDER LATERAL ISCHEMIA ABNORMAL ECG WHEN COMPARED WITH ECG OF 23-OCT-2018 14:01, T WAVE VARIATION Confirmed by SAMANTHA DE LA CRUZ MD ([id number]) on 08/25/2019 9:59:54 AM Referred By: Confirmed By:SAMANTHA DE LA CRUZ MD
[2019-08-25] MEDS ORDERED: DEXTROSE 5%-WATER - 1,000 ML with CALCIUM GLUCONATE 10% - 11,000 MG IVPB SCH (10:45)
--- NOTE | 2019-08-25 10:54 | CON.CARD ---
Consult Consult Specialty:: Cardiology Referred by:: Hospitalist Medicine Reason for Consultation:: Syncope, altered mental status - History of Present Illness Chief Complaint: Syncope, altered mental status History of Present Illness: Ms. Crain is a 64 yo female w/ pmh of HTN, CKD, PAD and DM who presented to EMS unresponsive referable to severe hypogkycemia BGT 26 resolved with D50. Patient accompanied by friend who drove her. Reportedly they had been shopping when patient started acting differently. Friend drove her to ER - patient passed out while en route. She took insulin w/o eating, denies chest pain, dyspnea, near or true syncope, palpitations, orthopnea, PND or LE edema, poor f/ u due to insurance. - History Source History Provided By: Patient Limitations to Obtaining History: No Limitations - Past Medical History ...: No Endocrine: Yes: Diabetes Mellitus - Alcohol/Substance Use Hx Alcohol Use: No - Smoking History Smoking history: Never smoked Have you smoked in the past 12 months: No Home Medications - Allergies Allergies/Adverse Reactions: Allergies Allergy/AdvReac Type Severity Reaction Status Date / Time Penicillins Allergy Severe Verified 08/24/19 15:38 - Home Medications Home Medications: Ambulatory Orders Carvedilol 6.25 mg PO BID 10/23/18 Sodium Zirconium Cyclosilicate [Lokelma] 10 gm PO DAILY 10/23/18 Amlodipine Besylate [Norvasc -] 10 mg PO DAILY tablet 10/25/18 Aspirin Coated [Ecotrin -] 81 mg PO DAILY tablet.ec 10/25/18 Atorvastatin Ca [Lipitor] 80 mg PO HS tablet 10/25/18 Clopidogrel Bisulfate [Plavix -] 75 mg PO DAILY tablet 10/25/18 Ezetimibe [Zetia -] 10 mg PO DAILY tablet 10/25/18 Gabapentin [Neurontin -] 600 mg PO DAILY capsule 10/25/18 Glipizide [Glucotrol -] 5 mg PO BIDAC tablet 10/25/18 Insulin (Novolog 70/30) [Novolog Mix 70/30 Vial -] 28 units SQ BID@0700,2200 units 10/25/18 Insulin Sliding Scale [Novolog Vial Sliding Scale -] 1 vial SQ ACHS units 10/25 Losartan Potassium [Cozaar -] 50 mg PO DAILY tablet 10/25/18 Metoclopramide HCl [Reglan -] 10 mg PO TIDAC tablet 10/25/18 metFORMIN HCL [Glucophage -] 500 mg PO BIDAC tablet 10/25/18 Review of Systems - Review of Systems Neurological: reports: Change in LOC, Confusion, Syncope Vital Signs: Vital Signs Temperature 98.1 F 08/25/19 09:00 Pulse Rate 90 08/25/19 09:00 Respiratory Rate 17 08/25/19 09:00 Blood Pressure 141/78 08/25/19 09:00 O2 Sat by Pulse Oximetry (%) 96 08/24/19 22:00 Constitutional: Yes: No Distress, Calm Neck: Yes: Supple Respiratory: Yes: Regular, CTA Bilaterally Gastrointestinal: Yes: Normal Bowel Sounds, Soft Cardiovascular: Yes: Regular Rate and Rhythm JVD: No Carotid Bruit: No Heart Sounds: Yes: S1, S2 Edema: No - Other Data Labs, Other Data: CBC, BMP 08/25/19 06:00 08/25/19 06:00 Troponin, BNP 08/24/19 08/24/19 15:45 20:45 Troponin I 0.14 H 0.13 H B-Natriuretic Peptide 56293.9 H Troponin, BNP 08/24/19 08/24/19 15:45 20:45 Troponin I 0.14 H 0.13 H B-Natriuretic Peptide 85678.9 H NSR @ 91 PRWP Ejection Fraction %: LVEF > or = 40 % Imaging - Results Chest X-ray: Report Reviewed (Left ATX) Problem List - Problems (1) Diastolic dysfunction Code(s): I51.89 - OTHER ILL-DEFINED HEART DISEASES (2) Demand ischemia Code(s): I24.8 - OTHER FORMS OF ACUTE ISCHEMIC HEART DISEASE (3) Hyperlipidemia associated with type 2 diabetes mellitus Code(s): E11.69 - TYPE 2 DIABETES MELLITUS WITH OTHER SPECIFIED COMPLICATION; E78.5 - HYPERLIPIDEMIA, UNSPECIFIED (4) Hypoglycemia associated with type 2 diabetes mellitus Code(s): E11.649 - TYPE 2 DIABETES MELLITUS WITH HYPOGLYCEMIA WITHOUT COMA (5) PAOLO (acute kidney injury) Code(s): N17.9 - ACUTE KIDNEY FAILURE, UNSPECIFIED (6) AMS (altered mental status) Code(s): R41.82 - ALTERED MENTAL STATUS, UNSPECIFIED Qualifiers: Altered mental status type: transient alteration of awareness Qualified Code(s): R40.4 - Transient alteration of awareness (7) Hypoglycemia Code(s): E16.2 - HYPOGLYCEMIA, UNSPECIFIED (8) Atherosclerosis of [place] arteries of extremities with gangrene, left leg Code(s): I70.262 - ATHSCL [place] ARTERIES OF EXTREMITIES W G[place]GR[place], LEFT LEG (9) CKD (chronic kidney disease) Code(s): N18.9 - CHRONIC KIDNEY DISEASE, UNSPECIFIED Qualifiers: Chronic kidney disease stage: stage 4 (severe) Qualified Code(s): N18.4 - Chronic kidney disease, stage 4 (severe) (10) Diabetes mellitus with neuropathy Code(s): E11.40 - TYPE 2 DIABETES MELLITUS WITH DIABETIC NEUROPATHY, UNSP Qualifiers: Diabetes mellitus type: type 2 Diabetes mellitus senior living insulin use: with senior living use Qualified Code(s): E11.40 - Type 2 diabetes mellitus with diabetic neuropathy, unspecified; Z79.4 - prison (current) use of insulin (11) Hyperkalemia Code(s): E87.5 - HYPERKALEMIA Assessment/Plan 1. Altered mental status, syncope referable to severe hypoglycemia since resolved 2. Diastolic dysfunction with subendocardial ischemia 3. Acute on CKD 4 with hyperkalemia from progressive CKD vs. volume depletion in setting of poor oral intake 4. Insulin-dependent Type 2 DM not at goal control 5. Hypertensive heart disease 6. Hyperlipidemia 7. PAD s/p revascularization left femoral, popliteal and tibial arteries with balloon angioplasty and drug-coated balloons. Infusion of TPA 8. Anemia of CKD 9. Hypocalcemia P:1. Judicious hydration with monitor renal fxn and electrolytes pre renal 2. F/u renal US, echocardiogram to assess ventricular and valve fxn, lipid panel , trops have plateaued 3. Continue Norvasc 10 qd, carvedilol 6.25 bid, ASA 81 qd, Lipitor 80 qd, Plavix 75 qd, Zetia 10 qd, hold losartan 50 qd pending renal fxn stabilization and resolution of hyperkalemia 4. Addressed medication, diet and medical f/u compliance, optimize glycemic control 5. Thank you for consultative opportunity
[2019-08-25] MEDS ORDERED: DEXTROSE 5%-WATER - 1,000 ML with CALCIUM GLUCONATE 10% - 11,000 MG IV SCH (11:10)
--- NOTE | 2019-08-25 11:51 | PN ---
Progress Note (short form) - Note Progress Note: Renal Consult for PAOLO on CKD This is a 64 year old [place] woman with history of CKD stage 4 (eGFR 24), CAD, Insuldin dependent DM, diabetic neuropathy, PVD, Hyperkalemia who presented to the ED with AMS from hypoglycemia and noted to have PAOLO on CKD. Seen and examined in the ER, she is awake and alert. She offers no acute complaints. She was last seen in our office in October, Cr was ~2.4 at that time. She was lost to follow up because she lost her insurance. She reports that she was still taking her medications. Denies any NSAID use. No recent contrast exposure. No flank pain, skin rash, shortness of breath, chest pain, N/V/D. She also reports poor oral intake the last several weeks. PMhx: as above Allergies: PCN Family Hx: NC Social Hx: No T/A/D ROS: as per HPI, all other pertinent ros negative Home Medications Medication Instructions Recorded Carvedilol 6.25 mg PO BID 10/23/18 Sodium Zirconium Cyclosilicate 10 gm PO DAILY 10/23/18 [Lokelma] Amlodipine Besylate [Norvasc -] 10 mg PO DAILY tablet 10/25/18 Aspirin Coated [Ecotrin -] 81 mg PO DAILY tablet.ec 10/25/18 Atorvastatin Ca [Lipitor] 80 mg PO HS tablet 10/25/18 Clopidogrel Bisulfate [Plavix -] 75 mg PO DAILY tablet 10/25/18 Ezetimibe [Zetia -] 10 mg PO DAILY tablet 10/25/18 Gabapentin [Neurontin -] 600 mg PO DAILY capsule 10/25/18 Glipizide [Glucotrol -] 5 mg PO BIDAC tablet 10/25/18 Insulin (Novolog 70/30) [Novolog 28 units SQ BID@0700,2200 units 10/25/18 Mix 70/30 Vial -] Insulin Sliding Scale [Novolog 1 vial SQ ACHS units 10/25/18 Vial Sliding Scale -] Losartan Potassium [Cozaar -] 50 mg PO DAILY tablet 10/25/18 Metoclopramide HCl [Reglan -] 10 mg PO TIDAC tablet 10/25/18 metFORMIN HCL [Glucophage -] 500 mg PO BIDAC tablet 10/25/18 Vital Signs Temperature 98.1 F 08/25/19 09:00 Pulse Rate 90 08/25/19 09:00 Respiratory Rate 17 08/25/19 09:00 Blood Pressure 141/78 08/25/19 09:00 O2 Sat by Pulse Oximetry (%) 96 08/24/19 22:00 Intake & Output 08/22/19 08/23/19 08/24/19 08/25/19 23:59 23:59 23:59 23:59 Intake Total 150 420 Output Total 20 20 Balance 130 400 Weight 81.647 kg NAD awake and alert neck supple, no JVD RRR, no M/R Dec BS at lung bases but no rales or wheeze soft NT/ND, no rebound or guarding no LE edema, clubbing or cyanosis no bladder distension, no CVA tenderness CBC, BMP 08/25/19 06:00 08/25/19 06:00 Current Medications Amlodipine Besylate (Norvasc -) 10 mg PO DAILY [facility] Last Admin: 08/25/19 09:47 Dose: 10 mg Aspirin (Ecotrin -) 81 mg PO DAILY [facility] Last Admin: 08/25/19 09:47 Dose: 81 mg Atorvastatin Calcium (Lipitor -) 80 mg PO HS [facility] Last Admin: 08/24/19 22:03 Dose: 80 mg Carvedilol (Coreg -) 6.25 mg PO BID [facility] Last Admin: 08/25/19 09:46 Dose: 6.25 mg Clopidogrel Bisulfate (Plavix -) 75 mg PO DAILY [facility] Last Admin: 08/25/19 09:46 Dose: 75 mg Ezetimibe (Zetia -) 10 mg PO DAILY [facility] Last Admin: 08/25/19 09:46 Dose: 10 mg Gabapentin (Neurontin -) 600 mg PO DAILY [facility] Last Admin: 08/25/19 09:47 Dose: Not Given Dextrose (D5w -) 1,000 mls @ 42 mls/hr IV ASDIR [facility] Last Admin: 08/25/19 07:24 Dose: 42 mls/hr Calcium Gluconate 11,000 mg/ (Dextrose) 1,110 mls @ 50 mls/hr IV .[id number] [facility] Stop: 08/25/19 12:30 64 year old [place] woman with history of CKD stage 4 (eGFR 24), CAD, Insuldin dependent DM, diabetic neuropathy, PVD, Hyperkalemia who presented to the ED with AMS from hypoglycemia and noted to have PAOLO on CKD. 1. Acute on Chronic renal insufficiency from progressive CKD vs. volume depletion in setting of poor oral intake 2. CKD stage 4 3. Metabolic acidosis 4. Hyperkalemia 5. Acute on Chronic anemia 6. CAD 7. DM type 2 8. Hypocalcemia Check urine studies for FeNa, FeUrea, UPCR and urine eosinophils Will need aggressive IV repletion of Calcium, to get Calcium gluconate 2g IVPB followed by IV calcium infusion Will need to trend Ca BID Can give trial of isotonic fluids to help renal profusion Check renal/bladder US Start sodium bicarbonate 650mg BID Low K diet for now Check iron studies Monitor serum glucose levels, check Hgb A1C Thank you Del Live DO
[2019-08-25] MEDS ORDERED: SODIUM CHLORIDE 1,000 ML IV SCH (12:00)
[2019-08-25] MEDS ORDERED: CALCIUM GLUCONATE 10% - 1,000 MG/10 ML VIAL ONE ×2 (12:04→13:40)
[2019-08-25 12:11] LABS: EPI CELLS 1.6 /HPF (0-5/HPF); HYALINE CASTS 5 /lpf (0-8); URINE APPEARANCE CLEAR; URINE BACTERIA 152.8 /hpf (NEGATIVE); URINE BILIRUBIN NEGATIVE (NEGATIVE); URINE COLOR YELLOW; URINE GLUCOSE (UA) 2+ (NEGATIVE); URINE KETONE NEGATIVE (NEGATIVE); URINE LEUK ESTERASE NEGATIVE (NEGATIVE); URINE NITRITE NEGATIVE (NEGATIVE); URINE PROTEIN 4+ (NEGATIVE); URINE RBC 3 /hpf (0-4); URINE UROBILINOGEN 0.2 mg/dL (0.2-1.0); URINE WBC 31 /hpf (0-5)
[2019-08-25] MEDS: CALCIUM GLUCONATE 10% - 1,000 MG/10 ML VIAL IVPB SCH ×2 (12:15→13:47)
[2019-08-25 12:39] LABS: MAGNESIUM 1.7 mg/dL (1.8-2.4); PHOSPHOROUS 6.7 mg/dL (2.5-4.9)
[2019-08-25] MEDS ORDERED: MAGNESIUM SULF 50% (8.12 MEQ/2 ML-1 GM VIAL) IVPB ONE (14:11)
[2019-08-25] MEDS ORDERED: MAGNESIUM 1GM/D5W - 1 GM/100 ML IVPB IVPB ONE (15:36)
[2019-08-25] MEDS ORDERED: INSULIN (NOVOLOG) ASPART 100 UNITS/ML 10ML VIAL ONE (17:09)
[2019-08-25] MEDS: INSULIN SLIDING SCALE (NOVOLOG) 1 VIAL SQ SCH (17:13)
[2019-08-25] MEDS: SEVELAMER CARBONATE 800 MG TAB (FP) PO SCH (17:30)
[2019-08-25 21:54] LABS: BLOOD UREA NITROGEN 67.5 mg/dL (7-18); CREATININE 5.3 mg/dL (0.55-1.3); POTASSIUM 5.8 mmol/L (3.5-5.1)
[2019-08-25] MEDS ORDERED: INSULIN (LEVEMIR) 100 UNITS/ML UNITS SQ SCH ×2 (22:00)
[2019-08-25 22:18] LABS: CALCIUM 6.2 mg/dL (8.5-10.1)
[2019-08-25] MEDS ORDERED: CARVEDILOL 3.125 MG TABLET (FP) ONE (22:23)
[2019-08-25] MEDS ORDERED: INSULIN (LEVEMIR) 100 UNITS/ML UNITS SQ ONE (22:24)
[2019-08-25] MEDS ORDERED: ATORVASTATIN CA 80 MG TABLET (FP) ONE (22:24)
[2019-08-25] MEDS ORDERED: SODIUM POLYSTYRENE SULFONATE 15 GM/60 ML BOTTLE PO ONE (22:50)
[2019-08-25] MEDS: ATORVASTATIN CA 80 MG TABLET (FP) PO SCH (22:51)
[2019-08-25] MEDS ORDERED: SODIUM POLYSTYRENE SULFONATE 15 GM/60 ML BOTTLE ONE (23:20)
[2019-08-26 08:10] LABS: BASO % 0.9 % (0-2.0); EOS % 3.1 % (0-4.5); HEMATOCRIT 31.9 % (32.4-45.2); HEMOGLOBIN 10.1 GM/dL (10.7-15.3); LYMPH % 17.5 % (8-40); MCH 24.1 pg (25.7-33.7); MCHC 31.8 g/dl (32.0-36.0); MEAN CELL VOLUME 75.8 fl (80-96); MEAN PLT VOLUME 9.4 fl (7.5-11.1); MONO % 5.9 % (3.8-10.2); NEUT % 72.6 % (42.8-82.8); PLATELET COUNT 337 K/MM3 (134-434); RBC 4.21 M/mm3 (3.60-5.2); RDW 15.6 % (11.6-15.6); WHITE BLOOD COUNT 8.8 K/mm3 (4.0-10.0)
[2019-08-26 08:30] LABS: PHOSPHOROUS 6.9 mg/dL (2.5-4.9)
[2019-08-26 08:50] LABS: BLOOD UREA NITROGEN 66.4 mg/dL (7-18); CREATININE 5.5 mg/dL (0.55-1.3); POTASSIUM 5.1 mmol/L (3.5-5.1)
[2019-08-26 09:04] LABS: CALCIUM 6.4 mg/dL (8.5-10.1)
--- NOTE | 2019-08-26 09:08 | PN ---
Progress Note, Physician - Current Medication List Current Medications: Active Medications Amlodipine Besylate (Norvasc -) 10 mg PO DAILY [facility] Last Admin: 08/25/19 09:47 Dose: 10 mg Aspirin (Ecotrin -) 81 mg PO DAILY [facility] Last Admin: 08/25/19 09:47 Dose: 81 mg Atorvastatin Calcium (Lipitor -) 80 mg PO HS [facility] Last Admin: 08/25/19 22:51 Dose: 80 mg Carvedilol (Coreg -) 6.25 mg PO BID [facility] Last Admin: 08/25/19 22:51 Dose: 6.25 mg Clopidogrel Bisulfate (Plavix -) 75 mg PO DAILY [facility] Last Admin: 08/25/19 09:46 Dose: 75 mg Ezetimibe (Zetia -) 10 mg PO DAILY [facility] Last Admin: 08/25/19 09:46 Dose: 10 mg Gabapentin (Neurontin -) 600 mg PO DAILY [facility] Last Admin: 08/25/19 09:47 Dose: Not Given Insulin Aspart (Novolog Vial Sliding Scale -) 1 vial SQ TIDAC [facility]; Protocol Last Admin: 08/25/19 17:13 Dose: 12 units Insulin Detemir (Levemir Vial) 15 units SQ [facility] Last Admin: 08/25/19 22:51 Dose: 15 units Sevelamer Carbonate (Renvela -) 800 mg PO TIDCM [facility] Last Admin: 08/25/19 17:30 Dose: Not Given - Objective Vital Signs: Vital Signs Temperature 98.1 F 08/26/19 06:15 Pulse Rate 118 H 08/26/19 06:15 Respiratory Rate 18 08/26/19 06:15 Blood Pressure 116/113 H 08/26/19 06:15 O2 Sat by Pulse Oximetry (%) 100 08/26/19 06:15 General: Elderly woman, comfortable, not in distress HEENT; mucous membranes moist, no anemia, no jaundice, PERRLA, no nystagmus Neck: No JVD, supple, no bruit, thyroid palpably normal, normal carotid pulsations. Chest: Nontender, bilateral basal rales. CVS: S1-S2 regular Abdomen: Nondistended, soft, bowel sounds present. Extremities: No edema., No cough tenderness, pulses present VECTOR CONTROL SPECIALIST: AO X3 , no gross motor sensory deficit Labs: CBC, BMP 08/26/19 06:47 08/26/19 06:47 Problem List - Problems (1) Toxic metabolic encephalopathy Assessment/Plan: Patient with altered mental status loss of consciousness due to severe hypoglycemia responded to D50 infusion, overnight received D10 now 18 so IV hydration discontinued will monitor fingersticks. Code(s): G92 - TOXIC ENCEPHALOPATHY (2) Acute kidney injury superimposed on CKD Assessment/Plan: Gentle IV hydration, input output chart, daily BMP follow-up renal recommendations follow-up CKD Code(s): N17.9 - ACUTE KIDNEY FAILURE, UNSPECIFIED; N18.9 - CHRONIC KIDNEY DISEASE, UNSPECIFIED (3) Heart failure, diastolic, with acute decompensation Assessment/Plan: History of IV Lasix, continue beta-patricia and amlodipine hold losartan for worsening kidney function reviewed follow-up cardiology recommendations echo, low-salt diet input output chart. Code(s): I50.33 - ACUTE ON CHRONIC DIASTOLIC (CONGESTIVE) HEART FAILURE (4) Hypoglycemia Assessment/Plan: Due to noncompliance hold oral medication regular diet follow-up Accu-Chek every 6 hours. Code(s): E16.2 - HYPOGLYCEMIA, UNSPECIFIED (5) Atherosclerosis of [place] arteries of extremities with gangrene, left leg Assessment/Plan: Status post stent placement continue aspirin Plavix Code(s): I70.262 - ATHSCL [place] ARTERIES OF EXTREMITIES W G[place]GR[place], LEFT LEG (6) Hypocalcemia Assessment/Plan: Acute calcium 7.4, due to CKD continue follow-up vitamin D, parathyroid hormone , phosphate, calcium level calcium repleted by clinical science liaison in the ED. Code(s): E83.51 - HYPOCALCEMIA (7) Elevated troponin I level Assessment/Plan: Due to demand ischemia follow-up cardiology recommendation continue statin, aspirin, Plavix and beta-blockers at present asymptomatic no acute ST changes. Code(s): R79.89 - OTHER SPECIFIED ABNORMAL FINDINGS OF BLOOD CHEMISTRY
[2019-08-26] MEDS ORDERED: CALCIUM GLUCONATE 10% - 1,000 MG/10 ML VIAL IVPB ONE (09:12)
[2019-08-26] MEDS ORDERED: INSULIN (LEVEMIR) 100 UNITS/ML UNITS SQ SCH (09:13)
[2019-08-26] MEDS: SEVELAMER CARBONATE 800 MG TAB (FP) PO SCH ×3 (11:12→17:27)
[2019-08-26] MEDS: CARVEDILOL 6.25 MG TABLET (FP) PO SCH ×2 (11:13→21:42)
[2019-08-26] MEDS: ASPIRIN COATED 81 MG TABLET.EC PO SCH (11:13)
[2019-08-26] MEDS: CLOPIDOGREL BISULFATE 75 MG TABLET (FP) PO SCH (11:14)
[2019-08-26] MEDS: GABAPENTIN 300 MG CAPSULE PO SCH (11:14)
[2019-08-26] MEDS: amLODIPine BESYLATE 10 MG TABLET (FP) PO SCH (11:14)
[2019-08-26] MEDS: EZETIMIBE 10 MG TABLET (FP) PO SCH (11:14)
--- NOTE | 2019-08-26 11:37 | PN ---
Progress Note, Physician Chief Complaint: Events noted Not in distress History of Present Illness: Patient was seen and examined. Awake and alert. Chart was reviewed Denies chest pain, SOB or palpitations - Current Medication List Current Medications: Active Medications Amlodipine Besylate (Norvasc -) 10 mg PO DAILY [facility] Last Admin: 08/26/19 11:14 Dose: 10 mg Aspirin (Ecotrin -) 81 mg PO DAILY [facility] Last Admin: 08/26/19 11:13 Dose: 81 mg Atorvastatin Calcium (Lipitor -) 80 mg PO [facility] Last Admin: 08/25/19 22:51 Dose: 80 mg Carvedilol (Coreg -) 6.25 mg PO BID [facility] Last Admin: 08/26/19 11:13 Dose: 6.25 mg Clopidogrel Bisulfate (Plavix -) 75 mg PO DAILY [facility] Last Admin: 08/26/19 11:14 Dose: 75 mg Ezetimibe (Zetia -) 10 mg PO DAILY [facility] Last Admin: 08/26/19 11:14 Dose: 10 mg Gabapentin (Neurontin -) 600 mg PO DAILY [facility] Last Admin: 08/26/19 11:14 Dose: Not Given Insulin Aspart (Novolog Vial Sliding Scale -) [facility] Protocol Last Admin: 08/25/19 17:13 Dose: 12 units Insulin Detemir (Levemir Vial) 18 units SQ [facility] Sevelamer Carbonate (Renvela -) 800 mg PO TIDCM [facility] Last Admin: 08/26/19 11:12 Dose: Not Given - Objective Vital Signs: Vital Signs Temperature 98.1 F 08/26/19 06:15 Pulse Rate 118 H 08/26/19 06:15 Respiratory Rate 18 08/26/19 06:15 Blood Pressure 118/77 08/26/19 06:15 O2 Sat by Pulse Oximetry (%) 100 08/26/19 06:15 Eyes: Yes: PERRL HENT: Yes: Atraumatic Neck: Yes: Supple Cardiovascular: Yes: Regular Rate and Rhythm, S1, S2 Respiratory: Yes: CTA Bilaterally Gastrointestinal: Yes: Normal Bowel Sounds, Soft. No: Tenderness Edema: No Additional Findings/Remarks: - Review of Systems Constitutional: denies: Chills, Fever Cardiovascular: denies Chest Pain, Shortness of Breath. denies: Palpitations Respiratory: denies Cough, SOB, SOB on Exertion, Wheezing. denies: Orthopnea, PND Genitourinary: denies: Discharge, Hematuria Neurological: denies: Dizziness, Headache, Seizure, Syncope Labs: CBC, BMP 08/26/19 06:47 08/26/19 06:47 Problem List - Problems (1) Diabetes mellitus Code(s): E11.9 - TYPE 2 DIABETES MELLITUS WITHOUT COMPLICATIONS (2) HTN (hypertension) Code(s): I10 - ESSENTIAL (PRIMARY) HYPERTENSION Qualifiers: Hypertension type: essential hypertension Qualified Code(s): I10 - Essential (primary) hypertension (3) PAD (peripheral artery disease) Code(s): I73.9 - PERIPHERAL VASCULAR DISEASE, UNSPECIFIED (4) PAOLO (acute kidney injury) Code(s): N17.9 - ACUTE KIDNEY FAILURE, UNSPECIFIED (5) AMS (altered mental status) Code(s): R41.82 - ALTERED MENTAL STATUS, UNSPECIFIED Qualifiers: Altered mental status type: transient alteration of awareness Qualified Code(s): R40.4 - Transient alteration of awareness (6) Acute kidney injury superimposed on CKD Code(s): N17.9 - ACUTE KIDNEY FAILURE, UNSPECIFIED; N18.9 - CHRONIC KIDNEY DISEASE, UNSPECIFIED (7) Demand ischemia Code(s): I24.8 - OTHER FORMS OF ACUTE ISCHEMIC HEART DISEASE (8) Diastolic dysfunction Code(s): I51.89 - OTHER ILL-DEFINED HEART DISEASES (9) Hypoglycemia Code(s): E16.2 - HYPOGLYCEMIA, UNSPECIFIED (10) Hyperkalemia Code(s): E87.5 - HYPERKALEMIA Assessment/Plan 1. Altered mental status, syncope referable to severe hypoglycemia 2. Diastolic dysfunction with subendocardial ischemia 3. Acute on CKD 4 with hyperkalemia from progressive CKD 4. Insulin-dependent Type 2 DM 5. Hypertensive cardiovascular disease 6. Hyperlipidemia 7. PAD s/p revascularization left femoral, popliteal and tibial arteries with balloon angioplasty and drug-coated balloons and infusion of TPA 8. Anemia of CKD 9. Hypocalcemia PLAN: 1. Judicious hydration with monitor renal function and electrolytes 2. Echocardiography to assess LV/RV and valvular function 3. Renal US 4. Continue Norvasc 10 mg QD, Carvedilol 6.25 mg BID, ASA 81 mg QD, Lipitor 80 mg QHS, Plavix 75 mg QD and Zetia 10 mg QD. Losartan 50 mg QD held pending renal function stabilization and resolution of hyperkalemia 5. Glycemic control Further plans are to follow Alan Richardson MD
[2019-08-26] MEDS ORDERED: INSULIN (LEVEMIR) 100 UNITS/ML UNITS SQ ONE (12:11)
[2019-08-26] MEDS: INSULIN SLIDING SCALE (NOVOLOG) 1 VIAL SQ SCH ×3 (12:14→17:01)
[2019-08-26] MEDS ORDERED: FUROSEMIDE 40 MG/4 ML INJECTABLE VIAL IVPUSH ONE (13:05)
--- NOTE | 2019-08-26 13:12 | PN ---
Progress Note (short form) - Note Progress Note: Renal Consult for PAOLO on CKD Seen and examined in the ER awake and alert has mild shortness of breath and orthopnea s/p kayexalate last night and had diarrhea following denies any chest pain, confusion, N/V or metallic taste in the mouth Vital Signs Temperature 98.1 F 08/26/19 06:15 Pulse Rate 118 H 08/26/19 06:15 Respiratory Rate 18 08/26/19 06:15 Blood Pressure 116/113 H 08/26/19 06:15 O2 Sat by Pulse Oximetry (%) 100 08/26/19 06:15 Intake & Output 08/23/19 08/24/19 08/25/19 08/26/19 23:59 23:59 23:59 23:59 Intake Total 150 1230 Output Total 20 20 Balance 130 1210 Weight 81.647 kg NAD awake and alert neck supple, no JVD RRR, no M/R Dec BS at lung bases but no rales or wheeze soft NT/ND, no rebound or guarding no LE edema, clubbing or cyanosis no bladder distension, no CVA tenderness CBC, BMP 08/26/19 06:47 08/26/19 06:47 Current Medications Amlodipine Besylate (Norvasc -) 10 mg PO DAILY [facility] Last Admin: 08/26/19 11:14 Dose: 10 mg Aspirin (Ecotrin -) 81 mg PO DAILY [facility] Last Admin: 08/26/19 11:13 Dose: 81 mg Atorvastatin Calcium (Lipitor -) 80 mg PO HS [facility] Last Admin: 08/25/19 22:51 Dose: 80 mg Calcitriol (Rocaltrol -) 0.25 mcg PO DAILY [facility] Carvedilol (Coreg -) 6.25 mg PO BID [facility] Last Admin: 08/26/19 11:13 Dose: 6.25 mg Clopidogrel Bisulfate (Plavix -) 75 mg PO DAILY [facility] Last Admin: 08/26/19 11:14 Dose: 75 mg Ezetimibe (Zetia -) 10 mg PO DAILY [facility] Last Admin: 08/26/19 11:14 Dose: 10 mg Furosemide (Lasix Injection -) 40 mg IVPUSH ONCE ONE Stop: 08/26/19 13:06 Gabapentin (Neurontin -) 600 mg PO DAILY [facility] Last Admin: 08/26/19 11:14 Dose: Not Given Insulin Aspart (Novolog Vial Sliding Scale -) 1 vial SQ TIDAC [facility]; Protocol Last Admin: 08/26/19 13:06 Dose: Not Given Insulin Detemir (Levemir Vial) 18 units SQ [facility] Sevelamer Carbonate (Renvela -) 800 mg PO TIDCM [facility] Last Admin: 08/26/19 12:13 Dose: Not Given 64 year old [place] woman with history of CKD stage 4 (eGFR 24), CAD, Insuldin dependent DM, diabetic neuropathy, PVD, Hyperkalemia who presented to the ED with AMS from hypoglycemia and noted to have PAOLO on CKD. 1. Acute on Chronic renal insufficiency 2. CKD stage 4 secondary to suspected diabetic nephropathy 3. Metabolic acidosis 4. Hyperkalemia 5. Acute on Chronic anemia 6. CAD 7. DM type 2 8. Hypocalcemia 9. Hyperphosphatemia Renal function slightly worse over the past 24 hours. Pt required kayexalate for management of hyperkalemia pt with evidence of fluid overload: + rales and orthopnea will discontinue further IVF Give lasix 40mg IV x 1 UPCR is in nehprotic range FeNa is 1.7% indeterminate check SHAHEED, ANCA, RPR, Hepatitis profile this evening Check renal/bladder US Start sodium bicarbonate 650mg BID Low K diet for now Check iron studies discussed the possibility of dialysis with the patient if her renal function is without improvement. She expressed understanding. Thank you Del Live DO
[2019-08-26] MEDS ORDERED: FUROSEMIDE 40 MG/4 ML INJECTABLE VIAL ONE (13:40)
[2019-08-26] MEDS: CALCITRIOL 0.25 MCG CAPSULE (FP) PO SCH (14:26)
[2019-08-26] MEDS: SODIUM BICARBONATE 650 MG TABLET PO SCH (21:42)
[2019-08-26] MEDS: INSULIN (LEVEMIR) 100 UNITS/ML UNITS SQ SCH (21:42)
[2019-08-26] MEDS: ATORVASTATIN CA 80 MG TABLET (FP) PO SCH (21:42)
[2019-08-27] MEDS: INSULIN SLIDING SCALE (NOVOLOG) 1 VIAL SQ SCH ×3 (07:08→17:08)
[2019-08-27 07:44] LABS: BASO % 0.8 % (0-2.0); EOS % 2.5 % (0-4.5); HEMATOCRIT 29.8 % (32.4-45.2); HEMOGLOBIN 9.3 GM/dL (10.7-15.3); MCH 23.9 pg (25.7-33.7); MCHC 31.2 g/dl (32.0-36.0); MEAN CELL VOLUME 76.8 fl (80-96); MEAN PLT VOLUME 9.5 fl (7.5-11.1); NEUT % 76.7 % (42.8-82.8); PLATELET COUNT 292 K/MM3 (134-434); RBC 3.88 M/mm3 (3.60-5.2); RDW 15.7 % (11.6-15.6); WHITE BLOOD COUNT 9.2 K/mm3 (4.0-10.0)
[2019-08-27] MEDS ORDERED: SEVELAMER CARBONATE 800 MG TAB (FP) PO SCH (08:00)
[2019-08-27 08:28] LABS: ALBUMIN 2.1 g/dl (3.4-5.0); BILIRUBIN,TOTAL 0.3 mg/dL (0.2-1); CREATININE 5.4 mg/dL (0.55-1.3); MAGNESIUM 2.1 mg/dL (1.8-2.4); PHOSPHOROUS 6.9 mg/dL (2.5-4.9); POTASSIUM 4.9 mmol/L (3.5-5.1); TOT PROT 5.5 g/dl (6.4-8.2)
[2019-08-27 09:00] LABS: CALCIUM 6.7 mg/dL (8.5-10.1)
[2019-08-27] MEDS ORDERED: PT OWN MED DRAWER 7, Y5N ONE (09:12)
[2019-08-27] MEDS: amLODIPine BESYLATE 10 MG TABLET (FP) PO SCH (09:20)
[2019-08-27] MEDS: GABAPENTIN 300 MG CAPSULE PO SCH (09:20)
[2019-08-27] MEDS: SODIUM BICARBONATE 650 MG TABLET PO SCH ×2 (09:20→22:10)
[2019-08-27] MEDS: CALCITRIOL 0.25 MCG CAPSULE (FP) PO SCH (09:20)
[2019-08-27] MEDS: CARVEDILOL 6.25 MG TABLET (FP) PO SCH ×2 (09:20→22:09)
[2019-08-27] MEDS: CLOPIDOGREL BISULFATE 75 MG TABLET (FP) PO SCH (09:21)
[2019-08-27] MEDS: ASPIRIN COATED 81 MG TABLET.EC PO SCH (09:21)
[2019-08-27] MEDS: EZETIMIBE 10 MG TABLET (FP) PO SCH (09:22)
--- NOTE | 2019-08-27 10:19 | PN ---
Progress Note, Physician Chief Complaint: Denies any new complaint - Current Medication List Current Medications: Active Medications Amlodipine Besylate (Norvasc -) 10 mg PO DAILY [facility] Last Admin: 08/27/19 09:20 Dose: 10 mg Aspirin (Ecotrin -) 81 mg PO DAILY [facility] Last Admin: 08/27/19 09:21 Dose: 81 mg Atorvastatin Calcium (Lipitor -) 80 mg PO [facility] Last Admin: 08/26/19 21:42 Dose: 80 mg Calcitriol (Rocaltrol -) 0.25 mcg PO DAILY [facility] Last Admin: 08/27/19 09:20 Dose: 0.25 mcg Carvedilol (Coreg -) 6.25 mg PO BID [facility] Last Admin: 08/27/19 09:20 Dose: 6.25 mg Clopidogrel Bisulfate (Plavix -) 75 mg PO DAILY [facility] Last Admin: 08/27/19 09:21 Dose: 75 mg Ezetimibe (Zetia -) 10 mg PO DAILY [facility] Last Admin: 08/27/19 09:22 Dose: 10 mg Gabapentin (Neurontin -) 600 mg PO DAILY [facility] Last Admin: 08/27/19 09:20 Dose: 600 mg Insulin Aspart (Novolog Vial Sliding Scale -) 1 vial SQ TIDAC [facility]; Protocol Last Admin: 08/27/19 07:08 Dose: 4 unit Insulin Detemir (Levemir Vial) 18 units SQ [facility] Last Admin: 08/26/19 21:42 Dose: 18 units Sevelamer Carbonate (Renvela -) 800 mg PO TIDCM [facility] Last Admin: 08/27/19 09:21 Dose: 800 mg Sodium Bicarbonate (Sodium Bicarbonate -) 650 mg PO BID [facility] Last Admin: 08/27/19 09:20 Dose: 650 mg - Objective Vital Signs: Vital Signs Temperature 98.1 F 08/27/19 09:24 Pulse Rate 85 08/27/19 09:24 Respiratory Rate 18 08/27/19 09:24 Blood Pressure 148/68 08/27/19 09:24 O2 Sat by Pulse Oximetry (%) 96 08/26/19 21:00 General: Elderly woman, comfortable, not in distress HEENT; mucous membranes moist, no anemia, no jaundice, PERRLA, no nystagmus Neck: No JVD, supple, no bruit, thyroid palpably normal, normal carotid pulsations. Chest: Nontender, bilateral basal rales. CVS: S1-S2 regular Abdomen: Nondistended, soft, bowel sounds present. Extremities: No edema., No cough tenderness, pulses present PLATE AND WELD INSPECTOR: AO X3 , no gross motor sensory deficit Labs: CBC, BMP 08/27/19 06:55 08/27/19 06:55 Problem List - Problems (1) Toxic metabolic encephalopathy Assessment/Plan: Patient with altered mental status loss of consciousness due to severe hypoglycemia responded to D50 infusion, overnight received D10 now 18 so IV hydration discontinued will monitor fingersticks. Code(s): G92 - TOXIC ENCEPHALOPATHY (2) Acute kidney injury superimposed on CKD Assessment/Plan: Gentle IV hydration, input output chart, daily BMP follow-up renal recommendations follow-up CKD Code(s): N17.9 - ACUTE KIDNEY FAILURE, UNSPECIFIED; N18.9 - CHRONIC KIDNEY DISEASE, UNSPECIFIED (3) Heart failure, diastolic, with acute decompensation Assessment/Plan: History of IV Lasix, continue beta-patricia and amlodipine hold losartan for worsening kidney function reviewed follow-up cardiology recommendations echo, low-salt diet input output chart. Code(s): I50.33 - ACUTE ON CHRONIC DIASTOLIC (CONGESTIVE) HEART FAILURE (4) Hypoglycemia Assessment/Plan: Due to noncompliance hold oral medication regular diet follow-up Accu-Chek every 6 hours. Code(s): E16.2 - HYPOGLYCEMIA, UNSPECIFIED (5) Atherosclerosis of [place] arteries of extremities with gangrene, left leg Assessment/Plan: Status post stent placement continue aspirin Plavix Code(s): I70.262 - ATHSCL [place] ARTERIES OF EXTREMITIES W GANGR[place], LEFT LEG (6) Hypocalcemia Assessment/Plan: Acute calcium 7.4, due to CKD continue follow-up vitamin D, parathyroid hormone , phosphate, calcium level calcium repleted by c.o.d. biller in the ED. Code(s): E83.51 - HYPOCALCEMIA (7) Elevated troponin I level Assessment/Plan: Due to demand ischemia follow-up cardiology recommendation continue statin, aspirin, Plavix and beta-blockers at present asymptomatic no acute ST changes. Code(s): R79.89 - OTHER SPECIFIED ABNORMAL FINDINGS OF BLOOD CHEMISTRY
--- NOTE | 2019-08-27 11:58 | PN ---
Progress Note, Physician History of Present Illness: Denies recurrent near or true syncope, altered sensorium recovered. - Current Medication List Current Medications: Active Medications Amlodipine Besylate (Norvasc -) 10 mg PO DAILY [facility] Last Admin: 08/27/19 09:20 Dose: 10 mg Aspirin (Ecotrin -) 81 mg PO DAILY [facility] Last Admin: 08/27/19 09:21 Dose: 81 mg Atorvastatin Calcium (Lipitor -) 80 mg PO [facility] Last Admin: 08/26/19 21:42 Dose: 80 mg Calcitriol (Rocaltrol -) 0.25 mcg PO DAILY [facility] Last Admin: 08/27/19 09:20 Dose: 0.25 mcg Carvedilol (Coreg -) 6.25 mg PO BID [facility] Last Admin: 08/27/19 09:20 Dose: 6.25 mg Clopidogrel Bisulfate (Plavix -) 75 mg PO DAILY [facility] Last Admin: 08/27/19 09:21 Dose: 75 mg Ezetimibe (Zetia -) 10 mg PO DAILY [facility] Last Admin: 08/27/19 09:22 Dose: 10 mg Gabapentin (Neurontin -) 600 mg PO DAILY [facility] Last Admin: 08/27/19 09:20 Dose: 600 mg Insulin Aspart (Novolog Vial Sliding Scale -) [facility]; Protocol Last Admin: 08/27/19 07:08 Dose: 4 unit Insulin Detemir (Levemir Vial) 18 units SQ [facility] Last Admin: 08/26/19 21:42 Dose: 18 units Sevelamer Carbonate (Renvela -) 1,600 mg PO TIDCM [facility] Sodium Bicarbonate (Sodium Bicarbonate -) 650 mg PO BID [facility] Last Admin: 08/27/19 09:20 Dose: 650 mg - Objective Vital Signs: Vital Signs Temperature 98.1 F 08/27/19 09:24 Pulse Rate 85 08/27/19 09:24 Respiratory Rate 18 08/27/19 09:24 Blood Pressure 148/68 08/27/19 09:24 O2 Sat by Pulse Oximetry (%) 96 08/26/19 21:00 Constitutional: Yes: No Distress, Calm Neck: Yes: Supple Cardiovascular: Yes: Regular Rate and Rhythm Respiratory: Yes: Regular, Diminished Gastrointestinal: Yes: Normal Bowel Sounds, Soft Edema: No Labs: CBC, BMP 08/27/19 06:55 08/27/19 06:55 Problem List - Problems (1) Diastolic dysfunction Code(s): I51.89 - OTHER ILL-DEFINED HEART DISEASES (2) Demand ischemia Code(s): I24.8 - OTHER FORMS OF ACUTE ISCHEMIC HEART DISEASE (3) Hyperlipidemia associated with type 2 diabetes mellitus Code(s): E11.69 - TYPE 2 DIABETES MELLITUS WITH OTHER SPECIFIED COMPLICATION; E78.5 - HYPERLIPIDEMIA, UNSPECIFIED (4) Hypoglycemia associated with type 2 diabetes mellitus Code(s): E11.649 - TYPE 2 DIABETES MELLITUS WITH HYPOGLYCEMIA WITHOUT COMA (5) PAOLO (acute kidney injury) Code(s): N17.9 - ACUTE KIDNEY FAILURE, UNSPECIFIED (6) AMS (altered mental status) Code(s): R41.82 - ALTERED MENTAL STATUS, UNSPECIFIED Qualifiers: Altered mental status type: transient alteration of awareness Qualified Code(s): R40.4 - Transient alteration of awareness (7) Hypoglycemia Code(s): E16.2 - HYPOGLYCEMIA, UNSPECIFIED (8) Atherosclerosis of [place] arteries of extremities with gangrene, left leg Code(s): I70.262 - ATHSCL [place] ARTERIES OF EXTREMITIES W GANGR[place], LEFT LEG (9) CKD (chronic kidney disease) Code(s): N18.9 - CHRONIC KIDNEY DISEASE, UNSPECIFIED Qualifiers: Chronic kidney disease stage: stage 4 (severe) Qualified Code(s): N18.4 - Chronic kidney disease, stage 4 (severe) (10) Diabetes mellitus with neuropathy Code(s): E11.40 - TYPE 2 DIABETES MELLITUS WITH DIABETIC NEUROPATHY, UNSP Qualifiers: Diabetes mellitus type: type 2 Diabetes mellitus retirement insulin use: with retirement use Qualified Code(s): E11.40 - Type 2 diabetes mellitus with diabetic neuropathy, unspecified; Z79.4 - terminal gauger (current) use of insulin (11) Hyperkalemia Code(s): E87.5 - HYPERKALEMIA Assessment/Plan 08/26/2019 Renal US: No hydro 1. Altered mental status, syncope referable to severe hypoglycemia since resolved 2. Diastolic dysfunction with subendocardial ischemia 3. Acute on CKD 4 with hyperkalemia secondary to suspected diabetic nephropathy with nephrotic range proteinuria 4. Insulin-dependent Type 2 DM not at goal control 5. Hypertensive cardiovascular disease 6. Hyperlipidemia 7. PAD s/p revascularization left femoral, popliteal and tibial arteries with balloon angioplasty and drug-coated balloons and infusion of TPA 8. Anemia of CKD 9. Hypocalcemia 10. Non-compliance with medications and f/u PLAN: 1. Diuresis as needed with monitor renal function and electrolytes 2. Echocardiography to assess LV/RV and valvular function 3. Consideration for HD per renal 4. Continue Norvasc 10 mg QD, Carvedilol 6.25 mg BID, ASA 81 mg QD, Lipitor 80 mg QHS, Plavix 75 mg QD and Zetia 10 mg QD. Losartan 50 mg QD held pending renal function stabilization and resolution of hyperkalemia 5. Optimize glycemic control
--- NOTE | 2019-08-27 12:58 | PN ---
Progress Note, Physician Chief Complaint: Denies any new complaint - Current Medication List Current Medications: Active Medications Amlodipine Besylate (Norvasc -) 10 mg PO DAILY [facility] Last Admin: 08/27/19 09:20 Dose: 10 mg Aspirin (Ecotrin -) 81 mg PO DAILY [facility] Last Admin: 08/27/19 09:21 Dose: 81 mg Atorvastatin Calcium (Lipitor -) 80 mg PO HS [facility] Last Admin: 08/26/19 21:42 Dose: 80 mg Calcitriol (Rocaltrol -) 0.25 mcg PO DAILY [facility] Last Admin: 08/27/19 09:20 Dose: 0.25 mcg Carvedilol (Coreg -) 6.25 mg PO BID [facility] Last Admin: 08/27/19 09:20 Dose: 6.25 mg Clopidogrel Bisulfate (Plavix -) 75 mg PO DAILY [facility] Last Admin: 08/27/19 09:21 Dose: 75 mg Ezetimibe (Zetia -) 10 mg PO DAILY [facility] Last Admin: 08/27/19 09:22 Dose: 10 mg Gabapentin (Neurontin -) 600 mg PO DAILY [facility] Last Admin: 08/27/19 09:20 Dose: 600 mg Insulin Aspart (Novolog Vial Sliding Scale -) 1 vial SQ TIDAC [facility]; Protocol Last Admin: 08/27/19 07:08 Dose: 4 unit Insulin Detemir (Levemir Vial) 18 units SQ [facility] Last Admin: 08/26/19 21:42 Dose: 18 units Sevelamer Carbonate (Renvela -) 1,600 mg PO TIDCM [facility] Sodium Bicarbonate (Sodium Bicarbonate -) 650 mg PO BID [facility] Last Admin: 08/27/19 09:20 Dose: 650 mg - Objective Vital Signs: Vital Signs Temperature 98.1 F 08/27/19 09:24 Pulse Rate 85 08/27/19 09:24 Respiratory Rate 18 08/27/19 09:24 Blood Pressure 148/68 08/27/19 09:24 O2 Sat by Pulse Oximetry (%) 96 08/26/19 21:00 General: Elderly woman, comfortable, not in distress HEENT; mucous membranes moist, no anemia, no jaundice, PERRLA, no nystagmus Neck: No JVD, supple, no bruit, thyroid palpably normal, normal carotid pulsations. Chest: Nontender, bilateral basal rales. CVS: S1-S2 regular Abdomen: Nondistended, soft, bowel sounds present. Extremities: No edema., No cough tenderness, pulses present GROCERY BAGGER: AO X3 , no gross motor sensory deficit Labs: CBC, BMP 08/27/19 06:55 08/27/19 06:55 Problem List - Problems (1) Toxic metabolic encephalopathy Assessment/Plan: Patient with altered mental status loss of consciousness due to severe hypoglycemia responded to D50 infusion, overnight received D10 now 18 so IV hydration discontinued will monitor fingersticks. Code(s): G92 - TOXIC ENCEPHALOPATHY (2) Acute kidney injury superimposed on CKD Assessment/Plan: Gentle IV hydration, input output chart, daily BMP follow-up renal recommendations follow-up CKD Code(s): N17.9 - ACUTE KIDNEY FAILURE, UNSPECIFIED; N18.9 - CHRONIC KIDNEY DISEASE, UNSPECIFIED (3) Heart failure, diastolic, with acute decompensation Assessment/Plan: History of IV Lasix, continue beta-patricia and amlodipine hold losartan for worsening kidney function reviewed follow-up cardiology recommendations echo, low-salt diet input output chart. Code(s): I50.33 - ACUTE ON CHRONIC DIASTOLIC (CONGESTIVE) HEART FAILURE (4) Atherosclerosis of [place] arteries of extremities with gangrene, left leg Assessment/Plan: Status post stent placement continue aspirin Plavix Code(s): I70.262 - ATHSCL [place] ARTERIES OF EXTREMITIES W GANGRENE, LEFT LEG (5) Hypocalcemia Assessment/Plan: Acute calcium 7.4, due to CKD continue follow-up vitamin D, parathyroid hormone , phosphate, calcium level calcium repleted by surface room shop optician in the ED. Code(s): E83.51 - HYPOCALCEMIA (6) Elevated troponin I level Assessment/Plan: Due to demand ischemia follow-up cardiology recommendation continue statin, aspirin, Plavix and beta-blockers at present asymptomatic no acute ST changes. Code(s): R79.89 - OTHER SPECIFIED ABNORMAL FINDINGS OF BLOOD CHEMISTRY
[2019-08-27] MEDS: SEVELAMER CARBONATE 800 MG TAB (FP) PO SCH ×2 (13:22→17:09)
--- NOTE | 2019-08-27 14:04 | ECHO ---
Name: BRITTNY HARVEY Exam:Adult Echocardiogram Study Date: 08/27/2019 10:35 AM Age: 64 yrs Reason For Study: elevated troponin Height: 60 in Weight: 180 lb BSA: 1.8 m2 MMode/2D Measurements & Calculations IVSd: 1.2 cm Ao root diam: 1.9 cm LVIDd: 4.7 cm LA dimension: 3.5 cm LVIDs: 2.5 cm LVPWd: 1.1 cm EDV(Teich): 100.9 ml LVOT diam: 2.0 cm ESV(Teich): 23.2 ml LAV (MOD-bp): 41.3 ml Doppler Measurements & Calculations MV E max sam: 129.0 cm/sec Ao V2 max: 133.0 cm/sec MV A max sam: 74.9 cm/sec Ao max P.1 mmHg MV E/A: 1.7 MV dec time: 0.25 sec LBUA(V,D): 2.0 cm2 LV V1 max P.8 mmHg MR max sam: 452.8 cm/sec LV V1 max: 83.4 cm/sec MR max P.2 mmHg TR max sam: 245.7 cm/sec PA V2 max: 100.4 cm/sec TR max P.3 mmHg PA max P.0 mmHg Med Peak E' Sam: 5.5 cm/sec PI Vmax: 256.5 cm/sec Med E/e': 23.3 Lat Peak E' Sam: 4.7 cm/sec Lat E/e': 27.6 Procedure A two-dimensional transthoracic echocardiogram with color flow and Doppler was performed. The study w as technically difficult with many images being suboptimal in quality. Left Ventricle The left ventricular size, thickness and function are normal. The left ventricle is not well visualiz ed. The left ventricular ejection fraction is normal. Left Ventricular Filling pattern is normal for age. Reg ional wall motion abnormalities cannot be excluded due to limited visualization. Right Ventricle The right ventricle is normal in size and function. Atria Normal left and right atrial size and function. Mitral Valve There is mild mitral valve thickening. There is no mitral valve stenosis. There is moderate mitral regurgitation. Tricuspid Valve There is mild tricuspid valve thickening. There is no tricuspid stenosis. There is Trace to mild tric uspid regurgitation. Right ventricular systolic pressure is normal. Aortic Valve The aortic valve is trileaflet. There is mild aortic valve thickening. Pulmonic Valve The pulmonic valve is not well visualized. There is no pulmonic valvular stenosis. Trace to mild pulm onic valvular regurgitation. Great Vessels The aortic root is normal size. Pericardium/Pleura There is no pericardial effusion. Interpretation Summary The left ventricular size, thickness and function are normal The left ventricular ejection fraction is normal. The left ventricle is not well visualized. Regional wall motion abnormalities cannot be excluded due to limited visualization. Left Ventricular Filling pattern is normal for age. There is moderate mitral regurgitation. There is Trace to mild tricuspid regurgitation. Right ventricular systolic pressure is normal. The study was technically difficult with many images being suboptimal in quality. MD Karan Cuellar 08/27/2019 02:04 PM
--- NOTE | 2019-08-27 16:38 | PN ---
Progress Note (short form) - Note Progress Note: Renal Consult for PAOLO on CKD Seen and examined at the bedside awake and alert offers no acute complaints reported improved urine output after IV lasix last night no shortness of breath making urine appetite is preserved Vital Signs Temperature 98.5 F 08/27/19 14:24 Pulse Rate 105 H 08/27/19 14:24 Respiratory Rate 08/27/19 14:24 Blood Pressure 147/70 08/27/19 14:24 O2 Sat by Pulse Oximetry (%) 96 08/26/19 21:00 Intake & Output 08/24/19 08/25/19 08/26/19 08/27/19 23:59 23:59 23:59 23:59 Intake Total 150 1230 300 500 Output Total 20 20 400 Balance 130 1210 300 100 Weight 81.647 kg 83.007 kg NAD awake and alert neck supple, no JVD RRR, no M/R Dec BS at lung bases but no rales or wheeze soft NT/ND, no rebound or guarding no LE edema, clubbing or cyanosis no bladder distension, no CVA tenderness CBC, BMP 08/27/19 06:55 08/27/19 06:55 Current Medications Amlodipine Besylate (Norvasc -) 10 mg PO DAILY [facility] Last Admin: 08/27/19 09:20 Dose: 10 mg Aspirin (Ecotrin -) 81 mg PO DAILY [facility] Last Admin: 08/27/19 09:21 Dose: 81 mg Atorvastatin Calcium (Lipitor -) 80 mg PO HS [facility] Last Admin: 08/26/19 21:42 Dose: 80 mg Calcitriol (Rocaltrol -) 0.25 mcg PO DAILY [facility] Last Admin: 08/27/19 09:20 Dose: 0.25 mcg Carvedilol (Coreg -) 6.25 mg PO BID [facility] Last Admin: 08/27/19 09:20 Dose: 6.25 mg Clopidogrel Bisulfate (Plavix -) 75 mg PO DAILY [facility] Last Admin: 08/27/19 09:21 Dose: 75 mg Ezetimibe (Zetia -) 10 mg PO DAILY [facility] Last Admin: 08/27/19 09:22 Dose: 10 mg Gabapentin (Neurontin -) 600 mg PO DAILY [facility] Last Admin: 08/27/19 09:20 Dose: 600 mg Insulin Aspart (Novolog Vial Sliding Scale -) 1 vial SQ TIDAC [facility]; Protocol Last Admin: 08/27/19 13:17 Dose: 8 unit Insulin Detemir (Levemir Vial) 18 units SQ HS [facility] Last Admin: 08/26/19 21:42 Dose: 18 units Sevelamer Carbonate (Renvela -) 1,600 mg PO TIDCM [facility] Last Admin: 08/27/19 13:22 Dose: 1,600 mg Sodium Bicarbonate (Sodium Bicarbonate -) 650 mg PO BID [facility] Last Admin: 08/27/19 09:20 Dose: 650 mg Torsemide (Demadex -) 40 mg PO DAILY [facility] 64 year old [place] woman with history of CKD stage 4 (eGFR 24), CAD, Insuldin dependent DM, diabetic neuropathy, PVD, Hyperkalemia who presented to the ED with AMS from hypoglycemia and noted to have PAOLO on CKD. 1. Acute on Chronic renal insufficiency 2. CKD stage 4 secondary to suspected diabetic nephropathy 3. Metabolic acidosis 4. Hyperkalemia 5. Acute on Chronic anemia 6. CAD 7. DM type 2 8. Hypocalcemia 9. Hyperphosphatemia Renal function essentially unchanged. No overt fluid overload, hyperkalemia or acidosis to warrant emergent dialysis. Will continue on Torsemide 40mg daily for mangement of fluid status UPCR is in nehprotic range FeNa is 1.7% indeterminate awaiting serologic studies Check renal/bladder US Continue sodium bicarbonate 650mg BID Low K diet for now f/u iron studies Thank you Del Live DO
[2019-08-27] MEDS: TORSEMIDE 20 MG TABLET (FP) PO SCH (17:09)
[2019-08-27] MEDS ORDERED: IRON SUCROSE INJECTION 100 MG in SODIUM CHLORIDE 95 ML IVPB ONE (17:30)
[2019-08-27] MEDS: ATORVASTATIN CA 80 MG TABLET (FP) PO SCH (22:09)
[2019-08-27] MEDS: INSULIN (LEVEMIR) 100 UNITS/ML UNITS SQ SCH (22:09)
[2019-08-28] MEDS: INSULIN SLIDING SCALE (NOVOLOG) 1 VIAL SQ SCH ×3 (06:27→17:10)
[2019-08-28 08:23] LABS: BASO % 0.5 % (0-2.0); EOS % 2.6 % (0-4.5); HEMATOCRIT 27.8 % (32.4-45.2); HEMOGLOBIN 8.8 GM/dL (10.7-15.3); MCH 23.8 pg (25.7-33.7); MCHC 31.7 g/dl (32.0-36.0); MEAN CELL VOLUME 75.3 fl (80-96); MEAN PLT VOLUME 9.6 fl (7.5-11.1); MONO % 7.5 % (3.8-10.2); NEUT % 74.4 % (42.8-82.8); PLATELET COUNT 281 K/MM3 (134-434); RBC 3.69 M/mm3 (3.60-5.2); WHITE BLOOD COUNT 8.8 K/mm3 (4.0-10.0)
[2019-08-28] MEDS: SEVELAMER CARBONATE 800 MG TAB (FP) PO SCH ×3 (08:42→17:10)
[2019-08-28 09:09] LABS: BILIRUBIN,TOTAL 0.2 mg/dL (0.2-1); CREATININE 5.5 mg/dL (0.55-1.3); PHOSPHOROUS 6.6 mg/dL (2.5-4.9); POTASSIUM 4.5 mmol/L (3.5-5.1); TOT PROT 5.3 g/dl (6.4-8.2)
[2019-08-28 09:15] LABS: CALCIUM 6.5 mg/dL (8.5-10.1)
[2019-08-28] MEDS: SODIUM BICARBONATE 650 MG TABLET PO SCH ×2 (09:39→21:04)
[2019-08-28] MEDS: CALCITRIOL 0.25 MCG CAPSULE (FP) PO SCH (09:39)
[2019-08-28] MEDS: CLOPIDOGREL BISULFATE 75 MG TABLET (FP) PO SCH (09:39)
[2019-08-28] MEDS: ASPIRIN COATED 81 MG TABLET.EC PO SCH (09:39)
[2019-08-28] MEDS: GABAPENTIN 300 MG CAPSULE PO SCH ×2 (09:39→10:02)
[2019-08-28] MEDS: TORSEMIDE 20 MG TABLET (FP) PO SCH (09:39)
[2019-08-28] MEDS: EZETIMIBE 10 MG TABLET (FP) PO SCH (09:40)
[2019-08-28] MEDS: amLODIPine BESYLATE 10 MG TABLET (FP) PO SCH (11:02)
[2019-08-28] MEDS: CARVEDILOL 6.25 MG TABLET (FP) PO SCH ×2 (11:02→21:03)
[2019-08-28] MEDS ORDERED: EPOETIN ALFA 20,000 UNIT/1 ML VIAL SQ ONE (13:00)
[2019-08-28] MEDS ORDERED: IRON SUCROSE INJECTION 100 MG in SODIUM CHLORIDE 95 ML IVPB ONE (13:00)
--- NOTE | 2019-08-28 13:07 | PN ---
Progress Note, Physician History of Present Illness: Denies recurrent near or true syncope, chest pain or dyspnea, altered sensorium recovered. - Current Medication List Current Medications: Active Medications Amlodipine Besylate (Norvasc -) 10 mg PO DAILY [facility] Last Admin: 08/28/19 11:02 Dose: 10 mg Aspirin (Ecotrin -) 81 mg PO DAILY [facility] Last Admin: 08/28/19 09:39 Dose: 81 mg Atorvastatin Calcium (Lipitor -) 80 mg PO HS [facility] Last Admin: 08/27/19 22:09 Dose: 80 mg Calcitriol (Rocaltrol -) 0.25 mcg PO DAILY [facility] Last Admin: 08/28/19 09:39 Dose: 0.25 mcg Carvedilol (Coreg -) 6.25 mg PO BID [facility] Last Admin: 08/28/19 11:02 Dose: 6.25 mg Clopidogrel Bisulfate (Plavix -) 75 mg PO DAILY [facility] Last Admin: 08/28/19 09:39 Dose: 75 mg Ezetimibe (Zetia -) 10 mg PO DAILY [facility] Last Admin: 08/28/19 09:40 Dose: 10 mg Gabapentin (Neurontin -) 600 mg PO DAILY [facility] Last Admin: 08/28/19 10:02 Dose: Not Given Iron Sucrose 100 mg/ Sodium (Chloride) 100 mls @ 200 mls/hr IVPB ONCE ONE Stop: 08/28/19 13:29 Insulin Aspart (Novolog Vial Sliding Scale -) 1 vial SQ TIDAC [facility]; Protocol Last Admin: 08/28/19 11:07 Dose: Not Given Insulin Detemir (Levemir Vial) 18 units SQ HS [facility] Last Admin: 08/27/19 22:09 Dose: 18 units Sevelamer Carbonate (Renvela -) 1,600 mg PO TIDCM [facility] Last Admin: 08/28/19 11:13 Dose: 1,600 mg Sodium Bicarbonate (Sodium Bicarbonate -) 650 mg PO BID [facility] Last Admin: 08/28/19 09:39 Dose: 650 mg Torsemide (Demadex -) 40 mg PO DAILY [facility] Last Admin: 08/28/19 09:39 Dose: 40 mg - Objective Vital Signs: Vital Signs Temperature 98.2 F 08/28/19 10:00 Pulse Rate 82 08/28/19 10:00 Respiratory Rate 20 08/28/19 10:00 Blood Pressure 129/40 L 08/28/19 10:00 O2 Sat by Pulse Oximetry (%) 94 L 08/27/19 21:00 Constitutional: Yes: No Distress, Calm Neck: Yes: Supple Cardiovascular: Yes: Regular Rate and Rhythm Respiratory: Yes: Regular, CTA Bilaterally Gastrointestinal: Yes: Normal Bowel Sounds, Soft Edema: No Labs: CBC, BMP 08/28/19 07:00 08/28/19 07:00 Problem List - Problems (1) Diastolic dysfunction Code(s): I51.89 - OTHER ILL-DEFINED HEART DISEASES (2) Demand ischemia Code(s): I24.8 - OTHER FORMS OF ACUTE ISCHEMIC HEART DISEASE (3) Hyperlipidemia associated with type 2 diabetes mellitus Code(s): E11.69 - TYPE 2 DIABETES MELLITUS WITH OTHER SPECIFIED COMPLICATION; E78.5 - HYPERLIPIDEMIA, UNSPECIFIED (4) Hypoglycemia associated with type 2 diabetes mellitus Code(s): E11.649 - TYPE 2 DIABETES MELLITUS WITH HYPOGLYCEMIA WITHOUT COMA (5) PAOLO (acute kidney injury) Code(s): N17.9 - ACUTE KIDNEY FAILURE, UNSPECIFIED (6) AMS (altered mental status) Code(s): R41.82 - ALTERED MENTAL STATUS, UNSPECIFIED Qualifiers: Altered mental status type: transient alteration of awareness Qualified Code(s): R40.4 - Transient alteration of awareness (7) Hypoglycemia Code(s): E16.2 - HYPOGLYCEMIA, UNSPECIFIED (8) Atherosclerosis of [place] arteries of extremities with gangrene, left leg Code(s): I70.262 - ATHSCL [place] ARTERIES OF EXTREMITIES W GANGRENE, LEFT LEG (9) CKD (chronic kidney disease) Code(s): N18.9 - CHRONIC KIDNEY DISEASE, UNSPECIFIED Qualifiers: Chronic kidney disease stage: stage 4 (severe) Qualified Code(s): N18.4 - Chronic kidney disease, stage 4 (severe) (10) Diabetes mellitus with neuropathy Code(s): E11.40 - TYPE 2 DIABETES MELLITUS WITH DIABETIC NEUROPATHY, UNSP Qualifiers: Diabetes mellitus type: type 2 Diabetes mellitus custodial insulin use: with custodial use Qualified Code(s): E11.40 - Type 2 diabetes mellitus with diabetic neuropathy, unspecified; Z79.4 - halfway (current) use of insulin (11) Hyperkalemia Code(s): E87.5 - HYPERKALEMIA Assessment/Plan 08/26/2019 Renal US: No hydro 08/27/2019 Echo: Normal LV size and fxn, mod MR, tr-mild TR 1. Altered mental status, syncope referable to severe hypoglycemia since resolved 2. Diastolic dysfunction with subendocardial ischemia 3. Acute on CKD 4 with hyperkalemia secondary to suspected diabetic nephropathy with nephrotic range proteinuria 4. Insulin-dependent Type 2 DM not at goal control 5. Hypertensive cardiovascular disease 6. Hyperlipidemia 7. PAD s/p revascularization left femoral, popliteal and tibial arteries with balloon angioplasty and drug-coated balloons and infusion of TPA 8. Anemia of CKD 9. Hypocalcemia 10. Non-compliance with medications and f/u PLAN: 1. Demadex 40 qd with monitor diuretic response, renal function and electrolytes 2. HD not currently indicated per renal 3. Continue Norvasc 10 mg QD, Carvedilol 6.25 mg BID, ASA 81 mg QD, Lipitor 80 mg QHS, Plavix 75 mg QD and Zetia 10 mg QD. Losartan 50 mg QD held pending renal function stabilization and resolution of hyperkalemia 4. Optimize glycemic control
--- NOTE | 2019-08-28 13:36 | PN ---
Progress Note (short form) - Note Progress Note: Renal Consult for PAOLO on CKD Seen and examined at the bedside awake and alert making urine no shortness of breath, chest pain, fever, chills Vital Signs Temperature 98.2 F 08/28/19 10:00 Pulse Rate 82 08/28/19 10:00 Respiratory Rate 20 08/28/19 10:00 Blood Pressure 129/40 L 08/28/19 10:00 O2 Sat by Pulse Oximetry (%) 94 L 08/27/19 21:00 Intake & Output 08/25/19 08/26/19 08/27/19 08/28/19 23:59 23:59 23:59 23:59 Intake Total 1230 300 700 Output Total 20 400 Balance 1210 300 300 Weight 83.007 kg 83.869 kg NAD awake and alert neck supple, no JVD RRR, no M/R Dec BS at lung bases but no rales or wheeze soft NT/ND, no rebound or guarding no LE edema, clubbing or cyanosis no bladder distension, no CVA tenderness CBC, BMP 08/28/19 07:00 08/28/19 07:00 Current Medications Amlodipine Besylate (Norvasc -) 10 mg PO DAILY [facility] Last Admin: 08/28/19 11:02 Dose: 10 mg Aspirin (Ecotrin -) 81 mg PO DAILY [facility] Last Admin: 08/28/19 09:39 Dose: 81 mg Atorvastatin Calcium (Lipitor -) 80 mg PO HS [facility] Last Admin: 08/27/19 22:09 Dose: 80 mg Calcitriol (Rocaltrol -) 0.25 mcg PO DAILY [facility] Last Admin: 08/28/19 09:39 Dose: 0.25 mcg Carvedilol (Coreg -) 6.25 mg PO BID [facility] Last Admin: 08/28/19 11:02 Dose: 6.25 mg Clopidogrel Bisulfate (Plavix -) 75 mg PO DAILY [facility] Last Admin: 08/28/19 09:39 Dose: 75 mg Ezetimibe (Zetia -) 10 mg PO DAILY [facility] Last Admin: 08/28/19 09:40 Dose: 10 mg Gabapentin (Neurontin -) 600 mg PO DAILY [facility] Last Admin: 08/28/19 10:02 Dose: Not Given Insulin Aspart (Novolog Vial Sliding Scale -) 1 vial SQ TIDAC [facility]; Protocol Last Admin: 08/28/19 11:07 Dose: Not Given Insulin Detemir (Levemir Vial) 18 units SQ HS [facility] Last Admin: 08/27/19 22:09 Dose: 18 units Sevelamer Carbonate (Renvela -) 1,600 mg PO TIDCM [facility] Last Admin: 08/28/19 11:13 Dose: 1,600 mg Sodium Bicarbonate (Sodium Bicarbonate -) 650 mg PO BID [facility] Last Admin: 08/28/19 09:39 Dose: 650 mg Torsemide (Demadex -) 40 mg PO DAILY [facility] Last Admin: 08/28/19 09:39 Dose: 40 mg 64 year old [place] woman with history of CKD stage 4 (eGFR 24), CAD, Insuldin dependent DM, diabetic neuropathy, PVD, Hyperkalemia who presented to the ED with AMS from hypoglycemia and noted to have PAOLO on CKD. 1. Acute on Chronic renal insufficiency 2. CKD stage 4 secondary to suspected diabetic nephropathy 3. Metabolic acidosis 4. Hyperkalemia 5. Acute on Chronic anemia 6. CAD 7. DM type 2 8. Hypocalcemia 9. Hyperphosphatemia Renal function essentially unchanged. No overt fluid overload, hyperkalemia or acidosis to warrant emergent dialysis. continue on Torsemide 40mg daily for management of fluid status UPCR is in nehprotic range FeNa is 1.7% indeterminate serologic studies were canceled, will reorder Continue sodium bicarbonate 650mg BID Low K diet for now, low phos diet Thank you Del Live DO
--- NOTE | 2019-08-28 13:37 | PN ---
Progress Note, Physician Chief Complaint: Denies any new complaint - Current Medication List Current Medications: Active Medications Amlodipine Besylate (Norvasc -) 10 mg PO DAILY [facility] Last Admin: 08/28/19 11:02 Dose: 10 mg Aspirin (Ecotrin -) 81 mg PO DAILY [facility] Last Admin: 08/28/19 09:39 Dose: 81 mg Atorvastatin Calcium (Lipitor -) 80 mg PO [facility] Last Admin: 08/27/19 22:09 Dose: 80 mg Calcitriol (Rocaltrol -) 0.25 mcg PO DAILY [facility] Last Admin: 08/28/19 09:39 Dose: 0.25 mcg Carvedilol (Coreg -) 6.25 mg PO BID [facility] Last Admin: 08/28/19 11:02 Dose: 6.25 mg Clopidogrel Bisulfate (Plavix -) 75 mg PO DAILY [facility] Last Admin: 08/28/19 09:39 Dose: 75 mg Ezetimibe (Zetia -) 10 mg PO DAILY [facility] Last Admin: 08/28/19 09:40 Dose: 10 mg Gabapentin (Neurontin -) 600 mg PO DAILY [facility] Last Admin: 08/28/19 10:02 Dose: Not Given Insulin [facility]art [facility] Sliding Scale -) [facility] Protocol Last Admin: 08/28/19 11:07 Dose: Not Given Insulin Detemir (Levemir Vial) 18 units SQ [facility] Last Admin: 08/27/19 22:09 Dose: 18 units Sevelamer Carbonate (Renvela -) 1,600 mg PO TIDCM [facility] Last Admin: 08/28/19 11:13 Dose: 1,600 mg Sodium Bicarbonate (Sodium Bicarbonate -) 650 mg PO BID [facility] Last Admin: 08/28/19 09:39 Dose: 650 mg Torsemide (Demadex -) 40 mg PO DAILY [facility] Last Admin: 08/28/19 09:39 Dose: 40 mg - Objective Vital Signs: Vital Signs Temperature 98.2 F 08/28/19 10:00 Pulse Rate 82 08/28/19 10:00 Respiratory Rate 20 08/28/19 10:00 Blood Pressure 129/40 L 08/28/19 10:00 O2 Sat by Pulse Oximetry (%) 94 L 08/27/19 21:00 General: Elderly woman, comfortable, not in distress HEENT; mucous membranes moist, no anemia, no jaundice, PERRLA, no nystagmus Neck: No JVD, supple, no bruit, thyroid palpably normal, normal carotid pulsations. Chest: Nontender, bilateral basal rales. CVS: S1-S2 regular Abdomen: Nondistended, soft, bowel sounds present. 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 , no gross motor sensory deficit Labs: CBC, BMP 08/28/19 07:00 08/28/19 07:00 Problem List - Problems (1) Acute kidney injury superimposed on CKD Assessment/Plan: Serum creatinine 5.5 related we will discussed with patient and renal for preparation of AV fistula Code(s): N17.9 - ACUTE KIDNEY FAILURE, UNSPECIFIED; N18.9 - CHRONIC KIDNEY DISEASE, UNSPECIFIED (2) Heart failure, diastolic, with acute decompensation Assessment/Plan: History of IV Lasix, continue beta-patricia and amlodipine hold losartan for worsening kidney function reviewed follow-up cardiology recommendations echo, low-salt diet input output chart. Code(s): I50.33 - ACUTE ON CHRONIC DIASTOLIC (CONGESTIVE) HEART FAILURE (3) Atherosclerosis of [place] arteries of extremities with gangrene, left leg Assessment/Plan: Status post stent placement continue aspirin Plavix Code(s): I70.262 - ATHSCL [place] ARTERIES OF EXTREMITIES W GANGRENE, LEFT LEG (4) Hypocalcemia Assessment/Plan: Calcium 6.5 Albumin 2 corrected level 8.1. Code(s): E83.51 - HYPOCALCEMIA (5) Elevated troponin I level Assessment/Plan: Due to demand ischemia follow-up cardiology recommendation continue statin, aspirin, Plavix and beta-blockers at present asymptomatic no acute ST changes. Code(s): R79.89 - OTHER SPECIFIED ABNORMAL FINDINGS OF BLOOD CHEMISTRY (6) Thrombophlebitis Assessment/Plan: Renew IV, please send past for culture, hold for mentation. Telemetry Problems reviewed: Yes Code(s): I80.9 - PHLEBITIS AND THROMBOPHLEBITIS OF UNSPECIFIED SITE
[2019-08-28 14:29] VITALS: BMI 35.9
[2019-08-28] MEDS: INSULIN (LEVEMIR) 100 UNITS/ML UNITS SQ SCH (21:03)
[2019-08-28] MEDS: ATORVASTATIN CA 80 MG TABLET (FP) PO SCH (21:04)
[2019-08-29] MEDS: INSULIN SLIDING SCALE (NOVOLOG) 1 VIAL SQ SCH ×2 (06:29→12:06)
[2019-08-29] MEDS ORDERED: INSULIN (LEVEMIR) 100 UNITS/ML UNITS SQ ONE (06:51)
[2019-08-29 07:25] LABS: BLOOD UREA NITROGEN 74.2 mg/dL (7-18); CREATININE 5.4 mg/dL (0.55-1.3); POTASSIUM 4.4 mmol/L (3.5-5.1)
[2019-08-29 07:26] LABS: CALCIUM 6.7 mg/dL (8.5-10.1)
--- NOTE | 2019-08-29 08:55 | PN ---
Progress Note, Physician Chief Complaint: Denies any new complaint - Current Medication List Current Medications: Active Medications Amlodipine Besylate (Norvasc -) 10 mg PO DAILY [facility] Last Admin: 08/28/19 11:02 Dose: 10 mg Aspirin (Ecotrin -) 81 mg PO DAILY [facility] Last Admin: 08/28/19 09:39 Dose: 81 mg Atorvastatin Calcium (Lipitor -) 80 mg PO HS [facility] Last Admin: 08/28/19 21:04 Dose: 80 mg Calcitriol (Rocaltrol -) 0.25 mcg PO DAILY [facility] Last Admin: 08/28/19 09:39 Dose: 0.25 mcg Carvedilol (Coreg -) 6.25 mg PO BID [facility] Last Admin: 08/28/19 21:03 Dose: 6.25 mg Clopidogrel Bisulfate (Plavix -) 75 mg PO DAILY [facility] Last Admin: 08/28/19 09:39 Dose: 75 mg Ezetimibe (Zetia -) 10 mg PO DAILY [facility] Last Admin: 08/28/19 09:40 Dose: 10 mg Gabapentin (Neurontin -) 600 mg PO DAILY [facility] Last Admin: 08/28/19 10:02 Dose: Not Given Insulin Aspart (Novolog Vial Sliding Scale -) 1 vial SQ TIDAC [facility]; Protocol Last Admin: 08/29/19 06:29 Dose: 2 unit Insulin Detemir (Levemir Vial) 18 units SQ [facility] Last Admin: 08/28/19 21:03 Dose: 18 units Sevelamer Carbonate (Renvela -) 1,600 mg PO TIDCM [facility] Last Admin: 08/28/19 17:10 Dose: 1,600 mg Sodium Bicarbonate (Sodium Bicarbonate -) 650 mg PO BID [facility] Last Admin: 08/28/19 21:04 Dose: 650 mg Torsemide (Demadex -) 40 mg PO DAILY [facility] Last Admin: 08/28/19 09:39 Dose: 40 mg - Objective Vital Signs: Vital Signs Temperature 98.0 F 08/29/19 06:05 Pulse Rate 70 08/29/19 02:02 Respiratory Rate 20 08/29/19 02:02 Blood Pressure 115/52 L 08/29/19 06:05 O2 Sat by Pulse Oximetry (%) 97 08/28/19 21:00 General: Elderly woman, comfortable, not in distress HEENT; mucous membranes moist, no anemia, no jaundice, PERRLA, no nystagmus Neck: No JVD, supple, no bruit, thyroid palpably normal, normal carotid pulsations. Chest: Nontender, bilateral basal rales. CVS: S1-S2 regular Abdomen: Nondistended, soft, bowel sounds present. 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 Code(s): N17.9 - ACUTE KIDNEY FAILURE, UNSPECIFIED; N18.9 - CHRONIC KIDNEY DISEASE, UNSPECIFIED (2) Heart failure, diastolic, with acute decompensation Assessment/Plan: On p.o. torsemide continue beta-patricia and amlodipine hold losartan for worsening kidney function reviewed follow-up cardiology recommendations echo, low-salt diet input output chart. Code(s): I50.33 - ACUTE ON CHRONIC DIASTOLIC (CONGESTIVE) HEART FAILURE (3) Atherosclerosis of [place] arteries of extremities with gangrene, left leg Assessment/Plan: Status post stent placement continue aspirin Plavix Code(s): I70.262 - ATHSCL [place] ARTERIES OF EXTREMITIES W GANGR[place], LEFT LEG (4) Hypocalcemia Assessment/Plan: Calcium 6.5 Albumin 2 corrected more than 8 Code(s): E83.51 - HYPOCALCEMIA (5) Elevated troponin I level Assessment/Plan: Due to demand ischemia follow-up cardiology recommendation continue statin, aspirin, Plavix and beta-blockers at present asymptomatic no acute ST changes. Code(s): R79.89 - OTHER SPECIFIED ABNORMAL FINDINGS OF BLOOD CHEMISTRY (6) Thrombophlebitis Assessment/Plan: Renew IV, please send past for culture, start on p.o. Keflex 5 mg twice daily Code(s): I80.9 - PHLEBITIS AND THROMBOPHLEBITIS OF UNSPECIFIED SITE
[2019-08-29] MEDS: CALCITRIOL 0.25 MCG CAPSULE (FP) PO SCH (09:46)
[2019-08-29] MEDS: ASPIRIN COATED 81 MG TABLET.EC PO SCH (09:46)
[2019-08-29] MEDS: TORSEMIDE 20 MG TABLET (FP) PO SCH (09:46)
[2019-08-29] MEDS: SEVELAMER CARBONATE 800 MG TAB (FP) PO SCH ×2 (09:46→11:24)
[2019-08-29] MEDS: SODIUM BICARBONATE 650 MG TABLET PO SCH (09:46)
[2019-08-29] MEDS: CLOPIDOGREL BISULFATE 75 MG TABLET (FP) PO SCH (09:46)
[2019-08-29] MEDS: amLODIPine BESYLATE 10 MG TABLET (FP) PO SCH (09:46)
[2019-08-29] MEDS: CARVEDILOL 6.25 MG TABLET (FP) PO SCH (09:46)
[2019-08-29] MEDS: EZETIMIBE 10 MG TABLET (FP) PO SCH (09:47)
[2019-08-29] MEDS: GABAPENTIN 300 MG CAPSULE PO SCH (09:47)
[2019-08-29] MEDS ORDERED: PT OWN MED DRAWER 7, Y5N ONE (11:11)
[2019-08-29] MEDS ORDERED: CEPHALEXIN MONOHYDRATE 500 MG CAPSULE (UD) PO SCH (11:15)
--- NOTE | 2019-08-29 11:47 | DS ---
Physical Examination Vital Signs: Vital Signs Temperature 98.0 F 08/29/19 06:05 Pulse Rate 70 08/29/19 02:02 Respiratory Rate 20 08/29/19 02:02 Blood Pressure 115/52 L 08/29/19 06:05 O2 Sat by Pulse Oximetry (%) 97 08/28/19 21:00 General: Elderly woman, comfortable, not in distress HEENT; mucous membranes moist, no anemia, no jaundice, PERRLA, no nystagmus Neck: No JVD, supple, no bruit, thyroid palpably normal, normal carotid pulsations. Chest: Nontender, bilateral basal rales. CVS: S1-S2 regular Abdomen: Nondistended, soft, bowel sounds present. 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 , no gross motor sensory deficit Labs: CBC, BMP 08/28/19 07:00 08/29/19 06:18 Discharge Summary Problems reviewed: Yes Reason For Visit: UNRESPONSIVE/ACUTE KIDNEY INJURY/HYPOGLYCEMIA/ALTE Current Active Problems PAOLO (acute kidney injury) (Acute) AMS (altered mental status) (Acute) Acute kidney injury superimposed on CKD (Acute) Demand ischemia (Acute) Diabetes mellitus (Acute) Diastolic dysfunction (Acute) Elevated troponin I level (Acute) Fluid overload (Acute) HTN (hypertension) (Acute) Heart failure, diastolic, with acute decompensation (Acute) Hyperlipidemia associated with type 2 diabetes mellitus (Acute) Hypocalcemia (Acute) Hypoglycemia (Acute) Hypoglycemia (Acute) Hypoglycemia associated with type 2 diabetes mellitus (Acute) PAD (peripheral artery disease) (Acute) Thrombophlebitis (Acute) Toxic metabolic encephalopathy (Acute) Condition: Fair - Instructions Diet, Activity, Other Instructions: LOW DEWEY LOW CHOESTROL DIABETIC DIET LOW PHOSPHATE RENAL DIET Referrals: Tao Price MD [Primary Care Provider] - 2 Weeks Del Live MD [Staff Physician] - 2 Weeks Disposition: HOME - Home Medications Comprehensive Discharge Medication List: Ambulatory Orders Sodium Zirconium Cyclosilicate [Lokelma] 10 gm PO DAILY 10/23/18 Clopidogrel Bisulfate [Plavix -] 75 mg PO DAILY tablet 10/25/18 Glipizide [Glucotrol -] 5 mg PO BIDAC tablet 10/25/18 Insulin (Novolog 70/30) [Novolog Mix 70/30 Vial -] 28 units SQ BID@0700,2200 units 10/25/18 Insulin Sliding Scale [Novolog Vial Sliding Scale -] 1 vial SQ ACHS units 10/25 Losartan Potassium [Cozaar -] 50 mg PO DAILY tablet 10/25/18 Metoclopramide HCl [Reglan -] 10 mg PO TIDAC tablet 10/25/18 metFORMIN HCL [Glucophage -] 500 mg PO BIDAC tablet 10/25/18 Amlodipine Besylate [Norvasc -] 10 mg PO DAILY #30 tablet 08/29/19 Aspirin Coated [Ecotrin -] 81 mg PO DAILY #30 tablet.ec 08/29/19 Atorvastatin Ca [Lipitor] 80 mg PO HS #30 tablet 08/29/19 Calcitriol [Calcitriol -] 0.25 mcg PO DAILY #30 capsule MDD 1 08/29/19 Carvedilol 6.25 mg PO BID #60 tablet 08/29/19 Carvedilol [Coreg -] 6.25 mg PO BID tablet 08/29/19 Cephalexin Monohydrate [Keflex -] 500 mg PO BID #14 capsule 08/29/19 Clopidogrel Bisulfate [Plavix -] 75 mg PO DAILY #30 tablet 08/29/19 Gabapentin [Neurontin -] 600 mg PO DAILY 30 Days capsule 08/29/19 Insulin (Levemir) [Levemir Vial] 20 units SQ HS 30 Days units 08/29/19 Insulin Detemir [Levemir Flextouch] 20 unit SQ HS 30 Days insuln.pen 08/29/19 Sevelamer Carbonate [Renvela -] 1,600 mg PO TIDCM #90 tab 08/29/19 Torsemide [Demadex -] 40 mg PO DAILY #30 tablet 08/29/19
[2019-08-29] MEDS ORDERED: INSULIN (NOVOLOG) ASPART 100 UNITS/ML 10ML VIAL ONE (12:04)
[2019-08-29] MEDS ORDERED: DOXYCYCLINE HYCLATE 100 MG CAPSULE PO SCH (12:15)
[2019-08-29 12:19] VITALS: BP 144/57; PULSE 76; TEMP 98.5
--- NOTE | 2019-08-29 13:06 | PN ---
Progress Note, Physician History of Present Illness: Denies recurrent near or true syncope, chest pain or dyspnea, altered sensorium recovered. - Current Medication List Current Medications: Active Medications Amlodipine Besylate (Norvasc -) 10 mg PO DAILY [facility] Last Admin: 08/29/19 09:46 Dose: 10 mg Aspirin (Ecotrin -) 81 mg PO DAILY [facility] Last Admin: 08/29/19 09:46 Dose: 81 mg Atorvastatin Calcium (Lipitor -) 80 mg PO [facility] Last Admin: 08/28/19 21:04 Dose: 80 mg Calcitriol (Rocaltrol -) 0.25 mcg PO DAILY [facility] Last Admin: 08/29/19 09:46 Dose: 0.25 mcg Carvedilol (Coreg -) 6.25 mg PO BID [facility] Last Admin: 08/29/19 09:46 Dose: 6.25 mg Clopidogrel Bisulfate (Plavix -) 75 mg PO DAILY [facility] Last Admin: 08/29/19 09:46 Dose: 75 mg Doxycycline Hyclate (Vibramycin -) 100 mg PO DAILY [facility] Ezetimibe (Zetia -) 10 mg PO DAILY [facility] Last Admin: 08/29/19 09:47 Dose: 10 mg Gabapentin (Neurontin -) 600 mg PO DAILY [facility] Last Admin: 08/29/19 09:47 Dose: Not Given Insulin Aspart (Novolog Vial Sliding Scale -) 1 vial SQ TIDAC [facility]; Protocol Last Admin: 08/29/19 12:06 Dose: 4 unit Insulin Detemir (Levemir Vial) 18 units SQ [facility] Last Admin: 08/28/19 21:03 Dose: 18 units Sevelamer Carbonate (Renvela -) 1,600 mg PO TIDCM [facility] Last Admin: 08/29/19 11:24 Dose: 1,600 mg Sodium Bicarbonate (Sodium Bicarbonate -) 650 mg PO BID [facility] Last Admin: 08/29/19 09:46 Dose: 650 mg Torsemide (Demadex -) 40 mg PO DAILY [facility] Last Admin: 08/29/19 09:46 Dose: 40 mg - Objective Vital Signs: Vital Signs Temperature 98.5 F 08/29/19 10:00 Pulse Rate 76 08/29/19 10:00 Respiratory Rate 18 08/29/19 10:00 Blood Pressure 144/57 L 08/29/19 10:00 O2 Sat by Pulse Oximetry (%) 97 08/28/19 21:00 Constitutional: Yes: No Distress, Calm Neck: Yes: Supple Cardiovascular: Yes: Regular Rate and Rhythm Respiratory: Yes: Regular, CTA Bilaterally Gastrointestinal: Yes: Normal Bowel Sounds, Soft Edema: No Labs: CBC, BMP 08/28/19 07:00 08/29/19 06:18 Problem List - Problems (1) Diastolic dysfunction Code(s): I51.89 - OTHER ILL-DEFINED HEART DISEASES (2) Demand ischemia Code(s): I24.8 - OTHER FORMS OF ACUTE ISCHEMIC HEART DISEASE (3) Hyperlipidemia associated with type 2 diabetes mellitus Code(s): E11.69 - TYPE 2 DIABETES MELLITUS WITH OTHER SPECIFIED COMPLICATION; E78.5 - HYPERLIPIDEMIA, UNSPECIFIED (4) Hypoglycemia associated with type 2 diabetes mellitus Code(s): E11.649 - TYPE 2 DIABETES MELLITUS WITH HYPOGLYCEMIA WITHOUT COMA (5) PAOLO (acute kidney injury) Code(s): N17.9 - ACUTE KIDNEY FAILURE, UNSPECIFIED (6) AMS (altered mental status) Code(s): R41.82 - ALTERED MENTAL STATUS, UNSPECIFIED Qualifiers: Altered mental status type: transient alteration of awareness Qualified Code(s): R40.4 - Transient alteration of awareness (7) Hypoglycemia Code(s): E16.2 - HYPOGLYCEMIA, UNSPECIFIED (8) Atherosclerosis of [place] arteries of extremities with gangrene, left leg Code(s): I70.262 - ATHSCL CHITIM[place]HA ARTERIES OF EXTREMITIES W GANGRENE, LEFT LEG (9) CKD (chronic kidney disease) Code(s): N18.9 - CHRONIC KIDNEY DISEASE, UNSPECIFIED Qualifiers: Chronic kidney disease stage: stage 4 (severe) Qualified Code(s): N18.4 - Chronic kidney disease, stage 4 (severe) (10) Diabetes mellitus with neuropathy Code(s): E11.40 - TYPE 2 DIABETES MELLITUS WITH DIABETIC NEUROPATHY, UNSP Qualifiers: Diabetes mellitus type: type 2 Diabetes mellitus group home insulin use: with group home use Qualified Code(s): E11.40 - Type 2 diabetes mellitus with diabetic neuropathy, unspecified; 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 Altered mental status, syncope referable to severe hypoglycemia since resolved 2. Diastolic dysfunction with subendocardial ischemia 3. Acute on CKD 4 with hyperkalemia secondary to suspected diabetic nephropathy with nephrotic range proteinuria 4. Insulin-dependent Type 2 DM not at goal control 5. Hypertensive cardiovascular disease 6. Hyperlipidemia 7. PAD s/p revascularization left femoral, popliteal and tibial arteries with balloon angioplasty and drug-coated balloons and infusion of TPA 8. Anemia of CKD 9. Hypocalcemia 10. Non-compliance with medications and f/u PLAN: 1. Demadex 40 qd with monitor diuretic response, renal function and electrolytes 2. HD not currently indicated per renal 3. Continue Norvasc 10 mg QD, Carvedilol 6.25 mg BID, ASA 81 mg QD, Lipitor 80 mg QHS, Plavix 75 mg QD and Zetia 10 mg QD. Losartan 50 mg QD held pending renal function stabilization and resolution of hyperkalemia 4. Optimize glycemic control
--- NOTE | 2019-08-29 13:25 | PN ---
Progress Note (short form) - Note Progress Note: Renal Consult for PAOLO on CKD Seen and examined at the bedside awake and alert feels better no shortness of breath, chest pain, fever, chills making urine tolerating diet Vital Signs Temperature 98.5 F 08/29/19 10:00 Pulse Rate 76 08/29/19 10:00 Respiratory Rate 18 08/29/19 10:00 Blood Pressure 144/57 L 08/29/19 10:00 O2 Sat by Pulse Oximetry (%) 97 08/28/19 21:00 Intake & Output 08/26/19 08/27/19 08/28/19 08/29/19 23:59 23:59 23:59 23:59 Intake Total 300 700 100 0 Output Total 400 Balance 300 300 100 0 Weight 83.007 kg 83.461 kg 83.631 kg NAD awake and alert neck supple, no JVD RRR, no M/R Dec BS at lung bases but no rales or wheeze soft NT/ND, no rebound or guarding no LE edema, clubbing or cyanosis no bladder distension, no CVA tenderness CBC, BMP 08/28/19 07:00 08/29/19 06:18 Current Medications Amlodipine Besylate (Norvasc -) 10 mg PO DAILY [facility] Last Admin: 08/29/19 09:46 Dose: 10 mg Aspirin (Ecotrin -) 81 mg PO DAILY [facility] Last Admin: 08/29/19 09:46 Dose: 81 mg Atorvastatin Calcium (Lipitor -) 80 mg PO HS [facility] Last Admin: 08/28/19 21:04 Dose: 80 mg Calcitriol (Rocaltrol -) 0.25 mcg PO DAILY [facility] Last Admin: 08/29/19 09:46 Dose: 0.25 mcg Carvedilol (Coreg -) 6.25 mg PO BID [facility] Last Admin: 08/29/19 09:46 Dose: 6.25 mg Clopidogrel Bisulfate (Plavix -) 75 mg PO DAILY [facility] Last Admin: 08/29/19 09:46 Dose: 75 mg Doxycycline Hyclate (Vibramycin -) 100 mg PO DAILY [facility] Ezetimibe (Zetia -) 10 mg PO DAILY [facility] Last Admin: 08/29/19 09:47 Dose: 10 mg Gabapentin (Neurontin -) 600 mg PO DAILY [facility] Last Admin: 08/29/19 09:47 Dose: Not Given Insulin Aspart (Novolog Vial Sliding Scale -) 1 vial SQ TIDAC [facility]; Protocol Last Admin: 08/29/19 12:06 Dose: 4 unit Insulin Detemir (Levemir Vial) 18 units SQ HS [facility] Last Admin: 08/28/19 21:03 Dose: 18 units Sevelamer Carbonate (Renvela -) 1,600 mg PO TIDCM [facility] Last Admin: 08/29/19 11:24 Dose: 1,600 mg Sodium Bicarbonate (Sodium Bicarbonate -) 650 mg PO BID [facility] Last Admin: 08/29/19 09:46 Dose: 650 mg Torsemide (Demadex -) 40 mg PO DAILY [facility] Last Admin: 08/29/19 09:46 Dose: 40 mg 64 year old [place] woman with history of CKD stage 4 (eGFR 24), CAD, Insuldin dependent DM, diabetic neuropathy, PVD, Hyperkalemia who presented to the ED with AMS from hypoglycemia and noted to have PAOLO on CKD. 1. Acute on Chronic renal insufficiency 2. CKD stage 4 secondary to suspected diabetic nephropathy 3. Metabolic acidosis 4. Hyperkalemia 5. Acute on Chronic anemia 6. CAD 7. DM type 2 8. Hypocalcemia 9. Hyperphosphatemia Renal function stable. No emergent indication for dialysis. continue on Torsemide 40mg daily for management of fluid status continue sodium bicarbonate 650mg BID. UPCR is in nehprotic range. Serologic studies collected, results pending. Low K diet for now, low phos diet Medically cleared for discharge however will need to ensure she can obtain medications as an outpatient. Thank you Del Live DO
[2019-09-01 17:06] LABS: ATYPICAL pANCA <1:20 titer (Neg:<1:20); C-ANCA <1:20 titer (Neg:<1:20)
== END 2019-08-29 15:07 | disposition home or self-care (01) | DRG 637 ==
LOC: JER 15:26 → JERBED 17:48 → J7W 08-26 14:38
PROVIDERS: ADMIT Internal Medicine; ATTEND Internal Medicine
DX: E11.649 Type 2 diabetes mellitus with hypoglycemia without coma (principal); G93.41 Metabolic encephalopathy; I50.33 Acute on chronic diastolic (congestive) heart failure; I24.8 Other forms of acute ischemic heart disease; I13.0 Hypertensive heart and chronic kidney disease with heart failure and stage 1 through stage 4 chronic kidney disease, or unspecified chronic kidney disease; E87.2 Acidosis; E83.51 Hypocalcemia; N17.9 Acute kidney failure, unspecified; N18.4 Chronic kidney disease, stage 4 (severe); E11.65 Type 2 diabetes mellitus with hyperglycemia; E11.51 Type 2 diabetes mellitus with diabetic peripheral angiopathy without gangrene; I10 Essential (primary) hypertension; E11.40 Type 2 diabetes mellitus with diabetic neuropathy, unspecified; D63.1 Anemia in chronic kidney disease; E87.5 Hyperkalemia; E11.22 Type 2 diabetes mellitus with diabetic chronic kidney disease; E83.41 Hypermagnesemia; I25.10 Atherosclerotic heart disease of native coronary artery without angina pectoris; R79.89 Other specified abnormal findings of blood chemistry; R41.82 Altered mental status, unspecified; I80.9 Phlebitis and thrombophlebitis of unspecified site; E83.39 Other disorders of phosphorus metabolism; Z79.4 Long term (current) use of insulin; Z91.14 Patient's other noncompliance with medication regimen
CPT/HCPCS: 36415; 70450-TC; 71045-TC-FY; 76775-TC; 80048; 80053; 80061; 80074; 81003; 82010; 82550; 82553; 82565; 82570; 82728; 82962; 83036; 83520; 83540; 83550; 83605; 83721; 83735; 83880; 84100; 84156; 84300; 84443; 84484; 84540; 85025; 86038; 86256; 86593; 87070; 87077; 87086; 87205; 93005; 93010; 93306-TC; 97116-GP; 97161-GP; 99285-25; J0885; J1756; J7030

== ENCOUNTER 2020-10-06 04:20 | Day surgery (SDC) | payer OTHER ==
[2020-10-05 17:27] VITALS: BMI 34.3
[~2020-10-06 04:20] MED LIST: LIDOCAINE HCL 1%, 10 MG/ML (20ML VIAL) PNB ONE
[2020-10-06] MEDS ORDERED: POVIDONE-IODINE OINTMENT 10% - 28.4 GM TUBE ONE (07:20)
[2020-10-06] MEDS ORDERED: PAPAVERINE HCL 30 MG/1 ML 10 ML VIAL NR ONE (07:20)
[2020-10-06] MEDS ORDERED: HEPARIN NA (PORCINE) 5,000 UNITS/ML 1ML VIAL ONE (07:20)
[2020-10-06] MEDS ORDERED: LIDOCAINE HCL 1%, 10 MG/ML (20ML VIAL) ONE (07:20)
[2020-10-06] MEDS ORDERED: EPHEDRINE SULFATE/0.9% NACL/PF 50 MG/10 ML SYRINGE NR ONE (07:25)
[2020-10-06] MEDS ORDERED: PROPOFOL 20 ML ONE (07:26)
[2020-10-06] MEDS ORDERED: SUCCINYLCHOLINE CHLORIDE 200 MG/10 ML SYRINGE ONE (07:26)
[2020-10-06] MEDS ORDERED: ROPIVACAINE HCL 0.5% 30ML VIAL ONE (07:40)
[2020-10-06] MEDS ORDERED: MIDAZOLAM HCL 2 MG/2 ML SINGLE DOSE VIAL ONE (07:41)
[2020-10-06] MEDS ORDERED: HEPARIN NA (PORCINE) 5,000 UNITS/ML 1ML VIAL TP ONE (08:38)
[2020-10-06] MEDS ORDERED: LIDOCAINE HCL 1%, 10 MG/ML (20ML VIAL) PNB ONE (08:38)
[2020-10-06] MEDS ORDERED: CLINDAMYCIN PHOSPHATE 600 MG/4 ML VIAL ONE (09:00)
[2020-10-06] MEDS ORDERED: ONDANSETRON 4 MG/2 ML VIAL ONE (09:00)
[2020-10-06] MEDS ORDERED: DEXAMETHASONE SOD PHOSPHATE 4 MG/1 ML VIAL ONE (09:00)
[2020-10-06] MEDS ORDERED: ONDANSETRON 4 MG/2 ML VIAL IVPUSH PRN (09:58)
[2020-10-06] MEDS ORDERED: ACETAMINOPHEN WITH CODEINE 300MG/30MG TABLET PO PRN (10:31)
[2020-10-06 11:43] VITALS: PULSE 71
[2020-10-06 13:28] VITALS: BP 153/78; TEMP 97.7
== END 2020-10-06 13:15 | disposition home or self-care (01) ==
LOC: JASU-SURG 04:20
PROVIDERS: ATTEND Surgery
PROC: 03180ZD Bypass Left Brachial Artery to Upper Arm Vein, Open Approach (ICD-10-PCS; principal; 2020-10-06 08:00)
DX: I12.0 Hypertensive chronic kidney disease with stage 5 chronic kidney disease or end stage renal disease (principal); E11.22 Type 2 diabetes mellitus with diabetic chronic kidney disease; N18.6 End stage renal disease; Z99.2 Dependence on renal dialysis; Z79.84 Long term (current) use of oral hypoglycemic drugs
CPT/HCPCS: 36415; 82962; 84132; 94760; J1644

== ENCOUNTER 2020-10-29 16:29 | Inpatient (IN) | payer OTHER ==
[2020-10-29 20:03] LABS: BASO % 0.4 % (0-2.0); EOS % 0.5 % (0-4.5); HEMOGLOBIN 11.2 GM/dL (10.7-15.3); LYMPH % 14.3 % (8-40); MCH 25.8 pg (25.7-33.7); MCHC 32.1 g/dl (32.0-36.0); MEAN CELL VOLUME 80.1 fl (80-96); MEAN PLT VOLUME 9.2 fl (7.5-11.1); MONO % 5.9 % (3.8-10.2); NEUT % 78.9 % (42.8-82.8); PLATELET COUNT 281 K/MM3 (134-434); RBC 4.37 M/mm3 (3.60-5.2); RDW 14.6 % (11.6-15.6); WHITE BLOOD COUNT 10.7 K/mm3 (4.0-10.0)
[2020-10-29 20:13] LABS: INR 1.08 (0.83-1.09)
[2020-10-29 20:16] LABS: ACTIVATED PTT 25.5 SECONDS (25.2-36.5)
[2020-10-29 20:22] LABS: CHLORIDE 101 mmol/L (98-107); POTASSIUM 4.8 mmol/L (3.5-5.1); SODIUM 134 mmol/L (136-145)
[2020-10-29 20:24] LABS: MAGNESIUM 2.1 mg/dL (1.8-2.4)
[2020-10-29 20:25] LABS: CALCIUM 8.5 mg/dL (8.5-10.1)
[2020-10-29 20:26] LABS: ANION GAP 8 MMOL/L (8-16); BLOOD UREA NITROGEN 35.6 mg/dL (7-18); CO2 25 mmol/L (21-32); GLUCOSE,RANDOM 109 mg/dL (74-106)
[2020-10-29 20:28] LABS: PHOSPHOROUS 3.6 mg/dL (2.5-4.9)
[2020-10-29 20:29] LABS: CREATININE 5.7 mg/dL (0.55-1.3); SGOT/AST 9 U/L (15-37); SGPT/ALT 18 U/L (13-61)
[2020-10-29 20:30] LABS: BILIRUBIN,TOTAL 0.5 mg/dL (0.2-1)
[2020-10-29 20:31] LABS: TOT PROT 7.2 g/dl (6.4-8.2)
[2020-10-29 20:32] LABS: ALK PHOS 114 U/L (45-117)
[2020-10-30] MEDS: SEVELAMER CARBONATE 800 MG TAB (FP) PO SCH ×2 (12:52→21:06)
[2020-10-30] MEDS ORDERED: PARICALCITOL 5 MCG/ML VIAL IVPUSH ONE (15:00)
[2020-10-30] MEDS ORDERED: HEPARIN NA (PORCINE) 5,000 UNITS/ML 1ML VIAL IVPUSH ONE (15:00)
[2020-10-30] MEDS ORDERED: SODIUM CHLORIDE 250 ML IV PRN (15:00)
[2020-10-30] MEDS: CARVEDILOL 25 MG TABLET (FP) PO SCH (21:00)
[2020-10-30 23:59] VITALS: BMI 26.9
[2020-10-31] MEDS ORDERED: glipiZIDE 5 MG TABLET (FP) ONE (06:10)
[2020-10-31] MEDS: glipiZIDE 10 MG TABLET (FP) PO SCH (06:11)
[2020-10-31] MEDS: SEVELAMER CARBONATE 800 MG TAB (FP) PO SCH ×3 (08:16→16:29)
[2020-10-31] MEDS: CARVEDILOL 25 MG TABLET (FP) PO SCH ×2 (09:35→22:17)
[2020-10-31] MEDS: CLOPIDOGREL BISULFATE 75 MG TABLET (FP) PO SCH (09:40)
[2020-10-31] MEDS: INSULIN SLIDING SCALE (NOVOLOG) 1 VIAL SQ SCH ×3 (12:42→22:28)
[2020-10-31 20:42] LABS: EPI CELLS 29 /uL (0-25.1); HYALINE CASTS 2 /uL (0-3.1); PH,URINE 7.5 (5.0-8.0); URINE APPEARANCE CLOUDY; URINE BACTERIA 823 /uL (0-1359); URINE BILIRUBIN NEGATIVE (NEGATIVE); URINE COLOR YELLOW; URINE GLUCOSE (UA) 2+ (NEGATIVE); URINE KETONE NEGATIVE (NEGATIVE); URINE LEUK ESTERASE 1+ (NEGATIVE); URINE NITRITE NEGATIVE (NEGATIVE); URINE PROTEIN 3+ (NEGATIVE); URINE RBC 13 /uL (0-23.9); URINE UROBILINOGEN 0.2 mg/dL (0.2-1.0); URINE WBC 383 /uL (0-25.8)
[2020-10-31] MEDS ORDERED: INSULIN (LEVEMIR) 100 UNITS/ML UNITS SQ SCH (22:00)
[2020-11-01] MEDS ORDERED: glipiZIDE 5 MG TABLET (FP) ONE ×2 (06:12)
[2020-11-01] MEDS: glipiZIDE 10 MG TABLET (FP) PO SCH (06:37)
[2020-11-01] MEDS: INSULIN SLIDING SCALE (NOVOLOG) 1 VIAL SQ SCH (06:38)
[2020-11-01 09:40] VITALS: BP 150/56; PULSE 74; TEMP 97.4
[2020-11-01] MEDS: SEVELAMER CARBONATE 800 MG TAB (FP) PO SCH (09:41)
[2020-11-01] MEDS: CLOPIDOGREL BISULFATE 75 MG TABLET (FP) PO SCH (09:41)
[2020-11-01] MEDS: CARVEDILOL 25 MG TABLET (FP) PO SCH (09:41)
[2020-11-01] MEDS ORDERED: BISACODYL 5 MG TABLET.DR (FP) PO PRN (09:44)
[2020-11-01] MEDS ORDERED: GABAPENTIN 300 MG CAPSULE PO SCH (10:00)
[2020-11-01] MEDS ORDERED: glipiZIDE 10 MG TABLET (FP) PO SCH (10:00)
[2020-11-01] MEDS ORDERED: CLOPIDOGREL BISULFATE 75 MG TABLET (FP) PO SCH (10:00)
[2020-11-01] MEDS ORDERED: INSULIN SLIDING SCALE (NOVOLOG) 1 VIAL SQ SCH (11:00)
[2020-11-01] MEDS ORDERED: ATORVASTATIN CA 10 MG TABLET (FP) PO SCH (22:00)
[2020-11-01] MEDS ORDERED: INSULIN (LEVEMIR) 100 UNITS/ML UNITS SQ SCH (22:00)
[2020-11-01] MEDS ORDERED: DOCUSATE SODIUM 100 MG CAPSULE (FP) PO SCH (22:00)
== END 2020-11-01 13:21 | disposition home health service (06) | DRG 947 ==
LOC: JER 16:29 → JERBED 17:52 → J7W 10-30 19:58
PROVIDERS: ADMIT Internal Medicine; ATTEND Internal Medicine
PROC: 5A1D70Z Performance of Urinary Filtration, Intermittent, Less than 6 Hours Per Day (ICD-10-PCS; principal; 2020-10-30)
DX: R53.1 Weakness (principal); N18.6 End stage renal disease; I12.0 Hypertensive chronic kidney disease with stage 5 chronic kidney disease or end stage renal disease; E11.51 Type 2 diabetes mellitus with diabetic peripheral angiopathy without gangrene; E11.22 Type 2 diabetes mellitus with diabetic chronic kidney disease; Z79.4 Long term (current) use of insulin; Z99.2 Dependence on renal dialysis; D64.9 Anemia, unspecified; T50.B95A Adverse effect of other viral vaccines, initial encounter
CPT/HCPCS: 36415; 70450-TC; 71045-TC-FY; 72125-TC; 80053; 81003; 82962; 83605; 83735; 84100; 84484; 85025; 85610; 85730; 86803; 87040; 87086; 87186; 87340; 93005; 93010; 97116-GP; 99285-25; C9803; J1644; U0003; U0005

== ENCOUNTER 2021-02-12 19:29 | Inpatient (IN) | payer OTHER ==
[2021-02-12] MEDS ORDERED: morphine SULFATE 4 MG/ML VIAL IVPUSH ONE (20:05)
[2021-02-12] MEDS ORDERED: CLINDAMYCIN 600MG PREMIX IVPB 600 MG/50 ML BAG IVPB ONE ×2 (20:38→20:52)
[2021-02-12] MEDS ORDERED: morphine SULFATE 4 MG/ML VIAL ONE (20:51)
[2021-02-12 21:14] LABS: BASO % 0.8 % (0-2.0); EOS % 1.1 % (0-4.5); HEMATOCRIT 29.5 % (32.4-45.2); HEMOGLOBIN 9.7 GM/dL (10.7-15.3); LYMPH % 20.3 % (8-40); MCH 26.1 pg (25.7-33.7); MCHC 32.9 g/dl (32.0-36.0); MEAN CELL VOLUME 79.2 fl (80-96); MEAN PLT VOLUME 8.2 fl (7.5-11.1); MONO % 6.9 % (3.8-10.2); NEUT % 70.9 % (42.8-82.8); PLATELET COUNT 333 10^3/uL (134-434); RBC 3.73 M/mm3 (3.60-5.2); RDW 14.5 % (11.6-15.6); WHITE BLOOD COUNT 10.2 K/mm3 (4.0-10.0)
[2021-02-12 21:20] LABS: INR 1.07 (0.83-1.09); PROTHROMBIN TIME (PATIENT) 12.9 SEC (9.7-13.0)
[2021-02-12 21:34] LABS: BLOOD UREA NITROGEN 24.7 mg/dL (7-18); CALCIUM 8.5 mg/dL (8.5-10.1)
[2021-02-12 21:38] LABS: CREATININE 4.1 mg/dL (0.55-1.3)
[2021-02-12 21:39] LABS: BILIRUBIN,TOTAL 0.3 mg/dL (0.2-1); TOT PROT 7.5 g/dl (6.4-8.2)
[2021-02-13 04:12] VITALS: BMI 34.9
[2021-02-13] MEDS: CLINDAMYCIN 600MG PREMIX IVPB 600 MG/50 ML BAG IVPB SCH ×3 (05:11→17:37)
[2021-02-13] MEDS: HEPARIN NA (PORCINE) 5,000 UNITS/ML 1ML VIAL SQ SCH ×3 (05:11→21:34)
[2021-02-13] MEDS: INSULIN SLIDING SCALE (NOVOLOG) 1 VIAL SQ SCH ×4 (06:03→21:21)
[2021-02-13] MEDS ORDERED: ACETAMINOPHEN 1000 MG/100 ML VIAL (NON FORMULARY) IVPB ONE (07:06)
[2021-02-13] MEDS ORDERED: ACETAMINOPHEN INJECTION 100 ML IVPB ONE (07:12)
[2021-02-13] MEDS ORDERED: BISACODYL 5 MG TABLET.DR (FP) PO PRN (12:53)
[2021-02-13 13:13] LABS: BASO % 0.5 % (0-2.0); EOS % 1.5 % (0-4.5); HEMATOCRIT 32.7 % (32.4-45.2); HEMOGLOBIN 10.5 GM/dL (10.7-15.3); LYMPH % 20.2 % (8-40); MCHC 32.2 g/dl (32.0-36.0); MEAN CELL VOLUME 80.8 fl (80-96); MEAN PLT VOLUME 8.3 fl (7.5-11.1); MONO % 6.2 % (3.8-10.2); NEUT % 71.6 % (42.8-82.8); PLATELET COUNT 348 10^3/uL (134-434); RBC 4.04 M/mm3 (3.60-5.2); RDW 14.7 % (11.6-15.6); WHITE BLOOD COUNT 8.4 K/mm3 (4.0-10.0)
[2021-02-13] MEDS ORDERED: PT OWN MED DRAWER 7, Y5N ONE (13:38)
[2021-02-13 13:49] LABS: ERYTHROCYTE SEDIMENTATION RATE 93 mm/hr (0-30)
[2021-02-13] MEDS: CLOPIDOGREL BISULFATE 75 MG TABLET (FP) PO SCH (13:54)
[2021-02-13] MEDS: ACETAMINOPHEN 325 MG TABLET (FP) PO PRN (17:36)
[2021-02-13] MEDS: SEVELAMER CARBONATE 800 MG TAB (FP) PO SCH (17:36)
[2021-02-13] MEDS: INSULIN (LEVEMIR) 100 UNITS/ML UNITS SQ SCH (21:23)
[2021-02-13] MEDS: DOCUSATE SODIUM 100 MG CAPSULE (FP) PO SCH (21:34)
[2021-02-13] MEDS: CARVEDILOL 12.5 MG TABLET (FP) PO SCH (21:34)
[2021-02-13] MEDS: GABAPENTIN 300 MG CAPSULE PO SCH (21:36)
[2021-02-13] MEDS: traMADol HCL 50 MG TABLET PO PRN (21:36)
[2021-02-14] MEDS: CLINDAMYCIN 600MG PREMIX IVPB 600 MG/50 ML BAG IVPB SCH ×3 (03:00→09:27)
[2021-02-14] MEDS: HEPARIN NA (PORCINE) 5,000 UNITS/ML 1ML VIAL SQ SCH ×3 (05:39→21:16)
[2021-02-14] MEDS: INSULIN SLIDING SCALE (NOVOLOG) 1 VIAL SQ SCH ×4 (06:47→21:51)
[2021-02-14] MEDS: ACETAMINOPHEN 325 MG TABLET (FP) PO PRN (06:48)
[2021-02-14] MEDS: CLOPIDOGREL BISULFATE 75 MG TABLET (FP) PO SCH (09:27)
[2021-02-14] MEDS: SEVELAMER CARBONATE 800 MG TAB (FP) PO SCH ×3 (09:27→17:31)
[2021-02-14] MEDS: GABAPENTIN 300 MG CAPSULE PO SCH ×2 (09:27→21:15)
[2021-02-14] MEDS: amLODIPine BESYLATE 5 MG TABLET (FP) PO SCH (09:28)
[2021-02-14] MEDS: traMADol HCL 50 MG TABLET PO PRN ×2 (09:28→20:07)
[2021-02-14] MEDS: CARVEDILOL 12.5 MG TABLET (FP) PO SCH ×2 (09:28→21:15)
[2021-02-14 09:41] LABS: BASO % 0.6 % (0-2.0); EOS % 1.9 % (0-4.5); HEMOGLOBIN 9.7 GM/dL (10.7-15.3); LYMPH % 19.6 % (8-40); MCH 26.1 pg (25.7-33.7); MCHC 32.1 g/dl (32.0-36.0); MEAN CELL VOLUME 81.1 fl (80-96); MEAN PLT VOLUME 8.6 fl (7.5-11.1); MONO % 7.9 % (3.8-10.2); PLATELET COUNT 358 10^3/uL (134-434); RDW 14.5 % (11.6-15.6); WHITE BLOOD COUNT 9.6 K/mm3 (4.0-10.0)
[2021-02-14 10:16] LABS: ALBUMIN 2.7 g/dl (3.4-5.0); BLOOD UREA NITROGEN 47.9 mg/dL (7-18); CALCIUM 8.3 mg/dL (8.5-10.1)
[2021-02-14 10:19] LABS: CREATININE 7.3 mg/dL (0.55-1.3)
[2021-02-14 10:20] LABS: PHOSPHOROUS 7.9 mg/dL (2.5-4.9)
[2021-02-14 10:21] LABS: BILIRUBIN,TOTAL 0.4 mg/dL (0.2-1); TOT PROT 6.7 g/dl (6.4-8.2)
[2021-02-14] MEDS ORDERED: INSULIN (NOVOLOG) ASPART 100 UNITS/ML 10ML VIAL ONE (11:31)
[2021-02-14] MEDS ORDERED: PT OWN MED DRAWER 7, Y5N ONE ×4 (12:28→20:05)
[2021-02-14] MEDS: AZTREONAM 0.5 GM in DEXTROSE 5%-WATER - 50 ML IVPB SCH ×2 (12:29→17:45)
[2021-02-14] MEDS: CLINDAMYCIN 300 MG PREMIX IVPB 300 MG/50 ML BAG IVPB SCH ×2 (14:48→20:09)
[2021-02-14 17:09] LABS: PARV B19 IGG 8.5 index (0.0-0.8); PARV B19 IGM 0.1 index (0.0-0.8); VARICELLA-ZOSTER IGM < 0.91 index (0.00-0.90)
[2021-02-14] MEDS: ATORVASTATIN CA 10 MG TABLET (FP) PO SCH (21:15)
[2021-02-14] MEDS: DOCUSATE SODIUM 100 MG CAPSULE (FP) PO SCH (21:15)
[2021-02-14] MEDS: INSULIN (LEVEMIR) 100 UNITS/ML UNITS SQ SCH (21:51)
[2021-02-15] MEDS: AZTREONAM 0.5 GM in DEXTROSE 5%-WATER - 50 ML IVPB SCH ×4 (01:11→17:01)
[2021-02-15] MEDS: CLINDAMYCIN 300 MG PREMIX IVPB 300 MG/50 ML BAG IVPB SCH ×4 (03:06→20:47)
[2021-02-15] MEDS: ACETAMINOPHEN 325 MG TABLET (FP) PO PRN ×2 (05:39→15:47)
[2021-02-15] MEDS: HEPARIN NA (PORCINE) 5,000 UNITS/ML 1ML VIAL SQ SCH ×3 (05:40→22:14)
[2021-02-15] MEDS: INSULIN SLIDING SCALE (NOVOLOG) 1 VIAL SQ SCH ×4 (06:16→22:29)
[2021-02-15] MEDS ORDERED: SODIUM CHLORIDE 250 ML IV PRN (07:00)
[2021-02-15] MEDS ORDERED: EPOETIN ALFA-EPBX 10,000 UNIT/ML VIAL IVPUSH ONE (07:00)
[2021-02-15] MEDS: traMADol HCL 50 MG TABLET PO PRN ×2 (08:00→20:48)
[2021-02-15] MEDS: SEVELAMER CARBONATE 800 MG TAB (FP) PO SCH ×3 (08:22→17:20)
[2021-02-15 09:32] LABS: HEMATOCRIT 25.7 % (32.4-45.2); HEMOGLOBIN 8.4 GM/dL (10.7-15.3); MCH 26.1 pg (25.7-33.7); MCHC 32.5 g/dl (32.0-36.0); MEAN CELL VOLUME 80.4 fl (80-96); MEAN PLT VOLUME 8.1 fl (7.5-11.1); PLATELET COUNT 304 10^3/uL (134-434); RDW 14.7 % (11.6-15.6)
[2021-02-15 09:48] LABS: CHLORIDE 101 mmol/L (98-107); SODIUM 135 mmol/L (136-145)
[2021-02-15] MEDS: GABAPENTIN 300 MG CAPSULE PO SCH ×2 (10:00→22:09)
[2021-02-15] MEDS: CARVEDILOL 12.5 MG TABLET (FP) PO SCH (10:00)
[2021-02-15 10:16] LABS: ANION GAP 14 MMOL/L (8-16); BLOOD UREA NITROGEN 55.8 mg/dL (7-18); CALCIUM 7.3 mg/dL (8.5-10.1); CO2 20 mmol/L (21-32); GLUCOSE,RANDOM 105 mg/dL (74-106)
[2021-02-15 10:20] LABS: PHOSPHOROUS 7.2 mg/dL (2.5-4.9)
[2021-02-15 10:30] LABS: CREATININE 7.9 mg/dL (0.55-1.3)
[2021-02-15] MEDS ORDERED: PT OWN MED DRAWER 7, Y5N ONE ×2 (15:40→20:40)
[2021-02-15] MEDS: CLOPIDOGREL BISULFATE 75 MG TABLET (FP) PO SCH (15:45)
[2021-02-15] MEDS: amLODIPine BESYLATE 5 MG TABLET (FP) PO SCH (15:45)
[2021-02-15] MEDS: ATORVASTATIN CA 10 MG TABLET (FP) PO SCH (22:09)
[2021-02-15] MEDS: DOCUSATE SODIUM 100 MG CAPSULE (FP) PO SCH (22:13)
[2021-02-15] MEDS: INSULIN (LEVEMIR) 100 UNITS/ML UNITS SQ SCH (22:14)
[2021-02-16] MEDS: CARVEDILOL 12.5 MG TABLET (FP) PO SCH ×3 (00:19→21:28)
[2021-02-16] MEDS ORDERED: PT OWN MED DRAWER 7, Y5N ONE ×4 (01:53→20:42)
[2021-02-16] MEDS: AZTREONAM 0.5 GM in DEXTROSE 5%-WATER - 50 ML IVPB SCH ×3 (02:10→17:37)
[2021-02-16] MEDS: CLINDAMYCIN 300 MG PREMIX IVPB 300 MG/50 ML BAG IVPB SCH ×4 (02:59→20:45)
[2021-02-16] MEDS: HEPARIN NA (PORCINE) 5,000 UNITS/ML 1ML VIAL SQ SCH ×3 (06:04→21:31)
[2021-02-16] MEDS: ACETAMINOPHEN 325 MG TABLET (FP) PO PRN (06:05)
[2021-02-16] MEDS: INSULIN SLIDING SCALE (NOVOLOG) 1 VIAL SQ SCH ×4 (06:15→22:02)
[2021-02-16] MEDS: CLOPIDOGREL BISULFATE 75 MG TABLET (FP) PO SCH (09:13)
[2021-02-16] MEDS: SEVELAMER CARBONATE 800 MG TAB (FP) PO SCH ×3 (09:13→17:44)
[2021-02-16] MEDS: GABAPENTIN 300 MG CAPSULE PO SCH ×2 (09:13→21:28)
[2021-02-16] MEDS: traMADol HCL 50 MG TABLET PO PRN ×2 (09:13→21:28)
[2021-02-16] MEDS: amLODIPine BESYLATE 5 MG TABLET (FP) PO SCH (09:13)
[2021-02-16] MEDS ORDERED: SODIUM CHLORIDE 250 ML IV PRN (11:24)
[2021-02-16 14:10] LABS: HEP B CORE AB, TOT Negative (Negative)
[2021-02-16] MEDS: ATORVASTATIN CA 10 MG TABLET (FP) PO SCH (21:28)
[2021-02-16] MEDS: DOCUSATE SODIUM 100 MG CAPSULE (FP) PO SCH (21:28)
[2021-02-16] MEDS: INSULIN (LEVEMIR) 100 UNITS/ML UNITS SQ SCH (22:03)
[2021-02-17] MEDS: AZTREONAM 0.5 GM in DEXTROSE 5%-WATER - 50 ML IVPB SCH ×3 (01:27→17:30)
[2021-02-17] MEDS: CLINDAMYCIN 300 MG PREMIX IVPB 300 MG/50 ML BAG IVPB SCH ×4 (02:17→20:08)
[2021-02-17] MEDS: HEPARIN NA (PORCINE) 5,000 UNITS/ML 1ML VIAL SQ SCH ×3 (05:55→21:39)
[2021-02-17] MEDS: ACETAMINOPHEN 325 MG TABLET (FP) PO PRN ×2 (05:55→20:08)
[2021-02-17] MEDS: INSULIN SLIDING SCALE (NOVOLOG) 1 VIAL SQ SCH ×4 (06:00→21:52)
[2021-02-17] MEDS: traMADol HCL 50 MG TABLET PO PRN (07:53)
[2021-02-17] MEDS: SEVELAMER CARBONATE 800 MG TAB (FP) PO SCH ×3 (08:54→17:32)
[2021-02-17 09:44] LABS: HEMATOCRIT 26.6 % (32.4-45.2); HEMOGLOBIN 8.6 GM/dL (10.7-15.3); MCH 26.3 pg (25.7-33.7); MCHC 32.4 g/dl (32.0-36.0); MEAN PLT VOLUME 8.2 fl (7.5-11.1); PLATELET COUNT 326 10^3/uL (134-434); RBC 3.29 M/mm3 (3.60-5.2); RDW 14.5 % (11.6-15.6); WHITE BLOOD COUNT 10.7 K/mm3 (4.0-10.0)
[2021-02-17 10:13] LABS: ALBUMIN 2.3 g/dl (3.4-5.0); BILIRUBIN,TOTAL 0.4 mg/dL (0.2-1); BLOOD UREA NITROGEN 31.9 mg/dL (7-18); CALCIUM 7.5 mg/dL (8.5-10.1); TOT PROT 6.4 g/dl (6.4-8.2)
[2021-02-17 10:15] LABS: CREATININE 6.9 mg/dL (0.55-1.3); PHOSPHOROUS 5.8 mg/dL (2.5-4.9)
[2021-02-17] MEDS: CARVEDILOL 12.5 MG TABLET (FP) PO SCH ×2 (10:53→21:39)
[2021-02-17] MEDS: GABAPENTIN 300 MG CAPSULE PO SCH ×2 (10:53→21:39)
[2021-02-17] MEDS: CLOPIDOGREL BISULFATE 75 MG TABLET (FP) PO SCH (10:54)
[2021-02-17] MEDS: amLODIPine BESYLATE 5 MG TABLET (FP) PO SCH (10:54)
[2021-02-17] MEDS ORDERED: PT OWN MED DRAWER 7, Y5N ONE (13:07)
[2021-02-17] MEDS: ATORVASTATIN CA 10 MG TABLET (FP) PO SCH (21:39)
[2021-02-17] MEDS: DOCUSATE SODIUM 100 MG CAPSULE (FP) PO SCH (21:39)
[2021-02-17] MEDS: INSULIN (LEVEMIR) 100 UNITS/ML UNITS SQ SCH (21:40)
[2021-02-18] MEDS: AZTREONAM 0.5 GM in DEXTROSE 5%-WATER - 50 ML IVPB SCH ×3 (02:19→17:48)
[2021-02-18] MEDS: CLINDAMYCIN 300 MG PREMIX IVPB 300 MG/50 ML BAG IVPB SCH ×5 (04:00→20:07)
[2021-02-18] MEDS: HEPARIN NA (PORCINE) 5,000 UNITS/ML 1ML VIAL SQ SCH ×3 (07:00→21:19)
[2021-02-18] MEDS: INSULIN SLIDING SCALE (NOVOLOG) 1 VIAL SQ SCH ×4 (07:36→21:27)
[2021-02-18] MEDS ORDERED: PT OWN MED DRAWER 7, Y5N ONE ×5 (09:50→19:57)
[2021-02-18] MEDS: CARVEDILOL 12.5 MG TABLET (FP) PO SCH ×2 (10:05→21:19)
[2021-02-18] MEDS: CLOPIDOGREL BISULFATE 75 MG TABLET (FP) PO SCH (10:05)
[2021-02-18] MEDS: amLODIPine BESYLATE 5 MG TABLET (FP) PO SCH (10:05)
[2021-02-18] MEDS: GABAPENTIN 300 MG CAPSULE PO SCH ×2 (10:05→21:19)
[2021-02-18] MEDS: SEVELAMER CARBONATE 800 MG TAB (FP) PO SCH ×3 (10:08→17:46)
[2021-02-18] MEDS ORDERED: INSULIN (NOVOLOG) ASPART 100 UNITS/ML 10ML VIAL ONE (11:34)
[2021-02-18] MEDS: ACETAMINOPHEN 325 MG TABLET (FP) PO PRN (21:19)
[2021-02-18] MEDS: ATORVASTATIN CA 10 MG TABLET (FP) PO SCH (21:19)
[2021-02-18] MEDS: INSULIN (LEVEMIR) 100 UNITS/ML UNITS SQ SCH (21:25)
[2021-02-18] MEDS: DOCUSATE SODIUM 100 MG CAPSULE (FP) PO SCH (22:27)
[2021-02-19] MEDS: AZTREONAM 0.5 GM in DEXTROSE 5%-WATER - 50 ML IVPB SCH ×3 (01:48→12:00)
[2021-02-19] MEDS ORDERED: PT OWN MED DRAWER 7, Y5N ONE ×4 (02:52→14:01)
[2021-02-19] MEDS: CLINDAMYCIN 300 MG PREMIX IVPB 300 MG/50 ML BAG IVPB SCH ×3 (02:58→11:45)
[2021-02-19] MEDS: ACETAMINOPHEN 325 MG TABLET (FP) PO PRN (04:38)
[2021-02-19] MEDS: HEPARIN NA (PORCINE) 5,000 UNITS/ML 1ML VIAL SQ SCH ×2 (05:39→14:08)
[2021-02-19] MEDS ORDERED: MORPHINE SULFATE 2 MG/ML VIAL IVPUSH ONE (07:00)
[2021-02-19] MEDS: INSULIN SLIDING SCALE (NOVOLOG) 1 VIAL SQ SCH ×3 (07:01→17:45)
[2021-02-19] MEDS ORDERED: SODIUM CHLORIDE 250 ML IV PRN (08:25)
[2021-02-19] MEDS: SEVELAMER CARBONATE 800 MG TAB (FP) PO SCH ×5 (08:31→17:45)
[2021-02-19] MEDS: CARVEDILOL 12.5 MG TABLET (FP) PO SCH ×2 (10:09→14:09)
[2021-02-19] MEDS: GABAPENTIN 300 MG CAPSULE PO SCH ×2 (10:10→14:07)
[2021-02-19] MEDS: CLOPIDOGREL BISULFATE 75 MG TABLET (FP) PO SCH ×2 (10:10→14:08)
[2021-02-19] MEDS: amLODIPine BESYLATE 5 MG TABLET (FP) PO SCH ×2 (10:10→14:07)
[2021-02-19 12:04] LABS: HEMATOCRIT 30.3 % (32.4-45.2); HEMOGLOBIN 9.8 GM/dL (10.7-15.3); MCH 26.2 pg (25.7-33.7); MCHC 32.4 g/dl (32.0-36.0); MEAN CELL VOLUME 80.9 fl (80-96); MEAN PLT VOLUME 8.1 fl (7.5-11.1); PLATELET COUNT 375 10^3/uL (134-434); RBC 3.75 M/mm3 (3.60-5.2); RDW 14.8 % (11.6-15.6); WHITE BLOOD COUNT 11.6 K/mm3 (4.0-10.0)
[2021-02-19 12:31] LABS: CALCIUM 8.1 mg/dL (8.5-10.1)
[2021-02-19 12:34] LABS: CREATININE 6.7 mg/dL (0.55-1.3)
[2021-02-19 12:35] LABS: PHOSPHOROUS 5.5 mg/dL (2.5-4.9)
[2021-02-19] MEDS ORDERED: ACETAMINOPHEN WITH CODEINE 300MG/30MG TABLET PO PRN (12:49)
[2021-02-19] MEDS ORDERED: traMADol HCL 50 MG TABLET PO PRN (12:52)
[2021-02-19 14:15] VITALS: TEMP 98.9
[2021-02-19] MEDS ORDERED: CLINDAMYCIN HCL 150 MG CAPSULE (FP) PO SCH (14:30)
[2021-02-19 15:30] VITALS: BP 145/55; PULSE 86
[2021-02-19] MEDS ORDERED: INSULIN (LEVEMIR) 100 UNITS/ML UNITS SQ SCH ×2 (22:00)
== END 2021-02-19 20:10 | DRG 299 ==
LOC: JER 19:29 → JERBED 02-13 00:48 → J8W 02-13 04:05
PROVIDERS: ADMIT Hospitalist; ATTEND Internal Medicine
PROC: 5A1D70Z Performance of Urinary Filtration, Intermittent, Less than 6 Hours Per Day (ICD-10-PCS; principal; 2021-02-19)
DX: E11.52 Type 2 diabetes mellitus with diabetic peripheral angiopathy with gangrene (principal); N18.6 End stage renal disease; I12.0 Hypertensive chronic kidney disease with stage 5 chronic kidney disease or end stage renal disease; I70.262 Atherosclerosis of native arteries of extremities with gangrene, left leg; L03.116 Cellulitis of left lower limb; L02.416 Cutaneous abscess of left lower limb; E11.22 Type 2 diabetes mellitus with diabetic chronic kidney disease; D63.1 Anemia in chronic kidney disease; E66.9 Obesity, unspecified; Z68.35 Body mass index [BMI] 35.0-35.9, adult; Z99.2 Dependence on renal dialysis
CPT/HCPCS: 36415; 73630-TC-LT; 73700-TC-RT; 80048; 80053; 82962; 83036; 83970; 84100; 85025; 85027; 85610; 85651; 85730; 86140; 86160; 86332; 86704; 86706; 86707; 86708; 86709; 86747; 86787; 86803; 86850; 86900; 86901; 87040; 87081; 87340; 93005; 93010; 93922; 93925-TC; 93970-TC; 97116-GP; 97162-GP; 99285-25; C9803; J0131; J1644; Q5106; U0003; U0005

== ENCOUNTER 2021-03-14 12:42 | Inpatient (IN) | payer OTHER ==
[2021-03-14] MEDS ORDERED: ACETAMINOPHEN 1000 MG/100 ML VIAL (NON FORMULARY) IVPB ONE (14:05)
[2021-03-14] MEDS ORDERED: morphine CARPU-JECT 4 MG/1 ML DISP.SYRIN IVPUSH ONE (14:06)
[2021-03-14] MEDS ORDERED: CLINDAMYCIN 600MG PREMIX IVPB 600 MG/50 ML BAG IVPB ONE ×2 (14:12→18:00)
[2021-03-14] MEDS ORDERED: morphine SULFATE 4 MG/ML VIAL ONE (17:59)
[2021-03-14] MEDS ORDERED: ACETAMINOPHEN INJECTION 100 ML IVPB ONE (18:00)
[2021-03-14 18:39] LABS: BASO % 0.6 % (0-2.0); EOS % 0.6 % (0-4.5); HEMATOCRIT 29.6 % (32.4-45.2); HEMOGLOBIN 9.8 GM/dL (10.7-15.3); LYMPH % 9.5 % (8-40); MCH 26.8 pg (25.7-33.7); MEAN CELL VOLUME 81.4 fl (80-96); MEAN PLT VOLUME 7.8 fl (7.5-11.1); MONO % 6.9 % (3.8-10.2); NEUT % 82.4 % (42.8-82.8); PLATELET COUNT 572 10^3/uL (134-434); RBC 3.64 M/mm3 (3.60-5.2); RDW 14.9 % (11.6-15.6); WHITE BLOOD COUNT 16.8 K/mm3 (4.0-10.0)
[2021-03-14 18:46] LABS: CALCIUM 8.6 mg/dL (8.5-10.1)
[2021-03-14 18:48] LABS: ALBUMIN 2.2 g/dl (3.4-5.0); BLOOD UREA NITROGEN 45.8 mg/dL (7-18)
[2021-03-14 18:51] LABS: BILIRUBIN,TOTAL 0.4 mg/dL (0.2-1); CREATININE 6.7 mg/dL (0.55-1.3)
[2021-03-14 18:52] LABS: TOT PROT 8.1 g/dl (6.4-8.2)
[2021-03-15] MEDS: HEPARIN NA (PORCINE) 5,000 UNITS/ML 1ML VIAL SQ SCH ×4 (00:30→21:48)
[2021-03-15] MEDS ORDERED: DEXTROSE 50%-WATER - 25 GM/50 ML VIAL IVPUSH ONE (01:01)
[2021-03-15] MEDS ORDERED: DEXTROSE 50%-WATER 25 GM/50 ML DISP.SYRIN ONE (01:01)
[2021-03-15] MEDS: INSULIN SLIDING SCALE (NOVOLOG) 1 VIAL SQ SCH ×5 (01:06→21:52)
[2021-03-15] MEDS ORDERED: morphine CARPU-JECT 2 MG/1 ML DISP.SYRIN IM PRN (07:13)
[2021-03-15 07:18] LABS: BASO % 0.4 % (0-2.0); HEMATOCRIT 26.5 % (32.4-45.2); HEMOGLOBIN 8.6 GM/dL (10.7-15.3); LYMPH % 6.8 % (8-40); MCH 26.3 pg (25.7-33.7); MCHC 32.3 g/dl (32.0-36.0); MEAN CELL VOLUME 81.3 fl (80-96); MEAN PLT VOLUME 7.9 fl (7.5-11.1); MONO % 7.7 % (3.8-10.2); NEUT % 84.1 % (42.8-82.8); PLATELET COUNT 530 10^3/uL (134-434); RBC 3.26 M/mm3 (3.60-5.2); RDW 14.6 % (11.6-15.6); WHITE BLOOD COUNT 17.8 K/mm3 (4.0-10.0)
[2021-03-15 07:31] LABS: CHLORIDE 95 mmol/L (98-107); SODIUM 134 mmol/L (136-145)
[2021-03-15] MEDS ORDERED: MORPHINE SULFATE 2 MG/ML VIAL IM PRN (07:32)
[2021-03-15 07:33] LABS: ANION GAP 14 MMOL/L (8-16); BLOOD UREA NITROGEN 52.2 mg/dL (7-18); CO2 25 mmol/L (21-32)
[2021-03-15 07:34] LABS: GLUCOSE,RANDOM 124 mg/dL (74-106)
[2021-03-15 07:36] LABS: SGOT/AST 18 U/L (15-37); SGPT/ALT 22 U/L (13-61)
[2021-03-15 07:38] LABS: BILIRUBIN,TOTAL 0.4 mg/dL (0.2-1)
[2021-03-15 07:42] LABS: ALK PHOS 234 U/L (45-117); CREATININE 7.5 mg/dL (0.55-1.3)
[2021-03-15] MEDS: CLINDAMYCIN 600MG PREMIX IVPB 600 MG/50 ML BAG IVPB SCH ×2 (08:11→09:27)
[2021-03-15] MEDS: GABAPENTIN 300 MG CAPSULE PO SCH ×2 (09:24→21:48)
[2021-03-15] MEDS: amLODIPine BESYLATE 10 MG TABLET (FP) PO SCH (09:24)
[2021-03-15] MEDS: cloNIDine HCL 0.1 MG TABLET PO SCH ×2 (09:24→21:48)
[2021-03-15] MEDS: ACETAMINOPHEN 325 MG TABLET (FP) PO PRN ×2 (09:24→15:11)
[2021-03-15] MEDS: CLOPIDOGREL BISULFATE 75 MG TABLET (FP) PO SCH (09:24)
[2021-03-15] MEDS: CARVEDILOL 25 MG TABLET (FP) PO SCH ×2 (09:24→21:48)
[2021-03-15] MEDS ORDERED: traMADol HCL 50 MG TABLET PO PRN (09:30)
[2021-03-15] MEDS ORDERED: VANCOMYCIN 1 GRAM (PRE-DOCKED) 1,000 MG/250 ML BAG IVPB ONE (09:36)
[2021-03-15] MEDS ORDERED: AZTREONAM 1 GM VIAL (RESTRICTED TO ID) IVPB SCH (10:00)
[2021-03-15] MEDS ORDERED: INSULIN (LEVEMIR) 100 UNITS/ML UNITS SQ SCH (10:00)
[2021-03-15 10:40] LABS: PHOSPHOROUS 6.4 mg/dL (2.5-4.9)
[2021-03-15] MEDS ORDERED: MORPHINE SULFATE 2 MG/ML VIAL IVPUSH PRN (12:48)
[2021-03-15] MEDS ORDERED: SODIUM CHLORIDE 250 ML IV PRN (14:00)
[2021-03-15] MEDS: SEVELAMER CARBONATE 800 MG TAB (FP) PO SCH ×2 (14:38→16:48)
[2021-03-15] MEDS ORDERED: AZTREONAM 0.5 GM in DEXTROSE 5%-WATER - 50 ML IVPB SCH (15:00)
[2021-03-15] MEDS ORDERED: SODIUM ZIRCONIUM CYCLOSILICATE (LOKELMA) 5 GM PACKET PO SCH (15:00)
[2021-03-15] MEDS ORDERED: PT OWN MED DRAWER 7, Y5N ONE ×2 (15:09→15:24)
[2021-03-15] MEDS: FERROUS SO4 325 MG TABLET (FP) PO SCH (15:13)
[2021-03-15] MEDS: BISACODYL 5 MG TABLET.DR (FP) PO SCH (15:13)
[2021-03-15] MEDS: CALCITRIOL 0.25 MCG CAPSULE (FP) PO SCH (15:13)
[2021-03-15] MEDS: CLINDAMYCIN IVPB 300 MG in DEXTROSE 5%-WATER - 48 ML IVPB SCH ×2 (15:27→22:55)
[2021-03-15] MEDS ORDERED: INSULIN (NOVOLOG) ASPART 100 UNITS/ML 10ML VIAL ONE (16:33)
[2021-03-15] MEDS: AZTREONAM 0.5 GM in DEXTROSE 5%-WATER - 50 ML IVPB SCH (17:46)
[2021-03-15 19:28] LABS: INR 1.37 (0.83-1.09); PROTHROMBIN TIME (PATIENT) 16.4 SEC (9.7-13.0)
[2021-03-15] MEDS ORDERED: ATORVASTATIN CA 10 MG TABLET (FP) PO SCH (22:00)
[2021-03-15] MEDS ORDERED: DOCUSATE SODIUM 100 MG CAPSULE (FP) PO SCH (22:00)
[2021-03-16] MEDS: CLINDAMYCIN IVPB 300 MG in DEXTROSE 5%-WATER - 48 ML IVPB SCH ×2 (02:03→10:12)
[2021-03-16] MEDS: HEPARIN NA (PORCINE) 5,000 UNITS/ML 1ML VIAL SQ SCH ×3 (05:55→21:11)
[2021-03-16] MEDS: INSULIN SLIDING SCALE (NOVOLOG) 1 VIAL SQ SCH ×4 (06:06→21:39)
[2021-03-16] MEDS ORDERED: PT OWN MED DRAWER 7, Y5N ONE ×2 (10:04→15:13)
[2021-03-16] MEDS: GABAPENTIN 300 MG CAPSULE PO SCH ×2 (10:11→21:13)
[2021-03-16] MEDS: SEVELAMER CARBONATE 800 MG TAB (FP) PO SCH ×2 (10:11→12:05)
[2021-03-16] MEDS: CLOPIDOGREL BISULFATE 75 MG TABLET (FP) PO SCH (10:11)
[2021-03-16] MEDS: cloNIDine HCL 0.1 MG TABLET PO SCH ×2 (10:11→21:13)
[2021-03-16] MEDS: BISACODYL 5 MG TABLET.DR (FP) PO SCH (10:11)
[2021-03-16] MEDS: FERROUS SO4 325 MG TABLET (FP) PO SCH (10:11)
[2021-03-16] MEDS: CARVEDILOL 25 MG TABLET (FP) PO SCH ×2 (10:11→21:13)
[2021-03-16] MEDS: amLODIPine BESYLATE 10 MG TABLET (FP) PO SCH (10:11)
[2021-03-16] MEDS: CALCITRIOL 0.25 MCG CAPSULE (FP) PO SCH (10:12)
[2021-03-16] MEDS ORDERED: SODIUM CHLORIDE 250 ML IV PRN (12:31)
[2021-03-16 12:33] LABS: BASO % 0.3 % (0-2.0); EOS % 0.2 % (0-4.5); HEMATOCRIT 24.3 % (32.4-45.2); HEMOGLOBIN 7.8 GM/dL (10.7-15.3); MCH 26.3 pg (25.7-33.7); MCHC 32.3 g/dl (32.0-36.0); MEAN CELL VOLUME 81.5 fl (80-96); MEAN PLT VOLUME 7.8 fl (7.5-11.1); MONO % 6.6 % (3.8-10.2); NEUT % 85.9 % (42.8-82.8); PLATELET COUNT 480 10^3/uL (134-434); RBC 2.99 M/mm3 (3.60-5.2); RDW 14.7 % (11.6-15.6)
[2021-03-16] MEDS: AZTREONAM 0.5 GM in DEXTROSE 5%-WATER - 50 ML IVPB SCH (12:42)
[2021-03-16] MEDS ORDERED: LIDOCAINE HCL 1%, 10 MG/ML (20ML VIAL) ONE (13:16)
[2021-03-16] MEDS ORDERED: HEPARIN NA (PORCINE) 5,000 UNITS/ML 1ML VIAL ONE ×2 (13:16→17:09)
[2021-03-16] MEDS ORDERED: MIDAZOLAM HCL 2 MG/2 ML SINGLE DOSE VIAL ONE (15:15)
[2021-03-16] MEDS ORDERED: LIDOCAINE HCL 1%, 10 MG/ML (20ML VIAL) INF ONE (16:48)
[2021-03-16 17:07] LABS: HEP B CORE AB, TOT Negative (Negative)
[2021-03-16] MEDS ORDERED: ACETAMINOPHEN 325 MG TABLET (FP) PO PRN (18:01)
[2021-03-16] MEDS: MORPHINE SULFATE 2 MG/ML VIAL IVPUSH PRN (20:15)
[2021-03-16] MEDS: CLINDAMYCIN 300 MG PREMIX IVPB 300 MG/50 ML BAG IVPB SCH (20:52)
[2021-03-16] MEDS: DOCUSATE SODIUM 100 MG CAPSULE (FP) PO SCH (21:13)
[2021-03-16] MEDS: ATORVASTATIN CA 10 MG TABLET (FP) PO SCH (21:13)
[2021-03-17] MEDS: CLINDAMYCIN 300 MG PREMIX IVPB 300 MG/50 ML BAG IVPB SCH ×4 (02:59→20:22)
[2021-03-17] MEDS: HEPARIN NA (PORCINE) 5,000 UNITS/ML 1ML VIAL SQ SCH ×3 (06:13→21:48)
[2021-03-17] MEDS: INSULIN SLIDING SCALE (NOVOLOG) 1 VIAL SQ SCH ×4 (06:16→21:51)
[2021-03-17] MEDS: SEVELAMER CARBONATE 800 MG TAB (FP) PO SCH ×3 (08:00→17:11)
[2021-03-17] MEDS ORDERED: EPOETIN ALFA-EPBX 10,000 UNIT/ML VIAL IVPUSH ONE ×2 (08:00→14:00)
[2021-03-17 09:35] LABS: BASO % 0.2 % (0-2.0); EOS % 0.5 % (0-4.5); HEMATOCRIT 24.3 % (32.4-45.2); HEMOGLOBIN 7.8 GM/dL (10.7-15.3); LYMPH % 8.2 % (8-40); MCH 26.3 pg (25.7-33.7); MCHC 32.1 g/dl (32.0-36.0); MEAN CELL VOLUME 81.8 fl (80-96); MEAN PLT VOLUME 7.8 fl (7.5-11.1); NEUT % 83.1 % (42.8-82.8); PLATELET COUNT 446 10^3/uL (134-434); RBC 2.97 M/mm3 (3.60-5.2); RDW 14.4 % (11.6-15.6); WHITE BLOOD COUNT 17.4 K/mm3 (4.0-10.0)
[2021-03-17] MEDS ORDERED: SODIUM ZIRCONIUM CYCLOSILICATE (LOKELMA) 5 GM PACKET PO SCH (10:00)
[2021-03-17 10:25] LABS: BLOOD UREA NITROGEN 29.6 mg/dL (7-18); CALCIUM 7.8 mg/dL (8.5-10.1); CREATININE 6.1 mg/dL (0.55-1.3)
[2021-03-17] MEDS ORDERED: PT OWN MED DRAWER 7, Y5N ONE ×4 (10:29→20:13)
[2021-03-17] MEDS: GABAPENTIN 300 MG CAPSULE PO SCH ×2 (10:40→21:48)
[2021-03-17] MEDS: amLODIPine BESYLATE 10 MG TABLET (FP) PO SCH (10:40)
[2021-03-17] MEDS: CLOPIDOGREL BISULFATE 75 MG TABLET (FP) PO SCH (10:40)
[2021-03-17] MEDS: CALCITRIOL 0.25 MCG CAPSULE (FP) PO SCH (10:40)
[2021-03-17] MEDS: FERROUS SO4 325 MG TABLET (FP) PO SCH (10:41)
[2021-03-17] MEDS: BISACODYL 5 MG TABLET.DR (FP) PO SCH (10:41)
[2021-03-17] MEDS: CARVEDILOL 25 MG TABLET (FP) PO SCH ×2 (10:41→21:48)
[2021-03-17] MEDS: AZTREONAM 0.5 GM in DEXTROSE 5%-WATER - 50 ML IVPB SCH (10:41)
[2021-03-17] MEDS: cloNIDine HCL 0.1 MG TABLET PO SCH ×2 (10:41→21:48)
[2021-03-17] MEDS: MORPHINE SULFATE 2 MG/ML VIAL IVPUSH PRN (11:26)
[2021-03-17] MEDS ORDERED: INSULIN (NOVOLOG) ASPART 100 UNITS/ML 10ML VIAL ONE ×2 (11:50→20:56)
[2021-03-17] MEDS ORDERED: SODIUM CHLORIDE 250 ML IV PRN (14:45)
[2021-03-17] MEDS ORDERED: EPOETIN ALFA-EPBX 20,000 UNIT/ML VIAL IVPUSH ONE (15:00)
[2021-03-17] MEDS: traMADol HCL 50 MG TABLET PO PRN ×2 (16:45→22:00)
[2021-03-17] MEDS: SILVER SULFADIAZINE 1% TOP CREAM 400 GM JAR TP SCH (16:46)
[2021-03-17] MEDS: ATORVASTATIN CA 10 MG TABLET (FP) PO SCH (21:48)
[2021-03-17] MEDS: DOCUSATE SODIUM 100 MG CAPSULE (FP) PO SCH (21:48)
[2021-03-17 21:53] LABS: ALBUMIN 1.6 g/dl (3.4-5.0)
[2021-03-17 21:57] LABS: BILIRUBIN,TOTAL 0.7 mg/dL (0.2-1); PHOSPHOROUS 3.6 mg/dL (2.5-4.9)
[2021-03-17 21:58] LABS: TOT PROT 6.2 g/dl (6.4-8.2)
[2021-03-18] MEDS ORDERED: PT OWN MED DRAWER 7, Y5N ONE ×4 (02:05→21:01)
[2021-03-18] MEDS: CLINDAMYCIN 300 MG PREMIX IVPB 300 MG/50 ML BAG IVPB SCH ×4 (02:11→21:21)
[2021-03-18] MEDS: INSULIN SLIDING SCALE (NOVOLOG) 1 VIAL SQ SCH ×4 (06:31→21:28)
[2021-03-18] MEDS ORDERED: INSULIN (NOVOLOG) ASPART 100 UNITS/ML 10ML VIAL ONE (06:35)
[2021-03-18] MEDS: SEVELAMER CARBONATE 800 MG TAB (FP) PO SCH ×3 (08:02→17:56)
[2021-03-18 09:38] LABS: BASO % 0.4 % (0-2.0); EOS % 0.3 % (0-4.5); HEMATOCRIT 22.4 % (32.4-45.2); HEMOGLOBIN 7.2 GM/dL (10.7-15.3); LYMPH % 9.7 % (8-40); MCH 26.7 pg (25.7-33.7); MCHC 32.3 g/dl (32.0-36.0); MEAN CELL VOLUME 82.7 fl (80-96); MONO % 7.3 % (3.8-10.2); NEUT % 82.3 % (42.8-82.8); PLATELET COUNT 453 10^3/uL (134-434); RBC 2.71 M/mm3 (3.60-5.2); RDW 14.7 % (11.6-15.6); WHITE BLOOD COUNT 17.2 K/mm3 (4.0-10.0)
[2021-03-18] MEDS: CLOPIDOGREL BISULFATE 75 MG TABLET (FP) PO SCH (10:17)
[2021-03-18] MEDS: cloNIDine HCL 0.1 MG TABLET PO SCH ×2 (10:17→21:22)
[2021-03-18] MEDS: CARVEDILOL 25 MG TABLET (FP) PO SCH ×2 (10:17→21:22)
[2021-03-18] MEDS: BISACODYL 5 MG TABLET.DR (FP) PO SCH (10:17)
[2021-03-18] MEDS: CALCITRIOL 0.25 MCG CAPSULE (FP) PO SCH (10:17)
[2021-03-18] MEDS: FERROUS SO4 325 MG TABLET (FP) PO SCH (10:17)
[2021-03-18] MEDS: GABAPENTIN 300 MG CAPSULE PO SCH ×2 (10:17→21:21)
[2021-03-18] MEDS: amLODIPine BESYLATE 10 MG TABLET (FP) PO SCH (10:17)
[2021-03-18] MEDS ORDERED: SODIUM CHLORIDE 250 ML IV PRN (11:55)
[2021-03-18] MEDS: AZTREONAM 0.5 GM in DEXTROSE 5%-WATER - 50 ML IVPB SCH (12:16)
[2021-03-18] MEDS: SILVER SULFADIAZINE 1% TOP CREAM 400 GM JAR TP SCH (13:00)
[2021-03-18] MEDS ORDERED: LIDOCAINE HCL 1%, 10 MG/ML (20ML VIAL) ONE (14:46)
[2021-03-18] MEDS ORDERED: SODIUM CHLORIDE 1,000 ML IV SCH ×2 (15:00→17:08)
[2021-03-18] MEDS ORDERED: MIDAZOLAM HCL 2 MG/2 ML SINGLE DOSE VIAL ONE ×2 (15:37)
[2021-03-18] MEDS ORDERED: KETAMINE HCL 200 MG/20 ML VIAL ONE (15:37)
[2021-03-18] MEDS ORDERED: CLINDAMYCIN 300 MG PREMIX BAG IVPB ONE (15:45)
[2021-03-18] MEDS ORDERED: CLINDAMYCIN PHOSPHATE 600 MG/4 ML VIAL ONE (15:48)
[2021-03-18] MEDS ORDERED: LIDOCAINE HCL 1%, 10 MG/ML (20ML VIAL) INF ONE (15:57)
[2021-03-18] MEDS ORDERED: EPOETIN ALFA-EPBX 10,000 UNIT/ML VIAL IVPUSH ONE (17:08)
[2021-03-18] MEDS ORDERED: MORPHINE SULFATE 2 MG/ML VIAL IVPUSH PRN (17:08)
[2021-03-18] MEDS ORDERED: ONDANSETRON 4 MG/2 ML VIAL IVPUSH PRN (18:31)
[2021-03-18] MEDS ORDERED: PROMETHAZINE HCL 25 MG/1 ML VIAL IVPUSH PRN (18:31)
[2021-03-18] MEDS ORDERED: LACTATED RINGERS SOLUTION 1,000 ML IV SCH (18:45)
[2021-03-18] MEDS: DOCUSATE SODIUM 100 MG CAPSULE (FP) PO SCH (21:21)
[2021-03-18] MEDS: ATORVASTATIN CA 10 MG TABLET (FP) PO SCH (21:22)
[2021-03-18] MEDS: HEPARIN NA (PORCINE) 5,000 UNITS/ML 1ML VIAL SQ SCH (21:23)
[2021-03-19] MEDS ORDERED: PT OWN MED DRAWER 7, Y5N ONE ×2 (02:07→21:50)
[2021-03-19] MEDS: CLINDAMYCIN 300 MG PREMIX IVPB 300 MG/50 ML BAG IVPB SCH ×4 (02:09→22:06)
[2021-03-19] MEDS: INSULIN SLIDING SCALE (NOVOLOG) 1 VIAL SQ SCH ×4 (06:15→22:10)
[2021-03-19] MEDS ORDERED: EPOETIN ALFA-EPBX 20,000 UNIT/ML VIAL IVPUSH ONE ×2 (08:00→09:15)
[2021-03-19] MEDS ORDERED: SODIUM CHLORIDE 250 ML IV PRN (08:45)
[2021-03-19] MEDS: SEVELAMER CARBONATE 800 MG TAB (FP) PO SCH ×3 (09:15→18:30)
[2021-03-19 10:40] LABS: HEMATOCRIT 20.2 % (32.4-45.2); MCH 26.2 pg (25.7-33.7); MCHC 32.4 g/dl (32.0-36.0); MEAN CELL VOLUME 80.7 fl (80-96); MEAN PLT VOLUME 7.9 fl (7.5-11.1); PLATELET COUNT 429 10^3/uL (134-434); RDW 14.7 % (11.6-15.6); WHITE BLOOD COUNT 17.4 K/mm3 (4.0-10.0)
[2021-03-19 10:48] LABS: HEMOGLOBIN 6.5 GM/dL (10.7-15.3)
[2021-03-19 11:00] LABS: BLOOD UREA NITROGEN 46.8 mg/dL (7-18); CALCIUM 8.1 mg/dL (8.5-10.1)
[2021-03-19 11:03] LABS: CREATININE 5.8 mg/dL (0.55-1.3)
[2021-03-19 11:04] LABS: PHOSPHOROUS 5.2 mg/dL (2.5-4.9)
[2021-03-19] MEDS: traMADol HCL 50 MG TABLET PO PRN (13:10)
[2021-03-19] MEDS: AZTREONAM 0.5 GM in DEXTROSE 5%-WATER - 50 ML IVPB SCH (14:37)
[2021-03-19] MEDS: amLODIPine BESYLATE 10 MG TABLET (FP) PO SCH (14:38)
[2021-03-19] MEDS: GABAPENTIN 300 MG CAPSULE PO SCH ×2 (14:38→22:05)
[2021-03-19] MEDS: BISACODYL 5 MG TABLET.DR (FP) PO SCH (14:38)
[2021-03-19] MEDS: CLOPIDOGREL BISULFATE 75 MG TABLET (FP) PO SCH (14:38)
[2021-03-19] MEDS: FERROUS SO4 325 MG TABLET (FP) PO SCH (14:38)
[2021-03-19] MEDS: CALCITRIOL 0.25 MCG CAPSULE (FP) PO SCH (14:39)
[2021-03-19] MEDS: CARVEDILOL 25 MG TABLET (FP) PO SCH ×2 (14:39→22:05)
[2021-03-19] MEDS: cloNIDine HCL 0.1 MG TABLET PO SCH ×2 (14:39→22:05)
[2021-03-19] MEDS: SILVER SULFADIAZINE 1% TOP CREAM 400 GM JAR TP SCH (14:39)
[2021-03-19] MEDS: HEPARIN NA (PORCINE) 5,000 UNITS/ML 1ML VIAL SQ SCH ×2 (14:40→22:05)
[2021-03-19] MEDS: SODIUM ZIRCONIUM CYCLOSILICATE (LOKELMA) 5 GM PACKET PO SCH (14:41)
[2021-03-19] MEDS: ACETAMINOPHEN 325 MG TABLET (FP) PO PRN ×2 (16:00→22:04)
[2021-03-19] MEDS: ATORVASTATIN CA 10 MG TABLET (FP) PO SCH (22:05)
[2021-03-19] MEDS: DOCUSATE SODIUM 100 MG CAPSULE (FP) PO SCH (22:05)
[2021-03-20] MEDS ORDERED: PT OWN MED DRAWER 7, Y5N ONE ×2 (01:51→22:56)
[2021-03-20] MEDS: CLINDAMYCIN 300 MG PREMIX IVPB 300 MG/50 ML BAG IVPB SCH ×4 (02:03→20:30)
[2021-03-20] MEDS: INSULIN SLIDING SCALE (NOVOLOG) 1 VIAL SQ SCH ×4 (06:04→23:08)
[2021-03-20] MEDS: SEVELAMER CARBONATE 800 MG TAB (FP) PO SCH ×3 (08:28→17:02)
[2021-03-20] MEDS: BISACODYL 5 MG TABLET.DR (FP) PO SCH (10:01)
[2021-03-20] MEDS: CLOPIDOGREL BISULFATE 75 MG TABLET (FP) PO SCH (10:01)
[2021-03-20] MEDS: CARVEDILOL 25 MG TABLET (FP) PO SCH ×2 (10:01→23:05)
[2021-03-20] MEDS: FERROUS SO4 325 MG TABLET (FP) PO SCH (10:01)
[2021-03-20] MEDS: GABAPENTIN 300 MG CAPSULE PO SCH ×2 (10:02→23:07)
[2021-03-20] MEDS: HEPARIN NA (PORCINE) 5,000 UNITS/ML 1ML VIAL SQ SCH ×2 (10:02→23:07)
[2021-03-20] MEDS: amLODIPine BESYLATE 10 MG TABLET (FP) PO SCH (10:02)
[2021-03-20] MEDS: CALCITRIOL 0.25 MCG CAPSULE (FP) PO SCH (10:02)
[2021-03-20] MEDS: cloNIDine HCL 0.1 MG TABLET PO SCH ×2 (10:02→23:07)
[2021-03-20] MEDS: SILVER SULFADIAZINE 1% TOP CREAM 400 GM JAR TP SCH (10:06)
[2021-03-20] MEDS: traMADol HCL 50 MG TABLET PO PRN ×2 (10:10→23:05)
[2021-03-20 11:18] LABS: CALCIUM 7.9 mg/dL (8.5-10.1)
[2021-03-20 11:19] LABS: BLOOD UREA NITROGEN 25.4 mg/dL (7-18)
[2021-03-20 11:22] LABS: CREATININE 3.7 mg/dL (0.55-1.3)
[2021-03-20] MEDS: AZTREONAM 0.5 GM in DEXTROSE 5%-WATER - 50 ML IVPB SCH (12:50)
[2021-03-20 19:56] LABS: BASO % 0.5 % (0-2.0); EOS % 1.9 % (0-4.5); HEMATOCRIT 27.2 % (32.4-45.2); HEMOGLOBIN 8.9 GM/dL (10.7-15.3); LYMPH % 10.5 % (8-40); MCH 27.2 pg (25.7-33.7); MCHC 32.6 g/dl (32.0-36.0); MEAN CELL VOLUME 83.4 fl (80-96); MEAN PLT VOLUME 8.2 fl (7.5-11.1); MONO % 6.2 % (3.8-10.2); NEUT % 80.9 % (42.8-82.8); PLATELET COUNT 394 10^3/uL (134-434); RBC 3.25 M/mm3 (3.60-5.2); RDW 14.1 % (11.6-15.6); WHITE BLOOD COUNT 15.3 K/mm3 (4.0-10.0)
[2021-03-20] MEDS ORDERED: INSULIN (NOVOLOG) ASPART 100 UNITS/ML 10ML VIAL ONE (21:32)
[2021-03-20] MEDS: ATORVASTATIN CA 10 MG TABLET (FP) PO SCH (23:05)
[2021-03-20] MEDS: DOCUSATE SODIUM 100 MG CAPSULE (FP) PO SCH ×2 (23:07→23:14)
[2021-03-21] MEDS: CLINDAMYCIN 300 MG PREMIX IVPB 300 MG/50 ML BAG IVPB SCH ×4 (02:08→21:45)
[2021-03-21] MEDS: INSULIN SLIDING SCALE (NOVOLOG) 1 VIAL SQ SCH ×4 (06:13→21:50)
[2021-03-21 09:10] LABS: BASO % 0.4 % (0-2.0); EOS % 1.6 % (0-4.5); HEMATOCRIT 28.2 % (32.4-45.2); HEMOGLOBIN 9.2 GM/dL (10.7-15.3); LYMPH % 9.8 % (8-40); MCH 27.6 pg (25.7-33.7); MCHC 32.7 g/dl (32.0-36.0); MEAN CELL VOLUME 84.4 fl (80-96); MEAN PLT VOLUME 8.3 fl (7.5-11.1); MONO % 5.9 % (3.8-10.2); NEUT % 82.3 % (42.8-82.8); PLATELET COUNT 398 10^3/uL (134-434); RBC 3.34 M/mm3 (3.60-5.2); RDW 14.1 % (11.6-15.6); WHITE BLOOD COUNT 14.9 K/mm3 (4.0-10.0)
[2021-03-21] MEDS ORDERED: PT OWN MED DRAWER 7, Y5N ONE ×3 (10:32→21:35)
[2021-03-21] MEDS: CARVEDILOL 25 MG TABLET (FP) PO SCH ×2 (10:38→21:46)
[2021-03-21] MEDS: amLODIPine BESYLATE 10 MG TABLET (FP) PO SCH (10:39)
[2021-03-21] MEDS: CLOPIDOGREL BISULFATE 75 MG TABLET (FP) PO SCH (10:39)
[2021-03-21] MEDS: SODIUM ZIRCONIUM CYCLOSILICATE (LOKELMA) 5 GM PACKET PO SCH (10:39)
[2021-03-21] MEDS: CALCITRIOL 0.25 MCG CAPSULE (FP) PO SCH (10:39)
[2021-03-21] MEDS: GABAPENTIN 300 MG CAPSULE PO SCH ×2 (10:39→21:46)
[2021-03-21] MEDS: FERROUS SO4 325 MG TABLET (FP) PO SCH (10:39)
[2021-03-21] MEDS: cloNIDine HCL 0.1 MG TABLET PO SCH ×2 (10:39→21:46)
[2021-03-21] MEDS: HEPARIN NA (PORCINE) 5,000 UNITS/ML 1ML VIAL SQ SCH ×2 (10:39→21:46)
[2021-03-21] MEDS: BISACODYL 5 MG TABLET.DR (FP) PO SCH (10:40)
[2021-03-21] MEDS: SILVER SULFADIAZINE 1% TOP CREAM 400 GM JAR TP SCH (10:43)
[2021-03-21] MEDS: SEVELAMER CARBONATE 800 MG TAB (FP) PO SCH ×3 (10:50→18:03)
[2021-03-21] MEDS: traMADol HCL 50 MG TABLET PO PRN (10:54)
[2021-03-21] MEDS ORDERED: SODIUM CHLORIDE 250 ML IV PRN (11:12)
[2021-03-21] MEDS: AZTREONAM 0.5 GM in DEXTROSE 5%-WATER - 50 ML IVPB SCH (11:35)
[2021-03-21] MEDS ORDERED: ERTAPENEM SODIUM 0.5 GM in SODIUM CHLORIDE 50 ML IVPB SCH (17:00)
[2021-03-21] MEDS: ATORVASTATIN CA 10 MG TABLET (FP) PO SCH (21:45)
[2021-03-21] MEDS: DOCUSATE SODIUM 100 MG CAPSULE (FP) PO SCH (21:46)
[2021-03-22] MEDS ORDERED: PT OWN MED DRAWER 7, Y5N ONE ×3 (02:40→18:33)
[2021-03-22] MEDS: CLINDAMYCIN 300 MG PREMIX IVPB 300 MG/50 ML BAG IVPB SCH ×2 (02:41→13:17)
[2021-03-22] MEDS: INSULIN SLIDING SCALE (NOVOLOG) 1 VIAL SQ SCH ×4 (06:28→21:06)
[2021-03-22] MEDS ORDERED: MORPHINE SULFATE 2 MG/ML VIAL ONE (08:45)
[2021-03-22] MEDS: MORPHINE SULFATE 2 MG/ML VIAL IVPUSH PRN ×2 (08:46→14:44)
[2021-03-22 08:52] LABS: HEMATOCRIT 27.7 % (32.4-45.2); HEMOGLOBIN 8.8 GM/dL (10.7-15.3); MCH 26.9 pg (25.7-33.7); MCHC 31.8 g/dl (32.0-36.0); MEAN CELL VOLUME 84.4 fl (80-96); MEAN PLT VOLUME 8.3 fl (7.5-11.1); PLATELET COUNT 357 10^3/uL (134-434); RBC 3.28 M/mm3 (3.60-5.2); RDW 14.6 % (11.6-15.6); WHITE BLOOD COUNT 18.5 K/mm3 (4.0-10.0)
[2021-03-22] MEDS: SEVELAMER CARBONATE 800 MG TAB (FP) PO SCH ×3 (09:12→16:51)
[2021-03-22] MEDS ORDERED: ERTAPENEM SODIUM 0.5 GM in SODIUM CHLORIDE 50 ML IVPB SCH (10:00)
[2021-03-22 10:38] LABS: CALCIUM 8.1 mg/dL (8.5-10.1)
[2021-03-22 10:39] LABS: BLOOD UREA NITROGEN 44.5 mg/dL (7-18)
[2021-03-22 10:42] LABS: CREATININE 6.6 mg/dL (0.55-1.3)
[2021-03-22 10:43] LABS: PHOSPHOROUS 3.4 mg/dL (2.5-4.9)
[2021-03-22] MEDS ORDERED: EPOETIN ALFA-EPBX 10,000 UNIT/ML VIAL IVPUSH ONE (11:00)
[2021-03-22 12:14] LABS: ANISOCYTOSIS 1+; MACROCYTOSIS 0; PLATELET ESTIMATE NORMAL
[2021-03-22] MEDS: CLOPIDOGREL BISULFATE 75 MG TABLET (FP) PO SCH (14:47)
[2021-03-22] MEDS: HEPARIN NA (PORCINE) 5,000 UNITS/ML 1ML VIAL SQ SCH ×2 (14:47→21:05)
[2021-03-22] MEDS: CALCITRIOL 0.25 MCG CAPSULE (FP) PO SCH (14:47)
[2021-03-22] MEDS: CARVEDILOL 25 MG TABLET (FP) PO SCH ×2 (14:47→21:06)
[2021-03-22] MEDS: amLODIPine BESYLATE 10 MG TABLET (FP) PO SCH (14:47)
[2021-03-22] MEDS: FERROUS SO4 325 MG TABLET (FP) PO SCH (14:47)
[2021-03-22] MEDS: BISACODYL 5 MG TABLET.DR (FP) PO SCH (14:47)
[2021-03-22] MEDS: cloNIDine HCL 0.1 MG TABLET PO SCH ×2 (14:47→21:06)
[2021-03-22] MEDS: GABAPENTIN 300 MG CAPSULE PO SCH ×2 (14:47→21:06)
[2021-03-22] MEDS: SILVER SULFADIAZINE 1% TOP CREAM 400 GM JAR TP SCH (14:48)
[2021-03-22] MEDS: ERTAPENEM SODIUM 0.5 GM in SODIUM CHLORIDE 50 ML IVPB SCH (14:53)
[2021-03-22] MEDS: oxyCODONE HCL 5 MG TABLET PO PRN (17:59)
[2021-03-22] MEDS ORDERED: ONDANSETRON 4 MG/2 ML VIAL IVPUSH PRN (18:45)
[2021-03-22] MEDS: ATORVASTATIN CA 10 MG TABLET (FP) PO SCH (21:06)
[2021-03-22] MEDS: DOCUSATE SODIUM 100 MG CAPSULE (FP) PO SCH (21:06)
[2021-03-22] MEDS: LINEZOLID 600 MG TABLET (RESTRICTED TO ID) PO SCH (21:10)
[2021-03-23] MEDS: INSULIN SLIDING SCALE (NOVOLOG) 1 VIAL SQ SCH ×4 (06:18→21:54)
[2021-03-23] MEDS ORDERED: PT OWN MED DRAWER 7, Y5N ONE ×2 (09:06→21:51)
[2021-03-23] MEDS: ERTAPENEM SODIUM 0.5 GM in SODIUM CHLORIDE 50 ML IVPB SCH (09:17)
[2021-03-23] MEDS: cloNIDine HCL 0.1 MG TABLET PO SCH ×2 (09:18→21:53)
[2021-03-23] MEDS: CALCITRIOL 0.25 MCG CAPSULE (FP) PO SCH (09:18)
[2021-03-23] MEDS: CARVEDILOL 25 MG TABLET (FP) PO SCH ×2 (09:18→21:53)
[2021-03-23] MEDS: CLOPIDOGREL BISULFATE 75 MG TABLET (FP) PO SCH (09:18)
[2021-03-23] MEDS: HEPARIN NA (PORCINE) 5,000 UNITS/ML 1ML VIAL SQ SCH ×2 (09:18→21:53)
[2021-03-23] MEDS: FERROUS SO4 325 MG TABLET (FP) PO SCH (09:18)
[2021-03-23] MEDS: SEVELAMER CARBONATE 800 MG TAB (FP) PO SCH ×3 (09:18→16:51)
[2021-03-23] MEDS: GABAPENTIN 300 MG CAPSULE PO SCH ×2 (09:18→21:53)
[2021-03-23] MEDS: BISACODYL 5 MG TABLET.DR (FP) PO SCH (09:18)
[2021-03-23] MEDS: amLODIPine BESYLATE 10 MG TABLET (FP) PO SCH (09:18)
[2021-03-23] MEDS: LINEZOLID 600 MG TABLET (RESTRICTED TO ID) PO SCH ×2 (09:19→21:55)
[2021-03-23] MEDS: SILVER SULFADIAZINE 1% TOP CREAM 400 GM JAR TP SCH (11:50)
[2021-03-23] MEDS: AMINO ACIDS/PROTEIN HYDROLYS 30 ML LIQUID.PKT PO SCH (13:48)
[2021-03-23] MEDS: AMINO ACIDS 4.25%/D5W 1,000 ML IV SCH (16:38)
[2021-03-23] MEDS: ATORVASTATIN CA 10 MG TABLET (FP) PO SCH (21:53)
[2021-03-23] MEDS: DOCUSATE SODIUM 100 MG CAPSULE (FP) PO SCH (22:00)
[2021-03-24] MEDS: INSULIN SLIDING SCALE (NOVOLOG) 1 VIAL SQ SCH ×4 (06:09→21:19)
[2021-03-24] MEDS: SEVELAMER CARBONATE 800 MG TAB (FP) PO SCH ×3 (08:33→17:31)
[2021-03-24] MEDS: AMINO ACIDS/PROTEIN HYDROLYS 30 ML LIQUID.PKT PO SCH ×2 (08:33→09:17)
[2021-03-24] MEDS ORDERED: PT OWN MED DRAWER 7, Y5N ONE ×3 (09:21→21:14)
[2021-03-24] MEDS: FERROUS SO4 325 MG TABLET (FP) PO SCH (09:23)
[2021-03-24] MEDS: VITAMIN B COMP W-C 1 EA TABLET (NEPHRO-VITE) PO SCH (09:23)
[2021-03-24] MEDS: cloNIDine HCL 0.1 MG TABLET PO SCH (09:23)
[2021-03-24] MEDS: GABAPENTIN 300 MG CAPSULE PO SCH ×2 (09:23→21:17)
[2021-03-24] MEDS: HEPARIN NA (PORCINE) 5,000 UNITS/ML 1ML VIAL SQ SCH ×2 (09:24→21:10)
[2021-03-24] MEDS: CLOPIDOGREL BISULFATE 75 MG TABLET (FP) PO SCH (09:24)
[2021-03-24] MEDS: BISACODYL 5 MG TABLET.DR (FP) PO SCH (09:24)
[2021-03-24] MEDS: LINEZOLID 600 MG TABLET (RESTRICTED TO ID) PO SCH ×2 (09:24→21:10)
[2021-03-24] MEDS: CARVEDILOL 25 MG TABLET (FP) PO SCH ×2 (09:24→21:17)
[2021-03-24] MEDS: CALCITRIOL 0.25 MCG CAPSULE (FP) PO SCH (09:24)
[2021-03-24] MEDS: amLODIPine BESYLATE 10 MG TABLET (FP) PO SCH (09:24)
[2021-03-24] MEDS: SILVER SULFADIAZINE 1% TOP CREAM 400 GM JAR TP SCH (09:25)
[2021-03-24] MEDS: ERTAPENEM SODIUM 0.5 GM in SODIUM CHLORIDE 50 ML IVPB SCH (09:41)
[2021-03-24] MEDS ORDERED: SODIUM CHLORIDE 250 ML IV PRN (10:05)
[2021-03-24] MEDS ORDERED: EPOETIN ALFA-EPBX 10,000 UNIT/ML VIAL IVPUSH ONE (10:15)
[2021-03-24] MEDS: AMINO ACIDS 4.25%/D5W 1,000 ML IV SCH (11:22)
[2021-03-24 11:30] LABS: HEMATOCRIT 27.3 % (32.4-45.2); HEMOGLOBIN 8.6 GM/dL (10.7-15.3); MCH 26.8 pg (25.7-33.7); MCHC 31.5 g/dl (32.0-36.0); MEAN CELL VOLUME 85.2 fl (80-96); MEAN PLT VOLUME 8.8 fl (7.5-11.1); PLATELET COUNT 340 10^3/uL (134-434); WHITE BLOOD COUNT 18.3 K/mm3 (4.0-10.0)
[2021-03-24 11:48] LABS: CALCIUM 8.1 mg/dL (8.5-10.1)
[2021-03-24 11:52] LABS: CREATININE 5.5 mg/dL (0.55-1.3); PHOSPHOROUS 2.4 mg/dL (2.5-4.9)
[2021-03-24] MEDS: oxyCODONE HCL 5 MG TABLET PO PRN (17:31)
[2021-03-24] MEDS: MORPHINE SULFATE 2 MG/ML VIAL IVPUSH PRN (18:44)
[2021-03-24] MEDS: DOCUSATE SODIUM 100 MG CAPSULE (FP) PO SCH (21:10)
[2021-03-24] MEDS: ATORVASTATIN CA 10 MG TABLET (FP) PO SCH (21:11)
[2021-03-24] MEDS ORDERED: INSULIN (NOVOLOG) ASPART 100 UNITS/ML 10ML VIAL ONE (21:14)
[2021-03-25] MEDS: INSULIN SLIDING SCALE (NOVOLOG) 1 VIAL SQ SCH ×4 (06:45→21:32)
[2021-03-25] MEDS: SEVELAMER CARBONATE 800 MG TAB (FP) PO SCH ×3 (08:57→17:16)
[2021-03-25] MEDS: AMINO ACIDS/PROTEIN HYDROLYS 30 ML LIQUID.PKT PO SCH (08:58)
[2021-03-25] MEDS ORDERED: PT OWN MED DRAWER 7, Y5N ONE ×2 (10:42→21:11)
[2021-03-25] MEDS: HEPARIN NA (PORCINE) 5,000 UNITS/ML 1ML VIAL SQ SCH ×2 (10:46→21:32)
[2021-03-25] MEDS: CARVEDILOL 25 MG TABLET (FP) PO SCH ×2 (10:46→21:32)
[2021-03-25] MEDS: VITAMIN B COMP W-C 1 EA TABLET (NEPHRO-VITE) PO SCH (10:46)
[2021-03-25] MEDS: FERROUS SO4 325 MG TABLET (FP) PO SCH (10:46)
[2021-03-25] MEDS: amLODIPine BESYLATE 10 MG TABLET (FP) PO SCH (10:46)
[2021-03-25] MEDS: GABAPENTIN 300 MG CAPSULE PO SCH ×2 (10:46→21:32)
[2021-03-25] MEDS: CLOPIDOGREL BISULFATE 75 MG TABLET (FP) PO SCH (10:46)
[2021-03-25] MEDS: BISACODYL 5 MG TABLET.DR (FP) PO SCH (10:46)
[2021-03-25] MEDS: LINEZOLID 600 MG TABLET (RESTRICTED TO ID) PO SCH ×2 (10:47→21:33)
[2021-03-25] MEDS: CALCITRIOL 0.25 MCG CAPSULE (FP) PO SCH (10:47)
[2021-03-25] MEDS: DULoxetine HCL 20 MG CAPSULE.DR PO SCH (10:47)
[2021-03-25] MEDS: SILVER SULFADIAZINE 1% TOP CREAM 400 GM JAR TP SCH (10:48)
[2021-03-25] MEDS: ERTAPENEM SODIUM 0.5 GM in SODIUM CHLORIDE 50 ML IVPB SCH ×2 (10:57→11:43)
[2021-03-25] MEDS: oxyCODONE HCL 5 MG TABLET PO PRN (11:43)
[2021-03-25] MEDS: AMINO ACIDS 4.25%/D5W 1,000 ML IV SCH (12:54)
[2021-03-25] MEDS: MORPHINE SULFATE 2 MG/ML VIAL IVPUSH PRN (12:55)
[2021-03-25] MEDS: ATORVASTATIN CA 10 MG TABLET (FP) PO SCH (21:32)
[2021-03-25] MEDS: DOCUSATE SODIUM 100 MG CAPSULE (FP) PO SCH (21:32)
[2021-03-26] MEDS: INSULIN SLIDING SCALE (NOVOLOG) 1 VIAL SQ SCH ×4 (06:33→21:47)
[2021-03-26] MEDS: AMINO ACIDS/PROTEIN HYDROLYS 30 ML LIQUID.PKT PO SCH ×2 (08:57→09:02)
[2021-03-26] MEDS: SEVELAMER CARBONATE 800 MG TAB (FP) PO SCH ×3 (08:58→16:51)
[2021-03-26] MEDS ORDERED: PT OWN MED DRAWER 7, Y5N ONE ×2 (09:51→21:37)
[2021-03-26] MEDS: HEPARIN NA (PORCINE) 5,000 UNITS/ML 1ML VIAL SQ SCH ×2 (09:58→21:47)
[2021-03-26] MEDS: CLOPIDOGREL BISULFATE 75 MG TABLET (FP) PO SCH (10:00)
[2021-03-26] MEDS: FERROUS SO4 325 MG TABLET (FP) PO SCH (10:00)
[2021-03-26] MEDS: GABAPENTIN 300 MG CAPSULE PO SCH ×2 (10:00→21:47)
[2021-03-26] MEDS: CARVEDILOL 25 MG TABLET (FP) PO SCH ×2 (10:00→21:47)
[2021-03-26] MEDS: BISACODYL 5 MG TABLET.DR (FP) PO SCH (10:00)
[2021-03-26] MEDS: amLODIPine BESYLATE 10 MG TABLET (FP) PO SCH (10:00)
[2021-03-26] MEDS: VITAMIN B COMP W-C 1 EA TABLET (NEPHRO-VITE) PO SCH (10:00)
[2021-03-26] MEDS: ERTAPENEM SODIUM 0.5 GM in SODIUM CHLORIDE 50 ML IVPB SCH (10:01)
[2021-03-26] MEDS: SILVER SULFADIAZINE 1% TOP CREAM 400 GM JAR TP SCH (10:01)
[2021-03-26] MEDS: CALCITRIOL 0.25 MCG CAPSULE (FP) PO SCH (10:01)
[2021-03-26] MEDS: DULoxetine HCL 20 MG CAPSULE.DR PO SCH (10:01)
[2021-03-26] MEDS: LINEZOLID 600 MG TABLET (RESTRICTED TO ID) PO SCH ×2 (10:02→21:47)
[2021-03-26] MEDS ORDERED: INSULIN (NOVOLOG) ASPART 100 UNITS/ML 10ML VIAL ONE (11:33)
[2021-03-26] MEDS: AMINO ACIDS 4.25%/D5W 1,000 ML IV SCH (12:53)
[2021-03-26] MEDS ORDERED: SODIUM CHLORIDE 250 ML IV PRN (15:00)
[2021-03-26] MEDS ORDERED: EPOETIN ALFA-EPBX 10,000 UNIT/ML VIAL IVPUSH ONE (15:00)
[2021-03-26 15:26] LABS: HEMATOCRIT 28.9 % (32.4-45.2); HEMOGLOBIN 9.2 GM/dL (10.7-15.3); MCH 27.2 pg (25.7-33.7); MEAN CELL VOLUME 85.1 fl (80-96); MEAN PLT VOLUME 8.9 fl (7.5-11.1); PLATELET COUNT 342 10^3/uL (134-434); RDW 15.8 % (11.6-15.6); WHITE BLOOD COUNT 13.9 K/mm3 (4.0-10.0)
[2021-03-26 15:44] LABS: CALCIUM 8.6 mg/dL (8.5-10.1)
[2021-03-26 15:48] LABS: CREATININE 5.9 mg/dL (0.55-1.3); PHOSPHOROUS 3.6 mg/dL (2.5-4.9)
[2021-03-26] MEDS: DOCUSATE SODIUM 100 MG CAPSULE (FP) PO SCH (21:46)
[2021-03-26] MEDS: ATORVASTATIN CA 10 MG TABLET (FP) PO SCH (21:47)
[2021-03-27] MEDS: INSULIN SLIDING SCALE (NOVOLOG) 1 VIAL SQ SCH ×4 (06:04→21:23)
[2021-03-27] MEDS: MORPHINE SULFATE 2 MG/ML VIAL IVPUSH PRN (06:40)
[2021-03-27] MEDS: AMINO ACIDS/PROTEIN HYDROLYS 30 ML LIQUID.PKT PO SCH (08:02)
[2021-03-27] MEDS: SEVELAMER CARBONATE 800 MG TAB (FP) PO SCH ×4 (08:26→17:20)
[2021-03-27 08:55] LABS: BASO % 0.3 % (0-2.0); EOS % 1.2 % (0-4.5); HEMATOCRIT 32.1 % (32.4-45.2); HEMOGLOBIN 10.2 GM/dL (10.7-15.3); LYMPH % 10.6 % (8-40); MCH 27.3 pg (25.7-33.7); MCHC 31.6 g/dl (32.0-36.0); MEAN CELL VOLUME 86.2 fl (80-96); MEAN PLT VOLUME 9.1 fl (7.5-11.1); MONO % 6.7 % (3.8-10.2); NEUT % 81.2 % (42.8-82.8); PLATELET COUNT 336 10^3/uL (134-434); RBC 3.73 M/mm3 (3.60-5.2); RDW 15.3 % (11.6-15.6); WHITE BLOOD COUNT 12.3 K/mm3 (4.0-10.0)
[2021-03-27] MEDS ORDERED: PT OWN MED DRAWER 7, Y5N ONE ×4 (10:08→22:37)
[2021-03-27] MEDS: ERTAPENEM SODIUM 0.5 GM in SODIUM CHLORIDE 50 ML IVPB SCH (10:10)
[2021-03-27] MEDS: HEPARIN NA (PORCINE) 5,000 UNITS/ML 1ML VIAL SQ SCH ×2 (10:12→21:15)
[2021-03-27] MEDS: CALCITRIOL 0.25 MCG CAPSULE (FP) PO SCH (10:12)
[2021-03-27] MEDS: DULoxetine HCL 20 MG CAPSULE.DR PO SCH (10:12)
[2021-03-27] MEDS: FERROUS SO4 325 MG TABLET (FP) PO SCH (10:12)
[2021-03-27] MEDS: amLODIPine BESYLATE 10 MG TABLET (FP) PO SCH (10:12)
[2021-03-27] MEDS: VITAMIN B COMP W-C 1 EA TABLET (NEPHRO-VITE) PO SCH (10:12)
[2021-03-27] MEDS: CLOPIDOGREL BISULFATE 75 MG TABLET (FP) PO SCH (10:12)
[2021-03-27] MEDS: CARVEDILOL 25 MG TABLET (FP) PO SCH ×2 (10:12→21:15)
[2021-03-27] MEDS: SILVER SULFADIAZINE 1% TOP CREAM 400 GM JAR TP SCH (10:13)
[2021-03-27] MEDS: GABAPENTIN 300 MG CAPSULE PO SCH ×2 (10:13→21:15)
[2021-03-27] MEDS: BISACODYL 5 MG TABLET.DR (FP) PO SCH (10:13)
[2021-03-27] MEDS: LINEZOLID 600 MG TABLET (RESTRICTED TO ID) PO SCH ×2 (10:14→21:39)
[2021-03-27] MEDS: AMINO ACIDS 4.25%/D5W 1,000 ML IV SCH (12:01)
[2021-03-27] MEDS: MULTIVIT INJ. ADULT COMBO WITH VIT K 1 COMBO 10 ML VIAL IV SCH (15:08)
[2021-03-27] MEDS: DOCUSATE SODIUM 100 MG CAPSULE (FP) PO SCH ×2 (21:15→22:50)
[2021-03-27] MEDS: ATORVASTATIN CA 10 MG TABLET (FP) PO SCH (21:15)
[2021-03-27] MEDS: FAT EMULSION/OLIVE/SOY/PHOSPHO 250 ML IV SCH (21:30)
[2021-03-27] MEDS ORDERED: FAT EMULSION/OLIVE/SOY (CLINOLIPID) 250 ML EMULSION IV SCH (22:00)
[2021-03-28] MEDS: INSULIN SLIDING SCALE (NOVOLOG) 1 VIAL SQ SCH ×4 (06:22→22:03)
[2021-03-28] MEDS ORDERED: PT OWN MED DRAWER 7, Y5N ONE ×3 (09:42→18:07)
[2021-03-28] MEDS: FERROUS SO4 325 MG TABLET (FP) PO SCH (09:48)
[2021-03-28] MEDS: HEPARIN NA (PORCINE) 5,000 UNITS/ML 1ML VIAL SQ SCH ×2 (09:48→21:51)
[2021-03-28] MEDS: VITAMIN B COMP W-C 1 EA TABLET (NEPHRO-VITE) PO SCH (09:48)
[2021-03-28] MEDS: CLOPIDOGREL BISULFATE 75 MG TABLET (FP) PO SCH (09:48)
[2021-03-28] MEDS: BISACODYL 5 MG TABLET.DR (FP) PO SCH (09:48)
[2021-03-28] MEDS: GABAPENTIN 300 MG CAPSULE PO SCH ×2 (09:48→21:50)
[2021-03-28] MEDS: amLODIPine BESYLATE 10 MG TABLET (FP) PO SCH (09:48)
[2021-03-28] MEDS: CARVEDILOL 25 MG TABLET (FP) PO SCH ×2 (09:49→21:50)
[2021-03-28] MEDS: SEVELAMER CARBONATE 800 MG TAB (FP) PO SCH ×3 (09:49→17:58)
[2021-03-28] MEDS: AMINO ACIDS/PROTEIN HYDROLYS 30 ML LIQUID.PKT PO SCH (09:50)
[2021-03-28] MEDS: DULoxetine HCL 20 MG CAPSULE.DR PO SCH (09:50)
[2021-03-28] MEDS: CALCITRIOL 0.25 MCG CAPSULE (FP) PO SCH (09:50)
[2021-03-28] MEDS: MULTIVIT INJ. ADULT COMBO WITH VIT K 1 COMBO 10 ML VIAL IV SCH ×2 (10:00→17:58)
[2021-03-28] MEDS: LINEZOLID 600 MG TABLET (RESTRICTED TO ID) PO SCH ×2 (10:30→11:55)
[2021-03-28] MEDS: ERTAPENEM SODIUM 0.5 GM in SODIUM CHLORIDE 50 ML IVPB SCH (11:02)
[2021-03-28] MEDS: SILVER SULFADIAZINE 1% TOP CREAM 400 GM JAR TP SCH (11:50)
[2021-03-28] MEDS ORDERED: SODIUM CHLORIDE 250 ML IV PRN (12:30)
[2021-03-28] MEDS: AMINO ACIDS 4.25%/D5W 1,000 ML IV SCH ×2 (12:48→17:57)
[2021-03-28] MEDS: ATORVASTATIN CA 10 MG TABLET (FP) PO SCH (21:50)
[2021-03-28] MEDS: FAT EMULSION/OLIVE/SOY/PHOSPHO 250 ML IV SCH (21:50)
[2021-03-28] MEDS: DOCUSATE SODIUM 100 MG CAPSULE (FP) PO SCH (21:50)
[2021-03-29] MEDS: INSULIN SLIDING SCALE (NOVOLOG) 1 VIAL SQ SCH ×4 (06:06→22:44)
[2021-03-29] MEDS ORDERED: PT OWN MED DRAWER 7, Y5N ONE (09:20)
[2021-03-29] MEDS: CALCITRIOL 0.25 MCG CAPSULE (FP) PO SCH (09:23)
[2021-03-29] MEDS: GABAPENTIN 300 MG CAPSULE PO SCH ×2 (09:23→22:44)
[2021-03-29] MEDS: VITAMIN B COMP W-C 1 EA TABLET (NEPHRO-VITE) PO SCH (09:24)
[2021-03-29] MEDS: amLODIPine BESYLATE 10 MG TABLET (FP) PO SCH (09:24)
[2021-03-29] MEDS: FERROUS SO4 325 MG TABLET (FP) PO SCH (09:24)
[2021-03-29] MEDS: DULoxetine HCL 20 MG CAPSULE.DR PO SCH (09:24)
[2021-03-29] MEDS: SEVELAMER CARBONATE 800 MG TAB (FP) PO SCH ×3 (09:25→17:31)
[2021-03-29] MEDS: CLOPIDOGREL BISULFATE 75 MG TABLET (FP) PO SCH (09:25)
[2021-03-29] MEDS: CARVEDILOL 25 MG TABLET (FP) PO SCH ×2 (09:25→22:42)
[2021-03-29] MEDS: HEPARIN NA (PORCINE) 5,000 UNITS/ML 1ML VIAL SQ SCH ×2 (09:25→22:43)
[2021-03-29] MEDS: MULTIVIT INJ. ADULT COMBO WITH VIT K 1 COMBO 10 ML VIAL IV SCH (09:26)
[2021-03-29] MEDS: AMINO ACIDS/PROTEIN HYDROLYS 30 ML LIQUID.PKT PO SCH (09:33)
[2021-03-29] MEDS: BISACODYL 5 MG TABLET.DR (FP) PO SCH (09:35)
[2021-03-29] MEDS: LINEZOLID 600 MG TABLET (RESTRICTED TO ID) PO SCH ×2 (09:36→22:44)
[2021-03-29] MEDS: SILVER SULFADIAZINE 1% TOP CREAM 400 GM JAR TP SCH (09:36)
[2021-03-29] MEDS: ERTAPENEM SODIUM 0.5 GM in SODIUM CHLORIDE 50 ML IVPB SCH (09:52)
[2021-03-29] MEDS: AMINO ACIDS 4.25%/D5W 1,000 ML IV SCH (11:58)
[2021-03-29] MEDS ORDERED: EPOETIN ALFA-EPBX 4,000 UNIT/ML VIAL IVPUSH ONE (12:15)
[2021-03-29 12:35] LABS: HEMATOCRIT 28.1 % (32.4-45.2); HEMOGLOBIN 9.1 GM/dL (10.7-15.3); MCH 27.3 pg (25.7-33.7); MCHC 32.5 g/dl (32.0-36.0); MEAN CELL VOLUME 83.9 fl (80-96); MEAN PLT VOLUME 8.4 fl (7.5-11.1); PLATELET COUNT 336 10^3/uL (134-434); RBC 3.35 M/mm3 (3.60-5.2); RDW 15.3 % (11.6-15.6); WHITE BLOOD COUNT 13.7 K/mm3 (4.0-10.0)
[2021-03-29 13:00] LABS: BLOOD UREA NITROGEN 66.3 mg/dL (7-18); CALCIUM 8.3 mg/dL (8.5-10.1)
[2021-03-29 13:04] LABS: CREATININE 6.7 mg/dL (0.55-1.3); PHOSPHOROUS 3.5 mg/dL (2.5-4.9)
[2021-03-29] MEDS ORDERED: amLODIPine BESYLATE 5 MG TABLET (FP) PO ONE (13:22)
[2021-03-29 16:58] LABS: MAGNESIUM 2.2 mg/dL (1.8-2.4)
[2021-03-29] MEDS: oxyCODONE HCL 5 MG TABLET PO PRN ×2 (17:31)
[2021-03-29] MEDS: FAT EMULSION/OLIVE/SOY/PHOSPHO 250 ML IV SCH (22:42)
[2021-03-29] MEDS: DOCUSATE SODIUM 100 MG CAPSULE (FP) PO SCH ×2 (22:43)
[2021-03-29] MEDS: ATORVASTATIN CA 10 MG TABLET (FP) PO SCH (22:43)
[2021-03-30] MEDS: INSULIN SLIDING SCALE (NOVOLOG) 1 VIAL SQ SCH ×4 (06:09→23:22)
[2021-03-30] MEDS: SEVELAMER CARBONATE 800 MG TAB (FP) PO SCH ×3 (09:00→17:26)
[2021-03-30] MEDS: AMINO ACIDS/PROTEIN HYDROLYS 30 ML LIQUID.PKT PO SCH (09:15)
[2021-03-30] MEDS ORDERED: PT OWN MED DRAWER 7, Y5N ONE ×2 (09:21→23:12)
[2021-03-30] MEDS: CALCITRIOL 0.25 MCG CAPSULE (FP) PO SCH (09:32)
[2021-03-30] MEDS: CLOPIDOGREL BISULFATE 75 MG TABLET (FP) PO SCH (09:33)
[2021-03-30] MEDS: CARVEDILOL 25 MG TABLET (FP) PO SCH ×2 (09:33→23:22)
[2021-03-30] MEDS: VITAMIN B COMP W-C 1 EA TABLET (NEPHRO-VITE) PO SCH (09:33)
[2021-03-30] MEDS: BISACODYL 5 MG TABLET.DR (FP) PO SCH (09:33)
[2021-03-30] MEDS: HEPARIN NA (PORCINE) 5,000 UNITS/ML 1ML VIAL SQ SCH ×2 (09:33→23:19)
[2021-03-30] MEDS: DULoxetine HCL 20 MG CAPSULE.DR PO SCH (09:33)
[2021-03-30] MEDS: GABAPENTIN 300 MG CAPSULE PO SCH ×2 (09:33→23:19)
[2021-03-30] MEDS: FERROUS SO4 325 MG TABLET (FP) PO SCH (09:33)
[2021-03-30] MEDS: amLODIPine BESYLATE 10 MG TABLET (FP) PO SCH (09:33)
[2021-03-30] MEDS: SILVER SULFADIAZINE 1% TOP CREAM 400 GM JAR TP SCH (09:34)
[2021-03-30] MEDS: LINEZOLID 600 MG TABLET (RESTRICTED TO ID) PO SCH ×2 (09:34→23:23)
[2021-03-30] MEDS: ERTAPENEM SODIUM 0.5 GM in SODIUM CHLORIDE 50 ML IVPB SCH (09:35)
[2021-03-30 10:01] LABS: CREATININE 3.6 mg/dL (0.55-1.3)
[2021-03-30 10:02] LABS: BILIRUBIN,TOTAL 0.5 mg/dL (0.2-1); TOT PROT 6.6 g/dl (6.4-8.2)
[2021-03-30 10:06] LABS: CALCIUM 8.8 mg/dL (8.5-10.1)
[2021-03-30 10:09] LABS: BLOOD UREA NITROGEN 29.5 mg/dL (7-18)
[2021-03-30] MEDS: MULTIVIT INJ. ADULT COMBO WITH VIT K 1 COMBO 10 ML VIAL IV SCH (15:03)
[2021-03-30] MEDS: AMINO ACIDS 4.25%/D5W 1,000 ML IV SCH (15:03)
[2021-03-30] MEDS: ATORVASTATIN CA 10 MG TABLET (FP) PO SCH (23:19)
[2021-03-30] MEDS: DOCUSATE SODIUM 100 MG CAPSULE (FP) PO SCH (23:19)
[2021-03-30] MEDS: FAT EMULSION/OLIVE/SOY/PHOSPHO 250 ML IV SCH (23:24)
[2021-03-31] MEDS: INSULIN SLIDING SCALE (NOVOLOG) 1 VIAL SQ SCH ×4 (06:22→22:14)
[2021-03-31] MEDS ORDERED: PT OWN MED DRAWER 7, Y5N ONE ×2 (09:11→12:30)
[2021-03-31] MEDS ORDERED: SODIUM CHLORIDE 250 ML IV PRN (10:21)
[2021-03-31] MEDS: ERTAPENEM SODIUM 0.5 GM in SODIUM CHLORIDE 50 ML IVPB SCH (10:27)
[2021-03-31] MEDS: DULoxetine HCL 20 MG CAPSULE.DR PO SCH (10:28)
[2021-03-31] MEDS: CALCITRIOL 0.25 MCG CAPSULE (FP) PO SCH (10:28)
[2021-03-31] MEDS: SEVELAMER CARBONATE 800 MG TAB (FP) PO SCH ×3 (10:30→18:11)
[2021-03-31] MEDS: BISACODYL 5 MG TABLET.DR (FP) PO SCH (10:31)
[2021-03-31] MEDS: amLODIPine BESYLATE 10 MG TABLET (FP) PO SCH (10:31)
[2021-03-31] MEDS: AMINO ACIDS/PROTEIN HYDROLYS 30 ML LIQUID.PKT PO SCH (10:31)
[2021-03-31] MEDS: CARVEDILOL 25 MG TABLET (FP) PO SCH ×2 (10:31→22:05)
[2021-03-31] MEDS: VITAMIN B COMP W-C 1 EA TABLET (NEPHRO-VITE) PO SCH (10:31)
[2021-03-31] MEDS: GABAPENTIN 300 MG CAPSULE PO SCH ×2 (10:31→22:04)
[2021-03-31] MEDS: FERROUS SO4 325 MG TABLET (FP) PO SCH (10:31)
[2021-03-31] MEDS: HEPARIN NA (PORCINE) 5,000 UNITS/ML 1ML VIAL SQ SCH ×2 (10:32→22:04)
[2021-03-31 11:05] LABS: BASO % 0.7 % (0-2.0); EOS % 3.6 % (0-4.5); HEMOGLOBIN 10.1 GM/dL (10.7-15.3); LYMPH % 11.1 % (8-40); MCH 27.2 pg (25.7-33.7); MCHC 32.4 g/dl (32.0-36.0); MEAN PLT VOLUME 8.1 fl (7.5-11.1); MONO % 4.8 % (3.8-10.2); NEUT % 79.8 % (42.8-82.8); PLATELET COUNT 367 10^3/uL (134-434); RDW 15.9 % (11.6-15.6)
[2021-03-31 11:34] LABS: BLOOD UREA NITROGEN 51.1 mg/dL (7-18); CALCIUM 8.2 mg/dL (8.5-10.1)
[2021-03-31 11:37] LABS: CREATININE 5.1 mg/dL (0.55-1.3)
[2021-03-31] MEDS: SILVER SULFADIAZINE 1% TOP CREAM 400 GM JAR TP SCH (11:53)
[2021-03-31] MEDS: LINEZOLID 600 MG TABLET (RESTRICTED TO ID) PO SCH (11:53)
[2021-03-31] MEDS: AMINO ACIDS 4.25%/D5W 1,000 ML IV SCH (11:58)
[2021-03-31] MEDS ORDERED: EPOETIN ALFA-EPBX 10,000 UNIT/ML VIAL IVPUSH ONE (15:00)
[2021-03-31] MEDS: MULTIVIT INJ. ADULT COMBO WITH VIT K 1 COMBO 10 ML VIAL IV SCH (15:00)
[2021-03-31] MEDS: DOCUSATE SODIUM 100 MG CAPSULE (FP) PO SCH (22:04)
[2021-03-31] MEDS: FAT EMULSION/OLIVE/SOY/PHOSPHO 250 ML IV SCH (22:04)
[2021-03-31] MEDS: ATORVASTATIN CA 10 MG TABLET (FP) PO SCH (22:05)
[2021-04-01] MEDS: INSULIN SLIDING SCALE (NOVOLOG) 1 VIAL SQ SCH ×4 (06:26→21:51)
[2021-04-01] MEDS: AMINO ACIDS/PROTEIN HYDROLYS 30 ML LIQUID.PKT PO SCH (08:18)
[2021-04-01] MEDS: SEVELAMER CARBONATE 800 MG TAB (FP) PO SCH ×3 (08:18→17:23)
[2021-04-01 09:31] LABS: INR 1.07 (0.83-1.09); PROTHROMBIN TIME (PATIENT) 13.1 SEC (9.7-13.0)
[2021-04-01] MEDS ORDERED: PT OWN MED DRAWER 7, Y5N ONE ×3 (09:34→21:46)
[2021-04-01 09:41] LABS: HEMATOCRIT 31.9 % (32.4-45.2); HEMOGLOBIN 10.4 GM/dL (10.7-15.3); MCH 27.7 pg (25.7-33.7); MCHC 32.7 g/dl (32.0-36.0); MEAN CELL VOLUME 84.9 fl (80-96); MEAN PLT VOLUME 8.8 fl (7.5-11.1); PLATELET COUNT 360 10^3/uL (134-434); RBC 3.75 M/mm3 (3.60-5.2); RDW 16.3 % (11.6-15.6)
[2021-04-01] MEDS: HEPARIN NA (PORCINE) 5,000 UNITS/ML 1ML VIAL SQ SCH ×2 (09:43→21:51)
[2021-04-01] MEDS: ERTAPENEM SODIUM 0.5 GM in SODIUM CHLORIDE 50 ML IVPB SCH (09:43)
[2021-04-01] MEDS: BISACODYL 5 MG TABLET.DR (FP) PO SCH (09:44)
[2021-04-01] MEDS: CARVEDILOL 25 MG TABLET (FP) PO SCH ×2 (09:44→21:52)
[2021-04-01] MEDS: FERROUS SO4 325 MG TABLET (FP) PO SCH (09:44)
[2021-04-01] MEDS: GABAPENTIN 300 MG CAPSULE PO SCH ×2 (09:44→21:52)
[2021-04-01] MEDS: DULoxetine HCL 20 MG CAPSULE.DR PO SCH (09:44)
[2021-04-01] MEDS: VITAMIN B COMP W-C 1 EA TABLET (NEPHRO-VITE) PO SCH (09:44)
[2021-04-01] MEDS: amLODIPine BESYLATE 10 MG TABLET (FP) PO SCH (09:45)
[2021-04-01] MEDS: CALCITRIOL 0.25 MCG CAPSULE (FP) PO SCH (09:45)
[2021-04-01] MEDS: SILVER SULFADIAZINE 1% TOP CREAM 400 GM JAR TP SCH (09:45)
[2021-04-01 10:27] LABS: ANISOCYTOSIS 1+; MACROCYTOSIS 0; PLATELET ESTIMATE NORMAL
[2021-04-01] MEDS: MULTIVIT INJ. ADULT COMBO WITH VIT K 1 COMBO 10 ML VIAL IV SCH (15:02)
[2021-04-01] MEDS: AMINO ACIDS 4.25%/D5W 1,000 ML IV SCH (15:10)
[2021-04-01] MEDS ORDERED: INSULIN (NOVOLOG) ASPART 100 UNITS/ML 10ML VIAL ONE (21:45)
[2021-04-01] MEDS: ATORVASTATIN CA 10 MG TABLET (FP) PO SCH (21:52)
[2021-04-01] MEDS: DOCUSATE SODIUM 100 MG CAPSULE (FP) PO SCH (21:52)
[2021-04-01] MEDS: ACETAMINOPHEN 325 MG TABLET (FP) PO PRN (21:52)
[2021-04-01] MEDS: FAT EMULSION/OLIVE/SOY/PHOSPHO 250 ML IV SCH (22:37)
[2021-04-02] MEDS: INSULIN SLIDING SCALE (NOVOLOG) 1 VIAL SQ SCH ×5 (06:02→21:52)
[2021-04-02] MEDS ORDERED: SODIUM CHLORIDE 250 ML IV PRN (08:00)
[2021-04-02] MEDS ORDERED: EPOETIN ALFA-EPBX 3,000 UNIT, EPOETIN ALFA-EPBX 2,000 UNIT IVPUSH ONE (08:00)
[2021-04-02] MEDS: AMINO ACIDS/PROTEIN HYDROLYS 30 ML LIQUID.PKT PO SCH (08:36)
[2021-04-02] MEDS: SEVELAMER CARBONATE 800 MG TAB (FP) PO SCH ×3 (08:36→17:31)
[2021-04-02] MEDS ORDERED: PT OWN MED DRAWER 7, Y5N ONE ×4 (09:22→22:45)
[2021-04-02 09:23] LABS: BASO % 0.6 % (0-2.0); EOS % 3.1 % (0-4.5); HEMATOCRIT 28.4 % (32.4-45.2); HEMOGLOBIN 9.2 GM/dL (10.7-15.3); MCH 27.6 pg (25.7-33.7); MCHC 32.4 g/dl (32.0-36.0); MEAN CELL VOLUME 85.3 fl (80-96); MEAN PLT VOLUME 8.3 fl (7.5-11.1); MONO % 6.1 % (3.8-10.2); NEUT % 78.2 % (42.8-82.8); PLATELET COUNT 356 10^3/uL (134-434); RBC 3.33 M/mm3 (3.60-5.2); RDW 16.8 % (11.6-15.6); WHITE BLOOD COUNT 13.5 K/mm3 (4.0-10.0)
[2021-04-02] MEDS: HEPARIN NA (PORCINE) 5,000 UNITS/ML 1ML VIAL SQ SCH ×2 (09:24→21:47)
[2021-04-02] MEDS: CARVEDILOL 25 MG TABLET (FP) PO SCH ×2 (09:41→21:48)
[2021-04-02] MEDS: CALCITRIOL 0.25 MCG CAPSULE (FP) PO SCH ×2 (09:42→12:23)
[2021-04-02] MEDS: amLODIPine BESYLATE 10 MG TABLET (FP) PO SCH ×2 (09:42→12:22)
[2021-04-02] MEDS: MULTIVIT INJ. ADULT COMBO WITH VIT K 1 COMBO 10 ML VIAL IV SCH (09:42)
[2021-04-02] MEDS: BISACODYL 5 MG TABLET.DR (FP) PO SCH (09:42)
[2021-04-02] MEDS: GABAPENTIN 300 MG CAPSULE PO SCH ×3 (09:42→21:48)
[2021-04-02] MEDS: FERROUS SO4 325 MG TABLET (FP) PO SCH ×2 (09:42→12:25)
[2021-04-02] MEDS: VITAMIN B COMP W-C 1 EA TABLET (NEPHRO-VITE) PO SCH ×2 (09:42→12:23)
[2021-04-02] MEDS: DULoxetine HCL 20 MG CAPSULE.DR PO SCH (09:43)
[2021-04-02] MEDS: SILVER SULFADIAZINE 1% TOP CREAM 400 GM JAR TP SCH (09:43)
[2021-04-02 10:09] LABS: BLOOD UREA NITROGEN 38.4 mg/dL (7-18); CALCIUM 8.1 mg/dL (8.5-10.1)
[2021-04-02 10:12] LABS: CREATININE 4.9 mg/dL (0.55-1.3)
[2021-04-02] MEDS: ERTAPENEM SODIUM 0.5 GM in SODIUM CHLORIDE 50 ML IVPB SCH ×2 (11:31→12:35)
[2021-04-02] MEDS: FAT EMULSION/OLIVE/SOY/PHOSPHO 250 ML IV SCH ×2 (12:47→21:48)
[2021-04-02] MEDS: AMINO ACIDS 4.25%/D5W 1,000 ML IV SCH (12:47)
[2021-04-02] MEDS ORDERED: EPOETIN ALFA-EPBX 4,000 UNIT/ML VIAL SQ ONE (14:34)
[2021-04-02] MEDS: oxyCODONE HCL 5 MG TABLET PO PRN (15:04)
[2021-04-02] MEDS: ACETAMINOPHEN 325 MG TABLET (FP) PO PRN (21:47)
[2021-04-02] MEDS: DOCUSATE SODIUM 100 MG CAPSULE (FP) PO SCH (21:48)
[2021-04-02] MEDS: ATORVASTATIN CA 10 MG TABLET (FP) PO SCH (21:48)
[2021-04-03] MEDS: ACETAMINOPHEN 325 MG TABLET (FP) PO PRN ×3 (04:53→23:28)
[2021-04-03] MEDS: INSULIN SLIDING SCALE (NOVOLOG) 1 VIAL SQ SCH ×4 (06:05→23:33)
[2021-04-03] MEDS: SEVELAMER CARBONATE 800 MG TAB (FP) PO SCH ×3 (08:00→17:46)
[2021-04-03 08:21] LABS: HEMOGLOBIN 10.1 GM/dL (10.7-15.3); MCH 27.3 pg (25.7-33.7); MCHC 31.7 g/dl (32.0-36.0); MEAN CELL VOLUME 86.1 fl (80-96); MEAN PLT VOLUME 8.6 fl (7.5-11.1); PLATELET COUNT 313 10^3/uL (134-434); RBC 3.72 M/mm3 (3.60-5.2); RDW 16.9 % (11.6-15.6); WHITE BLOOD COUNT 16.2 K/mm3 (4.0-10.0)
[2021-04-03 09:02] LABS: ANISOCYTOSIS 1+; PLATELET ESTIMATE NORMAL
[2021-04-03] MEDS ORDERED: PT OWN MED DRAWER 7, Y5N ONE ×2 (09:42→12:16)
[2021-04-03] MEDS: CARVEDILOL 25 MG TABLET (FP) PO SCH ×2 (09:55→23:26)
[2021-04-03] MEDS: HEPARIN NA (PORCINE) 5,000 UNITS/ML 1ML VIAL SQ SCH ×2 (09:55→23:27)
[2021-04-03] MEDS: VITAMIN B COMP W-C 1 EA TABLET (NEPHRO-VITE) PO SCH (09:55)
[2021-04-03] MEDS: AMINO ACIDS/PROTEIN HYDROLYS 30 ML LIQUID.PKT PO SCH (09:55)
[2021-04-03] MEDS: amLODIPine BESYLATE 10 MG TABLET (FP) PO SCH (09:55)
[2021-04-03] MEDS: FERROUS SO4 325 MG TABLET (FP) PO SCH (09:55)
[2021-04-03] MEDS: GABAPENTIN 300 MG CAPSULE PO SCH ×2 (09:55→23:28)
[2021-04-03] MEDS: DULoxetine HCL 20 MG CAPSULE.DR PO SCH (09:55)
[2021-04-03] MEDS: CALCITRIOL 0.25 MCG CAPSULE (FP) PO SCH (09:56)
[2021-04-03] MEDS: SILVER SULFADIAZINE 1% TOP CREAM 400 GM JAR TP SCH (09:56)
[2021-04-03] MEDS: ERTAPENEM SODIUM 0.5 GM in SODIUM CHLORIDE 50 ML IVPB SCH (09:56)
[2021-04-03] MEDS: AMINO ACIDS 4.25%/D5W 1,000 ML IV SCH (14:30)
[2021-04-03] MEDS: MULTIVIT INJ. ADULT COMBO WITH VIT K 1 COMBO 10 ML VIAL IV SCH (14:31)
[2021-04-03] MEDS ORDERED: VANCOMYCIN 1 GRAM (PRE-DOCKED) 1 GM/200 ML BAG IVPB ONE (18:05)
[2021-04-03] MEDS ORDERED: MEROPENEM 500 MG in DEXTROSE 5%-WATER 100 ML IVPB SCH (18:15)
[2021-04-03] MEDS: ATORVASTATIN CA 10 MG TABLET (FP) PO SCH (23:28)
[2021-04-03] MEDS: FAT EMULSION/OLIVE/SOY/PHOSPHO 250 ML IV SCH (23:28)
[2021-04-03] MEDS: DOCUSATE SODIUM 100 MG CAPSULE (FP) PO SCH (23:29)
[2021-04-04] MEDS ORDERED: INSULIN (NOVOLOG) ASPART 100 UNITS/ML 10ML VIAL ONE (05:53)
[2021-04-04] MEDS: INSULIN SLIDING SCALE (NOVOLOG) 1 VIAL SQ SCH ×4 (06:10→22:19)
[2021-04-04] MEDS ORDERED: DEXTROSE 5%-WATER 100 ML IVPB ONE ×2 (06:19→18:04)
[2021-04-04] MEDS ORDERED: MEROPENEM 500 MG VIAL (RESTRICTED TO ID) IVPB ONE ×2 (06:19→18:04)
[2021-04-04] MEDS ORDERED: LIDOCAINE HCL 1%, 10 MG/ML (20ML VIAL) ONE (08:08)
[2021-04-04] MEDS ORDERED: DEXAMETHASONE SOD PHOSPHATE 4 MG/1 ML VIAL ONE (08:08)
[2021-04-04] MEDS ORDERED: BACITRACIN 15 GM TUBE TOPICAL OINTMENT ONE (08:08)
[2021-04-04] MEDS ORDERED: BUPIVACAINE HCL/PF 0.5% (5MG/ML) 10 ML VIAL ONE (08:08)
[2021-04-04 08:42] LABS: BASO % 0.5 % (0-2.0); HEMATOCRIT 29.8 % (32.4-45.2); HEMOGLOBIN 9.7 GM/dL (10.7-15.3); LYMPH % 8.1 % (8-40); MCHC 32.4 g/dl (32.0-36.0); MEAN CELL VOLUME 86.5 fl (80-96); MEAN PLT VOLUME 8.7 fl (7.5-11.1); MONO % 7.4 % (3.8-10.2); PLATELET COUNT 256 10^3/uL (134-434); RBC 3.44 M/mm3 (3.60-5.2); RDW 17.6 % (11.6-15.6); WHITE BLOOD COUNT 14.9 K/mm3 (4.0-10.0)
[2021-04-04 09:12] LABS: CALCIUM 7.6 mg/dL (8.5-10.1)
[2021-04-04 09:13] LABS: BLOOD UREA NITROGEN 43.8 mg/dL (7-18)
[2021-04-04 09:16] LABS: CREATININE 5.6 mg/dL (0.55-1.3)
[2021-04-04] MEDS: SEVELAMER CARBONATE 800 MG TAB (FP) PO SCH ×3 (09:18→18:12)
[2021-04-04] MEDS: AMINO ACIDS/PROTEIN HYDROLYS 30 ML LIQUID.PKT PO SCH (09:18)
[2021-04-04] MEDS: DULoxetine HCL 20 MG CAPSULE.DR PO SCH (09:19)
[2021-04-04] MEDS: CARVEDILOL 25 MG TABLET (FP) PO SCH ×2 (09:19→22:02)
[2021-04-04] MEDS: GABAPENTIN 300 MG CAPSULE PO SCH ×2 (09:19→22:02)
[2021-04-04] MEDS: FERROUS SO4 325 MG TABLET (FP) PO SCH (09:19)
[2021-04-04] MEDS: amLODIPine BESYLATE 10 MG TABLET (FP) PO SCH (09:19)
[2021-04-04] MEDS: VITAMIN B COMP W-C 1 EA TABLET (NEPHRO-VITE) PO SCH (09:19)
[2021-04-04] MEDS: SILVER SULFADIAZINE 1% TOP CREAM 400 GM JAR TP SCH (09:20)
[2021-04-04] MEDS: CALCITRIOL 0.25 MCG CAPSULE (FP) PO SCH (09:20)
[2021-04-04] MEDS ORDERED: MIDAZOLAM HCL 2 MG/2 ML SINGLE DOSE VIAL ONE (09:28)
[2021-04-04] MEDS: MULTIVIT INJ. ADULT COMBO WITH VIT K 1 COMBO 10 ML VIAL IV SCH ×2 (09:30→16:13)
[2021-04-04] MEDS ORDERED: BUPIVACAINE HCL/PF 0.5% (5MG/ML) 10 ML VIAL IJ ONE (09:40)
[2021-04-04] MEDS ORDERED: LIDOCAINE HCL 1%, 10 MG/ML (50 mL VIAL) INF ONE (09:40)
[2021-04-04] MEDS ORDERED: VANCOMYCIN 1 GRAM (PRE-DOCKED) 1 GM/200 ML BAG IVPB ONE (10:30)
[2021-04-04] MEDS ORDERED: ONDANSETRON 4 MG/2 ML VIAL IVPUSH PRN (10:30)
[2021-04-04] MEDS ORDERED: oxyCODONE HCL 5 MG TABLET PO PRN (10:30)
[2021-04-04 11:55] LABS: BASO % 0.6 % (0-2.0); EOS % 1.2 % (0-4.5); HEMATOCRIT 27.5 % (32.4-45.2); HEMOGLOBIN 8.9 GM/dL (10.7-15.3); MCHC 32.3 g/dl (32.0-36.0); MEAN CELL VOLUME 86.7 fl (80-96); MEAN PLT VOLUME 8.8 fl (7.5-11.1); MONO % 8.4 % (3.8-10.2); NEUT % 80.8 % (42.8-82.8); PLATELET COUNT 238 10^3/uL (134-434); RBC 3.18 M/mm3 (3.60-5.2); RDW 17.5 % (11.6-15.6); WHITE BLOOD COUNT 14.4 K/mm3 (4.0-10.0)
[2021-04-04] MEDS ORDERED: AMINO ACIDS 4.25%/D5W 1,000 ML IV SCH (12:00)
[2021-04-04] MEDS ORDERED: VANCOMYCIN 1 GRAM (PRE-DOCKED) 1,000 MG/250 ML BAG IVPB ONE (13:30)
[2021-04-04] MEDS: MEROPENEM 500 MG in DEXTROSE 5%-WATER 100 ML IVPB SCH (18:12)
[2021-04-04] MEDS ORDERED: INSULIN (LEVEMIR) 100 UNITS/ML UNITS SQ SCH ×2 (22:00)
[2021-04-04] MEDS ORDERED: FAT EMULSION/OLIVE/SOY/PHOSPHO 250 ML IV SCH (22:00)
[2021-04-04] MEDS: ATORVASTATIN CA 10 MG TABLET (FP) PO SCH (22:02)
[2021-04-04] MEDS: DOCUSATE SODIUM 100 MG CAPSULE (FP) PO SCH (22:02)
[2021-04-04] MEDS: HEPARIN NA (PORCINE) 5,000 UNITS/ML 1ML VIAL SQ SCH (22:03)
[2021-04-05] MEDS ORDERED: DEXTROSE 5%-WATER 100 ML IVPB ONE ×2 (06:03→17:28)
[2021-04-05] MEDS ORDERED: MEROPENEM 500 MG VIAL (RESTRICTED TO ID) IVPB ONE ×2 (06:03→17:26)
[2021-04-05] MEDS: MEROPENEM 500 MG in DEXTROSE 5%-WATER 100 ML IVPB SCH ×2 (06:05→17:32)
[2021-04-05] MEDS: INSULIN SLIDING SCALE (NOVOLOG) 1 VIAL SQ SCH ×4 (06:27→21:29)
[2021-04-05] MEDS ORDERED: SODIUM CHLORIDE 250 ML IV PRN (07:21)
[2021-04-05] MEDS ORDERED: EPOETIN ALFA-EPBX 10,000 UNIT/ML VIAL IVPUSH ONE (07:30)
[2021-04-05] MEDS: SEVELAMER CARBONATE 800 MG TAB (FP) PO SCH ×3 (08:19→17:32)
[2021-04-05] MEDS: AMINO ACIDS/PROTEIN HYDROLYS 30 ML LIQUID.PKT PO SCH (08:20)
[2021-04-05] MEDS: BISACODYL 5 MG TABLET.DR (FP) PO SCH (10:00)
[2021-04-05] MEDS: SILVER SULFADIAZINE 1% TOP CREAM 400 GM JAR TP SCH (10:00)
[2021-04-05] MEDS: VITAMIN B COMP W-C 1 EA TABLET (NEPHRO-VITE) PO SCH (10:00)
[2021-04-05] MEDS: GABAPENTIN 300 MG CAPSULE PO SCH ×2 (10:00→21:28)
[2021-04-05] MEDS: FERROUS SO4 325 MG TABLET (FP) PO SCH (10:00)
[2021-04-05] MEDS: amLODIPine BESYLATE 10 MG TABLET (FP) PO SCH (10:00)
[2021-04-05] MEDS: CALCITRIOL 0.25 MCG CAPSULE (FP) PO SCH (10:00)
[2021-04-05] MEDS: DULoxetine HCL 20 MG CAPSULE.DR PO SCH (10:36)
[2021-04-05] MEDS: CARVEDILOL 25 MG TABLET (FP) PO SCH ×2 (10:36→21:28)
[2021-04-05] MEDS: HEPARIN NA (PORCINE) 5,000 UNITS/ML 1ML VIAL SQ SCH ×2 (10:38→21:29)
[2021-04-05 10:40] LABS: BASO % 0.6 % (0-2.0); EOS % 2.7 % (0-4.5); HEMATOCRIT 26.2 % (32.4-45.2); HEMOGLOBIN 8.5 GM/dL (10.7-15.3); LYMPH % 16.2 % (8-40); MCH 27.7 pg (25.7-33.7); MCHC 32.5 g/dl (32.0-36.0); MEAN CELL VOLUME 85.1 fl (80-96); MEAN PLT VOLUME 9.5 fl (7.5-11.1); MONO % 10.9 % (3.8-10.2); NEUT % 69.6 % (42.8-82.8); PLATELET COUNT 270 10^3/uL (134-434); RBC 3.07 M/mm3 (3.60-5.2); RDW 17.7 % (11.6-15.6); WHITE BLOOD COUNT 13.4 K/mm3 (4.0-10.0)
[2021-04-05 10:58] LABS: BLOOD UREA NITROGEN 56.2 mg/dL (7-18)
[2021-04-05 11:01] LABS: CREATININE 7.4 mg/dL (0.55-1.3)
[2021-04-05 11:02] LABS: PHOSPHOROUS 1.6 mg/dL (2.5-4.9)
[2021-04-05] MEDS: ACETAMINOPHEN 325 MG TABLET (FP) PO PRN (11:02)
[2021-04-05] MEDS ORDERED: FLUCONAZOLE 400 MG/NS 200 ML IVPB ONE (13:00)
[2021-04-05] MEDS: MULTIVIT INJ. ADULT COMBO WITH VIT K 1 COMBO 10 ML VIAL IV SCH (15:17)
[2021-04-05] MEDS: DOCUSATE SODIUM 100 MG CAPSULE (FP) PO SCH (21:28)
[2021-04-05] MEDS: ATORVASTATIN CA 10 MG TABLET (FP) PO SCH (21:28)
[2021-04-05] MEDS: INSULIN (LEVEMIR) 100 UNITS/ML UNITS SQ SCH (21:29)
[2021-04-06] MEDS ORDERED: MEROPENEM 500 MG VIAL (RESTRICTED TO ID) IVPB ONE ×2 (05:53→17:38)
[2021-04-06] MEDS ORDERED: DEXTROSE 5%-WATER 100 ML IVPB ONE ×2 (05:53→17:38)
[2021-04-06] MEDS: MEROPENEM 500 MG in DEXTROSE 5%-WATER 100 ML IVPB SCH ×2 (06:01→17:48)
[2021-04-06] MEDS: INSULIN SLIDING SCALE (NOVOLOG) 1 VIAL SQ SCH ×4 (06:10→21:47)
[2021-04-06] MEDS ORDERED: PT OWN MED DRAWER 7, Y5N ONE (09:26)
[2021-04-06] MEDS: AMINO ACIDS/PROTEIN HYDROLYS 30 ML LIQUID.PKT PO SCH (09:27)
[2021-04-06] MEDS: SEVELAMER CARBONATE 800 MG TAB (FP) PO SCH ×3 (09:27→17:06)
[2021-04-06] MEDS: DULoxetine HCL 20 MG CAPSULE.DR PO SCH (09:28)
[2021-04-06] MEDS: CALCITRIOL 0.25 MCG CAPSULE (FP) PO SCH (09:28)
[2021-04-06] MEDS: amLODIPine BESYLATE 10 MG TABLET (FP) PO SCH (09:28)
[2021-04-06] MEDS: GABAPENTIN 300 MG CAPSULE PO SCH ×2 (09:28→21:46)
[2021-04-06] MEDS: CARVEDILOL 25 MG TABLET (FP) PO SCH ×2 (09:28→21:46)
[2021-04-06] MEDS: BISACODYL 5 MG TABLET.DR (FP) PO SCH (09:28)
[2021-04-06] MEDS: VITAMIN B COMP W-C 1 EA TABLET (NEPHRO-VITE) PO SCH (09:28)
[2021-04-06] MEDS: FERROUS SO4 325 MG TABLET (FP) PO SCH (09:28)
[2021-04-06] MEDS: HEPARIN NA (PORCINE) 5,000 UNITS/ML 1ML VIAL SQ SCH ×2 (09:29→21:46)
[2021-04-06] MEDS: SILVER SULFADIAZINE 1% TOP CREAM 400 GM JAR TP SCH (09:29)
[2021-04-06 09:34] LABS: BASO % 0.5 % (0-2.0); EOS % 6.7 % (0-4.5); HEMATOCRIT 29.9 % (32.4-45.2); HEMOGLOBIN 9.5 GM/dL (10.7-15.3); LYMPH % 17.4 % (8-40); MCH 27.5 pg (25.7-33.7); MCHC 31.9 g/dl (32.0-36.0); MEAN CELL VOLUME 86.3 fl (80-96); MEAN PLT VOLUME 9.6 fl (7.5-11.1); MONO % 12.4 % (3.8-10.2); PLATELET COUNT 265 10^3/uL (134-434); RBC 3.47 M/mm3 (3.60-5.2); RDW 17.4 % (11.6-15.6); WHITE BLOOD COUNT 14.2 K/mm3 (4.0-10.0)
[2021-04-06 09:52] LABS: CALCIUM 7.8 mg/dL (8.5-10.1)
[2021-04-06] MEDS: MULTIVIT INJ. ADULT COMBO WITH VIT K 1 COMBO 10 ML VIAL IV SCH (14:10)
[2021-04-06] MEDS ORDERED: VANCOMYCIN 1 GRAM (PRE-DOCKED) 1 GM/200 ML BAG IVPB ONE (17:12)
[2021-04-06] MEDS: INSULIN (LEVEMIR) 100 UNITS/ML UNITS SQ SCH (21:45)
[2021-04-06] MEDS: DOCUSATE SODIUM 100 MG CAPSULE (FP) PO SCH (21:46)
[2021-04-06] MEDS: ATORVASTATIN CA 10 MG TABLET (FP) PO SCH (21:46)
[2021-04-07] MEDS ORDERED: DEXTROSE 5%-WATER 100 ML IVPB ONE ×2 (05:32→17:17)
[2021-04-07] MEDS ORDERED: MEROPENEM 500 MG VIAL (RESTRICTED TO ID) IVPB ONE ×2 (05:32→17:17)
[2021-04-07] MEDS: MEROPENEM 500 MG in DEXTROSE 5%-WATER 100 ML IVPB SCH ×2 (05:39→17:18)
[2021-04-07] MEDS: INSULIN SLIDING SCALE (NOVOLOG) 1 VIAL SQ SCH ×4 (06:26→22:10)
[2021-04-07] MEDS ORDERED: SODIUM CHLORIDE 250 ML IV PRN (06:28)
[2021-04-07] MEDS ORDERED: EPOETIN ALFA-EPBX 10,000 UNIT/ML VIAL IVPUSH ONE (08:00)
[2021-04-07] MEDS: AMINO ACIDS/PROTEIN HYDROLYS 30 ML LIQUID.PKT PO SCH (09:26)
[2021-04-07] MEDS: SEVELAMER CARBONATE 800 MG TAB (FP) PO SCH ×3 (09:26→16:49)
[2021-04-07 09:41] LABS: HEMATOCRIT 26.9 % (32.4-45.2); HEMOGLOBIN 8.7 GM/dL (10.7-15.3); MCH 27.3 pg (25.7-33.7); MCHC 32.4 g/dl (32.0-36.0); MEAN CELL VOLUME 84.2 fl (80-96); PLATELET COUNT 302 10^3/uL (134-434); RBC 3.19 M/mm3 (3.60-5.2); RDW 18.4 % (11.6-15.6); WHITE BLOOD COUNT 14.4 K/mm3 (4.0-10.0)
[2021-04-07] MEDS: CARVEDILOL 25 MG TABLET (FP) PO SCH ×3 (09:51→22:08)
[2021-04-07] MEDS: FERROUS SO4 325 MG TABLET (FP) PO SCH ×2 (09:52→13:22)
[2021-04-07] MEDS: amLODIPine BESYLATE 10 MG TABLET (FP) PO SCH ×2 (09:52→13:21)
[2021-04-07] MEDS: DULoxetine HCL 20 MG CAPSULE.DR PO SCH (09:52)
[2021-04-07] MEDS: BISACODYL 5 MG TABLET.DR (FP) PO SCH ×2 (09:52→13:22)
[2021-04-07] MEDS: VITAMIN B COMP W-C 1 EA TABLET (NEPHRO-VITE) PO SCH ×2 (09:52→13:21)
[2021-04-07] MEDS: CALCITRIOL 0.25 MCG CAPSULE (FP) PO SCH (09:52)
[2021-04-07] MEDS: GABAPENTIN 300 MG CAPSULE PO SCH ×3 (09:52→22:08)
[2021-04-07] MEDS: SILVER SULFADIAZINE 1% TOP CREAM 400 GM JAR TP SCH (09:53)
[2021-04-07 10:05] LABS: BLOOD UREA NITROGEN 41.4 mg/dL (7-18); CALCIUM 8.1 mg/dL (8.5-10.1)
[2021-04-07 10:09] LABS: CREATININE 5.7 mg/dL (0.55-1.3); PHOSPHOROUS 2.6 mg/dL (2.5-4.9)
[2021-04-07] MEDS: HEPARIN NA (PORCINE) 5,000 UNITS/ML 1ML VIAL SQ SCH ×3 (11:53→22:09)
[2021-04-07] MEDS: MULTIVIT INJ. ADULT COMBO WITH VIT K 1 COMBO 10 ML VIAL IV SCH (14:01)
[2021-04-07] MEDS: FLUCONAZOLE 400 MG/NS 200 ML IVPB ONE ×2 (18:25→19:02)
[2021-04-07] MEDS: DOCUSATE SODIUM 100 MG CAPSULE (FP) PO SCH (22:07)
[2021-04-07] MEDS: ATORVASTATIN CA 10 MG TABLET (FP) PO SCH (22:08)
[2021-04-07] MEDS: INSULIN (LEVEMIR) 100 UNITS/ML UNITS SQ SCH (22:09)
[2021-04-08] MEDS ORDERED: PT OWN MED DRAWER 7, Y5N ONE ×3 (03:56→20:47)
[2021-04-08] MEDS ORDERED: MEROPENEM 500 MG VIAL (RESTRICTED TO ID) IVPB ONE ×2 (05:01→18:21)
[2021-04-08] MEDS ORDERED: DEXTROSE 5%-WATER 100 ML IVPB ONE ×2 (05:02→18:21)
[2021-04-08] MEDS: INSULIN SLIDING SCALE (NOVOLOG) 1 VIAL SQ SCH ×4 (06:10→21:00)
[2021-04-08] MEDS: MEROPENEM 500 MG in DEXTROSE 5%-WATER 100 ML IVPB SCH ×2 (06:10→18:23)
[2021-04-08] MEDS ORDERED: INSULIN (LEVEMIR) 100 UNITS/ML UNITS SQ ONE (06:58)
[2021-04-08] MEDS: BISACODYL 5 MG TABLET.DR (FP) PO SCH (09:42)
[2021-04-08] MEDS: SEVELAMER CARBONATE 800 MG TAB (FP) PO SCH ×3 (09:42→17:04)
[2021-04-08] MEDS: AMINO ACIDS/PROTEIN HYDROLYS 30 ML LIQUID.PKT PO SCH (09:42)
[2021-04-08] MEDS: amLODIPine BESYLATE 10 MG TABLET (FP) PO SCH (09:42)
[2021-04-08] MEDS: CALCITRIOL 0.25 MCG CAPSULE (FP) PO SCH (09:43)
[2021-04-08] MEDS: FERROUS SO4 325 MG TABLET (FP) PO SCH (09:43)
[2021-04-08] MEDS: VITAMIN B COMP W-C 1 EA TABLET (NEPHRO-VITE) PO SCH (09:43)
[2021-04-08] MEDS: HEPARIN NA (PORCINE) 5,000 UNITS/ML 1ML VIAL SQ SCH ×2 (09:43→21:00)
[2021-04-08] MEDS: GABAPENTIN 300 MG CAPSULE PO SCH ×2 (09:43→21:01)
[2021-04-08] MEDS: CARVEDILOL 25 MG TABLET (FP) PO SCH ×2 (09:43→21:01)
[2021-04-08] MEDS: DULoxetine HCL 20 MG CAPSULE.DR PO SCH (09:43)
[2021-04-08] MEDS: SILVER SULFADIAZINE 1% TOP CREAM 400 GM JAR TP SCH (09:48)
[2021-04-08] MEDS ORDERED: SODIUM CHLORIDE 250 ML IV PRN (13:30)
[2021-04-08] MEDS: MULTIVIT INJ. ADULT COMBO WITH VIT K 1 COMBO 10 ML VIAL IV SCH (15:06)
[2021-04-08] MEDS: ATORVASTATIN CA 10 MG TABLET (FP) PO SCH (21:01)
[2021-04-08] MEDS: INSULIN (LEVEMIR) 100 UNITS/ML UNITS SQ SCH (21:01)
[2021-04-08] MEDS: DOCUSATE SODIUM 100 MG CAPSULE (FP) PO SCH ×2 (21:01→21:05)
[2021-04-09] MEDS ORDERED: MEROPENEM 500 MG VIAL (RESTRICTED TO ID) IVPB ONE ×2 (05:08→18:00)
[2021-04-09] MEDS ORDERED: DEXTROSE 5%-WATER 100 ML IVPB ONE ×2 (05:09→18:01)
[2021-04-09] MEDS: MEROPENEM 500 MG in DEXTROSE 5%-WATER 100 ML IVPB SCH ×2 (05:18→18:03)
[2021-04-09] MEDS: INSULIN SLIDING SCALE (NOVOLOG) 1 VIAL SQ SCH ×4 (06:36→21:03)
[2021-04-09] MEDS ORDERED: EPOETIN ALFA-EPBX 10,000 UNIT/ML VIAL IVPUSH ONE (08:00)
[2021-04-09] MEDS: SEVELAMER CARBONATE 800 MG TAB (FP) PO SCH ×3 (08:24→16:58)
[2021-04-09] MEDS: AMINO ACIDS/PROTEIN HYDROLYS 30 ML LIQUID.PKT PO SCH ×3 (08:24→16:58)
[2021-04-09 10:01] LABS: BASO % 0.5 % (0-2.0); EOS % 11.6 % (0-4.5); HEMATOCRIT 26.1 % (32.4-45.2); HEMOGLOBIN 8.5 GM/dL (10.7-15.3); LYMPH % 15.7 % (8-40); MCH 27.7 pg (25.7-33.7); MCHC 32.4 g/dl (32.0-36.0); MEAN CELL VOLUME 85.3 fl (80-96); MEAN PLT VOLUME 9.1 fl (7.5-11.1); MONO % 5.5 % (3.8-10.2); NEUT % 66.7 % (42.8-82.8); PLATELET COUNT 310 10^3/uL (134-434); RBC 3.06 M/mm3 (3.60-5.2); RDW 18.9 % (11.6-15.6); WHITE BLOOD COUNT 14.6 K/mm3 (4.0-10.0)
[2021-04-09 10:15] LABS: CALCIUM 8.2 mg/dL (8.5-10.1)
[2021-04-09 10:16] LABS: BLOOD UREA NITROGEN 33.1 mg/dL (7-18)
[2021-04-09] MEDS ORDERED: VANCOMYCIN 1 GRAM (PRE-DOCKED) 1,000 MG/250 ML BAG IVPB ONE (12:15)
[2021-04-09 12:38] LABS: BILIRUBIN,DIRECT 0.2 mg/dL (0.0-0.2)
[2021-04-09 12:39] LABS: PHOSPHOROUS 2.3 mg/dL (2.5-4.9)
[2021-04-09 12:40] LABS: BILIRUBIN,TOTAL 0.3 mg/dL (0.2-1); TOT PROT 5.7 g/dl (6.4-8.2)
[2021-04-09 12:42] LABS: ALBUMIN 1.5 g/dl (3.4-5.0)
[2021-04-09] MEDS: GABAPENTIN 300 MG CAPSULE PO SCH ×2 (14:23→21:03)
[2021-04-09] MEDS: CARVEDILOL 25 MG TABLET (FP) PO SCH ×2 (14:23→21:03)
[2021-04-09] MEDS: BISACODYL 5 MG TABLET.DR (FP) PO SCH (14:24)
[2021-04-09] MEDS: HEPARIN NA (PORCINE) 5,000 UNITS/ML 1ML VIAL SQ SCH ×2 (14:25→21:01)
[2021-04-09] MEDS: amLODIPine BESYLATE 10 MG TABLET (FP) PO SCH (14:25)
[2021-04-09] MEDS: FERROUS SO4 325 MG TABLET (FP) PO SCH (14:25)
[2021-04-09] MEDS: DULoxetine HCL 20 MG CAPSULE.DR PO SCH (14:26)
[2021-04-09] MEDS: CALCITRIOL 0.25 MCG CAPSULE (FP) PO SCH (14:26)
[2021-04-09] MEDS: VITAMIN B COMP W-C 1 EA TABLET (NEPHRO-VITE) PO SCH (14:46)
[2021-04-09] MEDS: SILVER SULFADIAZINE 1% TOP CREAM 400 GM JAR TP SCH (14:51)
[2021-04-09] MEDS: MULTIVIT INJ. ADULT COMBO WITH VIT K 1 COMBO 10 ML VIAL IV SCH (14:52)
[2021-04-09] MEDS ORDERED: INSULIN (NOVOLOG) ASPART 100 UNITS/ML 10ML VIAL ONE (20:51)
[2021-04-09] MEDS: INSULIN (LEVEMIR) 100 UNITS/ML UNITS SQ SCH (21:02)
[2021-04-09] MEDS: ATORVASTATIN CA 10 MG TABLET (FP) PO SCH (21:02)
[2021-04-09] MEDS: DOCUSATE SODIUM 100 MG CAPSULE (FP) PO SCH (21:06)
[2021-04-10] MEDS ORDERED: MEROPENEM 500 MG VIAL (RESTRICTED TO ID) IVPB ONE ×2 (05:06→17:53)
[2021-04-10] MEDS ORDERED: DEXTROSE 5%-WATER 100 ML IVPB ONE ×2 (05:07→17:54)
[2021-04-10] MEDS: MEROPENEM 500 MG in DEXTROSE 5%-WATER 100 ML IVPB SCH ×2 (05:31→17:56)
[2021-04-10] MEDS: INSULIN SLIDING SCALE (NOVOLOG) 1 VIAL SQ SCH ×4 (06:25→21:06)
[2021-04-10] MEDS: AMINO ACIDS/PROTEIN HYDROLYS 30 ML LIQUID.PKT PO SCH ×3 (08:18→17:56)
[2021-04-10] MEDS ORDERED: PT OWN MED DRAWER 7, Y5N ONE (09:03)
[2021-04-10] MEDS: HEPARIN NA (PORCINE) 5,000 UNITS/ML 1ML VIAL SQ SCH ×2 (09:06→21:04)
[2021-04-10] MEDS: VITAMIN B COMP W-C 1 EA TABLET (NEPHRO-VITE) PO SCH (09:08)
[2021-04-10] MEDS: BISACODYL 5 MG TABLET.DR (FP) PO SCH (09:09)
[2021-04-10] MEDS: amLODIPine BESYLATE 10 MG TABLET (FP) PO SCH (09:09)
[2021-04-10] MEDS: SEVELAMER CARBONATE 800 MG TAB (FP) PO SCH ×3 (09:09→17:56)
[2021-04-10] MEDS: GABAPENTIN 300 MG CAPSULE PO SCH ×2 (09:09→21:05)
[2021-04-10] MEDS: FERROUS SO4 325 MG TABLET (FP) PO SCH (09:09)
[2021-04-10] MEDS: CALCITRIOL 0.25 MCG CAPSULE (FP) PO SCH (09:09)
[2021-04-10] MEDS: DULoxetine HCL 20 MG CAPSULE.DR PO SCH (09:09)
[2021-04-10] MEDS: CARVEDILOL 25 MG TABLET (FP) PO SCH ×2 (09:09→21:06)
[2021-04-10] MEDS: SILVER SULFADIAZINE 1% TOP CREAM 400 GM JAR TP SCH (09:10)
[2021-04-10] MEDS ORDERED: INSULIN (NOVOLOG) ASPART 100 UNITS/ML 10ML VIAL ONE ×2 (11:36→20:57)
[2021-04-10] MEDS: MULTIVIT INJ. ADULT COMBO WITH VIT K 1 COMBO 10 ML VIAL IV SCH (15:29)
[2021-04-10] MEDS ORDERED: FLUCONAZOLE 100 MG TABLET (UD) PO ONE (17:47)
[2021-04-10] MEDS: INSULIN (LEVEMIR) 100 UNITS/ML UNITS SQ SCH (21:04)
[2021-04-10] MEDS: ATORVASTATIN CA 10 MG TABLET (FP) PO SCH (21:06)
[2021-04-10] MEDS: DOCUSATE SODIUM 100 MG CAPSULE (FP) PO SCH (21:06)
[2021-04-11] MEDS ORDERED: DEXTROSE 5%-WATER 100 ML IVPB ONE ×2 (05:42→17:00)
[2021-04-11] MEDS ORDERED: MEROPENEM 500 MG VIAL (RESTRICTED TO ID) IVPB ONE ×2 (05:42→17:00)
[2021-04-11] MEDS: MEROPENEM 500 MG in DEXTROSE 5%-WATER 100 ML IVPB SCH ×2 (05:47→17:14)
[2021-04-11] MEDS: INSULIN SLIDING SCALE (NOVOLOG) 1 VIAL SQ SCH ×4 (06:25→22:14)
[2021-04-11] MEDS ORDERED: PT OWN MED DRAWER 7, Y5N ONE (09:29)
[2021-04-11] MEDS: SEVELAMER CARBONATE 800 MG TAB (FP) PO SCH ×3 (09:31→16:54)
[2021-04-11] MEDS: CALCITRIOL 0.25 MCG CAPSULE (FP) PO SCH (09:31)
[2021-04-11] MEDS: FERROUS SO4 325 MG TABLET (FP) PO SCH (09:31)
[2021-04-11] MEDS: DULoxetine HCL 20 MG CAPSULE.DR PO SCH (09:31)
[2021-04-11] MEDS: amLODIPine BESYLATE 10 MG TABLET (FP) PO SCH (09:32)
[2021-04-11] MEDS: GABAPENTIN 300 MG CAPSULE PO SCH ×2 (09:32→22:11)
[2021-04-11] MEDS: BISACODYL 5 MG TABLET.DR (FP) PO SCH (09:32)
[2021-04-11] MEDS: CARVEDILOL 25 MG TABLET (FP) PO SCH ×2 (09:32→22:10)
[2021-04-11] MEDS: HEPARIN NA (PORCINE) 5,000 UNITS/ML 1ML VIAL SQ SCH (09:32)
[2021-04-11] MEDS: VITAMIN B COMP W-C 1 EA TABLET (NEPHRO-VITE) PO SCH (09:32)
[2021-04-11] MEDS: AMINO ACIDS/PROTEIN HYDROLYS 30 ML LIQUID.PKT PO SCH ×2 (09:39→16:57)
[2021-04-11] MEDS ORDERED: VANCOMYCIN 1 GRAM (PRE-DOCKED) 1,000 MG/250 ML BAG IVPB ONE (13:00)
[2021-04-11] MEDS: SILVER SULFADIAZINE 1% TOP CREAM 400 GM JAR TP SCH (13:17)
[2021-04-11] MEDS: MULTIVIT INJ. ADULT COMBO WITH VIT K 1 COMBO 10 ML VIAL IV SCH (17:14)
[2021-04-11] MEDS ORDERED: SODIUM CHLORIDE 250 ML IV PRN (20:13)
[2021-04-11] MEDS ORDERED: INSULIN (NOVOLOG) ASPART 100 UNITS/ML 10ML VIAL ONE (21:45)
[2021-04-11] MEDS: DOCUSATE SODIUM 100 MG CAPSULE (FP) PO SCH (22:10)
[2021-04-11] MEDS: ATORVASTATIN CA 10 MG TABLET (FP) PO SCH (22:10)
[2021-04-11] MEDS: INSULIN (LEVEMIR) 100 UNITS/ML UNITS SQ SCH (22:14)
[2021-04-12] MEDS ORDERED: MEROPENEM 500 MG VIAL (RESTRICTED TO ID) IVPB ONE ×2 (06:13→18:35)
[2021-04-12] MEDS ORDERED: DEXTROSE 5%-WATER 100 ML IVPB ONE ×2 (06:14→18:35)
[2021-04-12] MEDS: MEROPENEM 500 MG in DEXTROSE 5%-WATER 100 ML IVPB SCH ×2 (06:26→18:51)
[2021-04-12] MEDS: INSULIN SLIDING SCALE (NOVOLOG) 1 VIAL SQ SCH ×4 (06:30→21:05)
[2021-04-12] MEDS: SEVELAMER CARBONATE 800 MG TAB (FP) PO SCH ×3 (08:30→17:22)
[2021-04-12] MEDS: AMINO ACIDS/PROTEIN HYDROLYS 30 ML LIQUID.PKT PO SCH ×2 (08:30→17:21)
[2021-04-12] MEDS ORDERED: PT OWN MED DRAWER 7, Y5N ONE ×3 (09:11→13:12)
[2021-04-12] MEDS ORDERED: VANCOMYCIN 1 GM in D5W (PRE-DOCKED) 1,000 MG/250 ML IVPB ONE (12:09)
[2021-04-12] MEDS: CARVEDILOL 25 MG TABLET (FP) PO SCH ×2 (13:16→21:04)
[2021-04-12] MEDS: DULoxetine HCL 20 MG CAPSULE.DR PO SCH (13:16)
[2021-04-12] MEDS: FERROUS SO4 325 MG TABLET (FP) PO SCH (13:17)
[2021-04-12] MEDS: BISACODYL 5 MG TABLET.DR (FP) PO SCH (13:17)
[2021-04-12] MEDS: VITAMIN B COMP W-C 1 EA TABLET (NEPHRO-VITE) PO SCH (13:17)
[2021-04-12] MEDS: GABAPENTIN 300 MG CAPSULE PO SCH ×2 (13:17→21:04)
[2021-04-12] MEDS: SILVER SULFADIAZINE 1% TOP CREAM 400 GM JAR TP SCH (13:18)
[2021-04-12] MEDS: amLODIPine BESYLATE 10 MG TABLET (FP) PO SCH (13:18)
[2021-04-12] MEDS: CALCITRIOL 0.25 MCG CAPSULE (FP) PO SCH (13:18)
[2021-04-12] MEDS: MULTIVIT INJ. ADULT COMBO WITH VIT K 1 COMBO 10 ML VIAL IV SCH (14:18)
[2021-04-12] MEDS: ACETAMINOPHEN 325 MG TABLET (FP) PO PRN (17:22)
[2021-04-12 18:58] LABS: INR 0.95 (0.83-1.09); PROTHROMBIN TIME (PATIENT) 11.5 SEC (9.7-13.0)
[2021-04-12 19:00] LABS: BASO % 0.7 % (0-2.0); EOS % 3.3 % (0-4.5); HEMATOCRIT 32.6 % (32.4-45.2); HEMOGLOBIN 10.5 GM/dL (10.7-15.3); LYMPH % 16.6 % (8-40); MCH 27.8 pg (25.7-33.7); MCHC 32.3 g/dl (32.0-36.0); MEAN CELL VOLUME 85.8 fl (80-96); MEAN PLT VOLUME 9.1 fl (7.5-11.1); MONO % 5.1 % (3.8-10.2); NEUT % 74.3 % (42.8-82.8); PLATELET COUNT 332 10^3/uL (134-434); RDW 19.2 % (11.6-15.6); WHITE BLOOD COUNT 12.1 K/mm3 (4.0-10.0)
[2021-04-12 19:12] LABS: CALCIUM 8.4 mg/dL (8.5-10.1)
[2021-04-12 19:13] LABS: BLOOD UREA NITROGEN 13.7 mg/dL (7-18)
[2021-04-12 19:16] LABS: CREATININE 3.1 mg/dL (0.55-1.3)
[2021-04-12] MEDS ORDERED: INSULIN (NOVOLOG) ASPART 100 UNITS/ML 10ML VIAL ONE (20:58)
[2021-04-12] MEDS: ATORVASTATIN CA 10 MG TABLET (FP) PO SCH (21:04)
[2021-04-12] MEDS: DOCUSATE SODIUM 100 MG CAPSULE (FP) PO SCH (21:04)
[2021-04-12] MEDS: INSULIN (LEVEMIR) 100 UNITS/ML UNITS SQ SCH (21:04)
[2021-04-13] MEDS ORDERED: MEROPENEM 500 MG VIAL (RESTRICTED TO ID) IVPB ONE ×2 (05:47→18:15)
[2021-04-13] MEDS ORDERED: DEXTROSE 5%-WATER 100 ML IVPB ONE ×2 (05:48→18:16)
[2021-04-13] MEDS: MEROPENEM 500 MG in DEXTROSE 5%-WATER 100 ML IVPB SCH ×4 (05:50→18:41)
[2021-04-13] MEDS: INSULIN SLIDING SCALE (NOVOLOG) 1 VIAL SQ SCH ×4 (05:59→21:07)
[2021-04-13] MEDS: AMINO ACIDS/PROTEIN HYDROLYS 30 ML LIQUID.PKT PO SCH ×2 (08:12→17:02)
[2021-04-13] MEDS: SEVELAMER CARBONATE 800 MG TAB (FP) PO SCH ×3 (08:12→17:02)
[2021-04-13 08:49] LABS: HEMOGLOBIN 10.3 GM/dL (10.7-15.3); MCH 27.9 pg (25.7-33.7); MCHC 32.1 g/dl (32.0-36.0); MEAN CELL VOLUME 86.9 fl (80-96); MEAN PLT VOLUME 8.2 fl (7.5-11.1); PLATELET COUNT 282 10^3/uL (134-434); RBC 3.68 M/mm3 (3.60-5.2); RDW 19.1 % (11.6-15.6); WHITE BLOOD COUNT 9.3 K/mm3 (4.0-10.0)
[2021-04-13 09:12] LABS: CALCIUM 8.8 mg/dL (8.5-10.1)
[2021-04-13 09:13] LABS: BLOOD UREA NITROGEN 22.9 mg/dL (7-18)
[2021-04-13 09:16] LABS: CREATININE 4.2 mg/dL (0.55-1.3)
[2021-04-13] MEDS: CARVEDILOL 25 MG TABLET (FP) PO SCH ×2 (10:10→22:14)
[2021-04-13] MEDS: GABAPENTIN 300 MG CAPSULE PO SCH ×2 (10:10→22:14)
[2021-04-13] MEDS: DULoxetine HCL 20 MG CAPSULE.DR PO SCH (10:10)
[2021-04-13] MEDS: FERROUS SO4 325 MG TABLET (FP) PO SCH (10:10)
[2021-04-13] MEDS: VITAMIN B COMP W-C 1 EA TABLET (NEPHRO-VITE) PO SCH (10:10)
[2021-04-13] MEDS: BISACODYL 5 MG TABLET.DR (FP) PO SCH (10:10)
[2021-04-13] MEDS: amLODIPine BESYLATE 10 MG TABLET (FP) PO SCH (10:10)
[2021-04-13] MEDS: CALCITRIOL 0.25 MCG CAPSULE (FP) PO SCH (10:12)
[2021-04-13] MEDS: SILVER SULFADIAZINE 1% TOP CREAM 400 GM JAR TP SCH (10:12)
[2021-04-13] MEDS ORDERED: SODIUM CHLORIDE 250 ML IV PRN ×2 (12:19→18:35)
[2021-04-13] MEDS ORDERED: LIDOCAINE 1%/EPI 1:100000 (20 ML MULTI DOSE VIAL) ONE (12:45)
[2021-04-13] MEDS: MULTIVIT INJ. ADULT COMBO WITH VIT K 1 COMBO 10 ML VIAL IV SCH (14:30)
[2021-04-13] MEDS ORDERED: ROCURONIUM BROMIDE 50 MG/5 ML SYRINGE ONE (14:52)
[2021-04-13] MEDS ORDERED: SODIUM CHLORIDE 1,000 ML IV SCH ×2 (17:00→18:35)
[2021-04-13] MEDS ORDERED: NEOSTIGMINE METHYLSULFATE 0.5 MG/ML - 10 ML MDV ONE (17:42)
[2021-04-13] MEDS ORDERED: SEVOFLURANE 250 ML BTL ONE (18:07)
[2021-04-13] MEDS ORDERED: GLYCOPYRROLATE 0.2 MG/1 ML VIAL ONE (18:08)
[2021-04-13] MEDS: DOCUSATE SODIUM 100 MG CAPSULE (FP) PO SCH (22:14)
[2021-04-13] MEDS: ACETAMINOPHEN 325 MG TABLET (FP) PO PRN (22:14)
[2021-04-13] MEDS: ATORVASTATIN CA 10 MG TABLET (FP) PO SCH (22:14)
[2021-04-13] MEDS: INSULIN (LEVEMIR) 100 UNITS/ML UNITS SQ SCH (22:15)
[2021-04-14] MEDS: ACETAMINOPHEN 325 MG TABLET (FP) PO PRN ×2 (03:43→21:43)
[2021-04-14] MEDS ORDERED: DEXTROSE 5%-WATER 100 ML IVPB ONE (06:01)
[2021-04-14] MEDS ORDERED: MEROPENEM 500 MG VIAL (RESTRICTED TO ID) IVPB ONE (06:01)
[2021-04-14] MEDS: MEROPENEM 500 MG in DEXTROSE 5%-WATER 100 ML IVPB SCH (06:14)
[2021-04-14] MEDS: INSULIN SLIDING SCALE (NOVOLOG) 1 VIAL SQ SCH ×4 (06:21→21:44)
[2021-04-14] MEDS ORDERED: EPOETIN ALFA-EPBX 20,000 UNIT/ML VIAL IVPUSH ONE ×2 (07:00→08:00)
[2021-04-14] MEDS ORDERED: ACETAMINOPHEN 1000 MG/100 ML VIAL (NON FORMULARY) IVPB ONE (08:00)
[2021-04-14] MEDS ORDERED: VANCOMYCIN 1 GM PREMIX - 1 GM/200 ML BAG IVPB ONE (08:00)
[2021-04-14] MEDS: AMINO ACIDS/PROTEIN HYDROLYS 30 ML LIQUID.PKT PO SCH ×2 (08:10→17:33)
[2021-04-14] MEDS: SEVELAMER CARBONATE 800 MG TAB (FP) PO SCH ×3 (08:10→17:28)
[2021-04-14] MEDS ORDERED: ACETAMINOPHEN 325 MG TABLET (FP) PO PRN (09:00)
[2021-04-14] MEDS ORDERED: PT OWN MED DRAWER 7, Y5N ONE ×2 (09:18→18:23)
[2021-04-14] MEDS: VITAMIN B COMP W-C 1 EA TABLET (NEPHRO-VITE) PO SCH (09:28)
[2021-04-14] MEDS: FERROUS SO4 325 MG TABLET (FP) PO SCH (09:28)
[2021-04-14] MEDS: GABAPENTIN 300 MG CAPSULE PO SCH ×2 (09:28→21:31)
[2021-04-14] MEDS: BISACODYL 5 MG TABLET.DR (FP) PO SCH (09:29)
[2021-04-14] MEDS: CALCITRIOL 0.25 MCG CAPSULE (FP) PO SCH (09:29)
[2021-04-14] MEDS: DULoxetine HCL 20 MG CAPSULE.DR PO SCH (09:29)
[2021-04-14] MEDS: SILVER SULFADIAZINE 1% TOP CREAM 400 GM JAR TP SCH (09:33)
[2021-04-14 10:49] LABS: BASO % 0.7 % (0-2.0); EOS % 5.5 % (0-4.5); HEMATOCRIT 24.7 % (32.4-45.2); HEMOGLOBIN 8.1 GM/dL (10.7-15.3); LYMPH % 16.6 % (8-40); MCHC 32.7 g/dl (32.0-36.0); MEAN CELL VOLUME 85.5 fl (80-96); MEAN PLT VOLUME 8.5 fl (7.5-11.1); NEUT % 70.2 % (42.8-82.8); PLATELET COUNT 273 10^3/uL (134-434); RBC 2.88 M/mm3 (3.60-5.2); RDW 19.4 % (11.6-15.6); WHITE BLOOD COUNT 10.3 K/mm3 (4.0-10.0)
[2021-04-14 11:08] LABS: CHLORIDE 104 mmol/L (98-107); SODIUM 137 mmol/L (136-145)
[2021-04-14 11:12] LABS: CALCIUM 7.7 mg/dL (8.5-10.1)
[2021-04-14 11:13] LABS: ALBUMIN 1.3 g/dl (3.4-5.0); ANION GAP 3 MMOL/L (8-16); BLOOD UREA NITROGEN 31.4 mg/dL (7-18); CO2 29 mmol/L (21-32); GLUCOSE,RANDOM 95 mg/dL (74-106)
[2021-04-14 11:16] LABS: CREATININE 5.2 mg/dL (0.55-1.3); PHOSPHOROUS 3.9 mg/dL (2.5-4.9); SGOT/AST 9 U/L (15-37); SGPT/ALT < 6 U/L (13-61)
[2021-04-14 11:18] LABS: TOT PROT 5.2 g/dl (6.4-8.2)
[2021-04-14 11:19] LABS: ALK PHOS 82 U/L (45-117)
[2021-04-14 11:20] LABS: BILIRUBIN,TOTAL 0.6 mg/dL (0.2-1)
[2021-04-14] MEDS ORDERED: MORPHINE SULFATE 2 MG/ML VIAL IVPUSH ONE (12:15)
[2021-04-14] MEDS: CARVEDILOL 25 MG TABLET (FP) PO SCH ×2 (14:35→21:31)
[2021-04-14] MEDS: amLODIPine BESYLATE 10 MG TABLET (FP) PO SCH (14:36)
[2021-04-14] MEDS ORDERED: MULTIVIT INJ. ADULT COMBO WITH VIT K 1 COMBO 10 ML VIAL IV SCH (15:00)
[2021-04-14] MEDS ORDERED: FLUCONAZOLE 100 MG TABLET (UD) PO ONE (17:15)
[2021-04-14] MEDS ORDERED: FLUCONAZOLE 400 MG/NS 200 ML IVPB ONE (18:00)
[2021-04-14] MEDS: oxyCODONE HCL 5 MG TABLET PO PRN (18:01)
[2021-04-14] MEDS ORDERED: INSULIN (NOVOLOG) ASPART 100 UNITS/ML 10ML VIAL ONE (18:23)
[2021-04-14] MEDS ORDERED: INSULIN (LEVEMIR) 100 UNITS/ML UNITS SQ ONE (18:23)
[2021-04-14] MEDS: DOCUSATE SODIUM 100 MG CAPSULE (FP) PO SCH (21:31)
[2021-04-14] MEDS: ATORVASTATIN CA 10 MG TABLET (FP) PO SCH (21:31)
[2021-04-14] MEDS: INSULIN (LEVEMIR) 100 UNITS/ML UNITS SQ SCH (21:31)
[2021-04-14 23:02] VITALS: BMI 28.7
[2021-04-15] MEDS: INSULIN SLIDING SCALE (NOVOLOG) 1 VIAL SQ SCH ×4 (06:17→22:06)
[2021-04-15] MEDS: ACETAMINOPHEN 325 MG TABLET (FP) PO PRN ×2 (07:08→22:01)
[2021-04-15 07:47] LABS: BASO % 0.4 % (0-2.0); EOS % 4.7 % (0-4.5); HEMATOCRIT 26.4 % (32.4-45.2); HEMOGLOBIN 8.5 GM/dL (10.7-15.3); LYMPH % 18.1 % (8-40); MCH 27.7 pg (25.7-33.7); MCHC 32.2 g/dl (32.0-36.0); MEAN CELL VOLUME 86.2 fl (80-96); MEAN PLT VOLUME 8.7 fl (7.5-11.1); MONO % 8.3 % (3.8-10.2); NEUT % 68.5 % (42.8-82.8); PLATELET COUNT 253 10^3/uL (134-434); RBC 3.06 M/mm3 (3.60-5.2); RDW 18.5 % (11.6-15.6); WHITE BLOOD COUNT 12.5 K/mm3 (4.0-10.0)
[2021-04-15 08:06] LABS: CALCIUM 7.8 mg/dL (8.5-10.1)
[2021-04-15 08:10] LABS: CREATININE 3.4 mg/dL (0.55-1.3)
[2021-04-15] MEDS: SEVELAMER CARBONATE 800 MG TAB (FP) PO SCH ×3 (08:23→16:35)
[2021-04-15] MEDS: oxyCODONE HCL 5 MG TABLET PO PRN (08:23)
[2021-04-15] MEDS: AMINO ACIDS/PROTEIN HYDROLYS 30 ML LIQUID.PKT PO SCH ×2 (08:26→16:35)
[2021-04-15] MEDS ORDERED: PT OWN MED DRAWER 7, Y5N ONE (09:23)
[2021-04-15] MEDS: GABAPENTIN 300 MG CAPSULE PO SCH ×2 (09:25→22:02)
[2021-04-15] MEDS: CALCITRIOL 0.25 MCG CAPSULE (FP) PO SCH (09:25)
[2021-04-15] MEDS: BISACODYL 5 MG TABLET.DR (FP) PO SCH (09:25)
[2021-04-15] MEDS: VITAMIN B COMP W-C 1 EA TABLET (NEPHRO-VITE) PO SCH (09:25)
[2021-04-15] MEDS: DULoxetine HCL 20 MG CAPSULE.DR PO SCH (09:25)
[2021-04-15] MEDS: FERROUS SO4 325 MG TABLET (FP) PO SCH (09:25)
[2021-04-15] MEDS: SILVER SULFADIAZINE 1% TOP CREAM 400 GM JAR TP SCH (09:29)
[2021-04-15] MEDS: amLODIPine BESYLATE 10 MG TABLET (FP) PO SCH (09:29)
[2021-04-15] MEDS: CARVEDILOL 25 MG TABLET (FP) PO SCH ×2 (09:29→22:02)
[2021-04-15] MEDS ORDERED: BISACODYL 10 MG SUPP.RECT PR PRN (16:34)
[2021-04-15] MEDS ORDERED: INSULIN (NOVOLOG) ASPART 100 UNITS/ML 10ML VIAL ONE (21:02)
[2021-04-15] MEDS: DOCUSATE SODIUM 100 MG CAPSULE (FP) PO SCH (22:02)
[2021-04-15] MEDS: ATORVASTATIN CA 10 MG TABLET (FP) PO SCH (22:02)
[2021-04-15] MEDS: INSULIN (LEVEMIR) 100 UNITS/ML UNITS SQ SCH (22:03)
[2021-04-16] MEDS: INSULIN SLIDING SCALE (NOVOLOG) 1 VIAL SQ SCH ×4 (06:01→22:17)
[2021-04-16] MEDS ORDERED: PT OWN MED DRAWER 7, Y5N ONE (09:20)
[2021-04-16] MEDS: SEVELAMER CARBONATE 800 MG TAB (FP) PO SCH ×3 (09:40→17:40)
[2021-04-16] MEDS: AMINO ACIDS/PROTEIN HYDROLYS 30 ML LIQUID.PKT PO SCH ×2 (09:40→17:40)
[2021-04-16] MEDS: FERROUS SO4 325 MG TABLET (FP) PO SCH (09:41)
[2021-04-16] MEDS: CALCITRIOL 0.25 MCG CAPSULE (FP) PO SCH (09:41)
[2021-04-16] MEDS: DULoxetine HCL 20 MG CAPSULE.DR PO SCH (09:41)
[2021-04-16] MEDS: GABAPENTIN 300 MG CAPSULE PO SCH ×2 (09:41→22:07)
[2021-04-16] MEDS: VITAMIN B COMP W-C 1 EA TABLET (NEPHRO-VITE) PO SCH (09:41)
[2021-04-16] MEDS: BISACODYL 5 MG TABLET.DR (FP) PO SCH (09:41)
[2021-04-16] MEDS: SILVER SULFADIAZINE 1% TOP CREAM 400 GM JAR TP SCH (09:42)
[2021-04-16] MEDS: ACETAMINOPHEN 325 MG TABLET (FP) PO PRN ×2 (10:28→18:45)
[2021-04-16] MEDS ORDERED: SODIUM CHLORIDE 250 ML IV PRN (11:00)
[2021-04-16] MEDS ORDERED: EPOETIN ALFA-EPBX 20,000 UNIT/ML VIAL IVPUSH ONE ×2 (11:00→13:00)
[2021-04-16 11:07] LABS: HEMATOCRIT 25.7 % (32.4-45.2); HEMOGLOBIN 8.2 GM/dL (10.7-15.3); MCH 27.4 pg (25.7-33.7); MCHC 31.9 g/dl (32.0-36.0); MEAN CELL VOLUME 85.8 fl (80-96); MEAN PLT VOLUME 8.3 fl (7.5-11.1); PLATELET COUNT 290 10^3/uL (134-434); WHITE BLOOD COUNT 15.8 K/mm3 (4.0-10.0)
[2021-04-16 11:36] LABS: BLOOD UREA NITROGEN 24.7 mg/dL (7-18)
[2021-04-16 11:40] LABS: CREATININE 5.2 mg/dL (0.55-1.3); PHOSPHOROUS 3.8 mg/dL (2.5-4.9)
[2021-04-16] MEDS ORDERED: VANCOMYCIN 1 GM in D5W (PRE-DOCKED) 1,000 MG/250 ML IVPB ONE (15:15)
[2021-04-16] MEDS ORDERED: FLUCONAZOLE 100 MG TABLET (UD) PO ONE (15:26)
[2021-04-16] MEDS: amLODIPine BESYLATE 10 MG TABLET (FP) PO SCH (15:59)
[2021-04-16] MEDS: CARVEDILOL 25 MG TABLET (FP) PO SCH ×2 (15:59→22:07)
[2021-04-16] MEDS: metroNIDAZOLE 250 MG TABLET PO SCH ×2 (16:03→22:07)
[2021-04-16] MEDS: DOCUSATE SODIUM 100 MG CAPSULE (FP) PO SCH (22:07)
[2021-04-16] MEDS: ATORVASTATIN CA 10 MG TABLET (FP) PO SCH (22:07)
[2021-04-16] MEDS: INSULIN (LEVEMIR) 100 UNITS/ML UNITS SQ SCH (22:16)
[2021-04-17] MEDS: metroNIDAZOLE 250 MG TABLET PO SCH ×3 (06:55→22:38)
[2021-04-17] MEDS: INSULIN SLIDING SCALE (NOVOLOG) 1 VIAL SQ SCH ×4 (07:08→22:38)
[2021-04-17] MEDS: AMINO ACIDS/PROTEIN HYDROLYS 30 ML LIQUID.PKT PO SCH ×2 (08:04→17:00)
[2021-04-17] MEDS: SEVELAMER CARBONATE 800 MG TAB (FP) PO SCH ×3 (08:04→17:00)
[2021-04-17] MEDS: oxyCODONE HCL 5 MG TABLET PO PRN (08:22)
[2021-04-17] MEDS ORDERED: PT OWN MED DRAWER 7, Y5N ONE (09:36)
[2021-04-17] MEDS: VITAMIN B COMP W-C 1 EA TABLET (NEPHRO-VITE) PO SCH (09:40)
[2021-04-17] MEDS: FERROUS SO4 325 MG TABLET (FP) PO SCH (09:40)
[2021-04-17] MEDS: amLODIPine BESYLATE 10 MG TABLET (FP) PO SCH (09:40)
[2021-04-17] MEDS: DULoxetine HCL 20 MG CAPSULE.DR PO SCH (09:40)
[2021-04-17] MEDS: BISACODYL 5 MG TABLET.DR (FP) PO SCH (09:40)
[2021-04-17] MEDS: GABAPENTIN 300 MG CAPSULE PO SCH ×2 (09:40→22:38)
[2021-04-17] MEDS: CALCITRIOL 0.25 MCG CAPSULE (FP) PO SCH (09:40)
[2021-04-17] MEDS: SILVER SULFADIAZINE 1% TOP CREAM 400 GM JAR TP SCH (09:42)
[2021-04-17] MEDS: CARVEDILOL 25 MG TABLET (FP) PO SCH ×2 (09:42→22:38)
[2021-04-17 10:01] LABS: BASO % 0.7 % (0-2.0); EOS % 1.8 % (0-4.5); HEMATOCRIT 27.2 % (32.4-45.2); HEMOGLOBIN 8.9 GM/dL (10.7-15.3); LYMPH % 16.3 % (8-40); MCH 27.8 pg (25.7-33.7); MCHC 32.6 g/dl (32.0-36.0); MEAN CELL VOLUME 85.2 fl (80-96); MEAN PLT VOLUME 8.6 fl (7.5-11.1); MONO % 6.8 % (3.8-10.2); NEUT % 74.4 % (42.8-82.8); PLATELET COUNT 308 10^3/uL (134-434); RDW 18.2 % (11.6-15.6); WHITE BLOOD COUNT 10.9 K/mm3 (4.0-10.0)
[2021-04-17 10:26] LABS: ALBUMIN 1.5 g/dl (3.4-5.0); BLOOD UREA NITROGEN 13.7 mg/dL (7-18)
[2021-04-17 10:27] LABS: BILIRUBIN,TOTAL 0.4 mg/dL (0.2-1)
[2021-04-17 10:29] LABS: CREATININE 3.6 mg/dL (0.55-1.3)
[2021-04-17] MEDS: DOCUSATE SODIUM 100 MG CAPSULE (FP) PO SCH (22:37)
[2021-04-17] MEDS: ATORVASTATIN CA 10 MG TABLET (FP) PO SCH (22:38)
[2021-04-17] MEDS: INSULIN (LEVEMIR) 100 UNITS/ML UNITS SQ SCH (22:38)
[2021-04-18] MEDS: INSULIN SLIDING SCALE (NOVOLOG) 1 VIAL SQ SCH ×4 (07:06→21:45)
[2021-04-18] MEDS: metroNIDAZOLE 250 MG TABLET PO SCH ×3 (07:09→21:43)
[2021-04-18] MEDS: SEVELAMER CARBONATE 800 MG TAB (FP) PO SCH ×3 (08:45→18:21)
[2021-04-18] MEDS: AMINO ACIDS/PROTEIN HYDROLYS 30 ML LIQUID.PKT PO SCH ×2 (08:45→18:20)
[2021-04-18] MEDS ORDERED: PT OWN MED DRAWER 7, Y5N ONE (10:15)
[2021-04-18] MEDS: VITAMIN B COMP W-C 1 EA TABLET (NEPHRO-VITE) PO SCH (10:23)
[2021-04-18] MEDS: FERROUS SO4 325 MG TABLET (FP) PO SCH (10:23)
[2021-04-18] MEDS: amLODIPine BESYLATE 10 MG TABLET (FP) PO SCH (10:23)
[2021-04-18] MEDS: oxyCODONE HCL 5 MG TABLET PO PRN (10:24)
[2021-04-18] MEDS: CALCITRIOL 0.25 MCG CAPSULE (FP) PO SCH (10:24)
[2021-04-18] MEDS: BISACODYL 5 MG TABLET.DR (FP) PO SCH (10:24)
[2021-04-18] MEDS: DULoxetine HCL 20 MG CAPSULE.DR PO SCH (10:24)
[2021-04-18] MEDS: CARVEDILOL 25 MG TABLET (FP) PO SCH ×2 (10:24→21:43)
[2021-04-18] MEDS: SILVER SULFADIAZINE 1% TOP CREAM 400 GM JAR TP SCH (10:25)
[2021-04-18] MEDS: GABAPENTIN 300 MG CAPSULE PO SCH ×2 (10:25→21:43)
[2021-04-18] MEDS: DOCUSATE SODIUM 100 MG CAPSULE (FP) PO SCH (21:44)
[2021-04-18] MEDS: ATORVASTATIN CA 10 MG TABLET (FP) PO SCH (21:44)
[2021-04-18] MEDS: INSULIN (LEVEMIR) 100 UNITS/ML UNITS SQ SCH (21:44)
[2021-04-19] MEDS: metroNIDAZOLE 250 MG TABLET PO SCH ×3 (06:11→21:45)
[2021-04-19] MEDS: INSULIN SLIDING SCALE (NOVOLOG) 1 VIAL SQ SCH ×4 (06:20→21:52)
[2021-04-19] MEDS ORDERED: SODIUM CHLORIDE 250 ML IV PRN (07:29)
[2021-04-19] MEDS ORDERED: EPOETIN ALFA-EPBX 20,000 UNIT/ML VIAL IVPUSH ONE (08:00)
[2021-04-19 09:51] LABS: BASO % 0.7 % (0-2.0); EOS % 3.5 % (0-4.5); HEMATOCRIT 24.8 % (32.4-45.2); HEMOGLOBIN 8.1 GM/dL (10.7-15.3); LYMPH % 15.9 % (8-40); MCH 27.6 pg (25.7-33.7); MCHC 32.6 g/dl (32.0-36.0); MEAN CELL VOLUME 84.7 fl (80-96); MEAN PLT VOLUME 8.2 fl (7.5-11.1); MONO % 8.5 % (3.8-10.2); NEUT % 71.4 % (42.8-82.8); PLATELET COUNT 334 10^3/uL (134-434); RBC 2.93 M/mm3 (3.60-5.2); RDW 18.6 % (11.6-15.6); WHITE BLOOD COUNT 10.1 K/mm3 (4.0-10.0)
[2021-04-19 10:13] LABS: BLOOD UREA NITROGEN 29.3 mg/dL (7-18); CALCIUM 8.3 mg/dL (8.5-10.1)
[2021-04-19 10:17] LABS: CREATININE 6.5 mg/dL (0.55-1.3)
[2021-04-19 10:18] LABS: PHOSPHOROUS 2.9 mg/dL (2.5-4.9)
[2021-04-19] MEDS: SILVER SULFADIAZINE 1% TOP CREAM 400 GM JAR TP SCH (10:20)
[2021-04-19] MEDS: AMINO ACIDS/PROTEIN HYDROLYS 30 ML LIQUID.PKT PO SCH ×2 (12:55→17:47)
[2021-04-19] MEDS: VITAMIN B COMP W-C 1 EA TABLET (NEPHRO-VITE) PO SCH (12:56)
[2021-04-19] MEDS: DULoxetine HCL 20 MG CAPSULE.DR PO SCH (12:56)
[2021-04-19] MEDS: amLODIPine BESYLATE 10 MG TABLET (FP) PO SCH (12:56)
[2021-04-19] MEDS: FERROUS SO4 325 MG TABLET (FP) PO SCH (12:56)
[2021-04-19] MEDS: BISACODYL 5 MG TABLET.DR (FP) PO SCH (12:56)
[2021-04-19] MEDS: CARVEDILOL 25 MG TABLET (FP) PO SCH ×2 (12:56→21:45)
[2021-04-19] MEDS: CALCITRIOL 0.25 MCG CAPSULE (FP) PO SCH (12:56)
[2021-04-19] MEDS: SEVELAMER CARBONATE 800 MG TAB (FP) PO SCH ×3 (12:56→17:18)
[2021-04-19] MEDS: GABAPENTIN 300 MG CAPSULE PO SCH ×2 (12:57→21:45)
[2021-04-19] MEDS ORDERED: FLUCONAZOLE 100 MG TABLET (UD) PO ONE (17:00)
[2021-04-19] MEDS ORDERED: INSULIN (NOVOLOG) ASPART 100 UNITS/ML 10ML VIAL ONE (21:27)
[2021-04-19] MEDS: ATORVASTATIN CA 10 MG TABLET (FP) PO SCH (21:45)
[2021-04-19] MEDS: DOCUSATE SODIUM 100 MG CAPSULE (FP) PO SCH (21:50)
[2021-04-19] MEDS: INSULIN (LEVEMIR) 100 UNITS/ML UNITS SQ SCH (21:50)
[2021-04-20] MEDS: metroNIDAZOLE 250 MG TABLET PO SCH ×3 (06:08→22:00)
[2021-04-20] MEDS: INSULIN SLIDING SCALE (NOVOLOG) 1 VIAL SQ SCH ×4 (06:09→21:51)
[2021-04-20] MEDS: AMINO ACIDS/PROTEIN HYDROLYS 30 ML LIQUID.PKT PO SCH ×2 (08:14→17:35)
[2021-04-20] MEDS: SEVELAMER CARBONATE 800 MG TAB (FP) PO SCH ×3 (08:14→17:35)
[2021-04-20] MEDS ORDERED: PT OWN MED DRAWER 7, Y5N ONE (09:16)
[2021-04-20] MEDS: amLODIPine BESYLATE 10 MG TABLET (FP) PO SCH (09:19)
[2021-04-20] MEDS: GABAPENTIN 300 MG CAPSULE PO SCH ×2 (09:19→22:00)
[2021-04-20] MEDS: CARVEDILOL 25 MG TABLET (FP) PO SCH ×2 (09:19→22:00)
[2021-04-20] MEDS: DULoxetine HCL 20 MG CAPSULE.DR PO SCH (09:19)
[2021-04-20] MEDS: VITAMIN B COMP W-C 1 EA TABLET (NEPHRO-VITE) PO SCH (09:19)
[2021-04-20] MEDS: FERROUS SO4 325 MG TABLET (FP) PO SCH (09:19)
[2021-04-20] MEDS: CALCITRIOL 0.25 MCG CAPSULE (FP) PO SCH (09:19)
[2021-04-20] MEDS: BISACODYL 5 MG TABLET.DR (FP) PO SCH (09:21)
[2021-04-20] MEDS: oxyCODONE HCL 5 MG TABLET PO PRN (10:54)
[2021-04-20] MEDS: SILVER SULFADIAZINE 1% TOP CREAM 400 GM JAR TP SCH (10:55)
[2021-04-20] MEDS ORDERED: INSULIN (NOVOLOG) ASPART 100 UNITS/ML 10ML VIAL ONE (17:02)
[2021-04-20] MEDS: INSULIN (LEVEMIR) 100 UNITS/ML UNITS SQ SCH (21:47)
[2021-04-20] MEDS: DOCUSATE SODIUM 100 MG CAPSULE (FP) PO SCH (21:59)
[2021-04-20] MEDS: ATORVASTATIN CA 10 MG TABLET (FP) PO SCH (22:00)
[2021-04-21] MEDS: metroNIDAZOLE 250 MG TABLET PO SCH ×3 (06:12→21:05)
[2021-04-21] MEDS: INSULIN SLIDING SCALE (NOVOLOG) 1 VIAL SQ SCH ×4 (06:16→21:10)
[2021-04-21] MEDS ORDERED: SODIUM CHLORIDE 250 ML IV PRN (07:28)
[2021-04-21] MEDS ORDERED: EPOETIN ALFA-EPBX 20,000 UNIT/ML VIAL IVPUSH ONE (07:30)
[2021-04-21] MEDS: AMINO ACIDS/PROTEIN HYDROLYS 30 ML LIQUID.PKT PO SCH ×2 (08:04→17:38)
[2021-04-21] MEDS: SEVELAMER CARBONATE 800 MG TAB (FP) PO SCH ×3 (08:05→17:38)
[2021-04-21 09:50] LABS: HEMATOCRIT 24.4 % (32.4-45.2); HEMOGLOBIN 7.8 GM/dL (10.7-15.3); MCH 27.4 pg (25.7-33.7); MCHC 32.2 g/dl (32.0-36.0); MEAN CELL VOLUME 85.3 fl (80-96); MEAN PLT VOLUME 8.3 fl (7.5-11.1); PLATELET COUNT 327 10^3/uL (134-434); RBC 2.86 M/mm3 (3.60-5.2); RDW 18.7 % (11.6-15.6); WHITE BLOOD COUNT 8.3 K/mm3 (4.0-10.0)
[2021-04-21 10:14] LABS: ANION GAP 6 MMOL/L (8-16); BLOOD UREA NITROGEN 20.2 mg/dL (7-18); CALCIUM 8.1 mg/dL (8.5-10.1); CHLORIDE 101 mmol/L (98-107); CO2 30 mmol/L (21-32); CREATININE 4.8 mg/dL (0.55-1.3); GLUCOSE,RANDOM 167 mg/dL (74-106); SODIUM 137 mmol/L (136-145)
[2021-04-21] MEDS: CARVEDILOL 25 MG TABLET (FP) PO SCH ×2 (11:07→21:05)
[2021-04-21] MEDS: DULoxetine HCL 20 MG CAPSULE.DR PO SCH (11:07)
[2021-04-21] MEDS: VITAMIN B COMP W-C 1 EA TABLET (NEPHRO-VITE) PO SCH (11:08)
[2021-04-21] MEDS: GABAPENTIN 300 MG CAPSULE PO SCH ×2 (11:08→21:05)
[2021-04-21] MEDS: CALCITRIOL 0.25 MCG CAPSULE (FP) PO SCH (11:08)
[2021-04-21] MEDS: BISACODYL 5 MG TABLET.DR (FP) PO SCH (11:08)
[2021-04-21] MEDS: SILVER SULFADIAZINE 1% TOP CREAM 400 GM JAR TP SCH (11:08)
[2021-04-21] MEDS: FERROUS SO4 325 MG TABLET (FP) PO SCH (11:08)
[2021-04-21] MEDS: amLODIPine BESYLATE 10 MG TABLET (FP) PO SCH (11:08)
[2021-04-21] MEDS ORDERED: INSULIN (NOVOLOG) ASPART 100 UNITS/ML 10ML VIAL ONE (20:31)
[2021-04-21] MEDS: ACETAMINOPHEN 325 MG TABLET (FP) PO PRN (20:32)
[2021-04-21] MEDS: ATORVASTATIN CA 10 MG TABLET (FP) PO SCH (21:05)
[2021-04-21] MEDS: DOCUSATE SODIUM 100 MG CAPSULE (FP) PO SCH (21:05)
[2021-04-21] MEDS: INSULIN (LEVEMIR) 100 UNITS/ML UNITS SQ SCH (21:11)
[2021-04-22] MEDS: metroNIDAZOLE 250 MG TABLET PO SCH ×2 (06:17→14:04)
[2021-04-22] MEDS: INSULIN SLIDING SCALE (NOVOLOG) 1 VIAL SQ SCH ×2 (06:18→12:11)
[2021-04-22 07:00] VITALS: BP 131/92; PULSE 75; TEMP 98.2
[2021-04-22] MEDS ORDERED: PT OWN MED DRAWER 7, Y5N ONE (09:23)
[2021-04-22] MEDS: GABAPENTIN 300 MG CAPSULE PO SCH (09:25)
[2021-04-22] MEDS: BISACODYL 5 MG TABLET.DR (FP) PO SCH (09:25)
[2021-04-22] MEDS: amLODIPine BESYLATE 10 MG TABLET (FP) PO SCH (09:26)
[2021-04-22] MEDS: CALCITRIOL 0.25 MCG CAPSULE (FP) PO SCH (09:26)
[2021-04-22] MEDS: VITAMIN B COMP W-C 1 EA TABLET (NEPHRO-VITE) PO SCH (09:26)
[2021-04-22] MEDS: SEVELAMER CARBONATE 800 MG TAB (FP) PO SCH ×2 (09:26→12:12)
[2021-04-22] MEDS: FERROUS SO4 325 MG TABLET (FP) PO SCH (09:26)
[2021-04-22] MEDS: CARVEDILOL 25 MG TABLET (FP) PO SCH (09:26)
[2021-04-22] MEDS: DULoxetine HCL 20 MG CAPSULE.DR PO SCH (09:26)
[2021-04-22] MEDS: SILVER SULFADIAZINE 1% TOP CREAM 400 GM JAR TP SCH (09:27)
[2021-04-22] MEDS: AMINO ACIDS/PROTEIN HYDROLYS 30 ML LIQUID.PKT PO SCH (12:12)
== END 2021-04-22 15:59 | DRG 252 ==
LOC: JER 12:42 → JERBED 19:34 → J6S 03-15 07:43
PROVIDERS: ADMIT Internal Medicine; ATTEND Internal Medicine
PROC: 047N3ZZ Dilation of Left Popliteal Artery, Percutaneous Approach (ICD-10-PCS; 2021-03-16)
PROC: 047L3ZZ Dilation of Left Femoral Artery, Percutaneous Approach (ICD-10-PCS; principal; 2021-03-16 15:30)
PROC: 0JBP0ZZ Excision of Left Lower Leg Subcutaneous Tissue and Fascia, Open Approach (ICD-10-PCS; 2021-03-18)
PROC: 30233N1 Transfusion of Nonautologous Red Blood Cells into Peripheral Vein, Percutaneous Approach (ICD-10-PCS; 2021-03-19)
PROC: 2W1RX6Z Compression of Left Lower Leg using Pressure Dressing (ICD-10-PCS; 2021-03-29)
PROC: 0Y6Q0Z3 Detachment at Left 1st Toe, Low, Open Approach (ICD-10-PCS; 2021-04-04)
PROC: 0HRLX74 Replacement of Left Lower Leg Skin with Autologous Tissue Substitute, Partial Thickness, External Approach (ICD-10-PCS; 2021-04-13)
PROC: 0KBT0ZZ Excision of Left Lower Leg Muscle, Open Approach (ICD-10-PCS; 2021-04-13)
PROC: 0HBJXZZ Excision of Left Upper Leg Skin, External Approach (ICD-10-PCS; 2021-04-13)
PROC: 2W1LX6Z Compression of Right Lower Extremity using Pressure Dressing (ICD-10-PCS; 2021-04-18)
PROC: 5A1D70Z Performance of Urinary Filtration, Intermittent, Less than 6 Hours Per Day (ICD-10-PCS; 2021-04-21)
DX: E11.52 Type 2 diabetes mellitus with diabetic peripheral angiopathy with gangrene (principal); N18.6 End stage renal disease; I50.33 Acute on chronic diastolic (congestive) heart failure; A41.9 Sepsis, unspecified organism; L03.116 Cellulitis of left lower limb; I13.2 Hypertensive heart and chronic kidney disease with heart failure and with stage 5 chronic kidney disease, or end stage renal disease; I96 Gangrene, not elsewhere classified; M86.172 Other acute osteomyelitis, left ankle and foot; M86.672 Other chronic osteomyelitis, left ankle and foot; I70.262 Atherosclerosis of native arteries of extremities with gangrene, left leg; E11.40 Type 2 diabetes mellitus with diabetic neuropathy, unspecified; E11.622 Type 2 diabetes mellitus with other skin ulcer; D64.9 Anemia, unspecified; E83.39 Other disorders of phosphorus metabolism; E11.65 Type 2 diabetes mellitus with hyperglycemia; L73.9 Follicular disorder, unspecified; N25.0 Renal osteodystrophy; E11.69 Type 2 diabetes mellitus with other specified complication; D63.1 Anemia in chronic kidney disease; R19.7 Diarrhea, unspecified; E11.21 Type 2 diabetes mellitus with diabetic nephropathy; D72.829 Elevated white blood cell count, unspecified
CPT/HCPCS: 36415; 36430; 71045-TC-FY; 73590-TC-LT-FY; 73630-TC-LT; 76000-TC-FY; 80048; 80053; 80076; 82962; 83735; 84100; 85025; 85027; 85610; 86704; 86705; 86706; 86707; 86708; 86709; 86803; 86850; 86900; 86901; 86922; 87040; 87070; 87075; 87106; 87186; 87205; 87340; 88304-TC; 93005; 93010; 94010; 94760; 97162-GP; 97163-GP; 99285-25; C9803; G0480; J0131; J0735; J1644; P9058; Q5106; U0003; U0005

== ENCOUNTER 2021-10-12 12:07 | Inpatient (IN) | payer OTHER ==
[2021-10-12 17:49] LABS: BASO % 0.5 % (0-2.0); EOS % 1.2 % (0-4.5); HEMATOCRIT 32.2 % (32.4-45.2); HEMOGLOBIN 10.8 GM/dL (10.7-15.3); LYMPH % 18.3 % (8-40); MCH 26.2 pg (25.7-33.7); MCHC 33.5 g/dl (32.0-36.0); MEAN CELL VOLUME 78.4 fl (80-96); MEAN PLT VOLUME 8.1 fl (7.5-11.1); MONO % 6.6 % (3.8-10.2); NEUT % 73.4 % (42.8-82.8); PLATELET COUNT 341 10^3/uL (134-434); RDW 16.1 % (11.6-15.6); WHITE BLOOD COUNT 9.3 K/mm3 (4.0-10.0)
[2021-10-12 18:18] LABS: ALBUMIN 2.9 g/dl (3.4-5.0); BLOOD UREA NITROGEN 65.2 mg/dL (7-18); CALCIUM 8.1 mg/dL (8.5-10.1)
[2021-10-12 18:21] LABS: CREATININE 5.9 mg/dL (0.55-1.3)
[2021-10-12 18:23] LABS: BILIRUBIN,TOTAL 0.5 mg/dL (0.2-1); TOT PROT 7.3 g/dl (6.4-8.2)
[2021-10-12 18:34] LABS: ACTIVATED PTT 35.2 SECONDS (25.2-36.5); INR 1.07 (0.83-1.09); PROTHROMBIN TIME (PATIENT) 12.3 SEC (9.7-13.0)
[2021-10-12] MEDS ORDERED: CEFEPIME HCL/D5W 2 GM/50 ML BAG IVPB ONE (18:36)
[2021-10-12] MEDS ORDERED: VANCOMYCIN PREMIX 1.75 GM 1,750 MG/350 ML PIGGYBACK IVPB ONE (18:36)
[2021-10-12] MEDS ORDERED: CEFEPIME 2 GM/100 ML BAG IVPB ONE (18:44)
[2021-10-12 19:07] LABS: ERYTHROCYTE SEDIMENTATION RATE 96 mm/hr (0-30)
[2021-10-12] MEDS ORDERED: POLYETHYLENE GLYCOL (HEALTHYLAX) 3350 17 GM PACKET PO PRN (20:16)
[2021-10-12 21:42] LABS: BLOOD UREA NITROGEN 65.1 mg/dL (7-18); CALCIUM 7.5 mg/dL (8.5-10.1)
[2021-10-12 21:45] LABS: CREATININE 6.3 mg/dL (0.55-1.3)
[2021-10-12] MEDS ORDERED: CARVEDILOL 12.5 MG TABLET (FP) ONE (22:19)
[2021-10-12] MEDS ORDERED: ATORVASTATIN CA 10 MG TABLET (FP) ONE (22:20)
[2021-10-12] MEDS: ATORVASTATIN CA 10 MG TABLET (FP) PO SCH (22:30)
[2021-10-12] MEDS: CARVEDILOL 25 MG TABLET (FP) PO SCH (22:30)
[2021-10-12] MEDS: INSULIN SLIDING SCALE (NOVOLOG) 1 VIAL SQ SCH (22:30)
[2021-10-13 07:53] LABS: BASO % 0.4 % (0-2.0); EOS % 0.6 % (0-4.5); HEMATOCRIT 34.7 % (32.4-45.2); HEMOGLOBIN 11.1 GM/dL (10.7-15.3); LYMPH % 15.8 % (8-40); MCH 25.6 pg (25.7-33.7); MEAN PLT VOLUME 8.5 fl (7.5-11.1); MONO % 5.4 % (3.8-10.2); NEUT % 77.8 % (42.8-82.8); PLATELET COUNT 349 10^3/uL (134-434); RBC 4.33 M/mm3 (3.60-5.2); RDW 16.3 % (11.6-15.6); WHITE BLOOD COUNT 8.8 K/mm3 (4.0-10.0)
[2021-10-13 08:04] LABS: CALCIUM 8.3 mg/dL (8.5-10.1); MAGNESIUM 2.6 mg/dL (1.8-2.4)
[2021-10-13 08:07] LABS: PHOSPHOROUS 7.5 mg/dL (2.5-4.9)
[2021-10-13 08:08] LABS: CREATININE 6.9 mg/dL (0.55-1.3)
[2021-10-13] MEDS: SEVELAMER CARBONATE 800 MG TAB (FP) PO SCH ×3 (08:47→17:21)
[2021-10-13] MEDS ORDERED: CARVEDILOL 12.5 MG TABLET (FP) ONE (09:59)
[2021-10-13] MEDS ORDERED: amLODIPine BESYLATE 10 MG TABLET (FP) ONE (10:00)
[2021-10-13] MEDS: CARVEDILOL 25 MG TABLET (FP) PO SCH ×2 (10:07→21:58)
[2021-10-13] MEDS: amLODIPine BESYLATE 10 MG TABLET (FP) PO SCH (10:07)
[2021-10-13] MEDS: VITAMIN B COMP W-C 1 EA TABLET (NEPHRO-VITE) PO SCH (11:18)
[2021-10-13] MEDS ORDERED: CLOPIDOGREL BISULFATE 75 MG TABLET (FP) ONE (11:50)
[2021-10-13] MEDS: CLOPIDOGREL BISULFATE 75 MG TABLET (FP) PO SCH (11:54)
[2021-10-13] MEDS: INSULIN SLIDING SCALE (NOVOLOG) 1 VIAL SQ SCH ×4 (12:56→22:03)
[2021-10-13 13:07] LABS: SARS-CoV-2 NAA Not Detected (Not Detected)
[2021-10-13] MEDS ORDERED: CEFEPIME 0.5 GM in DEXTROSE 5%-WATER - 50 ML IVPB SCH (18:00)
[2021-10-13] MEDS: ACETAMINOPHEN 325 MG TABLET (FP) PO PRN (18:53)
[2021-10-13] MEDS ORDERED: SODIUM CHLORIDE 250 ML IV PRN (19:16)
[2021-10-13] MEDS ORDERED: VANCOMYCIN/WATER FOR INJ (PEG) 750 MG/150 ML BAG IVPB ONE (19:30)
[2021-10-13] MEDS ORDERED: CEFEPIME 0.5 GM in DEXTROSE 5%-WATER - 50 ML IVPB ONE ×2 (19:30→21:00)
[2021-10-13] MEDS: CEFEPIME 0.5 GM in DEXTROSE 5%-WATER - 50 ML IVPB SCH (21:40)
[2021-10-13] MEDS: ATORVASTATIN CA 10 MG TABLET (FP) PO SCH (21:58)
[2021-10-13] MEDS ORDERED: VANCOMYCIN/WATER FOR INJ (PEG) 750 MG/150 ML BAG IVPB SCH (22:00)
[2021-10-13] MEDS ORDERED: traMADol HCL 50 MG TABLET PO ONE (22:55)
[2021-10-14] MEDS: ACETAMINOPHEN 325 MG TABLET (FP) PO PRN (06:05)
[2021-10-14] MEDS: INSULIN SLIDING SCALE (NOVOLOG) 1 VIAL SQ SCH ×4 (06:11→21:46)
[2021-10-14] MEDS: SEVELAMER CARBONATE 800 MG TAB (FP) PO SCH ×3 (08:59→18:07)
[2021-10-14 09:00] LABS: BASO % 0.6 % (0-2.0); EOS % 1.4 % (0-4.5); HEMOGLOBIN 10.5 GM/dL (10.7-15.3); LYMPH % 16.5 % (8-40); MCHC 33.7 g/dl (32.0-36.0); MEAN CELL VOLUME 77.2 fl (80-96); MONO % 7.9 % (3.8-10.2); NEUT % 73.6 % (42.8-82.8); PLATELET COUNT 325 10^3/uL (134-434); RBC 4.02 M/mm3 (3.60-5.2); RDW 16.2 % (11.6-15.6); WHITE BLOOD COUNT 6.3 K/mm3 (4.0-10.0)
[2021-10-14 09:17] LABS: CALCIUM 8.4 mg/dL (8.5-10.1)
[2021-10-14 09:21] LABS: CREATININE 4.2 mg/dL (0.55-1.3)
[2021-10-14 09:25] LABS: BLOOD UREA NITROGEN 34.3 mg/dL (7-18)
[2021-10-14] MEDS: CLOPIDOGREL BISULFATE 75 MG TABLET (FP) PO SCH (09:47)
[2021-10-14] MEDS: CARVEDILOL 25 MG TABLET (FP) PO SCH ×2 (09:47→21:42)
[2021-10-14] MEDS: amLODIPine BESYLATE 10 MG TABLET (FP) PO SCH (09:47)
[2021-10-14] MEDS: VITAMIN B COMP W-C 1 EA TABLET (NEPHRO-VITE) PO SCH (09:48)
[2021-10-14] MEDS ORDERED: SODIUM CHLORIDE 250 ML IV PRN (14:46)
[2021-10-14] MEDS: CEFEPIME 0.5 GM in DEXTROSE 5%-WATER - 50 ML IVPB SCH (18:41)
[2021-10-14] MEDS: COLLAGENASE CLOSTRIDIUM HIST. 30 GRAMS TUBE TP SCH (18:41)
[2021-10-14] MEDS: ATORVASTATIN CA 10 MG TABLET (FP) PO SCH (21:41)
[2021-10-14] MEDS: oxyCODONE HCL 5 MG TABLET PO PRN (21:41)
[2021-10-14] MEDS: INSULIN (LEVEMIR) 100 UNITS/ML UNITS SQ SCH (21:47)
[2021-10-15] MEDS: INSULIN SLIDING SCALE (NOVOLOG) 1 VIAL SQ SCH ×4 (06:20→21:48)
[2021-10-15] MEDS: SEVELAMER CARBONATE 800 MG TAB (FP) PO SCH ×4 (08:02→18:52)
[2021-10-15] MEDS: COLLAGENASE CLOSTRIDIUM HIST. 30 GRAMS TUBE TP SCH (10:52)
[2021-10-15] MEDS: VITAMIN B COMP W-C 1 EA TABLET (NEPHRO-VITE) PO SCH (13:58)
[2021-10-15] MEDS: amLODIPine BESYLATE 10 MG TABLET (FP) PO SCH (13:58)
[2021-10-15] MEDS: CARVEDILOL 25 MG TABLET (FP) PO SCH ×2 (13:58→21:47)
[2021-10-15] MEDS: CLOPIDOGREL BISULFATE 75 MG TABLET (FP) PO SCH (13:58)
[2021-10-15 16:33] LABS: HEMATOCRIT 29.5 % (32.4-45.2); HEMOGLOBIN 9.8 GM/dL (10.7-15.3); MCHC 33.2 g/dl (32.0-36.0); MEAN CELL VOLUME 78.1 fl (80-96); MEAN PLT VOLUME 8.2 fl (7.5-11.1); PLATELET COUNT 330 10^3/uL (134-434); RBC 3.77 M/mm3 (3.60-5.2); RDW 15.8 % (11.6-15.6)
[2021-10-15 16:59] LABS: ALBUMIN 2.7 g/dl (3.4-5.0)
[2021-10-15] MEDS ORDERED: VANCOMYCIN/WATER FOR INJ (PEG) 1,000 MG/200 ML BAG IVPB ONE (17:00)
[2021-10-15 17:03] LABS: CREATININE 6.8 mg/dL (0.55-1.3)
[2021-10-15 17:04] LABS: TOT PROT 6.7 g/dl (6.4-8.2)
[2021-10-15 17:05] LABS: BILIRUBIN,TOTAL 0.3 mg/dL (0.2-1)
[2021-10-15 17:36] LABS: BLOOD UREA NITROGEN 59.7 mg/dL (7-18)
[2021-10-15] MEDS: CEFEPIME 0.5 GM in DEXTROSE 5%-WATER - 50 ML IVPB SCH (19:09)
[2021-10-15] MEDS ORDERED: INSULIN (NOVOLOG) ASPART 100 UNITS/ML 10ML VIAL ONE (21:04)
[2021-10-15] MEDS: ATORVASTATIN CA 10 MG TABLET (FP) PO SCH (21:47)
[2021-10-15] MEDS: oxyCODONE HCL 5 MG TABLET PO PRN (21:47)
[2021-10-15] MEDS: INSULIN (LEVEMIR) 100 UNITS/ML UNITS SQ SCH (21:48)
[2021-10-16] MEDS: INSULIN SLIDING SCALE (NOVOLOG) 1 VIAL SQ SCH ×4 (06:20→21:23)
[2021-10-16] MEDS: SEVELAMER CARBONATE 800 MG TAB (FP) PO SCH ×3 (08:15→17:20)
[2021-10-16] MEDS: CLOPIDOGREL BISULFATE 75 MG TABLET (FP) PO SCH (09:36)
[2021-10-16] MEDS: CARVEDILOL 25 MG TABLET (FP) PO SCH ×2 (09:36→21:22)
[2021-10-16] MEDS: VITAMIN B COMP W-C 1 EA TABLET (NEPHRO-VITE) PO SCH (09:36)
[2021-10-16] MEDS: amLODIPine BESYLATE 10 MG TABLET (FP) PO SCH (09:36)
[2021-10-16] MEDS: COLLAGENASE CLOSTRIDIUM HIST. 30 GRAMS TUBE TP SCH (09:37)
[2021-10-16] MEDS: CEFEPIME 0.5 GM in DEXTROSE 5%-WATER - 50 ML IVPB SCH (17:20)
[2021-10-16] MEDS: oxyCODONE HCL 5 MG TABLET PO PRN (21:22)
[2021-10-16] MEDS: ATORVASTATIN CA 10 MG TABLET (FP) PO SCH (21:22)
[2021-10-16] MEDS: INSULIN (LEVEMIR) 100 UNITS/ML UNITS SQ SCH (21:23)
[2021-10-17] MEDS: INSULIN SLIDING SCALE (NOVOLOG) 1 VIAL SQ SCH ×4 (06:07→22:13)
[2021-10-17] MEDS: VITAMIN B COMP W-C 1 EA TABLET (NEPHRO-VITE) PO SCH (09:46)
[2021-10-17] MEDS: amLODIPine BESYLATE 10 MG TABLET (FP) PO SCH (09:46)
[2021-10-17] MEDS: CARVEDILOL 25 MG TABLET (FP) PO SCH ×2 (09:46→22:09)
[2021-10-17] MEDS: CLOPIDOGREL BISULFATE 75 MG TABLET (FP) PO SCH (09:46)
[2021-10-17] MEDS: SEVELAMER CARBONATE 800 MG TAB (FP) PO SCH ×3 (09:47→16:53)
[2021-10-17] MEDS: COLLAGENASE CLOSTRIDIUM HIST. 30 GRAMS TUBE TP SCH (09:51)
[2021-10-17] MEDS ORDERED: DEXTROSE 5%-WATER 100 ML IVPB ONE (16:51)
[2021-10-17] MEDS ORDERED: MEROPENEM 1 GM VIAL (RESTRICTED TO ID) IVPB ONE (16:51)
[2021-10-17] MEDS: MEROPENEM 1 GM in DEXTROSE 5%-WATER 100 ML IVPB SCH (16:54)
[2021-10-17] MEDS ORDERED: oxyCODONE HCL 5 MG TABLET PO PRN (22:00)
[2021-10-17] MEDS: ATORVASTATIN CA 10 MG TABLET (FP) PO SCH (22:09)
[2021-10-17] MEDS: INSULIN (LEVEMIR) 100 UNITS/ML UNITS SQ SCH (22:12)
[2021-10-18] MEDS: INSULIN SLIDING SCALE (NOVOLOG) 1 VIAL SQ SCH ×4 (06:04→21:43)
[2021-10-18] MEDS: SEVELAMER CARBONATE 800 MG TAB (FP) PO SCH ×3 (08:01→16:59)
[2021-10-18] MEDS: VITAMIN B COMP W-C 1 EA TABLET (NEPHRO-VITE) PO SCH (09:59)
[2021-10-18] MEDS: amLODIPine BESYLATE 10 MG TABLET (FP) PO SCH (10:00)
[2021-10-18] MEDS: CARVEDILOL 25 MG TABLET (FP) PO SCH ×2 (10:00→21:30)
[2021-10-18] MEDS: CLOPIDOGREL BISULFATE 75 MG TABLET (FP) PO SCH (10:00)
[2021-10-18] MEDS: COLLAGENASE CLOSTRIDIUM HIST. 30 GRAMS TUBE TP SCH (10:00)
[2021-10-18 11:27] LABS: BASO % 0.6 % (0-2.0); EOS % 1.6 % (0-4.5); HEMATOCRIT 30.2 % (32.4-45.2); HEMOGLOBIN 9.7 GM/dL (10.7-15.3); LYMPH % 20.4 % (8-40); MCH 25.4 pg (25.7-33.7); MCHC 32.1 g/dl (32.0-36.0); MEAN CELL VOLUME 79.1 fl (80-96); MEAN PLT VOLUME 8.4 fl (7.5-11.1); MONO % 6.4 % (3.8-10.2); PLATELET COUNT 309 10^3/uL (134-434); RBC 3.82 M/mm3 (3.60-5.2); RDW 15.5 % (11.6-15.6); WHITE BLOOD COUNT 8.8 K/mm3 (4.0-10.0)
[2021-10-18 11:51] LABS: CHLORIDE 100 mmol/L (98-107); SODIUM 134 mmol/L (136-145)
[2021-10-18 11:56] LABS: GLUCOSE,RANDOM 253 mg/dL (74-106)
[2021-10-18 11:57] LABS: BLOOD UREA NITROGEN 77.3 mg/dL (7-18)
[2021-10-18 11:58] LABS: ANION GAP 10 MMOL/L (8-16); CALCIUM 8.4 mg/dL (8.5-10.1); CO2 24 mmol/L (21-32)
[2021-10-18 12:00] LABS: CREATININE 8.4 mg/dL (0.55-1.3)
[2021-10-18] MEDS ORDERED: EPOETIN ALFA-EPBX 10,000 UNIT/ML VIAL IVPUSH ONE (12:00)
[2021-10-18] MEDS ORDERED: SODIUM CHLORIDE 250 ML IV PRN (12:00)
[2021-10-18] MEDS ORDERED: VANCOMYCIN 1 GM PREMIX - 1 GM/200 ML BAG IVPB ONE (12:15)
[2021-10-18] MEDS ORDERED: DEXTROSE 5%-WATER 100 ML IVPB ONE (16:58)
[2021-10-18] MEDS ORDERED: MEROPENEM 1 GM VIAL (RESTRICTED TO ID) IVPB ONE (16:58)
[2021-10-18] MEDS: MEROPENEM 1 GM in DEXTROSE 5%-WATER 100 ML IVPB SCH (16:59)
[2021-10-18] MEDS ORDERED: INSULIN (NOVOLOG) ASPART 100 UNITS/ML 10ML VIAL ONE (21:28)
[2021-10-18] MEDS: oxyCODONE HCL 5 MG TABLET PO PRN (21:30)
[2021-10-18] MEDS: ATORVASTATIN CA 10 MG TABLET (FP) PO SCH (21:30)
[2021-10-18] MEDS: INSULIN (LEVEMIR) 100 UNITS/ML UNITS SQ SCH (21:43)
[2021-10-19] MEDS: INSULIN SLIDING SCALE (NOVOLOG) 1 VIAL SQ SCH ×4 (06:21→21:18)
[2021-10-19] MEDS: SEVELAMER CARBONATE 800 MG TAB (FP) PO SCH ×3 (08:35→17:06)
[2021-10-19] MEDS: CARVEDILOL 25 MG TABLET (FP) PO SCH ×2 (09:34→21:18)
[2021-10-19] MEDS: amLODIPine BESYLATE 10 MG TABLET (FP) PO SCH (09:34)
[2021-10-19] MEDS: VITAMIN B COMP W-C 1 EA TABLET (NEPHRO-VITE) PO SCH (09:34)
[2021-10-19] MEDS: CLOPIDOGREL BISULFATE 75 MG TABLET (FP) PO SCH (09:34)
[2021-10-19] MEDS: COLLAGENASE CLOSTRIDIUM HIST. 30 GRAMS TUBE TP SCH (09:35)
[2021-10-19] MEDS ORDERED: SODIUM CHLORIDE 250 ML IV PRN ×2 (14:34→14:35)
[2021-10-19] MEDS ORDERED: MEROPENEM 1 GM VIAL (RESTRICTED TO ID) IVPB ONE (17:01)
[2021-10-19] MEDS ORDERED: DEXTROSE 5%-WATER 100 ML IVPB ONE (17:01)
[2021-10-19] MEDS: MEROPENEM 1 GM in DEXTROSE 5%-WATER 100 ML IVPB SCH (17:07)
[2021-10-19] MEDS ORDERED: INSULIN (NOVOLOG) ASPART 100 UNITS/ML 10ML VIAL ONE (21:09)
[2021-10-19] MEDS: INSULIN (LEVEMIR) 100 UNITS/ML UNITS SQ SCH (21:18)
[2021-10-19] MEDS: ATORVASTATIN CA 10 MG TABLET (FP) PO SCH (21:18)
[2021-10-19] MEDS: oxyCODONE HCL 5 MG TABLET PO PRN (21:19)
[2021-10-20] MEDS: INSULIN SLIDING SCALE (NOVOLOG) 1 VIAL SQ SCH ×4 (06:13→21:30)
[2021-10-20] MEDS: SEVELAMER CARBONATE 800 MG TAB (FP) PO SCH ×3 (08:11→17:30)
[2021-10-20] MEDS ORDERED: INSULIN (NOVOLOG) ASPART 100 UNITS/ML 10ML VIAL ONE (09:06)
[2021-10-20] MEDS: amLODIPine BESYLATE 10 MG TABLET (FP) PO SCH (09:24)
[2021-10-20] MEDS: VITAMIN B COMP W-C 1 EA TABLET (NEPHRO-VITE) PO SCH (09:24)
[2021-10-20] MEDS: CLOPIDOGREL BISULFATE 75 MG TABLET (FP) PO SCH (09:24)
[2021-10-20] MEDS: CARVEDILOL 25 MG TABLET (FP) PO SCH ×2 (09:24→21:25)
[2021-10-20] MEDS: COLLAGENASE CLOSTRIDIUM HIST. 30 GRAMS TUBE TP SCH (09:24)
[2021-10-20] MEDS ORDERED: EPOETIN ALFA-EPBX 10,000 UNIT/ML VIAL IVPUSH ONE (11:00)
[2021-10-20] MEDS ORDERED: VANCOMYCIN 1 GM PREMIX - 1 GM/200 ML BAG IVPB ONE (11:00)
[2021-10-20 12:02] LABS: HEMATOCRIT 31.7 % (32.4-45.2); HEMOGLOBIN 10.3 GM/dL (10.7-15.3); MCH 25.6 pg (25.7-33.7); MCHC 32.6 g/dl (32.0-36.0); MEAN CELL VOLUME 78.5 fl (80-96); MEAN PLT VOLUME 8.4 fl (7.5-11.1); PLATELET COUNT 290 10^3/uL (134-434); RBC 4.04 M/mm3 (3.60-5.2); RDW 15.6 % (11.6-15.6); WHITE BLOOD COUNT 8.3 K/mm3 (4.0-10.0)
[2021-10-20 12:23] LABS: CALCIUM 8.5 mg/dL (8.5-10.1)
[2021-10-20 12:27] LABS: BLOOD UREA NITROGEN 35.9 mg/dL (7-18); CREATININE 4.8 mg/dL (0.55-1.3); PHOSPHOROUS 3.7 mg/dL (2.5-4.9)
[2021-10-20] MEDS: oxyCODONE HCL 5 MG TABLET PO PRN (21:25)
[2021-10-20] MEDS: ATORVASTATIN CA 10 MG TABLET (FP) PO SCH (21:25)
[2021-10-20] MEDS: ACETAMINOPHEN 325 MG TABLET (FP) PO PRN (21:26)
[2021-10-20] MEDS: INSULIN (LEVEMIR) 100 UNITS/ML UNITS SQ SCH (21:29)
[2021-10-21] MEDS: INSULIN SLIDING SCALE (NOVOLOG) 1 VIAL SQ SCH ×4 (06:23→22:07)
[2021-10-21] MEDS: SEVELAMER CARBONATE 800 MG TAB (FP) PO SCH ×3 (08:32→16:50)
[2021-10-21] MEDS: CLOPIDOGREL BISULFATE 75 MG TABLET (FP) PO SCH (09:48)
[2021-10-21] MEDS: VITAMIN B COMP W-C 1 EA TABLET (NEPHRO-VITE) PO SCH (09:48)
[2021-10-21] MEDS: COLLAGENASE CLOSTRIDIUM HIST. 30 GRAMS TUBE TP SCH (09:48)
[2021-10-21] MEDS: amLODIPine BESYLATE 10 MG TABLET (FP) PO SCH (09:48)
[2021-10-21] MEDS: CARVEDILOL 25 MG TABLET (FP) PO SCH ×2 (09:48→22:06)
[2021-10-21] MEDS: INSULIN (LEVEMIR) 100 UNITS/ML UNITS SQ SCH (22:06)
[2021-10-21] MEDS: ATORVASTATIN CA 10 MG TABLET (FP) PO SCH (22:06)
[2021-10-21] MEDS ORDERED: oxyCODONE HCL 5 MG TABLET PO PRN (22:20)
[2021-10-21] MEDS: ACETAMINOPHEN 325 MG TABLET (FP) PO PRN (22:24)
[2021-10-22] MEDS: COLLAGENASE CLOSTRIDIUM HIST. 30 GRAMS TUBE TP SCH (01:00)
[2021-10-22] MEDS: INSULIN SLIDING SCALE (NOVOLOG) 1 VIAL SQ SCH ×4 (06:06→21:43)
[2021-10-22] MEDS ORDERED: SODIUM CHLORIDE 250 ML IV PRN (07:00)
[2021-10-22] MEDS ORDERED: EPOETIN ALFA-EPBX 4,000 UNIT/ML VIAL IVPUSH ONE (07:00)
[2021-10-22] MEDS: SEVELAMER CARBONATE 800 MG TAB (FP) PO SCH ×3 (07:48→16:44)
[2021-10-22 09:43] LABS: CHLORIDE 98 mmol/L (98-107); SODIUM 136 mmol/L (136-145)
[2021-10-22 09:51] LABS: ANION GAP 9 MMOL/L (8-16); BLOOD UREA NITROGEN 60.9 mg/dL (7-18); CO2 29 mmol/L (21-32); GLUCOSE,RANDOM 137 mg/dL (74-106)
[2021-10-22 09:58] LABS: PHOSPHOROUS 6.2 mg/dL (2.5-4.9)
[2021-10-22 10:10] LABS: CALCIUM 8.8 mg/dL (8.5-10.1)
[2021-10-22 10:13] LABS: CREATININE 7.5 mg/dL (0.55-1.3)
[2021-10-22 10:58] LABS: HEMATOCRIT 32.3 % (32.4-45.2); HEMOGLOBIN 10.4 GM/dL (10.7-15.3); MCH 25.5 pg (25.7-33.7); MEAN CELL VOLUME 79.5 fl (80-96); MEAN PLT VOLUME 8.9 fl (7.5-11.1); PLATELET COUNT 353 10^3/uL (134-434); RBC 4.07 M/mm3 (3.60-5.2); RDW 15.2 % (11.6-15.6); WHITE BLOOD COUNT 9.5 K/mm3 (4.0-10.0)
[2021-10-22] MEDS: amLODIPine BESYLATE 10 MG TABLET (FP) PO SCH (12:00)
[2021-10-22] MEDS: CARVEDILOL 25 MG TABLET (FP) PO SCH ×2 (12:20→21:33)
[2021-10-22] MEDS: CLOPIDOGREL BISULFATE 75 MG TABLET (FP) PO SCH (12:21)
[2021-10-22] MEDS: VITAMIN B COMP W-C 1 EA TABLET (NEPHRO-VITE) PO SCH (12:21)
[2021-10-22] MEDS: ATORVASTATIN CA 10 MG TABLET (FP) PO SCH (21:33)
[2021-10-22] MEDS: INSULIN (LEVEMIR) 100 UNITS/ML UNITS SQ SCH (21:33)
[2021-10-22] MEDS ORDERED: oxyCODONE HCL 5 MG TABLET PO ONE (22:49)
[2021-10-23] MEDS ORDERED: INSULIN (LEVEMIR) 100 UNITS/ML UNITS SQ ONE (06:39)
[2021-10-23] MEDS: INSULIN SLIDING SCALE (NOVOLOG) 1 VIAL SQ SCH ×4 (06:46→21:41)
[2021-10-23] MEDS: SEVELAMER CARBONATE 800 MG TAB (FP) PO SCH ×3 (08:20→16:57)
[2021-10-23] MEDS: CLOPIDOGREL BISULFATE 75 MG TABLET (FP) PO SCH (09:08)
[2021-10-23] MEDS: amLODIPine BESYLATE 10 MG TABLET (FP) PO SCH (09:08)
[2021-10-23] MEDS: CARVEDILOL 25 MG TABLET (FP) PO SCH ×2 (09:08→21:37)
[2021-10-23] MEDS: VITAMIN B COMP W-C 1 EA TABLET (NEPHRO-VITE) PO SCH (09:08)
[2021-10-23] MEDS ORDERED: oxyCODONE HCL 5 MG TABLET PO PRN (09:42)
[2021-10-23] MEDS ORDERED: INSULIN (NOVOLOG) ASPART 100 UNITS/ML 10ML VIAL ONE ×3 (11:06→21:35)
[2021-10-23] MEDS: COLLAGENASE CLOSTRIDIUM HIST. 30 GRAMS TUBE TP SCH (11:22)
[2021-10-23] MEDS: INSULIN (LEVEMIR) 100 UNITS/ML UNITS SQ SCH (21:37)
[2021-10-23] MEDS: ATORVASTATIN CA 10 MG TABLET (FP) PO SCH (21:37)
[2021-10-24] MEDS: INSULIN SLIDING SCALE (NOVOLOG) 1 VIAL SQ SCH ×4 (06:31→22:02)
[2021-10-24] MEDS: SEVELAMER CARBONATE 800 MG TAB (FP) PO SCH ×3 (07:59→17:08)
[2021-10-24] MEDS: VITAMIN B COMP W-C 1 EA TABLET (NEPHRO-VITE) PO SCH (09:18)
[2021-10-24] MEDS: amLODIPine BESYLATE 10 MG TABLET (FP) PO SCH (09:18)
[2021-10-24] MEDS: CLOPIDOGREL BISULFATE 75 MG TABLET (FP) PO SCH (09:18)
[2021-10-24] MEDS: CARVEDILOL 25 MG TABLET (FP) PO SCH ×2 (09:18→22:01)
[2021-10-24] MEDS: COLLAGENASE CLOSTRIDIUM HIST. 30 GRAMS TUBE TP SCH (11:03)
[2021-10-24] MEDS ORDERED: INSULIN (NOVOLOG) ASPART 100 UNITS/ML 10ML VIAL ONE (11:56)
[2021-10-24] MEDS: INSULIN (LEVEMIR) 100 UNITS/ML UNITS SQ SCH (22:01)
[2021-10-24] MEDS: ATORVASTATIN CA 10 MG TABLET (FP) PO SCH (22:01)
[2021-10-25] MEDS: INSULIN SLIDING SCALE (NOVOLOG) 1 VIAL SQ SCH ×4 (06:31→22:05)
[2021-10-25] MEDS: SEVELAMER CARBONATE 800 MG TAB (FP) PO SCH ×3 (07:56→16:59)
[2021-10-25 10:36] LABS: HEMATOCRIT 30.9 % (32.4-45.2); MCH 25.7 pg (25.7-33.7); MCHC 32.3 g/dl (32.0-36.0); MEAN CELL VOLUME 79.7 fl (80-96); MEAN PLT VOLUME 9.1 fl (7.5-11.1); PLATELET COUNT 347 10^3/uL (134-434); RBC 3.87 M/mm3 (3.60-5.2); RDW 15.1 % (11.6-15.6); WHITE BLOOD COUNT 8.9 K/mm3 (4.0-10.0)
[2021-10-25 10:54] LABS: CHLORIDE 96 mmol/L (98-107); SODIUM 134 mmol/L (136-145)
[2021-10-25 10:55] LABS: BLOOD UREA NITROGEN 82.2 mg/dL (7-18); CALCIUM 7.9 mg/dL (8.5-10.1); CO2 26 mmol/L (21-32)
[2021-10-25 10:56] LABS: GLUCOSE,RANDOM 206 mg/dL (74-106)
[2021-10-25 10:59] LABS: ANION GAP 12 MMOL/L (8-16); CREATININE 9.6 mg/dL (0.55-1.3)
[2021-10-25] MEDS ORDERED: EPOETIN ALFA-EPBX 10,000 UNIT/ML VIAL IVPUSH ONE (11:00)
[2021-10-25] MEDS ORDERED: SODIUM CHLORIDE 250 ML IV PRN (11:00)
[2021-10-25] MEDS: CARVEDILOL 25 MG TABLET (FP) PO SCH ×2 (11:15→22:03)
[2021-10-25] MEDS: amLODIPine BESYLATE 10 MG TABLET (FP) PO SCH (11:15)
[2021-10-25] MEDS: CLOPIDOGREL BISULFATE 75 MG TABLET (FP) PO SCH (11:15)
[2021-10-25] MEDS: VITAMIN B COMP W-C 1 EA TABLET (NEPHRO-VITE) PO SCH (11:15)
[2021-10-25 12:38] VITALS: BMI 31.4
[2021-10-25] MEDS: COLLAGENASE CLOSTRIDIUM HIST. 30 GRAMS TUBE TP SCH (13:52)
[2021-10-25] MEDS: INSULIN (LEVEMIR) 100 UNITS/ML UNITS SQ SCH (22:03)
[2021-10-25] MEDS: ATORVASTATIN CA 10 MG TABLET (FP) PO SCH (22:03)
[2021-10-26] MEDS: INSULIN SLIDING SCALE (NOVOLOG) 1 VIAL SQ SCH ×2 (07:04→11:30)
[2021-10-26] MEDS: SEVELAMER CARBONATE 800 MG TAB (FP) PO SCH ×2 (08:56→11:30)
[2021-10-26] MEDS: VITAMIN B COMP W-C 1 EA TABLET (NEPHRO-VITE) PO SCH (09:34)
[2021-10-26] MEDS: amLODIPine BESYLATE 10 MG TABLET (FP) PO SCH (09:34)
[2021-10-26] MEDS: CLOPIDOGREL BISULFATE 75 MG TABLET (FP) PO SCH (09:34)
[2021-10-26] MEDS: CARVEDILOL 25 MG TABLET (FP) PO SCH (09:34)
[2021-10-26] MEDS: COLLAGENASE CLOSTRIDIUM HIST. 30 GRAMS TUBE TP SCH (09:35)
[2021-10-26] MEDS ORDERED: INSULIN (NOVOLOG) ASPART 100 UNITS/ML 10ML VIAL ONE (11:29)
[2021-10-26 14:28] VITALS: BP 145/66; PULSE 73; TEMP 98.1
== END 2021-10-26 15:35 | disposition home or self-care (01) | DRG 629 ==
LOC: JER 12:07 → JERBED 15:25 → J6S 10-13 14:46
PROVIDERS: ADMIT Hospitalist; ATTEND Internal Medicine
PROC: 0QBP3ZX Excision of Left Metatarsal, Percutaneous Approach, Diagnostic (ICD-10-PCS; principal; 2021-10-21)
PROC: 5A1D70Z Performance of Urinary Filtration, Intermittent, Less than 6 Hours Per Day (ICD-10-PCS; 2021-10-25)
DX: E11.69 Type 2 diabetes mellitus with other specified complication (principal); L03.116 Cellulitis of left lower limb; I13.2 Hypertensive heart and chronic kidney disease with heart failure and with stage 5 chronic kidney disease, or end stage renal disease; I50.32 Chronic diastolic (congestive) heart failure; M86.9 Osteomyelitis, unspecified; L08.9 Local infection of the skin and subcutaneous tissue, unspecified; N18.6 End stage renal disease; E11.40 Type 2 diabetes mellitus with diabetic neuropathy, unspecified; E11.51 Type 2 diabetes mellitus with diabetic peripheral angiopathy without gangrene; E11.621 Type 2 diabetes mellitus with foot ulcer; E87.5 Hyperkalemia; E78.5 Hyperlipidemia, unspecified
CPT/HCPCS: 36415; 73630-TC-LT; 73718-TC-LT; 80048; 80053; 82962; 83735; 84100; 85025; 85027; 85610; 85651; 85730; 86140; 86803; 86850; 86900; 86901; 87040; 87070; 87075; 87205; 87340; 97116-GP; 97162-GP; 99285-25; C9803-CS; G0277; G0463-25; G0480; J3370; Q5106; U0003; U0005

== ENCOUNTER 2022-01-21 14:03 | Observation (INO) | payer OTHER ==
[2022-01-21 19:27] LABS: BASO % 0.6 % (0-2.0); EOS % 1.6 % (0-4.5); HEMATOCRIT 38.7 % (32.4-45.2); LYMPH % 21.4 % (8-40); MCH 26.3 pg (25.7-33.7); MCHC 33.7 g/dl (32.0-36.0); MEAN CELL VOLUME 78.1 fl (80-96); MEAN PLT VOLUME 8.5 fl (7.5-11.1); MONO % 6.3 % (3.8-10.2); NEUT % 70.1 % (42.8-82.8); PLATELET COUNT 268 10^3/uL (134-434); RBC 4.95 M/mm3 (3.60-5.2); RDW 14.1 % (11.6-15.6); WHITE BLOOD COUNT 8.6 K/mm3 (4.0-10.0)
[2022-01-21 19:33] LABS: INR 1.08 (0.83-1.09); PROTHROMBIN TIME (PATIENT) 12.4 SEC (9.7-13.0)
[2022-01-21] MEDS ORDERED: SODIUM ZIRCONIUM CYCLOSILICATE (LOKELMA) 5 GM PACKET PO ONE (19:47)
[2022-01-21 19:49] LABS: CALCIUM 8.8 mg/dL (8.5-10.1)
[2022-01-21 19:50] LABS: ALBUMIN 3.4 g/dl (3.4-5.0); MAGNESIUM 2.5 mg/dL (1.8-2.4)
[2022-01-21 19:53] LABS: CREATININE 6.4 mg/dL (0.55-1.3)
[2022-01-21 19:54] LABS: TOT PROT 8.2 g/dl (6.4-8.2)
[2022-01-21 19:55] LABS: BILIRUBIN,TOTAL 0.3 mg/dL (0.2-1)
[2022-01-21] MEDS ORDERED: SODIUM ZIRCONIUM CYCLOSILICATE (LOKELMA) 5 GM PACKET ONE (20:56)
[2022-01-21] MEDS ORDERED: CARVEDILOL 25 MG TABLET (FP) PO ONE (22:01)
[2022-01-21] MEDS ORDERED: CARVEDILOL 25 MG TABLET (FP) ONE (22:02)
[2022-01-22 08:38] LABS: BASO % 2.6 % (0-2.0); EOS % 1.7 % (0-4.5); HEMATOCRIT 39.6 % (32.4-45.2); HEMOGLOBIN 12.8 GM/dL (10.7-15.3); LYMPH % 18.9 % (8-40); MCH 25.8 pg (25.7-33.7); MCHC 32.3 g/dl (32.0-36.0); MEAN CELL VOLUME 79.9 fl (80-96); MEAN PLT VOLUME 8.6 fl (7.5-11.1); NEUT % 71.8 % (42.8-82.8); PLATELET COUNT 242 10^3/uL (134-434); RBC 4.96 M/mm3 (3.60-5.2); RDW 14.2 % (11.6-15.6); WHITE BLOOD COUNT 7.7 K/mm3 (4.0-10.0)
[2022-01-22 08:56] LABS: CHLORIDE 107 mmol/L (98-107); SODIUM 140 mmol/L (136-145)
[2022-01-22 08:58] LABS: ALBUMIN 2.9 g/dl (3.4-5.0); ANION GAP 12 MMOL/L (8-16); CALCIUM 7.9 mg/dL (8.5-10.1); CO2 22 mmol/L (21-32)
[2022-01-22 08:59] LABS: BLOOD UREA NITROGEN 63.5 mg/dL (7-18); GLUCOSE,RANDOM 88 mg/dL (74-106)
[2022-01-22 09:02] LABS: SGOT/AST 16 U/L (15-37)
[2022-01-22 09:04] LABS: BILIRUBIN,TOTAL 0.6 mg/dL (0.2-1)
[2022-01-22] MEDS ORDERED: oxyCODONE HCL 5 MG TABLET PO PRN ×2 (09:04→13:38)
[2022-01-22] MEDS ORDERED: ONDANSETRON 4 MG/2 ML VIAL IVPUSH PRN ×2 (09:04→13:38)
[2022-01-22 09:05] LABS: ALK PHOS 94 U/L (45-117)
[2022-01-22] MEDS ORDERED: PROPOFOL 20 ML ONE ×3 (09:13→11:53)
[2022-01-22] MEDS ORDERED: MIDAZOLAM HCL 2 MG/2 ML SINGLE DOSE VIAL ONE (09:13)
[2022-01-22] MEDS ORDERED: HEPARIN NA (PORCINE) 5,000 UNITS/ML 1ML VIAL ONE ×2 (09:13→10:14)
[2022-01-22] MEDS ORDERED: LIDOCAINE HCL 1%, 10 MG/ML (20ML VIAL) ONE (09:13)
[2022-01-22] MEDS ORDERED: SODIUM CHLORIDE 1,000 ML IV SCH (09:15)
[2022-01-22 09:18] LABS: SGPT/ALT 23 U/L (13-61)
[2022-01-22 09:23] LABS: CREATININE 7.7 mg/dL (0.55-1.3)
[2022-01-22] MEDS ORDERED: ceFAZolin SODIUM 1 GM VIAL IVPB ONE (09:36)
[2022-01-22] MEDS ORDERED: LIDOCAINE HCL 1%, 10 MG/ML (20ML VIAL) INF ONE ×2 (09:58)
[2022-01-22] MEDS ORDERED: POVIDONE-IODINE OINTMENT 10% - 28.4 GM TUBE ONE (12:20)
[2022-01-22] MEDS ORDERED: POVIDONE-IODINE OINTMENT 10% - 28.4 GM TUBE TP ONE (12:35)
[2022-01-22] MEDS ORDERED: SODIUM CHLORIDE 250 ML IV PRN (12:35)
[2022-01-22] MEDS ORDERED: SODIUM ZIRCONIUM CYCLOSILICATE (LOKELMA) 5 GM PACKET PO ONE (12:45)
[2022-01-22] MEDS ORDERED: ONDANSETRON 4 MG/2 ML VIAL ONE (13:14)
[2022-01-22] MEDS ORDERED: LABETALOL HCL 5 MG/1 ML (100MG/20 ML VIAL) IVPUSH ONE (13:19)
[2022-01-22] MEDS ORDERED: hydrALAZINE HCL 20 MG/ML VIAL IVPUSH PRN (13:21)
[2022-01-22] MEDS ORDERED: LABETALOL HCL 5 MG/1 ML (100MG/20 ML VIAL) ONE (13:33)
[2022-01-22] MEDS ORDERED: hydrALAZINE HCL 20 MG/ML VIAL ONE (13:46)
[2022-01-22] MEDS ORDERED: ACETAMINOPHEN 1000 MG/100 ML BAG IVPB ONE (15:20)
[2022-01-22] MEDS: SODIUM CHLORIDE 1,000 ML IV SCH (15:28)
[2022-01-22] MEDS: amLODIPine BESYLATE 10 MG TABLET (FP) PO SCH (15:29)
[2022-01-22] MEDS: SEVELAMER CARBONATE 800 MG TAB (FP) PO SCH (16:32)
[2022-01-22] MEDS ORDERED: SEVELAMER CARBONATE 800 MG TAB (FP) PO SCH (17:30)
[2022-01-22] MEDS: INSULIN (LEVEMIR) 100 UNITS/ML UNITS SQ SCH (21:03)
[2022-01-22] MEDS: ATORVASTATIN CA 10 MG TABLET (FP) PO SCH (21:11)
[2022-01-22] MEDS: CARVEDILOL 25 MG TABLET (FP) PO SCH (21:12)
[2022-01-22] MEDS ORDERED: ATORVASTATIN CA 10 MG TABLET (FP) PO SCH (22:00)
[2022-01-22] MEDS ORDERED: CARVEDILOL 25 MG TABLET (FP) PO SCH (22:00)
[2022-01-22] MEDS ORDERED: INSULIN (LEVEMIR) 100 UNITS/ML UNITS SQ SCH (22:00)
[2022-01-23] MEDS: SEVELAMER CARBONATE 800 MG TAB (FP) PO SCH ×3 (08:43→17:58)
[2022-01-23 09:55] LABS: HEMATOCRIT 33.2 % (32.4-45.2); HEMOGLOBIN 11.1 GM/dL (10.7-15.3); MCHC 33.4 g/dl (32.0-36.0); MEAN PLT VOLUME 8.4 fl (7.5-11.1); PLATELET COUNT 278 10^3/uL (134-434); RBC 4.26 M/mm3 (3.60-5.2); WHITE BLOOD COUNT 11.1 K/mm3 (4.0-10.0)
[2022-01-23] MEDS ORDERED: CLOPIDOGREL BISULFATE 75 MG TABLET (FP) PO SCH (10:00)
[2022-01-23] MEDS ORDERED: VITAMIN B COMP W-C 1 EA TABLET (NEPHRO-VITE) PO SCH (10:00)
[2022-01-23] MEDS: CARVEDILOL 25 MG TABLET (FP) PO SCH ×2 (10:12→21:31)
[2022-01-23] MEDS: amLODIPine BESYLATE 10 MG TABLET (FP) PO SCH (10:12)
[2022-01-23 10:22] LABS: CHLORIDE 104 mmol/L (98-107); SODIUM 139 mmol/L (136-145)
[2022-01-23 10:27] LABS: BLOOD UREA NITROGEN 79.2 mg/dL (7-18); GLUCOSE,RANDOM 160 mg/dL (74-106)
[2022-01-23 10:28] LABS: ANION GAP 12 MMOL/L (8-16); CO2 23 mmol/L (21-32)
[2022-01-23 10:29] LABS: CALCIUM 7.3 mg/dL (8.5-10.1)
[2022-01-23 10:32] LABS: CREATININE 9.2 mg/dL (0.55-1.3)
[2022-01-23] MEDS: CLOPIDOGREL BISULFATE 75 MG TABLET (FP) PO SCH (14:25)
[2022-01-23] MEDS: VITAMIN B COMP W-C 1 EA TABLET (NEPHRO-VITE) PO SCH (14:25)
[2022-01-23] MEDS: SODIUM CHLORIDE 1,000 ML IV SCH (14:27)
[2022-01-23] MEDS: ATORVASTATIN CA 10 MG TABLET (FP) PO SCH (21:33)
[2022-01-23] MEDS: INSULIN (LEVEMIR) 100 UNITS/ML UNITS SQ SCH (21:36)
[2022-01-24] MEDS ORDERED: ONDANSETRON 4 MG/2 ML VIAL IVPUSH ONE (03:02)
[2022-01-24] MEDS ORDERED: SODIUM CHLORIDE 250 ML IV PRN (07:00)
[2022-01-24] MEDS: SEVELAMER CARBONATE 800 MG TAB (FP) PO SCH ×3 (08:41→18:30)
[2022-01-24] MEDS ORDERED: LOSARTAN POTASSIUM 50 MG TABLET PO SCH (10:00)
[2022-01-24 10:21] LABS: CALCIUM 7.3 mg/dL (8.5-10.1)
[2022-01-24 10:25] LABS: CREATININE 5.6 mg/dL (0.55-1.3)
[2022-01-24 10:32] LABS: BLOOD UREA NITROGEN 30.4 mg/dL (7-18)
[2022-01-24] MEDS ORDERED: ONDANSETRON 4 MG/2 ML VIAL IVPUSH PRN (11:16)
[2022-01-24 11:54] LABS: BASO % 0.6 % (0-2.0); EOS % 0.8 % (0-4.5); HEMATOCRIT 36.4 % (32.4-45.2); HEMOGLOBIN 11.7 GM/dL (10.7-15.3); LYMPH % 12.4 % (8-40); MCH 25.4 pg (25.7-33.7); MCHC 32.2 g/dl (32.0-36.0); MEAN CELL VOLUME 78.8 fl (80-96); MEAN PLT VOLUME 8.7 fl (7.5-11.1); MONO % 5.6 % (3.8-10.2); NEUT % 80.6 % (42.8-82.8); PLATELET COUNT 284 10^3/uL (134-434); RBC 4.62 M/mm3 (3.60-5.2); RDW 14.1 % (11.6-15.6); WHITE BLOOD COUNT 12.5 K/mm3 (4.0-10.0)
[2022-01-24] MEDS ORDERED: MAG HYDROX/AL HYDROX/SIMETH -MYLANTA- ORAL SUSPENSION PO SCH (12:00)
[2022-01-24] MEDS: FAMOTIDINE 20 MG/50 ML IVPB 20 MG/50 ML MG IVPB SCH ×2 (12:22→22:42)
[2022-01-24] MEDS: CLOPIDOGREL BISULFATE 75 MG TABLET (FP) PO SCH (12:23)
[2022-01-24] MEDS: VITAMIN B COMP W-C 1 EA TABLET (NEPHRO-VITE) PO SCH (12:23)
[2022-01-24] MEDS: CARVEDILOL 25 MG TABLET (FP) PO SCH ×2 (12:23→22:32)
[2022-01-24] MEDS: amLODIPine BESYLATE 10 MG TABLET (FP) PO SCH (12:23)
[2022-01-24] MEDS: MAG HYDROX/AL HYDROX/SIMETH 30 ML UNIT-DOSE CUP PO SCH (18:28)
[2022-01-24] MEDS: INSULIN (LEVEMIR) 100 UNITS/ML UNITS SQ SCH (22:33)
[2022-01-24] MEDS: ATORVASTATIN CA 10 MG TABLET (FP) PO SCH (22:34)
[2022-01-25] MEDS: SODIUM CHLORIDE 1,000 ML IV SCH (00:30)
[2022-01-25] MEDS: MAG HYDROX/AL HYDROX/SIMETH 30 ML UNIT-DOSE CUP PO SCH ×3 (04:00→12:32)
[2022-01-25] MEDS: SEVELAMER CARBONATE 800 MG TAB (FP) PO SCH ×2 (08:43→12:31)
[2022-01-25] MEDS ORDERED: LOSARTAN POTASSIUM 50 MG TABLET PO SCH (08:48)
[2022-01-25] MEDS ORDERED: ONDANSETRON 4 MG TABLET PO PRN (08:51)
[2022-01-25] MEDS ORDERED: DOCUSATE SODIUM 100 MG CAPSULE (FP) PO PRN (08:52)
[2022-01-25] MEDS ORDERED: FAMOTIDINE 20 MG TABLET PO SCH (10:00)
[2022-01-25] MEDS ORDERED: POLYETHYLENE GLYCOL (HEALTHYLAX) 3350 17 GM PACKET PO SCH (10:00)
[2022-01-25] MEDS: CARVEDILOL 25 MG TABLET (FP) PO SCH (10:42)
[2022-01-25] MEDS: amLODIPine BESYLATE 10 MG TABLET (FP) PO SCH (10:42)
[2022-01-25] MEDS: CLOPIDOGREL BISULFATE 75 MG TABLET (FP) PO SCH (10:42)
[2022-01-25] MEDS: VITAMIN B COMP W-C 1 EA TABLET (NEPHRO-VITE) PO SCH (10:42)
[2022-01-25 13:45] VITALS: BMI 29.9
[2022-01-25 14:07] VITALS: BP 120/74; PULSE 84; TEMP 98.3
== END 2022-01-25 15:06 | disposition home health service (06) ==
LOC: JER 14:03 → JERBED 18:22 → J7W 22:16
PROVIDERS: ADMIT Internal Medicine; ATTEND Internal Medicine
PROC: 05CF0ZZ Extirpation of Matter from Left Cephalic Vein, Open Approach (ICD-10-PCS; principal; 2022-01-21)
PROC: 3E033NZ Introduction of Analgesics, Hypnotics, Sedatives into Peripheral Vein, Percutaneous Approach (ICD-10-PCS; 2022-01-21)
PROC: 3E03329 Introduction of Other Anti-infective into Peripheral Vein, Percutaneous Approach (ICD-10-PCS; 2022-01-21)
PROC: 3E033GC Introduction of Other Therapeutic Substance into Peripheral Vein, Percutaneous Approach (ICD-10-PCS; 2022-01-21)
PROC: 3E013VG Introduction of Insulin into Subcutaneous Tissue, Percutaneous Approach (ICD-10-PCS; 2022-01-21)
PROC: 3E0337Z Introduction of Electrolytic and Water Balance Substance into Peripheral Vein, Percutaneous Approach (ICD-10-PCS; 2022-01-21)
DX: T82.898A Other specified complication of vascular prosthetic devices, implants and grafts, initial encounter (principal); I13.11 Hypertensive heart and chronic kidney disease without heart failure, with stage 5 chronic kidney disease, or end stage renal disease; R11.2 Nausea with vomiting, unspecified; E11.22 Type 2 diabetes mellitus with diabetic chronic kidney disease; N18.6 End stage renal disease; Z99.2 Dependence on renal dialysis; E66.9 Obesity, unspecified; Z68.30 Body mass index [BMI] 30.0-30.9, adult; I73.9 Peripheral vascular disease, unspecified; R21 Rash and other nonspecific skin eruption; E78.5 Hyperlipidemia, unspecified; R68.89 Other general symptoms and signs; Z88.0 Allergy status to penicillin; X58.XXXA Exposure to other specified factors, initial encounter; Y93.89 Activity, other specified; Y92.89 Other specified places as the place of occurrence of the external cause
CPT/HCPCS: 36415; 73060-TC-LT-FY; 74018-TC-FY; 76937; 80048; 80053; 82962; 83735; 84100; 85025; 85027; 85610; 86803; 86850; 86900; 86901; 87340; 93005; 93010; 94760; 96361; 96365; 96372; 96375; 96376; 99285-25; C9803-CS; G0378; J1644; U0003; U0005

== ENCOUNTER 2023-02-07 05:11 | Inpatient (IN) | payer OTHER ==
[2023-02-07] MEDS ORDERED: ONDANSETRON 4 MG/2 ML VIAL IVPUSH ONE (05:59)
[2023-02-07] MEDS ORDERED: ONDANSETRON 4 MG/2 ML VIAL ONE (06:04)
[2023-02-07 06:40] LABS: BASO % 0.6 % (0-2.0); EOS % 0.8 % (0-4.5); HEMATOCRIT 36.8 % (32.4-45.2); HEMOGLOBIN 11.5 GM/dL (10.7-15.3); LYMPH % 9.8 % (8-40); MCH 25.5 pg (25.7-33.7); MCHC 31.1 g/dl (32.0-36.0); MEAN CELL VOLUME 82.2 fl (80-96); MEAN PLT VOLUME 9.7 fl (7.5-11.1); MONO % 3.8 % (3.8-10.2); PLATELET COUNT 282 10^3/uL (134-434); RBC 4.48 M/mm3 (3.60-5.2); RDW 16.1 % (11.6-15.6); WHITE BLOOD COUNT 12.6 K/mm3 (4.0-10.0)
[2023-02-07 06:43] LABS: VENOUS BASE EXCESS -0.1 mmol/L (-2-2); VENOUS O2 SATURATION 62.1 % (70-80); VENOUS PCO2 46.2 mmHg (38-52); VENOUS PH 7.362 (7.310-7.410)
[2023-02-07 06:49] LABS: INR 0.97 (0.83-1.09); PROTHROMBIN TIME (PATIENT) 11.3 SEC (9.7-13.0)
[2023-02-07 06:51] LABS: CHLORIDE 104 mmol/L (98-107); POTASSIUM 3.5 mmol/L (3.5-5.1); SODIUM 143 mmol/L (136-145)
[2023-02-07 06:52] LABS: ACTIVATED PTT 33.7 SECONDS (25.2-36.5)
[2023-02-07 06:53] LABS: CALCIUM 9.4 mg/dL (8.5-10.1)
[2023-02-07 06:54] LABS: ANION GAP 12 MMOL/L (8-16); BLOOD UREA NITROGEN 48.3 mg/dL (7-18); CO2 27 mmol/L (21-32); GLUCOSE,RANDOM 209 mg/dL (74-106); LIPASE 43 U/L (73-393)
[2023-02-07 06:57] LABS: PHOSPHOROUS 2.7 mg/dL (2.5-4.9); SGOT/AST 10 U/L (15-37); SGPT/ALT 9 U/L (13-61)
[2023-02-07 06:58] LABS: BILIRUBIN,TOTAL 0.4 mg/dL (0.2-1); TOT PROT 7.1 g/dl (6.4-8.2)
[2023-02-07 06:59] LABS: ALK PHOS 84 U/L (45-117)
[2023-02-07] MEDS ORDERED: cloNIDine HCL 0.1 MG TABLET PO ONE (07:18)
[2023-02-07 07:37] LABS: CREATININE 9.3 mg/dL (0.55-1.3)
[2023-02-07] MEDS ORDERED: cloNIDine HCL 0.1 MG TABLET ONE (07:38)
[2023-02-07] MEDS ORDERED: NITROGLYCERIN 25MG/D5W 250ML 25 MG/250 ML ML IVPB SCH (07:45)
[2023-02-07] MEDS ORDERED: NITROGLYCERIN 25MG/D5W 250ML 25 MG/250 ML ML IVPB ONE (07:52)
[2023-02-07] MEDS ORDERED: SODIUM CHLORIDE 250 ML IV PRN (09:03)
[2023-02-07] MEDS ORDERED: NITROGLYCERIN 2% OINTMENT - 1GM PACKET TD ONE ×2 (09:10→09:38)
[2023-02-07] MEDS: CARVEDILOL 25 MG TABLET (FP) PO SCH ×2 (10:25→21:38)
[2023-02-07] MEDS ORDERED: INSULIN REGULAR HUMAN 100 UNITS/ML *VIAL SQ SCH (11:00)
[2023-02-07] MEDS: INSULIN (NOVOLOG) ASPART 100 UNITS/ML 10ML VIAL SQ SCH ×2 (11:26→20:04)
[2023-02-07] MEDS: INSULIN SLIDING SCALE (NOVOLOG) 1 VIAL SQ SCH ×3 (11:27→21:44)
[2023-02-07] MEDS: SEVELAMER CARBONATE 800 MG TAB (FP) PO SCH ×2 (11:28→19:37)
[2023-02-07] MEDS: HEPARIN NA (PORCINE) 5,000 UNITS/ML 1ML VIAL SQ SCH ×2 (14:00→21:38)
[2023-02-07] MEDS ORDERED: FUROSEMIDE 40 MG TABLET (FP) ONE (19:31)
[2023-02-07] MEDS ORDERED: SODIUM ZIRCONIUM CYCLOSILICATE (LOKELMA) 10 GM PACKET ONE (19:32)
[2023-02-07] MEDS ORDERED: SEVELAMER CARBONATE 800 MG TAB (FP) ONE (19:32)
[2023-02-07] MEDS: CLOPIDOGREL BISULFATE 75 MG TABLET (FP) PO SCH (19:37)
[2023-02-07] MEDS: SODIUM ZIRCONIUM CYCLOSILICATE (LOKELMA) 10 GM PACKET PO SCH (19:37)
[2023-02-07] MEDS: FUROSEMIDE 40 MG TABLET (FP) PO SCH (19:37)
[2023-02-07] MEDS: ATORVASTATIN CA 10 MG TABLET (FP) PO SCH (21:37)
[2023-02-07] MEDS: cloNIDine HCL 0.1 MG TABLET PO SCH (21:38)
[2023-02-07] MEDS: INSULIN (LEVEMIR) 100 UNITS/ML UNITS SQ SCH (21:47)
[2023-02-08] MEDS: HEPARIN NA (PORCINE) 5,000 UNITS/ML 1ML VIAL SQ SCH ×3 (06:04→21:18)
[2023-02-08] MEDS: SEVELAMER CARBONATE 800 MG TAB (FP) PO SCH ×3 (06:04→16:38)
[2023-02-08] MEDS: INSULIN (NOVOLOG) ASPART 100 UNITS/ML 10ML VIAL SQ SCH ×3 (06:13→16:39)
[2023-02-08] MEDS: INSULIN SLIDING SCALE (NOVOLOG) 1 VIAL SQ SCH ×4 (06:13→21:26)
[2023-02-08] MEDS: SODIUM ZIRCONIUM CYCLOSILICATE (LOKELMA) 10 GM PACKET PO SCH (09:57)
[2023-02-08] MEDS: FUROSEMIDE 40 MG TABLET (FP) PO SCH (09:57)
[2023-02-08] MEDS: cloNIDine HCL 0.1 MG TABLET PO SCH ×2 (09:57→21:17)
[2023-02-08] MEDS: CARVEDILOL 25 MG TABLET (FP) PO SCH ×2 (09:57→21:17)
[2023-02-08] MEDS: CLOPIDOGREL BISULFATE 75 MG TABLET (FP) PO SCH (09:57)
[2023-02-08 10:36] LABS: HEMATOCRIT 36.2 % (32.4-45.2); HEMOGLOBIN 11.1 GM/dL (10.7-15.3); MCH 25.2 pg (25.7-33.7); MCHC 30.7 g/dl (32.0-36.0); MEAN PLT VOLUME 9.5 fl (7.5-11.1); PLATELET COUNT 260 10^3/uL (134-434); RBC 4.41 M/mm3 (3.60-5.2); RDW 16.2 % (11.6-15.6); WHITE BLOOD COUNT 9.6 K/mm3 (4.0-10.0)
[2023-02-08 11:08] LABS: POTASSIUM 3.9 mmol/L (3.5-5.1)
[2023-02-08 11:17] LABS: BLOOD UREA NITROGEN 25.9 mg/dL (7-18); CALCIUM 9.3 mg/dL (8.5-10.1); MAGNESIUM 3.6 mg/dL (1.8-2.4)
[2023-02-08 11:19] LABS: PHOSPHOROUS 2.7 mg/dL (2.5-4.9)
[2023-02-08 11:20] LABS: CREATININE 5.9 mg/dL (0.55-1.3)
[2023-02-08] MEDS ORDERED: INSULIN (NOVOLOG) ASPART 100 UNITS/ML 10ML VIAL ONE ×2 (11:43→21:11)
[2023-02-08 11:44] VITALS: RESP 18
[2023-02-08] MEDS ORDERED: SODIUM CHLORIDE 250 ML IV PRN (12:54)
[2023-02-08] MEDS: ATORVASTATIN CA 10 MG TABLET (FP) PO SCH (21:17)
[2023-02-08] MEDS: INSULIN (LEVEMIR) 100 UNITS/ML UNITS SQ SCH (21:26)
[2023-02-09] MEDS: INSULIN (NOVOLOG) ASPART 100 UNITS/ML 10ML VIAL SQ SCH ×2 (06:01→11:49)
[2023-02-09] MEDS: SEVELAMER CARBONATE 800 MG TAB (FP) PO SCH ×2 (06:01→11:50)
[2023-02-09] MEDS: INSULIN SLIDING SCALE (NOVOLOG) 1 VIAL SQ SCH ×2 (06:01→11:49)
[2023-02-09] MEDS: HEPARIN NA (PORCINE) 5,000 UNITS/ML 1ML VIAL SQ SCH ×2 (06:01→13:30)
[2023-02-09] MEDS: FUROSEMIDE 40 MG TABLET (FP) PO SCH (10:40)
[2023-02-09] MEDS: CLOPIDOGREL BISULFATE 75 MG TABLET (FP) PO SCH (10:40)
[2023-02-09] MEDS: cloNIDine HCL 0.1 MG TABLET PO SCH (10:41)
[2023-02-09] MEDS: SODIUM ZIRCONIUM CYCLOSILICATE (LOKELMA) 10 GM PACKET PO SCH (10:41)
[2023-02-09] MEDS: CARVEDILOL 25 MG TABLET (FP) PO SCH (10:41)
[2023-02-09 14:45] VITALS: BMI 29.0
[2023-02-09] MEDS ORDERED: SODIUM CHLORIDE 250 ML IV PRN (14:50)
[2023-02-09 15:05] VITALS: BP 147/66; PULSE 65; TEMP 97.7
== END 2023-02-09 16:55 | disposition home health service (06) | DRG 640 ==
LOC: JER 05:11 → JERBED 09:33 → J6S 20:32
PROVIDERS: ADMIT Internal Medicine; ATTEND Internal Medicine
PROC: 5A1D70Z Performance of Urinary Filtration, Intermittent, Less than 6 Hours Per Day (ICD-10-PCS; principal; 2023-02-08)
DX: E87.70 Fluid overload, unspecified (principal); N18.6 End stage renal disease; I13.2 Hypertensive heart and chronic kidney disease with heart failure and with stage 5 chronic kidney disease, or end stage renal disease; I50.30 Unspecified diastolic (congestive) heart failure; I16.1 Hypertensive emergency; K52.9 Noninfective gastroenteritis and colitis, unspecified; R09.02 Hypoxemia; Z99.2 Dependence on renal dialysis; E78.5 Hyperlipidemia, unspecified; I25.10 Atherosclerotic heart disease of native coronary artery without angina pectoris; E11.9 Type 2 diabetes mellitus without complications
CPT/HCPCS: 0241U-QW; 36415; 71045-TC-FY; 80048; 80053; 82803; 82962; 83036; 83690; 83735; 84100; 84484; 85025; 85027; 85610; 85730; 86803; 86850; 86900; 86901; 87340; 93005; 93010; 97116-GP; 97162-GP; 99285-25; J1644

== ENCOUNTER 2023-09-18 05:47 | Inpatient (IN) | payer OTHER ==
[2023-09-18 06:10] VITALS: BMI 32.2
[2023-09-18 07:01] LABS: BASO % 0.4 % (0-2.0); EOS % 0.9 % (0-4.5); HEMATOCRIT 31.2 % (32.4-45.2); LYMPH % 4.6 % (8-40); MCH 25.7 pg (25.7-33.7); MCHC 32.2 g/dl (32.0-36.0); MEAN PLT VOLUME 8.8 fl (7.5-11.1); MONO % 4.2 % (3.8-10.2); NEUT % 89.9 % (42.8-82.8); PLATELET COUNT 299 10^3/uL (134-434); RDW 14.9 % (11.6-15.6)
[2023-09-18 07:05] LABS: INR 1.09 (0.83-1.09); PROTHROMBIN TIME (PATIENT) 12.6 SEC (9.7-13.0)
[2023-09-18 07:07] LABS: ACTIVATED PTT 31.5 SECONDS (25.2-36.5)
[2023-09-18 07:26] LABS: VENOUS BASE EXCESS -1.9 mmol/L (-2-2); VENOUS O2 SATURATION 54.5 % (70-80); VENOUS PCO2 46.2 mmHg (38-52); VENOUS PH 7.335 (7.310-7.410)
[2023-09-18 07:37] LABS: CHLORIDE 98 mmol/L (98-107); POTASSIUM 3.8 mmol/L (3.5-5.1); SODIUM 134 mmol/L (136-145)
[2023-09-18 07:40] LABS: ALBUMIN 2.6 g/dl (3.4-5.0); ANION GAP 13 mmol/L (4-13); BLOOD UREA NITROGEN 63.9 mg/dL (7-18); CALCIUM 8.5 mg/dL (8.5-10.1); CO2 23 mmol/L (21-32); GLUCOSE,RANDOM 265 mg/dL (74-106); MAGNESIUM 2.4 mg/dL (1.8-2.4)
[2023-09-18 07:43] LABS: PHOSPHOROUS 5.2 mg/dL (2.5-4.9); SGOT/AST 10 U/L (15-37); SGPT/ALT 10 U/L (13-61)
[2023-09-18 07:45] LABS: BILIRUBIN,TOTAL 0.5 mg/dL (0.2-1); TOT PROT 7.8 g/dl (6.4-8.2)
[2023-09-18 07:46] LABS: ALK PHOS 106 U/L (45-117)
[2023-09-18 07:55] LABS: CREATININE 9.1 mg/dL (0.55-1.3)
[2023-09-18] MEDS ORDERED: VANCOMYCIN 1 GRAM (PRE-DOCKED) 1,000 MG/250 ML BAG IVPB ONE (08:49)
[2023-09-18] MEDS ORDERED: CEFEPIME 1 GM/100 ML BAG IVPB ONE (08:49)
[2023-09-18] MEDS: VANCOMYCIN 1,000 MG in DEXTROSE 5%-WATER - 250 ML IVPB ONE (09:04)
[2023-09-18] MEDS: CEFEPIME HCL 1 GM VIAL (RESTRICTED TO ID) IVPB ONE (09:04)
[2023-09-18] MEDS ORDERED: SODIUM CHLORIDE 250 ML IV PRN ×2 (10:16→17:00)
[2023-09-18] MEDS: methylPREDNISolone NA SUCC 40 MG/1 ML VIAL IVPUSH SCH (15:49)
[2023-09-18] MEDS: ALBUMIN HUMAN 25% 12.5 GM/50 ML VIAL IV SCH (17:00)
[2023-09-18] MEDS: CEFTRIAXONE 1 GM in DEXTROSE 5%-WATER - 50 ML IVPB SCH (17:33)
[2023-09-18] MEDS: AZITHROMYCIN 500 MG TABLET PO SCH (17:33)
[2023-09-18] MEDS: EPOETIN ALFA-EPBX 4,000 UNIT/ML VIAL SQ ONE (19:12)
[2023-09-18] MEDS ORDERED: INSULIN (NOVOLOG) ASPART 100 UNITS/ML 10ML VIAL ONE (21:35)
[2023-09-18] MEDS: cloNIDine HCL 0.1 MG TABLET PO SCH (21:56)
[2023-09-18] MEDS: SEVELAMER CARBONATE 800 MG TAB (FP) PO SCH (21:56)
[2023-09-18] MEDS: CARVEDILOL 25 MG TABLET (FP) PO SCH (21:56)
[2023-09-18] MEDS: INSULIN (LEVEMIR) 100 UNITS/ML UNITS SQ SCH (21:57)
[2023-09-18] MEDS: HEPARIN NA (PORCINE) 5,000 UNITS/ML 1ML VIAL SQ SCH (21:57)
[2023-09-18] MEDS: ATORVASTATIN CA 10 MG TABLET (FP) PO SCH (21:57)
[2023-09-18] MEDS: INSULIN (NOVOLOG) ASPART 100 UNITS/ML 10ML VIAL SQ SCH (22:00)
[2023-09-19] MEDS: CLOPIDOGREL BISULFATE 75 MG TABLET (FP) PO SCH (09:31)
[2023-09-19] MEDS: amLODIPine BESYLATE 5 MG TABLET (FP) PO SCH (09:31)
[2023-09-19] MEDS: PANTOPRAZOLE 20 MG TABLET PO SCH (09:31)
[2023-09-19 09:56] LABS: HEMOGLOBIN 9.8 GM/dL (10.7-15.3); MCH 26.1 pg (25.7-33.7); MCHC 32.6 g/dl (32.0-36.0); MEAN PLT VOLUME 9.2 fl (7.5-11.1); PLATELET COUNT 317 10^3/uL (134-434); RBC 3.75 M/mm3 (3.60-5.2); RDW 15.3 % (11.6-15.6)
[2023-09-19] MEDS ORDERED: methylPREDNISolone NA SUCC 40 MG/1 ML VIAL IVPUSH SCH (10:00)
[2023-09-19 10:18] LABS: POTASSIUM 3.7 mmol/L (3.5-5.1)
[2023-09-19 10:26] LABS: ALBUMIN 2.5 g/dl (3.4-5.0); BLOOD UREA NITROGEN 45.4 mg/dL (7-18); CALCIUM 9.2 mg/dL (8.5-10.1)
[2023-09-19 10:29] LABS: CREATININE 6.3 mg/dL (0.55-1.3)
[2023-09-19 10:30] LABS: BILIRUBIN,TOTAL 0.5 mg/dL (0.2-1); TOT PROT 7.4 g/dl (6.4-8.2)
[2023-09-19 10:38] LABS: ANISOCYTOSIS 0; MACROCYTOSIS 0
[2023-09-19] MEDS ORDERED: INSULIN (NOVOLOG) ASPART 100 UNITS/ML 10ML VIAL ONE ×2 (11:00→21:19)
[2023-09-19] MEDS ORDERED: SODIUM CHLORIDE 250 ML IV PRN (12:45)
[2023-09-19] MEDS: INSULIN (NOVOLOG) ASPART 100 UNITS/ML 10ML VIAL SQ ONE (17:04)
[2023-09-19] MEDS: INSULIN (LEVEMIR) 100 UNITS/ML UNITS SQ SCH (21:49)
[2023-09-20] MEDS: ALBUTEROL SO4 2.5/IPRATROPIUM 0.5 INH SOL 3 ML VIAL.NEB. NEB SCH (08:07)
[2023-09-20] MEDS ORDERED: INSULIN (NOVOLOG) ASPART 100 UNITS/ML 10ML VIAL ONE ×2 (11:38→21:23)
[2023-09-20] MEDS ORDERED: EPOETIN ALFA-EPBX 4,000 UNIT/ML VIAL SQ ONE (12:45)
[2023-09-20 15:42] LABS: HEMOGLOBIN 9.1 GM/dL (10.7-15.3); MCH 25.4 pg (25.7-33.7); MCHC 31.5 g/dl (32.0-36.0); MEAN CELL VOLUME 80.5 fl (80-96); MEAN PLT VOLUME 9.4 fl (7.5-11.1); PLATELET COUNT 345 10^3/uL (134-434); RDW 15.6 % (11.6-15.6); WHITE BLOOD COUNT 20.4 K/mm3 (4.0-10.0)
[2023-09-20 15:59] LABS: CHLORIDE 97 mmol/L (98-107); SODIUM 135 mmol/L (136-145)
[2023-09-20 16:01] LABS: CALCIUM 8.9 mg/dL (8.5-10.1)
[2023-09-20 16:02] LABS: ALBUMIN 2.3 g/dl (3.4-5.0); ANION GAP 16 mmol/L (4-13); CO2 21 mmol/L (21-32)
[2023-09-20 16:05] LABS: SGOT/AST 8 U/L (15-37); SGPT/ALT 9 U/L (13-61)
[2023-09-20 16:06] LABS: TOT PROT 6.6 g/dl (6.4-8.2)
[2023-09-20 16:07] LABS: BILIRUBIN,TOTAL 0.3 mg/dL (0.2-1)
[2023-09-20 16:08] LABS: ALK PHOS 90 U/L (45-117)
[2023-09-20 16:47] LABS: BLOOD UREA NITROGEN 83.3 mg/dL (7-18); CREATININE 8.4 mg/dL (0.55-1.3); GLUCOSE,RANDOM 435 mg/dL (74-106)
[2023-09-20] MEDS: EPOETIN ALFA-EPBX 3,000 UNIT/ML VIAL SQ ONE (17:49)
[2023-09-20] MEDS: INSULIN (LEVEMIR) 100 UNITS/ML UNITS SQ SCH (21:25)
[2023-09-21 10:07] LABS: BASO % 0.1 % (0-2.0); EOS % 0.9 % (0-4.5); HEMATOCRIT 33.8 % (32.4-45.2); HEMOGLOBIN 10.5 GM/dL (10.7-15.3); LYMPH % 12.3 % (8-40); MCH 25.4 pg (25.7-33.7); MEAN CELL VOLUME 81.9 fl (80-96); MEAN PLT VOLUME 8.7 fl (7.5-11.1); MONO % 6.4 % (3.8-10.2); NEUT % 80.3 % (42.8-82.8); PLATELET COUNT 322 10^3/uL (134-434); RBC 4.13 M/mm3 (3.60-5.2); RDW 15.2 % (11.6-15.6); WHITE BLOOD COUNT 15.6 K/mm3 (4.0-10.0)
[2023-09-21] MEDS ORDERED: INSULIN (LEVEMIR) 100 UNITS/ML UNITS SQ ONE ×2 (10:22→12:36)
[2023-09-21] MEDS: INSULIN (LEVEMIR) 100 UNITS/ML UNITS SQ ONE (10:37)
[2023-09-21] MEDS ORDERED: INSULIN (NOVOLOG) ASPART 100 UNITS/ML 10ML VIAL ONE (22:17)
[2023-09-21] MEDS: INSULIN (LEVEMIR) 100 UNITS/ML UNITS SQ SCH (22:25)
[2023-09-22 09:41] LABS: BASO % 0.3 % (0-2.0); EOS % 2.4 % (0-4.5); HEMATOCRIT 30.9 % (32.4-45.2); HEMOGLOBIN 9.8 GM/dL (10.7-15.3); LYMPH % 8.1 % (8-40); MCH 25.4 pg (25.7-33.7); MCHC 31.8 g/dl (32.0-36.0); MEAN CELL VOLUME 79.9 fl (80-96); MEAN PLT VOLUME 9.1 fl (7.5-11.1); MONO % 6.6 % (3.8-10.2); NEUT % 82.6 % (42.8-82.8); PLATELET COUNT 341 10^3/uL (134-434); RBC 3.87 M/mm3 (3.60-5.2); RDW 15.1 % (11.6-15.6); WHITE BLOOD COUNT 17.3 K/mm3 (4.0-10.0)
[2023-09-22 10:01] LABS: CHLORIDE 99 mmol/L (98-107); POTASSIUM 4.4 mmol/L (3.5-5.1); SODIUM 138 mmol/L (136-145)
[2023-09-22 10:07] LABS: ALBUMIN 2.3 g/dl (3.4-5.0); ANION GAP 14 mmol/L (4-13); BLOOD UREA NITROGEN 96.5 mg/dL (7-18); CALCIUM 8.7 mg/dL (8.5-10.1); CO2 25 mmol/L (21-32); GLUCOSE,RANDOM 195 mg/dL (74-106)
[2023-09-22 10:08] LABS: SGPT/ALT 9 U/L (13-61)
[2023-09-22 10:10] LABS: BILIRUBIN,TOTAL 0.3 mg/dL (0.2-1); SGOT/AST 8 U/L (15-37); TOT PROT 6.7 g/dl (6.4-8.2)
[2023-09-22 10:11] LABS: ALK PHOS 83 U/L (45-117); CREATININE 8.8 mg/dL (0.55-1.3)
[2023-09-22] MEDS ORDERED: SODIUM CHLORIDE 250 ML IV PRN (11:00)
[2023-09-22] MEDS: EPOETIN ALFA-EPBX 10,000 UNIT/ML VIAL SQ ONE (11:10)
[2023-09-22] MEDS ORDERED: INSULIN (NOVOLOG) ASPART 100 UNITS/ML 10ML VIAL ONE ×3 (17:00→22:17)
[2023-09-23] MEDS: ONDANSETRON 4 MG/2 ML VIAL IVPUSH ONE (07:26)
[2023-09-23 07:56] LABS: BASO % 0.4 % (0-2.0); EOS % 2.6 % (0-4.5); HEMATOCRIT 33.7 % (32.4-45.2); HEMOGLOBIN 10.9 GM/dL (10.7-15.3); LYMPH % 13.4 % (8-40); MCHC 32.5 g/dl (32.0-36.0); MEAN CELL VOLUME 79.9 fl (80-96); MEAN PLT VOLUME 8.9 fl (7.5-11.1); MONO % 8.3 % (3.8-10.2); NEUT % 75.3 % (42.8-82.8); PLATELET COUNT 308 10^3/uL (134-434); RBC 4.21 M/mm3 (3.60-5.2); WHITE BLOOD COUNT 13.7 K/mm3 (4.0-10.0)
[2023-09-23 08:10] LABS: ALBUMIN 2.5 g/dl (3.4-5.0); CALCIUM 8.6 mg/dL (8.5-10.1)
[2023-09-23 08:13] LABS: CREATININE 7.3 mg/dL (0.55-1.3)
[2023-09-23 08:15] LABS: BILIRUBIN,TOTAL 0.4 mg/dL (0.2-1); TOT PROT 7.1 g/dl (6.4-8.2)
[2023-09-23 08:18] LABS: BLOOD UREA NITROGEN 69.2 mg/dL (7-18)
[2023-09-23 14:37] VITALS: RESP 18
[2023-09-23] MEDS ORDERED: INSULIN (NOVOLOG) ASPART 100 UNITS/ML 10ML VIAL ONE (17:35)
[2023-09-24 10:38] VITALS: BP 134/54; PULSE 70; TEMP 98.6
== END 2023-09-24 12:26 | disposition home or self-care (01) | DRG 193 ==
LOC: JER 05:47 → JERBED 09:01 → J8W 15:39
PROVIDERS: ADMIT Family Medicine; ATTEND Family Medicine
PROC: 5A1D70Z Performance of Urinary Filtration, Intermittent, Less than 6 Hours Per Day (ICD-10-PCS; principal; 2023-09-20)
DX: J18.9 Pneumonia, unspecified organism (principal); N18.6 End stage renal disease; I13.2 Hypertensive heart and chronic kidney disease with heart failure and with stage 5 chronic kidney disease, or end stage renal disease; I50.30 Unspecified diastolic (congestive) heart failure; I24.89 Other forms of acute ischemic heart disease; R78.81 Bacteremia; Z99.2 Dependence on renal dialysis; E11.621 Type 2 diabetes mellitus with foot ulcer; E11.51 Type 2 diabetes mellitus with diabetic peripheral angiopathy without gangrene; E11.22 Type 2 diabetes mellitus with diabetic chronic kidney disease; E11.42 Type 2 diabetes mellitus with diabetic polyneuropathy; E87.70 Fluid overload, unspecified; E78.5 Hyperlipidemia, unspecified; I25.10 Atherosclerotic heart disease of native coronary artery without angina pectoris
CPT/HCPCS: 0241U-QW; 36415; 70450-TC; 71045-TC-FY; 72125-TC; 72131-TC; 80053; 82550; 82728; 82803; 82962; 83540; 83550; 83735; 84100; 84443; 84466; 84484; 85025; 85027; 85610; 85730; 86704; 86705; 86803; 87040; 87186; 87340; 87517; 93005; 93010; 94640; 94761; 97116-GP; 97161-GP; 99285-25; J1644; Q5106

== ENCOUNTER 2024-06-07 12:46 | Emergency (ER) | payer OTHER ==
[2024-06-07 13:08] VITALS: BMI 32.2
[2024-06-07 14:15] LABS: BASO % 0.7 % (0-2.0); EOS % 1.9 % (0-4.5); HEMATOCRIT 37.8 % (32.4-45.2); HEMOGLOBIN 12.1 GM/dL (10.7-15.3); LYMPH % 11.8 % (8-40); MCH 26.5 pg (25.7-33.7); MCHC 32.2 g/dl (32.0-36.0); MEAN CELL VOLUME 82.5 fl (80-96); NEUT % 79.6 % (42.8-82.8); PLATELET COUNT 289 10^3/uL (134-434); RBC 4.58 M/mm3 (3.60-5.2); RDW 16.5 % (11.6-15.6); WHITE BLOOD COUNT 9.7 K/mm3 (4.0-10.0)
[2024-06-07 14:40] LABS: CHLORIDE 100 mmol/L (98-107); POTASSIUM 5.1 mmol/L (3.5-5.1); SODIUM 139 mmol/L (136-145)
[2024-06-07 14:42] LABS: ALBUMIN 3.5 g/dl (3.4-5.0); ANION GAP 14 mmol/L (4-13); CALCIUM 8.3 mg/dL (8.5-10.1); CO2 25 mmol/L (21-32)
[2024-06-07 14:43] LABS: GLUCOSE,RANDOM 296 mg/dL (74-106)
[2024-06-07 14:46] LABS: SGOT/AST 10 U/L (15-37); SGPT/ALT 16 U/L (13-61)
[2024-06-07 14:47] LABS: BILIRUBIN,TOTAL 0.3 mg/dL (0.2-1)
[2024-06-07 14:48] LABS: ALK PHOS 120 U/L (45-117)
[2024-06-07 14:59] LABS: BLOOD UREA NITROGEN 82.6 mg/dL (7-18); CREATININE 14.9 mg/dL (0.55-1.3)
[2024-06-07 15:10] LABS: PHOSPHOROUS 8.2 mg/dL (2.5-4.9)
[2024-06-07] MEDS: ONDANSETRON 4 MG/2 ML VIAL IVPUSH ONE ×2 (15:10→23:19)
[2024-06-07 15:36] LABS: HIV INTERPRETATION NEGATIVE (NEGATIVE)
[2024-06-07] MEDS ORDERED: SODIUM CHLORIDE 250 ML IV PRN (16:39)
[2024-06-07] MEDS: INSULIN ASPART SLIDING SCALE (NOVOLOG) 1 VIAL SQ SCH (23:41)
[2024-06-08] MEDS: INSULIN ASPART SLIDING SCALE (NOVOLOG) 1 VIAL SQ SCH (06:02)
[2024-06-08] MEDS: PANTOPRAZOLE 20 MG TABLET PO SCH (06:06)
[2024-06-08] MEDS ORDERED: INSULIN ASPART SLIDING SCALE (NOVOLOG) 1 VIAL SQ SCH (07:00)
[2024-06-08 09:55] LABS: BASO % 0.8 % (0-2.0); EOS % 1.9 % (0-4.5); HEMATOCRIT 35.2 % (32.4-45.2); HEMOGLOBIN 11.1 GM/dL (10.7-15.3); LYMPH % 18.3 % (8-40); MCH 26.1 pg (25.7-33.7); MCHC 31.5 g/dl (32.0-36.0); MEAN CELL VOLUME 82.9 fl (80-96); MEAN PLT VOLUME 9.4 fl (7.5-11.1); MONO % 8.4 % (3.8-10.2); NEUT % 70.6 % (42.8-82.8); PLATELET COUNT 250 10^3/uL (134-434); RBC 4.24 M/mm3 (3.60-5.2); RDW 16.3 % (11.6-15.6); WHITE BLOOD COUNT 9.7 K/mm3 (4.0-10.0)
[2024-06-08] MEDS: amLODIPine BESYLATE 5 MG TABLET (FP) PO SCH (10:09)
[2024-06-08] MEDS: SODIUM ZIRCONIUM CYCLOSILICATE (LOKELMA) 10 GM PACKET PO SCH (10:09)
[2024-06-08] MEDS: SEVELAMER CARBONATE 800 MG TAB (FP) PO SCH (10:09)
[2024-06-08] MEDS: HEPARIN NA (PORCINE) 5,000 UNITS/ML 1ML VIAL SQ SCH (10:09)
[2024-06-08] MEDS: CARVEDILOL 25 MG TABLET (FP) PO SCH (10:09)
[2024-06-08] MEDS: cloNIDine HCL 0.1 MG TABLET PO SCH (10:09)
[2024-06-08 10:22] LABS: CHLORIDE 103 mmol/L (98-107); POTASSIUM 5.4 mmol/L (3.5-5.1); SODIUM 139 mmol/L (136-145)
[2024-06-08 10:28] LABS: CALCIUM 8.4 mg/dL (8.5-10.1)
[2024-06-08 10:29] LABS: ALBUMIN 3.2 g/dl (3.4-5.0); ANION GAP 11 mmol/L (4-13); BLOOD UREA NITROGEN 75.1 mg/dL (7-18); CO2 24 mmol/L (21-32); GLUCOSE,RANDOM 168 mg/dL (74-106)
[2024-06-08 10:32] LABS: SGOT/AST 10 U/L (15-37); SGPT/ALT 17 U/L (13-61)
[2024-06-08 10:33] LABS: BILIRUBIN,TOTAL 0.4 mg/dL (0.2-1); TOT PROT 7.2 g/dl (6.4-8.2)
[2024-06-08 10:35] LABS: ALK PHOS 106 U/L (45-117)
[2024-06-08 10:36] LABS: CREATININE 13.5 mg/dL (0.55-1.3)
[2024-06-08] MEDS ORDERED: SODIUM CHLORIDE 250 ML IV PRN (18:26)
[2024-06-08] MEDS: ATORVASTATIN CA 10 MG TABLET (FP) PO SCH (21:18)
[2024-06-08] MEDS: ONDANSETRON 4 MG/2 ML VIAL IVPUSH ONE (22:38)
[2024-06-09 12:11] LABS: HEMOGLOBIN 10.9 GM/dL (10.7-15.3); MCH 26.6 pg (25.7-33.7); MCHC 32.2 g/dl (32.0-36.0); MEAN CELL VOLUME 82.7 fl (80-96); MEAN PLT VOLUME 9.5 fl (7.5-11.1); PLATELET COUNT 214 10^3/uL (134-434); RBC 4.11 M/mm3 (3.60-5.2); WHITE BLOOD COUNT 9.2 K/mm3 (4.0-10.0)
[2024-06-09 12:30] LABS: CHLORIDE 100 mmol/L (98-107); SODIUM 136 mmol/L (136-145)
[2024-06-09 12:34] LABS: ANION GAP 14 mmol/L (4-13); CALCIUM 8.1 mg/dL (8.5-10.1); CO2 23 mmol/L (21-32); GLUCOSE,RANDOM 350 mg/dL (74-106)
[2024-06-09 12:37] LABS: SGOT/AST 7 U/L (15-37); SGPT/ALT 15 U/L (13-61)
[2024-06-09 12:39] LABS: BILIRUBIN,TOTAL 0.4 mg/dL (0.2-1); TOT PROT 6.7 g/dl (6.4-8.2)
[2024-06-09 12:40] LABS: ALK PHOS 100 U/L (45-117)
[2024-06-09 12:58] LABS: CREATININE 15.2 mg/dL (0.55-1.3)
[2024-06-09 13:08] LABS: PHOSPHOROUS 10.4 mg/dL (2.5-4.9)
[2024-06-09] MEDS: LIDOCAINE HCL 1%, 10 MG/ML (20ML VIAL) SQ ONE (14:49)
[2024-06-09] MEDS: ONDANSETRON *ODT* 4 MG TABLET SL ONE (21:32)
[2024-06-09] MEDS: INSULIN (LEVEMIR) 100 UNITS/ML UNITS SQ SCH (22:28)
[2024-06-09] MEDS: ACETAMINOPHEN 325 MG TABLET (FP) PO ONE (22:30)
[2024-06-10] MEDS ORDERED: SODIUM CHLORIDE 250 ML IV PRN ×4 (14:58→18:07)
[2024-06-10] MEDS ORDERED: MIDAZOLAM HCL 2 MG/2 ML SINGLE DOSE VIAL ONE (15:37)
[2024-06-10] MEDS ORDERED: ONDANSETRON 4 MG/2 ML VIAL ONE (15:52)
[2024-06-10] MEDS ORDERED: METOPROLOL TARTRATE 5 MG/5 ML VIAL ONE (15:57)
[2024-06-10] MEDS: LIDOCAINE HCL 1%, 10 MG/ML (20ML VIAL) NR ONE ×2 (16:02→16:13)
[2024-06-10] MEDS ORDERED: PROPOFOL 20 ML ONE (16:03)
[2024-06-10] MEDS ORDERED: ceFAZolin SODIUM 1 GM VIAL ONE (16:05)
[2024-06-10] MEDS: ceFAZolin SODIUM 1 GM VIAL IVPB ONE (16:10)
[2024-06-10] MEDS: INSULIN (LEVEMIR) 100 UNITS/ML UNITS SQ SCH (22:14)
[2024-06-10] MEDS: ATORVASTATIN CA 10 MG TABLET (FP) PO SCH (22:14)
[2024-06-10] MEDS: HEPARIN NA (PORCINE) 5,000 UNITS/ML 1ML VIAL SQ SCH (22:14)
[2024-06-10] MEDS: CARVEDILOL 25 MG TABLET (FP) PO SCH (22:14)
[2024-06-10] MEDS: cloNIDine HCL 0.1 MG TABLET PO SCH (22:14)
[2024-06-10] MEDS: INSULIN ASPART SLIDING SCALE (NOVOLOG) 1 VIAL SQ SCH (22:15)
[2024-06-11] MEDS: PANTOPRAZOLE 20 MG TABLET PO SCH (06:20)
[2024-06-11] MEDS: SEVELAMER CARBONATE 800 MG TAB (FP) PO SCH (07:51)
[2024-06-11 09:25] LABS: HEMATOCRIT 32.6 % (32.4-45.2); HEMOGLOBIN 10.8 GM/dL (10.7-15.3); MCH 26.9 pg (25.7-33.7); MCHC 32.9 g/dl (32.0-36.0); MEAN CELL VOLUME 81.6 fl (80-96); MEAN PLT VOLUME 9.7 fl (7.5-11.1); PLATELET COUNT 178 10^3/uL (134-434); RDW 16.2 % (11.6-15.6); WHITE BLOOD COUNT 8.4 K/mm3 (4.0-10.0)
[2024-06-11 09:55] LABS: CHLORIDE 98 mmol/L (98-107); POTASSIUM 5.5 mmol/L (3.5-5.1); SODIUM 137 mmol/L (136-145)
[2024-06-11 09:58] LABS: ALBUMIN 2.8 g/dl (3.4-5.0)
[2024-06-11 09:59] LABS: ANION GAP 14 mmol/L (4-13); BLOOD UREA NITROGEN 81.3 mg/dL (7-18); CALCIUM 8.3 mg/dL (8.5-10.1); CO2 24 mmol/L (21-32); GLUCOSE,RANDOM 187 mg/dL (74-106)
[2024-06-11 10:02] LABS: BILIRUBIN,TOTAL 0.4 mg/dL (0.2-1); SGOT/AST 13 U/L (15-37)
[2024-06-11 10:03] LABS: TOT PROT 6.3 g/dl (6.4-8.2)
[2024-06-11 10:04] LABS: ALK PHOS 85 U/L (45-117)
[2024-06-11 10:05] LABS: SGPT/ALT 14 U/L (13-61)
[2024-06-11 10:10] LABS: CREATININE 12.9 mg/dL (0.55-1.3)
[2024-06-11 12:33] VITALS: RESP 18
[2024-06-11 13:30] LABS: CHLORIDE 100 mmol/L (98-107); SODIUM 141 mmol/L (136-145)
[2024-06-11 13:31] LABS: POTASSIUM 2.6 mmol/L (3.5-5.1)
[2024-06-11 13:35] LABS: CALCIUM 8.7 mg/dL (8.5-10.1)
[2024-06-11 13:36] LABS: ANION GAP 6 mmol/L (4-13); CO2 34 mmol/L (21-32); GLUCOSE,RANDOM 205 mg/dL (74-106)
[2024-06-11] MEDS: amLODIPine BESYLATE 5 MG TABLET (FP) PO SCH (13:36)
[2024-06-11 13:55] LABS: CREATININE 2.3 mg/dL (0.55-1.3)
[2024-06-11] MEDS: SODIUM ZIRCONIUM CYCLOSILICATE (LOKELMA) 10 GM PACKET PO SCH (14:21)
[2024-06-11] MEDS: POTASSIUM CHLORIDE ORAL LIQUID 20 MEQ/15 ML PO ONE (16:03)
[2024-06-12 15:16] LABS: SODIUM 137 mmol/L (136-145)
[2024-06-12 15:17] LABS: CALCIUM 7.7 mg/dL (8.5-10.1); CHLORIDE 101 mmol/L (98-107); POTASSIUM 5.4 mmol/L (3.5-5.1)
[2024-06-12 15:18] LABS: ANION GAP 8 mmol/L (4-13); CO2 29 mmol/L (21-32)
[2024-06-12 15:19] LABS: BLOOD UREA NITROGEN 51.4 mg/dL (7-18); GLUCOSE,RANDOM 413 mg/dL (74-106)
[2024-06-12 15:30] LABS: CREATININE 8.4 mg/dL (0.55-1.3)
[2024-06-12 15:45] VITALS: TEMP 98.6
[2024-06-12] MEDS ORDERED: SODIUM CHLORIDE 250 ML IV PRN (16:02)
[2024-06-12] MEDS: SODIUM ZIRCONIUM CYCLOSILICATE (LOKELMA) 5 GM PACKET PO SCH (16:26)
[2024-06-12] MEDS: INSULIN (NOVOLOG) ASPART 100 UNITS/ML 10ML VIAL SQ ONE (16:33)
[2024-06-12 18:16] VITALS: BP 149/44; PULSE 80
[2024-06-13] MEDS ORDERED: HEPARIN NA (PORCINE) 5,000 UNITS/ML 1ML VIAL IVPUSH ONE (16:02)
== END 2024-06-12 20:04 | disposition home or self-care (01) ==
LOC: JER 12:46 → JASUSAT 14:37 → INTOOBSV 15:07 → JERBED 15:07 → UNDOADMOB 15:07 → JERBED 20:15 → J5S 20:15 → OBSVTOIN 06-08 01:03 → INTOOBSV 06-08 01:03 → UNDOADMOB 06-08 13:31 → J5S 06-08 13:31 → JERBED 06-08 13:31 → J5S 06-11 14:37 → JASUSAT 06-11 14:37
PROVIDERS: ADMIT Internal Medicine; ATTEND Internal Medicine
PROC: 3E03329 Introduction of Other Anti-infective into Peripheral Vein, Percutaneous Approach (ICD-10-PCS; 2024-06-08)
PROC: 3E013GC Introduction of Other Therapeutic Substance into Subcutaneous Tissue, Percutaneous Approach (ICD-10-PCS; 2024-06-08)
PROC: 3E033GC Introduction of Other Therapeutic Substance into Peripheral Vein, Percutaneous Approach (ICD-10-PCS; 2024-06-08)
PROC: 3E013VG Introduction of Insulin into Subcutaneous Tissue, Percutaneous Approach (ICD-10-PCS; 2024-06-08)
PROC: 05HY3DZ Insertion of Intraluminal Device into Upper Vein, Percutaneous Approach (ICD-10-PCS; principal; 2024-06-10 15:00)
DX: T82.590A Other mechanical complication of surgically created arteriovenous fistula, initial encounter (principal); Y82.8 Other medical devices associated with adverse incidents; Y92.9 Unspecified place or not applicable; E11.22 Type 2 diabetes mellitus with diabetic chronic kidney disease; I12.0 Hypertensive chronic kidney disease with stage 5 chronic kidney disease or end stage renal disease; N18.6 End stage renal disease; Z99.2 Dependence on renal dialysis; E11.40 Type 2 diabetes mellitus with diabetic neuropathy, unspecified; E78.5 Hyperlipidemia, unspecified; M54.59 Other low back pain; G89.29 Other chronic pain; Z88.0 Allergy status to penicillin
CPT/HCPCS: 36415; 71045-TC-FY; 76000-TC-FY; 80048; 80053; 82962; 84100; 84520; 85025; 85027; 86704; 86803; 87340; 87389; 87517; 93005; 93010; 93990-TC; 94760; 96372; 96374; 96375; 96376; 99285-25; C1876; G0378; J1644; Q0162

== ENCOUNTER 2024-12-17 16:19 | Observation (INO) | payer OTHER ==
[2024-12-17] MEDS ORDERED: ONDANSETRON 4 MG/2 ML VIAL ONE (17:28)
[2024-12-17] MEDS ORDERED: FAMOTIDINE 20 MG/50 ML IVPB 20 MG/50 ML MG IVPB ONE (17:28)
[2024-12-17 17:32] LABS: HEMATOCRIT 39.6 % (34.1-44.9); HEMOGLOBIN 12.2 g/dL (11.2-15.7); MCHC 30.8 g/dl (32.2-35.5); MEAN PLT VOLUME 11.8 fl (9.4-12.3); PLATELET COUNT 273 x10^3/uL (182-369); RDW 15.9 % (12.4-16.6)
[2024-12-17] MEDS: ONDANSETRON 4 MG/2 ML VIAL IVPB ONE (17:34)
[2024-12-17] MEDS: FAMOTIDINE 20 MG/50 ML IVPB 20 MG/50 ML MG IVPB ONE (18:40)
[2024-12-17 21:03] LABS: POTASSIUM 4.6 mmol/L (3.5-5.1)
[2024-12-17] MEDS ORDERED: METOCLOPRAMIDE HCL INJECTION 10 MG/2 ML VIAL ONE (21:03)
[2024-12-17 21:04] LABS: ALBUMIN 3.6 g/dl (3.4-5.0); BLOOD UREA NITROGEN 43.2 mg/dL (7-18); CALCIUM 9.7 mg/dL (8.5-10.1); MAGNESIUM 3.4 mg/dL (1.8-2.4)
[2024-12-17] MEDS: METOCLOPRAMIDE HCL INJECTION 10 MG/2 ML VIAL IVPB ONE (21:06)
[2024-12-17 21:07] LABS: CREATININE 6.7 mg/dL (0.55-1.3); PHOSPHOROUS 5.4 mg/dL (2.5-4.9)
[2024-12-17 21:08] LABS: BILIRUBIN,TOTAL 0.5 mg/dL (0.2-1); TOT PROT 7.9 g/dl (6.4-8.2)
[2024-12-17] MEDS ORDERED: ACETAMINOPHEN 500 MG TABLET (FP) PO PRN (22:14)
[2024-12-17] MEDS ORDERED: DOCUSATE SODIUM 100 MG CAPSULE (FP) PO PRN (22:25)
[2024-12-17] MEDS ORDERED: ONDANSETRON 4 MG/2 ML VIAL IVPUSH PRN (22:25)
[2024-12-18 00:16] VITALS: BMI 35.0
[2024-12-18] MEDS: INSULIN ASPART SLIDING SCALE (NOVOLOG) 1 VIAL SQ SCH (06:06)
[2024-12-18] MEDS ORDERED: SODIUM CHLORIDE 250 ML IV PRN (07:26)
[2024-12-18] MEDS: HEPARIN NA (PORCINE) 5,000 UNITS/ML 1ML VIAL IVPUSH ONE (08:00)
[2024-12-18 08:27] LABS: ABSOLUTE IMMATURE GRANULOCYTES 0.06 x10^3/uL (0.0-0.031); BASOPHILS # 0.07 x10^3/uL (0.01-0.08); EOSINOPHIL % 0.1 % (0.7-5.8); EOSINOPHILS # 0.02 x10^3/uL (0.04-0.36); HEMATOCRIT 39.7 % (34.1-44.9); HEMOGLOBIN 12.3 g/dL (11.2-15.7); MONOCYTE # 0.58 x10^3/uL (0.24-0.86); MONOCYTE % 3.7 % (4.7-12.5); PLATELET COUNT 302 x10^3/uL (182-369); RDW 15.7 % (12.4-16.6)
[2024-12-18 08:32] LABS: INR 1.05 (0.83-1.09); PROTHROMBIN TIME (PATIENT) 11.4 SEC (9.7-13.0)
[2024-12-18 08:35] LABS: ACTIVATED PTT 37.3 SECONDS (25.2-36.5)
[2024-12-18 09:03] LABS: CHLORIDE 98 mmol/L (98-107); SODIUM 136 mmol/L (136-145)
[2024-12-18 09:17] LABS: ALBUMIN 3.4 g/dl (3.4-5.0); ANION GAP 12 mmol/L (4-13); BLOOD UREA NITROGEN 54.3 mg/dL (7-18); CO2 25 mmol/L (21-32)
[2024-12-18 09:18] LABS: GLUCOSE,RANDOM 274 mg/dL (74-106)
[2024-12-18 09:20] LABS: BILIRUBIN,DIRECT 0.2 mg/dL (0.0-0.2); SGPT/ALT 17 U/L (13-61)
[2024-12-18 09:21] LABS: SGOT/AST 10 U/L (15-37)
[2024-12-18 09:22] LABS: BILIRUBIN,TOTAL 0.5 mg/dL (0.2-1); TOT PROT 7.5 g/dl (6.4-8.2)
[2024-12-18 09:23] LABS: ALK PHOS 122 U/L (45-117); CREATININE 7.6 mg/dL (0.55-1.3)
[2024-12-18] MEDS: SEVELAMER CARBONATE 800 MG TAB (FP) PO SCH (11:21)
[2024-12-18] MEDS: CLOPIDOGREL BISULFATE 75 MG TABLET (FP) PO SCH (11:22)
[2024-12-18] MEDS: amLODIPine BESYLATE 5 MG TABLET (FP) PO SCH (11:22)
[2024-12-18] MEDS: PANTOPRAZOLE 20 MG TABLET PO SCH (11:22)
[2024-12-18] MEDS: cloNIDine HCL 0.1 MG TABLET PO SCH (11:22)
[2024-12-18] MEDS: CARVEDILOL 25 MG TABLET (FP) PO SCH (11:22)
[2024-12-18] MEDS: ALBUTEROL SO4 2.5/IPRATROPIUM 0.5 INH SOL 3 ML VIAL.NEB. NEB SCH (12:02)
[2024-12-18 12:59] LABS: GAMMA GLUTAMYL TRANSPEPTIDASE 28 U/L (5-85)
[2024-12-18 16:39] LABS: HEPATITIS B SURF AG NON-MATERN NON-REACTIVE (NONREACTIVE)
[2024-12-18 17:08] LABS: HCV DIAGNOSTIC IN-HOUSE W/RFLX NON-REACTIVE (NONREACTIVE)
[2024-12-18] MEDS: ATORVASTATIN CA 10 MG TABLET (FP) PO SCH (21:50)
[2024-12-19] MEDS: hydrALAZINE HCL 10 MG TABLET PO ONE (01:58)
[2024-12-19] MEDS: amLODIPine BESYLATE 5 MG TABLET (FP) PO SCH (11:05)
[2024-12-19] MEDS ORDERED: SODIUM CHLORIDE 250 ML IV PRN (13:00)
[2024-12-19] MEDS ORDERED: amLODIPine BESYLATE 5 MG TABLET (FP) PO ONE (13:30)
[2024-12-19] MEDS: HEPARIN NA (PORCINE) 5,000 UNITS/ML 1ML VIAL IVPUSH ONE (13:56)
[2024-12-19] MEDS: amLODIPine BESYLATE 5 MG TABLET (FP) PO ONE (17:52)
[2024-12-20 08:44] LABS: MEAN CELL VOLUME 87.6 fl (79.4-94.8)
[2024-12-20 08:46] LABS: HEMATOCRIT 43.2 % (34.1-44.9); MCHC 30.1 g/dl (32.2-35.5)
[2024-12-20 09:13] LABS: POTASSIUM 4.3 mmol/L (3.5-5.1)
[2024-12-20 09:15] LABS: ALBUMIN 3.5 g/dl (3.4-5.0); BLOOD UREA NITROGEN 29.4 mg/dL (7-18); CALCIUM 10.4 mg/dL (8.5-10.1)
[2024-12-20 09:19] LABS: CREATININE 5.1 mg/dL (0.55-1.3)
[2024-12-20 09:20] LABS: BILIRUBIN,TOTAL 0.4 mg/dL (0.2-1); TOT PROT 7.7 g/dl (6.4-8.2)
[2024-12-20 12:58] VITALS: RESP 18
[2024-12-21] MEDS ORDERED: SODIUM CHLORIDE 250 ML IV PRN (13:01)
[2024-12-21] MEDS ORDERED: INSULIN ASPART SLIDING SCALE (NOVOLOG) 1 VIAL SQ ONE (17:02)
[2024-12-21] MEDS: INSULIN GLARGINE (LANTUS) 100 UNITS/ML UNITS SQ SCH (21:18)
[2024-12-22] MEDS ORDERED: SODIUM CHLORIDE 250 ML IV PRN (16:56)
[2024-12-22] MEDS: cloNIDine HCL 0.1 MG TABLET PO SCH (22:21)
[2024-12-23 11:59] VITALS: BP 119/90; PULSE 71; TEMP 97.9
== END 2024-12-23 13:43 | disposition home or self-care (01) ==
LOC: JER 16:19 → JERBED 21:10 → J5S 23:54
PROVIDERS: ADMIT Family Medicine; ATTEND Family Medicine
PROC: 3E033GC Introduction of Other Therapeutic Substance into Peripheral Vein, Percutaneous Approach (ICD-10-PCS; principal; 2024-12-17)
PROC: 3E013VG Introduction of Insulin into Subcutaneous Tissue, Percutaneous Approach (ICD-10-PCS; 2024-12-17)
PROC: 3E0337Z Introduction of Electrolytic and Water Balance Substance into Peripheral Vein, Percutaneous Approach (ICD-10-PCS; 2024-12-17)
DX: E11.22 Type 2 diabetes mellitus with diabetic chronic kidney disease (principal); I11.0 Hypertensive heart disease with heart failure; N18.6 End stage renal disease; N18.9 Chronic kidney disease, unspecified; E87.70 Fluid overload, unspecified; J98.4 Other disorders of lung; Z99.2 Dependence on renal dialysis; E78.5 Hyperlipidemia, unspecified; Z88.0 Allergy status to penicillin; R09.02 Hypoxemia
CPT/HCPCS: 0241U-QW; 36415; 71045-TC-FY; 80048; 80053; 80076; 82962; 82977; 83690; 83735; 84100; 84484; 85025; 85027; 85610; 85730; 86803; 87040; 87340; 93005; 93010; 94640; 96365; 96372; 96375; 96376; 99285-25; G0378; J1644

== ENCOUNTER 2025-02-24 12:31 | Day surgery (SDC) | payer OTHER ==
[2025-02-24] MEDS ORDERED: HEPARIN NA (PORCINE) 5,000 UNITS/ML 1ML VIAL ONE (12:56)
[2025-02-24 13:02] LABS: ABSOLUTE IMMATURE GRANULOCYTES 0.05 x10^3/uL (0.0-0.031); BASOPHILS # 0.07 x10^3/uL (0.01-0.08); EOSINOPHIL % 1.3 % (0.7-5.8); EOSINOPHILS # 0.15 x10^3/uL (0.04-0.36); MCHC 30.9 g/dl (32.2-35.5); MEAN CELL VOLUME 84.8 fl (79.4-94.8); MEAN PLT VOLUME 11.4 fl (9.4-12.3); MONOCYTE # 0.67 x10^3/uL (0.24-0.86); MONOCYTE % 6.0 % (4.7-12.5); RDW 15.6 % (12.4-16.6)
[2025-02-24 13:21] LABS: INR 1.08 (0.83-1.09); PROTHROMBIN TIME (PATIENT) 11.8 SEC (9.7-13.0)
[2025-02-24 13:23] LABS: GLUCOSE,RANDOM 141 mg/dL (74-106)
[2025-02-24 13:24] LABS: CO2 32 mmol/L (21-32)
[2025-02-24 13:26] LABS: SGOT/AST 8 U/L (15-37); SGPT/ALT 27 U/L (13-61)
[2025-02-24 13:28] LABS: CREATININE 7.5 mg/dL (0.55-1.3); TOT PROT 7.9 g/dl (6.4-8.2)
[2025-02-24 13:29] LABS: ALK PHOS 107 U/L (45-117)
[2025-02-24 15:13] VITALS: BP 183/69; PULSE 68; RESP 14
== END 2025-02-24 15:20 | disposition home or self-care (01) ==
LOC: JRADIR 12:31
PROVIDERS: ATTEND Surgery
PROC: 057F3ZZ Dilation of Left Cephalic Vein, Percutaneous Approach (ICD-10-PCS; principal; 2025-02-24)
DX: T82.858A Stenosis of other vascular prosthetic devices, implants and grafts, initial encounter (principal); I12.0 Hypertensive chronic kidney disease with stage 5 chronic kidney disease or end stage renal disease; E11.22 Type 2 diabetes mellitus with diabetic chronic kidney disease; N18.6 End stage renal disease; Z79.4 Long term (current) use of insulin; Z99.2 Dependence on renal dialysis
CPT/HCPCS: 36415; 37248; 76000-TC-FY; 80053; 85025; 85610; C1725; C1769; C1894

== ENCOUNTER 2025-03-03 06:39 | Inpatient (IN) | payer OTHER ==
[2025-03-03 06:45] VITALS: BMI 33.2
[2025-03-03 09:36] LABS: MCHC 31.0 g/dl (32.2-35.5); MEAN CELL VOLUME 85.3 fl (79.4-94.8); MEAN PLT VOLUME 11.2 fl (9.4-12.3); RDW 15.0 % (12.4-16.6)
[2025-03-03 10:02] LABS: CO2 26 mmol/L (21-32); GLUCOSE,RANDOM 216 mg/dL (74-106)
[2025-03-03 10:05] LABS: SGPT/ALT 15 U/L (13-61)
[2025-03-03 10:06] LABS: SGOT/AST 9 U/L (15-37)
[2025-03-03 10:07] LABS: TOT PROT 6.6 g/dl (6.4-8.2)
[2025-03-03 10:33] LABS: ALK PHOS 74 U/L (45-117); CREATININE 10.1 mg/dL (0.55-1.3)
[2025-03-03] MEDS ORDERED: ALBUTEROL SO4 0.083% IH SOL 2.5 MG/3 ML VIAL.NEB. NEB PRN (10:43)
[2025-03-03] MEDS ORDERED: CALCIUM GLUCONATE 10% - 1,000 MG/10 ML VIAL ONE ×2 (10:46→11:58)
[2025-03-03] MEDS ORDERED: SODIUM BICARBONATE 8.4% 50 MEQ/50 ML DISP.SYRIN ONE (10:47)
[2025-03-03] MEDS: INSULIN REGULAR HUMAN 100 UNITS/ML *VIAL IVPUSH ONE (10:57)
[2025-03-03] MEDS: CALCIUM GLUCONATE 10% - 1,000 MG/10 ML VIAL IVPB ONE (10:57)
[2025-03-03] MEDS ORDERED: SODIUM CHLORIDE 250 ML IV PRN (11:00)
[2025-03-03] MEDS: CALCIUM GLUC IN NACL, ISO-OSM 1 GM/50 ML BAG IVPB ONE (11:00)
[2025-03-03] MEDS ORDERED: HEPARIN NA (PORCINE) 5,000 UNITS/ML 1ML VIAL IVPUSH ONE (11:00)
[2025-03-03] MEDS: SODIUM BICARBONATE 8.4% 50 MEQ/50 ML DISP.SYRIN IVPUSH ONE (11:25)
[2025-03-03] MEDS ORDERED: DEXTROSE 50%-WATER - 25 GM/50 ML VIAL ONE (11:28)
[2025-03-03] MEDS: DEXTROSE 50%-WATER - 25 GM/50 ML VIAL IVPUSH ONE (11:37)
[2025-03-03 12:01] LABS: HCV DIAGNOSTIC IN-HOUSE W/RFLX NON-REACTIVE (NONREACTIVE)
[2025-03-03] MEDS: HEPARIN NA (PORCINE) 5,000 UNITS/ML 1ML VIAL IVPUSH ONE (12:35)
[2025-03-03 16:21] LABS: HEPATITIS B SURF AG NON-MATERN NON-REACTIVE (NONREACTIVE)
[2025-03-03] MEDS: ATORVASTATIN CA 10 MG TABLET (FP) PO SCH (22:24)
[2025-03-03] MEDS: MELATONIN 5 MG TABLETS PO PRN (22:24)
[2025-03-03] MEDS: CARVEDILOL 25 MG TABLET (FP) PO SCH (22:24)
[2025-03-03] MEDS: INSULIN ASPART SLIDING SCALE (NOVOLOG) 1 VIAL SQ SCH (23:50)
[2025-03-04 00:10] LABS: CO2 35.0 mmol/L (21-32); GLUCOSE,RANDOM 232.0 mg/dL (74-106)
[2025-03-04 00:13] LABS: SGOT/AST 9.0 U/L (15-37); SGPT/ALT 15.0 U/L (13-61)
[2025-03-04 00:14] LABS: CREATININE 5.4 mg/dL (0.55-1.3)
[2025-03-04 00:15] LABS: TOT PROT 7.2 g/dl (6.4-8.2)
[2025-03-04 00:16] LABS: ALK PHOS 86.0 U/L (45-117)
[2025-03-04] MEDS: amLODIPine BESYLATE 5 MG TABLET (FP) PO ONE (06:11)
[2025-03-04] MEDS: ACETAMINOPHEN 1000 MG/100 ML BAG IVPB ONE (06:44)
[2025-03-04 06:57] LABS: BASOPHILS # 0.08 x10^3/uL (0.01-0.08)
[2025-03-04 06:58] LABS: ABSOLUTE IMMATURE GRANULOCYTES 0.03 x10^3/uL (0.0-0.031); EOSINOPHIL % 1.9 % (0.7-5.8); EOSINOPHILS # 0.22 x10^3/uL (0.04-0.36); IMMATURE PLATELET FRACTION # 18.90 x10^3/uL; MCHC 30.9 g/dl (32.2-35.5); MEAN CELL VOLUME 85.9 fl (79.4-94.8); MONOCYTE # 0.67 x10^3/uL (0.24-0.86); MONOCYTE % 5.7 % (4.7-12.5); RDW 14.8 % (12.4-16.6)
[2025-03-04 07:31] LABS: CO2 31.0 mmol/L (21-32); GLUCOSE,RANDOM 169.0 mg/dL (74-106)
[2025-03-04 07:33] LABS: SGPT/ALT 16.0 U/L (13-61)
[2025-03-04 07:34] LABS: CREATININE 6.1 mg/dL (0.55-1.3); SGOT/AST 15.0 U/L (15-37)
[2025-03-04 07:36] LABS: ALK PHOS 100.0 U/L (45-117); TOT PROT 8.4 g/dl (6.4-8.2)
[2025-03-04] MEDS: amLODIPine BESYLATE 5 MG TABLET (FP) PO SCH (09:11)
[2025-03-04] MEDS: SODIUM ZIRCONIUM CYCLOSILICATE (LOKELMA) 5 GM PACKET PO SCH (12:41)
[2025-03-04 13:01] LABS: HIV INTERPRETATION NEGATIVE (NEGATIVE)
[2025-03-05] MEDS: amLODIPine BESYLATE 5 MG TABLET (FP) PO ONE (03:12)
[2025-03-05 05:58] VITALS: RESP 18
[2025-03-05 06:32] LABS: MCHC 31.4 g/dl (32.2-35.5); MEAN CELL VOLUME 84.6 fl (79.4-94.8); MEAN PLT VOLUME 11.5 fl (9.4-12.3); RDW 14.6 % (12.4-16.6)
[2025-03-05] MEDS ORDERED: SODIUM CHLORIDE 250 ML IV PRN (07:00)
[2025-03-05] MEDS: HEPARIN NA (PORCINE) 5,000 UNITS/ML 1ML VIAL IVPUSH ONE (10:16)
[2025-03-05] MEDS ORDERED: amLODIPine BESYLATE 5 MG TABLET (FP) PO SCH (11:01)
[2025-03-05 11:26] LABS: CO2 30 mmol/L (21-32)
[2025-03-05 11:27] LABS: GLUCOSE,RANDOM 280 mg/dL (74-106)
[2025-03-05 11:30] LABS: SGOT/AST 8 U/L (15-37); SGPT/ALT 12 U/L (13-61)
[2025-03-05 11:32] LABS: ALK PHOS 75 U/L (45-117); TOT PROT 6.6 g/dl (6.4-8.2)
[2025-03-05 11:43] LABS: CREATININE 8.3 mg/dL (0.55-1.3)
[2025-03-05 14:20] VITALS: BP 129/53; PULSE 73; TEMP 97.7
== END 2025-03-05 16:50 | disposition home health service (06) | DRG 640 ==
LOC: JER 06:39 → JERBED 10:58 → OBSVTOIN 12:50 → J4S 16:29
PROVIDERS: ADMIT Internal Medicine; ATTEND Internal Medicine
PROC: 5A1D70Z Performance of Urinary Filtration, Intermittent, Less than 6 Hours Per Day (ICD-10-PCS; principal; 2025-03-05)
DX: E87.5 Hyperkalemia (principal); N18.6 End stage renal disease; I13.2 Hypertensive heart and chronic kidney disease with heart failure and with stage 5 chronic kidney disease, or end stage renal disease; E11.42 Type 2 diabetes mellitus with diabetic polyneuropathy; I50.9 Heart failure, unspecified; Z99.2 Dependence on renal dialysis; E11.22 Type 2 diabetes mellitus with diabetic chronic kidney disease; E11.51 Type 2 diabetes mellitus with diabetic peripheral angiopathy without gangrene; E78.5 Hyperlipidemia, unspecified
CPT/HCPCS: 36415; 80053; 82962; 83036; 83735; 84100; 85025; 85027; 86704; 86803; 87340; 87389; 87517; 93005; 93010; 97116-GP; 97161-GP; 99291; G0378

== ENCOUNTER 2025-04-02 20:20 | Inpatient (IN) | payer OTHER ==
[2025-04-02 20:56] VITALS: BMI 33.2
[2025-04-02] MEDS ORDERED: MORPHINE SULFATE 2 MG/ML SYRINGE ONE (21:48)
[2025-04-02] MEDS ORDERED: ACETAMINOPHEN INJECTION 100 ML ONE (21:49)
[2025-04-02] MEDS: ACETAMINOPHEN 500 MG TABLET (FP) PO ONE (22:03)
[2025-04-02] MEDS: ACETAMINOPHEN 1000 MG/100 ML BAG IVPB ONE (22:04)
[2025-04-02] MEDS: morphine CARPU-JECT 2 MG/1 ML DISP.SYRIN IVPUSH ONE (22:04)
[2025-04-02 22:08] LABS: ABSOLUTE IMMATURE GRANULOCYTES 0.06 x10^3/uL (0.0-0.031); BASOPHILS # 0.05 x10^3/uL (0.01-0.08); EOSINOPHIL % 1.1 % (0.7-5.8); EOSINOPHILS # 0.12 x10^3/uL (0.04-0.36); MCHC 31.4 g/dl (32.2-35.5); MEAN CELL VOLUME 83.8 fl (79.4-94.8); MEAN PLT VOLUME 11.1 fl (9.4-12.3); MONOCYTE # 0.53 x10^3/uL (0.24-0.86); MONOCYTE % 4.7 % (4.7-12.5); RDW 14.7 % (12.4-16.6)
[2025-04-02 22:25] LABS: GLUCOSE,RANDOM 405 mg/dL (74-106); TOT PROT 7.5 g/dl (6.4-8.2)
[2025-04-02 22:26] LABS: CO2 30 mmol/L (21-32)
[2025-04-02 22:27] LABS: ALK PHOS 77 U/L (40-150)
[2025-04-02 22:30] LABS: SGOT/AST 13 U/L (5-34); SGPT/ALT 12 U/L (0-55)
[2025-04-02 22:31] LABS: CREATININE 5.52 mg/dL (0.55-1.3)
[2025-04-02 22:51] LABS: HCV DIAGNOSTIC IN-HOUSE W/RFLX NON-REACTIVE (NONREACTIVE)
[2025-04-02 22:52] LABS: HIV INTERPRETATION NEGATIVE (NEGATIVE)
[2025-04-03] MEDS ORDERED: MORPHINE SULFATE 2 MG/ML SYRINGE ONE ×3 (02:57→16:22)
[2025-04-03] MEDS ORDERED: ACETAMINOPHEN 1000 MG/100 ML BAG IVPB PRN (03:00)
[2025-04-03] MEDS: morphine CARPU-JECT 2 MG/1 ML DISP.SYRIN IVPUSH PRN (03:05)
[2025-04-03] MEDS ORDERED: SODIUM CHLORIDE 1,000 ML IV SCH (08:45)
[2025-04-03 09:01] LABS: ABSOLUTE IMMATURE GRANULOCYTES 0.06 x10^3/uL (0.0-0.031); BASOPHILS # 0.05 x10^3/uL (0.01-0.08); EOSINOPHIL % 1.3 % (0.7-5.8); EOSINOPHILS # 0.18 x10^3/uL (0.04-0.36); MCHC 31.0 g/dl (32.2-35.5); MEAN CELL VOLUME 83.8 fl (79.4-94.8); MEAN PLT VOLUME 11.3 fl (9.4-12.3); MONOCYTE # 0.88 x10^3/uL (0.24-0.86); MONOCYTE % 6.3 % (4.7-12.5); RDW 14.6 % (12.4-16.6)
[2025-04-03] MEDS ORDERED: FAMOTIDINE 20 MG/50 ML IVPB 20 MG/50 ML MG IVPB ONE (10:00)
[2025-04-03] MEDS ORDERED: CLOPIDOGREL BISULFATE 75 MG TABLET (FP) PO SCH (10:00)
[2025-04-03] MEDS ORDERED: CARVEDILOL 25 MG TABLET (FP) ONE (10:03)
[2025-04-03 10:07] LABS: CO2 27.0 mmol/L (21-32); CREATININE 6.07 mg/dL (0.55-1.3); GLUCOSE,RANDOM 141.0 mg/dL (74-106)
[2025-04-03] MEDS: CARVEDILOL 25 MG TABLET (FP) PO SCH (10:07)
[2025-04-03] MEDS: amLODIPine BESYLATE 5 MG TABLET (FP) PO SCH (10:08)
[2025-04-03] MEDS: FAMOTIDINE 20 MG/50 ML IVPB 20 MG/50 ML MG IVPB ONE (10:08)
[2025-04-03 10:48] LABS: ERYTHROCYTE SEDIMENTATION RATE 60 mm/hr (0-30)
[2025-04-03] MEDS: HEPARIN NA (PORCINE) 5,000 UNITS/ML 1ML VIAL SQ SCH (12:42)
[2025-04-03] MEDS: INSULIN ASPART SLIDING SCALE (NOVOLOG) 1 VIAL SQ SCH (12:42)
[2025-04-03 18:55] LABS: INR 1.06 (0.83-1.09); PROTHROMBIN TIME (PATIENT) 11.5 SEC (9.7-13.0)
[2025-04-03] MEDS ORDERED: SODIUM CHLORIDE 250 ML IV PRN (19:02)
[2025-04-03] MEDS: EPOETIN ALFA-EPBX 4,000 UNIT/ML VIAL SQ ONE (19:34)
[2025-04-03] MEDS: ATORVASTATIN CA 10 MG TABLET (FP) PO SCH (23:15)
[2025-04-04 07:51] LABS: MCHC 30.9 g/dl (32.2-35.5); MEAN CELL VOLUME 84.4 fl (79.4-94.8); MEAN PLT VOLUME 11.3 fl (9.4-12.3); RDW 14.9 % (12.4-16.6)
[2025-04-04] MEDS ORDERED: PROMETHAZINE HCL 25 MG/1 ML VIAL IVPB PRN ×2 (08:20→11:27)
[2025-04-04] MEDS ORDERED: ONDANSETRON 4 MG/2 ML VIAL IVPUSH PRN ×2 (08:20→11:27)
[2025-04-04] MEDS ORDERED: LACTATED RINGERS SOLUTION 1,000 ML IV SCH (08:30)
[2025-04-04 08:32] LABS: GLUCOSE,RANDOM 250.0 mg/dL (74-106); TOT PROT 6.6 g/dl (6.4-8.2)
[2025-04-04 08:33] LABS: CO2 28.0 mmol/L (21-32)
[2025-04-04] MEDS ORDERED: LIDOCAINE HCL/PF 2% SDV 5ML VIAL ONE (08:33)
[2025-04-04] MEDS ORDERED: MIDAZOLAM HCL 2 MG/2 ML SINGLE DOSE VIAL ONE (08:34)
[2025-04-04] MEDS ORDERED: ROCURONIUM BROMIDE 50 MG/5 ML SYRINGE ONE (08:34)
[2025-04-04] MEDS ORDERED: PROPOFOL 20 ML ONE (08:34)
[2025-04-04 08:35] LABS: ALK PHOS 65.0 U/L (40-150)
[2025-04-04 08:38] LABS: CREATININE 5.13 mg/dL (0.55-1.3); SGOT/AST 12.0 U/L (5-34); SGPT/ALT 7.0 U/L (0-55)
[2025-04-04] MEDS ORDERED: TRANEXAMIC ACID 1000 MG/10 ML VIAL ONE (09:20)
[2025-04-04] MEDS: PANTOPRAZOLE 40 MG TABLET PO SCH (09:52)
[2025-04-04] MEDS ORDERED: SUGAMMADEX SODIUM 200 MG/2 ML VIAL ONE (10:33)
[2025-04-04] MEDS ORDERED: ONDANSETRON 4 MG/2 ML VIAL ONE (10:35)
[2025-04-04] MEDS ORDERED: SODIUM CHLORIDE 250 ML IV PRN (11:27)
[2025-04-04] MEDS: ACETAMINOPHEN 1000 MG/100 ML BAG IVPB SCH (16:43)
[2025-04-04] MEDS: INSULIN ASPART SLIDING SCALE (NOVOLOG) 1 VIAL SQ SCH (16:55)
[2025-04-04] MEDS: CEFAZOLIN 500 MG in DEXTROSE 5%-WATER - 50 ML IVPB SCH (19:55)
[2025-04-04] MEDS ORDERED: CEFAZOLIN 500 MG in DEXTROSE 5%-WATER - 50 ML IVPB SCH ×2 (20:00→22:00)
[2025-04-04] MEDS: CARVEDILOL 25 MG TABLET (FP) PO SCH (21:09)
[2025-04-04] MEDS: HEPARIN NA (PORCINE) 5,000 UNITS/ML 1ML VIAL SQ SCH (21:10)
[2025-04-04] MEDS: ATORVASTATIN CA 10 MG TABLET (FP) PO SCH (21:10)
[2025-04-05 08:06] LABS: GLUCOSE,RANDOM 199.0 mg/dL (74-106)
[2025-04-05 08:07] LABS: CO2 25.0 mmol/L (21-32)
[2025-04-05 08:08] LABS: MCHC 30.4 g/dl (32.2-35.5); MEAN CELL VOLUME 85.0 fl (79.4-94.8); MEAN PLT VOLUME 11.5 fl (9.4-12.3); RDW 15.1 % (12.4-16.6)
[2025-04-05 08:11] LABS: CREATININE 7.13 mg/dL (0.55-1.3)
[2025-04-05] MEDS: ASPIRIN COATED 81 MG TABLET.EC PO SCH (10:28)
[2025-04-05] MEDS: CLOPIDOGREL BISULFATE 75 MG TABLET (FP) PO SCH (10:28)
[2025-04-05] MEDS: PANTOPRAZOLE 40 MG TABLET PO SCH (10:29)
[2025-04-05] MEDS: amLODIPine BESYLATE 5 MG TABLET (FP) PO SCH (10:29)
[2025-04-05] MEDS: morphine CARPU-JECT 2 MG/1 ML DISP.SYRIN IVPUSH PRN (13:48)
[2025-04-06 08:26] LABS: ABSOLUTE IMMATURE GRANULOCYTES 0.07 x10^3/uL (0.0-0.031); BASOPHILS # 0.03 x10^3/uL (0.01-0.08); EOSINOPHIL % 0.1 % (0.7-5.8); EOSINOPHILS # 0.02 x10^3/uL (0.04-0.36); MCHC 31.1 g/dl (32.2-35.5); MEAN CELL VOLUME 84.1 fl (79.4-94.8); MEAN PLT VOLUME 11.7 fl (9.4-12.3); MONOCYTE # 0.92 x10^3/uL (0.24-0.86); MONOCYTE % 6.1 % (4.7-12.5); RDW 15.3 % (12.4-16.6)
[2025-04-06 09:35] LABS: IRON SERUM 23.0 ug/dL (50-175)
[2025-04-06] MEDS: IRON SUCROSE INJECTION 200 MG in SODIUM CHLORIDE 100 ML IVPB ONE (10:39)
[2025-04-06] MEDS ORDERED: SODIUM CHLORIDE 250 ML IV PRN (13:46)
[2025-04-06] MEDS: EPOETIN ALFA-EPBX 10,000 UNIT/ML VIAL SQ ONE (15:59)
[2025-04-06] MEDS: ACETAMINOPHEN 1000 MG/100 ML BAG IVPB PRN (21:51)
[2025-04-07 07:35] LABS: ABSOLUTE IMMATURE GRANULOCYTES 0.05 x10^3/uL (0.0-0.031); BASOPHILS # 0.02 x10^3/uL (0.01-0.08); EOSINOPHIL % 0.7 % (0.7-5.8); EOSINOPHILS # 0.10 x10^3/uL (0.04-0.36); MCHC 31.3 g/dl (32.2-35.5); MEAN CELL VOLUME 84.8 fl (79.4-94.8); MEAN PLT VOLUME 11.5 fl (9.4-12.3); MONOCYTE # 1.34 x10^3/uL (0.24-0.86); MONOCYTE % 9.9 % (4.7-12.5); RDW 15.4 % (12.4-16.6)
[2025-04-07] MEDS ORDERED: SODIUM CHLORIDE 250 ML IV PRN (13:37)
[2025-04-07] MEDS: ACETAMINOPHEN 500 MG TABLET (FP) PO ONE (22:45)
[2025-04-08 08:01] LABS: MCHC 30.7 g/dl (32.2-35.5); MEAN CELL VOLUME 84.3 fl (79.4-94.8); MEAN PLT VOLUME 11.4 fl (9.4-12.3); RDW 15.8 % (12.4-16.6)
[2025-04-08] MEDS: ACETAMINOPHEN 325 MG TABLET (FP) PO PRN (12:30)
[2025-04-08] MEDS: EPOETIN ALFA-EPBX 10,000 UNIT/ML VIAL IVPUSH ONE (12:45)
[2025-04-08] MEDS ORDERED: IRON SUCROSE INJECTION 100 MG in SODIUM CHLORIDE 95 ML IVPB ONE (13:37)
[2025-04-08 21:36] VITALS: RESP 18
[2025-04-09 10:32] VITALS: BP 151/58; PULSE 65; TEMP 98.1
== END 2025-04-09 11:30 | DRG 492 ==
LOC: JER 20:20 → JERBED 04-03 00:03 → J6S 04-03 21:03
PROVIDERS: ADMIT Internal Medicine; ATTEND Internal Medicine
PROC: 5A1D70Z Performance of Urinary Filtration, Intermittent, Less than 6 Hours Per Day (ICD-10-PCS; 2025-04-03)
PROC: 0QSJXZZ Reposition Right Fibula, External Approach (ICD-10-PCS; 2025-04-04)
PROC: 0QSG34Z Reposition Right Tibia with Internal Fixation Device, Percutaneous Approach (ICD-10-PCS; principal; 2025-04-04 08:00)
DX: S82.201A Unspecified fracture of shaft of right tibia, initial encounter for closed fracture (principal); N18.6 End stage renal disease; I50.32 Chronic diastolic (congestive) heart failure; S82.401A Unspecified fracture of shaft of right fibula, initial encounter for closed fracture; E11.22 Type 2 diabetes mellitus with diabetic chronic kidney disease; E11.65 Type 2 diabetes mellitus with hyperglycemia; Z99.2 Dependence on renal dialysis; E11.51 Type 2 diabetes mellitus with diabetic peripheral angiopathy without gangrene; E78.5 Hyperlipidemia, unspecified; I35.0 Nonrheumatic aortic (valve) stenosis; D64.9 Anemia, unspecified; W19.XXXA Unspecified fall, initial encounter; Y93.89 Activity, other specified; Y99.8 Other external cause status; Y92.009 Unspecified place in unspecified non-institutional (private) residence as the place of occurrence of the external cause
CPT/HCPCS: 36415; 71045-TC-FY; 73562-TC-RT-FY; 73590-TC-RT-FY; 73610-TC-RT-FY; 73630-TC-RT-FY; 73700-TC-RT; 76000-TC-FY; 80048; 80053; 82728; 82962; 83036; 83540; 83550; 85025; 85027; 85610; 85651; 86140; 86704; 86707; 86803; 86850; 86900; 86901; 87350; 87389; 94760; 97116-GP; 99285-25; C1713; J1756; Q5106